=== PATIENT | female | born 1990 | race Caucasian/White ===

== ENCOUNTER 2016-11-23 22:04 | Emergency (ER) | payer MEDICAID ==
[2016-11-23 22:23] VITALS: BP 106/75
--- NOTE | 2016-11-23 22:35 | EDM.PDOC ---
ED HPI GENERAL MEDICAL PROBLEM - General Chief Complaint: Bite:Animal, Insect Stated Complaint: DOG BITE ON RIGHT THUMB Time Seen by Provider: 11/23/16 22:35 - History of Present Illness INITIAL COMMENTS - FREE TEXT/NARRATIVE: 26-year-old female presents to emergency room with an injury to her right thumb. Last evening patient was hit by one of her own dogs that was in an altercation with one of her other dogs. She was bit across the into the right thumb. She has significant discomfort thumb. Pain is progressively gotten worse over time she's had increased swelling no significant redness. Patient denies any fevers or chills Right Hand Pain Score (Numeric/FACES): 8 - Related Data Allergies Allergy/AdvReac Type Severity Reaction Status Date / Time cefixime Allergy Hives Verified 11/23/16 22:18 guaifenesin [From Supress-PE] Allergy Airway Verified 06/17/15 17:04 Tightness ketorolac tromethamine Allergy Itching Verified 11/23/16 22:18 [From Toradol] metoclopramide HCl AdvReac Anxiety Verified 11/23/16 22:18 [From Reglan] prochlorperazine edisylate AdvReac Agitation Verified 11/23/16 22:18 [From Compazine] prochlorperazine maleate AdvReac Agitation Verified 11/23/16 22:18 [From Compazine] NUTS Allergy Airway Uncoded 11/23/16 22:18 Tightness Home Meds: Home Meds Albuterol Sulfate [Albuterol Sulfate HFA] 2 puff IH ASDIRECTED PRN 10/06/13 [ History] Albuterol Sulfate [Ventolin Hfa] 18 gm IH Q4H PRN #1 hfa.aer.ad 04/04/15 [Rx] Fluticasone/Salmeterol [Advair 250-50 Diskus] 1 puff INH BID 05/13/15 [History] Topiramate [Topamax] 50 mg PO BID 06/17/15 [History] Ondansetron [Zofran ODT] 4 mg PO Q6H PRN #15 tab.dis 06/28/15 [Rx] ClonazePAM [KlonoPIN] 1 mg PO BID 11/23/16 [History] Imipramine HCl 50 mg PO BEDTIME 11/23/16 [History] Montelukast [Singulair] 10 mg PO DAILY 11/23/16 [History] Omeprazole 40 mg PO DAILY 11/23/16 [History] PARoxetine HCl [Paxil] 30 mg PO DAILY 11/23/16 [History] Prazosin HCl [Prazosin] 4 mg PO BEDTIME 11/23/16 [History] traZODone 75 mg PO BEDTIME 11/23/16 [History] Amoxicillin/Clavulanate K [Augmentin 875 MG/125 MG] 1 tab PO Q12HR #14 tablet [Rx] Past Medical History - Past Health History Medical/Surgical History: Denies Medical/Surgical History Neurological History: Reports: Migraines Psychiatric History: Reports: Depression Other Endocrine/Metabolic History: Hypothyroidism-hasn't taken medication for a couple years - Past Surgical History Other HEENT Surgeries/Procedures: Sinus surgery GI Surgical History: Reports: Colonoscopy, EGD Female Surgical History: Reports: D&C, Other (See Below) Social & Family History - Tobacco Use Smoking Status *Q: Current Every Day Smoker Years of Tobacco use: 4 Packs/Tins Daily: 1 Used Tobacco, but Quit: No Second Hand Smoke Exposure: No - Alcohol Use Days Per Week of Alcohol Use: 0 - Recreational Drug Use Recreational Drug Use: No Recreational Drug Type: Reports: Other (see below) ED ROS GENERAL - Review of Systems Review Of Systems: See Below Constitutional: Reports: No Symptoms Respiratory: Reports: No Symptoms Cardiovascular: Reports: No Symptoms GI/Abdominal: Reports: No Symptoms ED EXAM, ANIMAL BITE - Physical Exam Exam: See Below Exam Limited By: No Limitations General Appearance: Alert, No Apparent Distress Respiratory/Chest: No Respiratory Distress, Lungs Clear, Normal Breath Sounds Cardiovascular: Regular Rate, Rhythm, No Edema, No Murmur Extremities: Other (Definition of her right thumb reveals no deep puncture wound she's got some abrasions over the dorsum of the interphalangeal joint she was bit across the nail plate and the nail plate feels loose. She has limited range of motion because of the pain. She has some numbness in the finger.) Course - Vital Signs Last Recorded V/S: Last Vital Signs Temp 36.6 C 11/23/16 22:18 Pulse 124 H 11/23/16 22:18 Resp 15 11/23/16 22:18 BP 106/75 11/23/16 22:18 Pulse Ox 100 11/23/16 22:18 - Orders/Labs/Meds Orders: Active Orders 24 hr Category Date Time Status Fingers Thumb Rt F5 [CR] Stat Exams 11/23/16 22:55 Taken Meds: Medications Discontinued Medications Generic Name Dose Route Start Last Admin Trade Name Suyapa PRN Reason Stop Dose Admin Amoxicillin/Clavulanate Potassium 1 tab 11/24/16 00:45 11/24/16 00:50 Augmentin 875 Mg/125 Mg PO 11/24/16 00:46 1 tab ONETIME ONE Administration - Re-Assessments/Exams Free Text/Narrative Re-Assessment/Exam: 11/23/16 23:00 With her limited range of motion we will check an x-ray 11/24/16 01:08 X-ray showed distal phalanx fracture proximal radial margin it looks a lot little peculiar on the palmar aspect so I had V rad look at this. 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 Patient will be placed in a thumb spica splint and will do Don soap and warm water soaks 4 times a day. Departure - Departure Time of Disposition: 01:10 Disposition: Home, Self-Care 01 Clinical Impression: Dog bite of right thumb, Fracture of distal phalanx of right thumb - Discharge Information Referrals: Michi Alcazar MD [Primary Care Provider] - Jh Colin MD [Physician] - Forms: ED Department Discharge Additional Instructions: Return to the emergency room with any questions or problems. Follow-up with Dr. Colin on . You've been started on Augmentin this is an antibiotic take 1 twice daily until all gone your prescription should be waiting for you at [facility]. Keep your hand elevated as much as you can. Do warm water soaks with Radha liquid 4 times daily. Wear the splint all the time unless you're doing soaks. Ibuprofen as needed for discomfort. - My Orders Last 24 Hours: My Active Orders 11/23/16 22:55 Fingers Thumb Rt F5 [CR] Stat - Assessment/Plan Last 24 Hours: My Active Orders 11/23/16 22:55 Fingers Thumb Rt F5 [CR] Stat
[2016-11-24] MEDS ORDERED: Amoxicillin/Clavulanate K 875-125 MG Tab PO ONE (00:45)
--- NOTE | 2016-11-24 09:36 | CR ---
Right thumb: Three views of the right thumb were obtained. Small corner fracture identified within the base of the distal phalanx. Minimal articular extension is seen. No additional fracture or other bony abnormality is seen. Soft tissue swelling is identified. Impression: 1. Nondisplaced corner fracture within the base of the distal phalanx of the right thumb. 2. Soft tissue swelling. Diagnostic code #3 Agree with preliminary report issued by [facility] ([facility] preliminary report dictated on 11/24/16, 1:29 AM Central Time)
== END 2016-11-24 01:18 | disposition home or self-care (01) ==
LOC: JD.ED 22:04
DX: S62.521A Displaced fracture of distal phalanx of right thumb, initial encounter for closed fracture (principal); S61.051A Open bite of right thumb without damage to nail, initial encounter; G43.909 Migraine, unspecified, not intractable, without status migrainosus; F32.9 Major depressive disorder, single episode, unspecified; E03.9 Hypothyroidism, unspecified; F17.210 Nicotine dependence, cigarettes, uncomplicated; Z79.899 Other long term (current) drug therapy; Z88.1 Allergy status to other antibiotic agents; Z88.6 Allergy status to analgesic agent; Z88.8 Allergy status to other drugs, medicaments and biological substances; W54.1XXA Struck by dog, initial encounter; W54.0XXA Bitten by dog, initial encounter
CPT/HCPCS: 29125; 73140; 99283; A9270

== ENCOUNTER 2017-01-28 21:55 | Emergency (ER) | payer MEDICAID ==
[2017-01-28 22:06] VITALS: BP 134/98
--- NOTE | 2017-01-28 22:59 | EDM.PDOC ---
ED HPI GENERAL MEDICAL PROBLEM - General Chief Complaint: Abdominal Pain Stated Complaint: RIGHT SIDE PAIN Time Seen by Provider: 01/28/17 23:11 Source of Information: Reports: Patient History Limitations: Reports: No Limitations - History of Present Illness INITIAL COMMENTS - FREE TEXT/NARRATIVE: 27-year-old female presents to the ED with epigastric right upper quadrant abdominal pain radiating along the right costal margin into the subscapular area on the right side. Associated nausea and vomiting all day today. She been having intermittent similar type pains for the last couple of weeks but much worse the last 48 hours. She's had ultrasound of her gallbladder done 2-3 years ago and no stones were identified. HIDA scan apparently revealed a low value but she never pursued cholecystectomy. And vomiting most of the day and unable to keep down anything for pain relief. Emesis is bilious without bile. States her bowel function is otherwise been normal. She has a history of constipation. Previous surgery includes laparoscopic appendectomy. She also feels she may have a urinary tract infection as she has dysuria and the urine is quite cloudy but not foul smelling. Denies fever but has had some chills. She rarely drinks alcohol. Perhaps once or twice a year. Onset: Today Onset Date: 01/28/17 Onset Time: 07:00 Duration: Hour(s):, Getting Worse Location: Reports: Abdomen (Epigastrium right upper quadrant and then rating around to the right subscapular area.) Quality: Reports: Ache, Pressure, Stabbing Severity: Moderate (To severe at times.) Improves with: Reports: None Worsens with: Reports: Other (Trying to eat she vomits usually within 10 minutes ) Context: Denies: Activity, Exercise, Lifting, Sick Contact, Trauma, Other Associated Symptoms: Reports: Fever/Chills, Loss of Appetite, Malaise, Nausea/ Vomiting. 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) Right Abdominal Pain Score (Numeric/FACES): 8 - Related Data Allergies Allergy/AdvReac Type Severity Reaction Status Date / Time cefixime Allergy Hives Verified 01/28/17 22:03 guaifenesin [From Supress-PE] Allergy Airway Verified 01/28/17 22:03 Tightness ketorolac tromethamine Allergy Itching Verified 01/28/17 22:03 [From Toradol] metoclopramide HCl AdvReac Anxiety Verified 01/28/17 22:03 [From Reglan] prochlorperazine edisylate AdvReac Agitation Verified 01/28/17 22:03 [From Compazine] prochlorperazine maleate AdvReac Agitation Verified 01/28/17 22:03 [From Compazine] NUTS Allergy Airway Uncoded 01/28/17 22:03 Tightness Home Meds: Home Meds Albuterol Sulfate [Albuterol Sulfate HFA] 2 puff IH ASDIRECTED PRN 10/06/13 [ History] Albuterol Sulfate [Ventolin Hfa] 18 gm IH Q4H PRN #1 hfa.aer.ad 04/04/15 [Rx] Fluticasone/Salmeterol [Advair 250-50 Diskus] 1 puff INH BID 05/13/15 [History] Topiramate [Topamax] 50 mg PO BID 06/17/15 [History] Ondansetron [Zofran ODT] 4 mg PO Q6H PRN #15 tab.dis 06/28/15 [Rx] ClonazePAM [KlonoPIN] 0.5 mg PO BID 11/23/16 [History] Imipramine HCl 50 mg PO BEDTIME 11/23/16 [History] Montelukast [Singulair] 10 mg PO DAILY 11/23/16 [History] Omeprazole 40 mg PO DAILY 11/23/16 [History] PARoxetine HCl [Paxil] 20 mg PO DAILY 11/23/16 [History] Prazosin HCl [Prazosin] 4 mg PO BEDTIME 11/23/16 [History] Past Medical History - Past Health History Medical/Surgical History: Denies Medical/Surgical History Neurological History: Reports: Migraines Psychiatric History: Reports: Depression, PTSD Other Endocrine/Metabolic History: Hypothyroidism-hasn't taken medication for a couple years - Past Surgical History Other HEENT Surgeries/Procedures: Sinus surgery GI Surgical History: Reports: Colonoscopy, EGD Female Surgical History: Reports: D&C, Other (See Below) Social & Family History - Tobacco Use Smoking Status *Q: Former Smoker Years of Tobacco use: 8 Packs/Tins Daily: 0.5 Used Tobacco, but Quit: No Month Tobacco Last Used: december Second Hand Smoke Exposure: No - Alcohol Use Days Per Week of Alcohol Use: 0 - Recreational Drug Use Recreational Drug Use: No Recreational Drug Type: Reports: Other (see below) - Living Situation & Occupation Living situation: Reports: Single Occupation: Employed ED ROS GENERAL - Review of Systems Review Of Systems: See Below Constitutional: Reports: Chills, Malaise, Fatigue, Decreased Appetite. Denies: Fever, Diaphoresis, Weight Loss HEENT: Reports: No Symptoms Respiratory: Reports: No Symptoms, Other Cardiovascular: Reports: No Symptoms (Deep breathing hurts her right upper quadrant of the abdomen.) Endocrine: Reports: No Symptoms GI/Abdominal: Reports: Abdominal Pain, Decreased Appetite, Nausea, Vomiting ( Intractable nausea and vomiting 16 hours). Denies: Constipation (See history of present illness), Diarrhea, Difficulty Swallowing, Distension, Flatus, Hematemesis, Hematochezia, Melena, Mucous in Stool : Reports: Other (Urine is noted to be dark and cloudy but not foul-smelling.) Musculoskeletal: Reports: Back Pain (Under her right scapula.) Skin: Reports: No Symptoms Neurological: Reports: No Symptoms Psychiatric: Reports: No Symptoms, Depression (Chronic.) Hematologic/Lymphatic: Reports: No Symptoms Immunologic: Reports: No Symptoms ED EXAM, GI/ABD - Physical Exam Exam: See Below Exam Limited By: No Limitations General Appearance: Alert, WD/WN, No Apparent Distress, Other Eyes: Right: Normal Appearance (Afebrile on exam) Throat/Mouth: Normal Inspection, Normal Lips, Normal Oropharynx, Other Head: Atraumatic, Normocephalic (Tongue is still moist) Neck: Normal Inspection, Supple, Non-Tender, Full Range of Motion. No: Lymphadenopathy (L), Lymphadenopathy (R) Respiratory/Chest: No Respiratory Distress, Lungs Clear, Normal Breath Sounds, No Accessory Muscle Use, Chest Non-Tender Cardiovascular: Normal Peripheral Pulses, Regular Rate, Rhythm, No Edema, No Gallop, No Murmur, No Rub, Tachycardia (Resting tachycardia at 10 4/m.) GI/Abdominal Exam: Tender, Abnormal Bowel Sounds (Mildly decreased from the norm.). No: Guarding, Rigid (Epigastrium a quadrant with a positive Rosado sign. No guarding or rebound.), Rebound Back Exam: CVA Tenderness (R). No: CVA Tenderness (L) (Mild.), Decreased Range of Motion, Muscle Spasm Extremities: Normal Inspection, Normal Range of Motion, Non-Tender, No Pedal Edema Neurological: Alert, Oriented, CN II-XII Intact, Normal Cognition, Normal Gait Psychiatric: Normal Affect, Normal Mood Skin Exam: Warm, Dry, Intact, Normal Color, No Rash Course - Vital Signs Last Recorded V/S: Last Vital Signs Temp 36.4 C 01/28/17 22:03 Pulse 105 H 01/29/17 00:53 Resp 16 01/29/17 00:53 BP 134/98 H 01/28/17 22:03 Pulse Ox 100 01/29/17 00:53 - Orders/Labs/Meds Orders: Active Orders 24 hr Category Date Time Status Abdomen 1V Flat [CR] Stat Exams 01/28/17 23:24 Taken Abdomen Ltd [US] Stat Exams 01/28/17 23:14 Taken Blood Culture x2 Reflex Set [OM.PC] Stat Oth 01/28/17 23:13 Ordered Labs: Laboratory Tests 01/28/17 01/28/17 01/28/17 Range/Units 23:18 23:18 23:32 WBC 9.61 (3.98-10.04) K/mm3 RBC 4.38 (3.98-5.22) M/mm3 Hgb 13.0 (11.2-15.7) gm/L Hct 36.7 (34.1-44.9) % MCV 83.8 (79.4-94.8) fl MCH 29.7 (25.6-32.2) pg MCHC 35.4 (32.2-35.5) g/dl RDW Std Deviation 41.3 (36.4-46.3) fL Plt Count 280 (182-369) K/mm3 MPV 8.9 L (9.4-12.3) fl Neutrophils % (Manual) 60 (40-60) % Band Neutrophils % 0 (0-10) % Lymphocytes % (Manual) 29 (20-40) % Atypical Lymphs % 3 % Monocytes % (Manual) 5 (2-10) % Eosinophils % (Manual) 3 (0.7-5.8) % Basophils % (Manual) 0 L (0.1-1.2) Platelet Estimate Adequate Plt Morphology Comment Normal RBC Morph Comment Normal Sodium (136-145) mEq/L Potassium (3.5-5.1) mEq/L Chloride (98-107) mEq/L Carbon Dioxide (21-32) mEq/L Anion Gap (5-15) BUN (7-18) mg/dL Creatinine (0.55-1.02) mg/dL Est Cr Clr Drug Dosing mL/min Estimated GFR (MDRD) (>60) mL/min BUN/Creatinine Ratio (14-18) Glucose (74-106) mg/dL Calcium (8.5-10.1) mg/dL Total Bilirubin (0.2-1.0) mg/dL AST (15-37) U/L ALT (14-59) U/L Alkaline Phosphatase (46-116) U/L C-Reactive Protein (<1.0) mg/dL Total Protein (6.4-8.2) g/dl Albumin (3.4-5.0) g/dl Globulin gm/dL Albumin/Globulin Ratio (1-2) Lipase (73-393) U/L Urine Color Yellow (Yellow) Urine Appearance Clear (Clear) Urine pH 8.5 H (5.0-8.0) Ur Specific Fithian 1.020 (1.005-1.030) Urine Protein Trace H (Negative) Urine Glucose (UA) Negative (Negative) Urine Ketones Negative (Negative) Urine Occult Blood Negative (Negative) Urine Nitrite Negative (Negative) Urine Bilirubin Negative (Negative) Urine Urobilinogen 0.2 (0.2-1.0) Ur Leukocyte Esterase Negative (Negative) Urine RBC 0-5 (0-5) /hpf Urine WBC 0-5 (0-5) /hpf Ur Epithelial Cells 0-5 (0-5) /hpf Urine Bacteria Rare (FEW) /hpf Urine Mucus Few (FEW) /hpf Urine HCG, Qual Negative (NEGATIVE) 01/28/17 Range/Units 23:32 WBC (3.98-10.04) K/mm3 RBC (3.98-5.22) M/mm3 Hgb (11.2-15.7) gm/L Hct (34.1-44.9) % MCV (79.4-94.8) fl MCH (25.6-32.2) pg MCHC (32.2-35.5) g/dl RDW Std Deviation (36.4-46.3) fL Plt Count (182-369) K/mm3 MPV (9.4-12.3) fl Neutrophils % (Manual) (40-60) % Band Neutrophils % (0-10) % Lymphocytes % (Manual) (20-40) % Atypical Lymphs % % Monocytes % (Manual) (2-10) % Eosinophils % (Manual) (0.7-5.8) % Basophils % (Manual) (0.1-1.2) Platelet Estimate Plt Morphology Comment RBC Morph Comment Sodium 140 (136-145) mEq/L Potassium 3.7 (3.5-5.1) mEq/L Chloride 106 (98-107) mEq/L Carbon Dioxide 23 (21-32) mEq/L Anion Gap 14.7 (5-15) BUN 13 (7-18) mg/dL Creatinine 1.0 (0.55-1.02) mg/dL Est Cr Clr Drug Dosing 64.33 mL/min Estimated GFR (MDRD) > 60 (>60) mL/min BUN/Creatinine Ratio 13.0 L (14-18) Glucose 101 (74-106) mg/dL Calcium 9.2 (8.5-10.1) mg/dL Total Bilirubin 0.7 (0.2-1.0) mg/dL AST 21 (15-37) U/L ALT 30 (14-59) U/L Alkaline Phosphatase 50 (46-116) U/L C-Reactive Protein < 0.2 (<1.0) mg/dL Total Protein 7.4 (6.4-8.2) g/dl Albumin 4.1 (3.4-5.0) g/dl Globulin 3.3 gm/dL Albumin/Globulin Ratio 1.2 (1-2) Lipase 97 (73-393) U/L Urine Color (Yellow) Urine Appearance (Clear) Urine pH (5.0-8.0) Ur Specific Fithian (1.005-1.030) Urine Protein (Negative) Urine Glucose (UA) (Negative) Urine Ketones (Negative) Urine Occult Blood (Negative) Urine Nitrite (Negative) Urine Bilirubin (Negative) Urine Urobilinogen (0.2-1.0) Ur Leukocyte Esterase (Negative) Urine RBC (0-5) /hpf Urine WBC (0-5) /hpf Ur Epithelial Cells (0-5) /hpf Urine Bacteria (FEW) /hpf Urine Mucus (FEW) /hpf Urine HCG, Qual (NEGATIVE) Meds: Medications Discontinued Medications Generic Name Dose Route Start Last Admin Trade Name Suyapa PRN Reason Stop Dose Admin Hydromorphone HCl 0.5 mg 01/28/17 23:12 01/28/17 23:26 Dilaudid IVPUSH 01/28/17 23:13 0.5 mg ONETIME ONE Administration Hydromorphone HCl 0.5 mg 01/29/17 00:26 01/29/17 00:38 Dilaudid IVPUSH 01/29/17 00:27 0.5 mg ONETIME ONE Administration Dextrose/Sodium Chloride 1,000 mls @ 999 mls/hr 01/28/17 23:15 01/28/17 23:27 Dextrose 5%-Normal Saline IV 999 mls/hr ASDIRECTED BRYAN Administration Magnesium Citrate 300 ml 01/29/17 00:44 01/29/17 00:50 Citrate Of Magnesia PO 01/29/17 00:45 300 ml ONETIME ONE Administration Ondansetron HCl 4 mg 01/28/17 23:12 01/28/17 23:25 Zofran IVPUSH 01/28/17 23:13 4 mg ONETIME ONE Administration - Radiology Interpretation Free Text/Narrative:: 27-year-old female presents to the ED with diffuse epigastric right upper quadrant abdominal pain that's been present all day today. She awoke with this this morning. She's been having intermittent similar type pain for the last couple of weeks suggestive of biliary colic. Unable to keep anything down to day. Emesis is been bilious. She's had previous ultrasounds but 2-3 years ago that never did diagnose a cholelithiasis. Biliary HIDA scan did suggest a low rate of flow but she opted not to have cholecystectomy. Exam reveals tenderness epigastric right upper quadrant with a positive Rosado's sign which is mild. I' ll sounds are few and far between. No guarding or evidence of peritonitis. Plan IV D5 normal saline at open. Given Dilaudid 0.5 mg IV with Zofran 4 mg IV for nausea and pain relief. One view of the abdomen will be obtained as well as an ultrasound of her gallbladder. T labs including a serum lipase and CRP. - Re-Assessments/Exams Free Text/Narrative Re-Assessment/Exam: 01/29/17 00:29 labs are back. Total white count of 9.61 hemoglobin of 13.0 hematocrit of 36.7 platelets 280,000. Urinalysis normal or negative. Sodium 140 potassium 3.7 portable 6 bicarbonate 23 and a gap is 14.7 glucose 101 CRP was less than 0.2 lipase 97. She has completed her abdominal gallbladder ultrasound. Radiology report is pending. She is having more pain at this time and was given repeat Dilaudid 0.5 mg IV. 01/29/17 00:32 gallbladder ultrasound has been completed in my assessment there are no stones within the gallbladder and no extra hepatic hepatic ductal dilatation. KUB reveals extensive stool throughout the left hemicolon and rectum. There is also large amount of air or gas and stool in the right upper quadrant of the abdomen where her pain is present. She will be treated with Citroma 10 ounces by mouth mixed with 5 ounces of juice of choice provide bowel cleanse. Departure - Departure Time of Disposition: 00:45 Disposition: Home, Self-Care 01 Condition: Fair Clinical Impression: Constipation by delayed colonic transit Abdominal pain Qualifiers: Abdominal location: right upper quadrant Qualified Code(s): R10.11 - Right upper quadrant pain - Discharge Information Instructions: Constipation, Adult, [id number] Referrals: Michi Alcazar MD [Primary Care Provider] - Forms: ED Department Discharge Additional Instructions: Evaluation in the emergency room tonight carried out due to persistent right upper quadrant abdominal pain radiating through to her back under her shoulder blade suggestive of allergic colic or gallbladder related illness. Lab work turned out to be completely normal with a normal white count at 9.61 normal hemoglobin and normal chemistry with no evidence of liver or pancreas inflammation. Markers for infection were also normal. Urinalysis also proved to be negative for any signs of infection. An x-ray of your abdomen revealed a large bowel gas and stool in the right upper quadrant pushing the right diaphragm upwards which I believe is the cause of your pain. It did reveal a large amount of stool throughout the left hemicolon all the way down into the rectal vault. Therefore the major problem is constipation with strong colicky pain with the gas trying to get from the right upper quadrant through to the rectum. An ultrasound of your gallbladder and liver and kidney were carried out and are completely normal. Treatment is therefore Citroma 10 ounces by mouth when you get home tonight with 5-6 ounces of juice of choice by mouth. This will usually take 3-4 hours to work because of the medication he received in the emergency room for pain relief. Bowels will usually move 3 or 4 times over the next 8 hours. This should provide relief of your abdominal pain. Several of your medications are prone to causing your bowel to work slowly. I would suggest staying on MiraLAX powder 17 g or 1 scoop daily to try and prevent constipation which is been a chronic problem for you. - My Orders Last 24 Hours: My Active Orders 01/28/17 23:13 Blood Culture x2 Reflex Set [OM.PC] Stat 01/28/17 23:14 Abdomen Ltd [US] Stat 01/28/17 23:24 Abdomen 1V Flat [CR] Stat - Assessment/Plan Last 24 Hours: My Active Orders 01/28/17 23:13 Blood Culture x2 Reflex Set [OM.PC] Stat 01/28/17 23:14 Abdomen Ltd [US] Stat 01/28/17 23:24 Abdomen 1V Flat [CR] Stat
[2017-01-28] MEDS ORDERED: HYDROmorphone 0.5 MG/0.5 ML Syringe IVPUSH ONE (23:12)
[2017-01-28] MEDS ORDERED: Ondansetron 4 MG/2 ML SDV IVPUSH ONE (23:12)
[2017-01-28] MEDS ORDERED: Dextrose 5%-0.9% NaCl 1,000 ML IV SCH (23:15)
[2017-01-29] MEDS ORDERED: HYDROmorphone 0.5 MG/0.5 ML Syringe IVPUSH ONE (00:26)
[2017-01-29] MEDS ORDERED: Magnesium Citrate Solution 296 ML Bottle PO ONE (00:44)
--- NOTE | 2017-01-29 07:25 | CR ---
Abdomen: Supine view of the abdomen was obtained. Comparison: Previous abdominal x-ray of 05/21/13. Mild increased stool is noted within the colon. Bowel gas pattern is otherwise unremarkable. Bony structures are within normal limits for the patient's age. No abnormal calcifications or soft tissue abnormality is seen. Impression: 1. Mild increased stool within the colon. Supine abdominal x-ray is otherwise unremarkable. Diagnostic code #2
--- NOTE | 2017-01-29 07:25 | US ---
Limited abdominal ultrasound: Multiple real-time images were obtained transabdominally. Comparison: Previous right upper quadrant abdominal ultrasound of 02/25/12 is available. Findings: Pancreas appears within normal limits. Liver shows no focal parenchymal abnormality. Gallbladder shows no gallstones. No gallbladder wall thickening or biliary duct dilatation is seen. Right kidney shows no hydronephrosis or mass and has a length of 9.4 cm. Impression: 1. No abnormality identified on right upper quadrant abdominal ultrasound. No change identified from prior exam. Diagnostic code #1 Agree with preliminary report issued by [facility] ([facility] preliminary report dictated on 01/29/17, 1:34 AM Central Time)
== END 2017-01-29 00:55 | disposition home or self-care (01) ==
LOC: JD.ED 21:55
DX: K59.01 Slow transit constipation (principal); G43.909 Migraine, unspecified, not intractable, without status migrainosus; F43.10 Post-traumatic stress disorder, unspecified; E03.9 Hypothyroidism, unspecified; Z98.890 Other specified postprocedural states; Z87.890 Personal history of sex reassignment; Z88.1 Allergy status to other antibiotic agents; Z88.6 Allergy status to analgesic agent; Z88.8 Allergy status to other drugs, medicaments and biological substances; Z91.018 Allergy to other foods; Z79.899 Other long term (current) drug therapy
CPT/HCPCS: 36415; 74000; 76705; 80053; 81001; 81025; 83690; 85025; 86140; 96361; 96374; 96375; 96376; 99285; A9270; J1170; J2405; J7042; 99284

== ENCOUNTER 2017-04-19 22:53 | Emergency (ER) | payer MEDICAID ==
[2017-04-19 23:08] VITALS: BP 121/86
--- NOTE | 2017-04-19 23:20 | EDM.PDOC ---
ED HPI GENERAL MEDICAL PROBLEM - General Chief Complaint: RIB SAWYER Problem Stated Complaint: OVARY PAIN Time Seen by Provider: 04/20/17 00:00 Source of Information: Reports: Patient, Family (mother) History Limitations: Reports: No Limitations - History of Present Illness INITIAL COMMENTS - FREE TEXT/NARRATIVE: 27-year-old female presents to the ED with right lower quadrant abdominal pain for the last 5 days that has been identified to be suspect cause for a ruptured right ovarian cyst she has a history of polycystic ovarian disease. Problem is been pain management. For tramadol was tried initially did not help. Observe for her dysmenorrhea. She was seen by provider yesterday morning and given hydrocodone tablets which she is followed ineffectual in controlling her pain. She states she's walking hunched over like an old lady. Bowel function she reports has been normal. She's had previous appendectomy. I did a urinalysis while in the department and it was negative for any signs of infection or blood to suggest renal stone. 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) (Hydrocodone and tramadol the last few days without much relief.) Right Lower Abdominal Pain Score (Numeric/FACES): 10 - Related Data Allergies Allergy/AdvReac Type Severity Reaction Status Date / Time cefixime Allergy Hives Verified 04/19/17 23:08 guaifenesin [From Supress-PE] Allergy Airway Verified 04/19/17 23:08 Tightness ketorolac tromethamine Allergy Itching Verified 04/19/17 23:08 [From Toradol] metoclopramide HCl AdvReac Anxiety Verified 04/19/17 23:08 [From Reglan] prochlorperazine edisylate AdvReac Agitation Verified 04/19/17 23:08 [From Compazine] prochlorperazine maleate AdvReac Agitation Verified 04/19/17 23:08 [From Compazine] NUTS Allergy Airway Uncoded 04/19/17 23:08 Tightness Home Meds: Home Meds Albuterol Sulfate [Ventolin Hfa] 18 gm IH Q4H PRN #1 hfa.aer.ad 04/04/15 [Rx] Fluticasone/Salmeterol [Advair 250-50 Diskus] 1 puff INH BID 05/13/15 [History] Ondansetron [Zofran ODT] 4 mg PO Q6H PRN #15 tab.dis 06/28/15 [Rx] Imipramine HCl 50 mg PO BEDTIME 11/23/16 [History] Montelukast [Singulair] 10 mg PO DAILY 11/23/16 [History] Omeprazole 40 mg PO DAILY 11/23/16 [History] Prazosin HCl [Prazosin] 5 mg PO BEDTIME 11/23/16 [History] oxyCODONE HCl/Acetaminophen [Percocet 5-325 mg Tablet] 1 - 2 each PO Q4H PRN # 16 tablet 04/20/17 [Rx] Past Medical History - Past Health History Medical/Surgical History: Denies Medical/Surgical History Respiratory History: Reports: Asthma Gastrointestinal History: Reports: GERD Neurological History: Reports: Migraines Psychiatric History: Reports: Anxiety, Depression, PTSD Other Endocrine/Metabolic History: Hypothyroidism-hasn't taken medication for a couple years - Past Surgical History HEENT Surgical History: Reports: Adenoidectomy, Tonsillectomy Other HEENT Surgeries/Procedures: Sinus surgery GI Surgical History: Reports: Colonoscopy, EGD Female Surgical History: Reports: D&C, Other (See Below) Social & Family History - Family History Family Medical History: Noncontributory - Tobacco Use Smoking Status *Q: Never Smoker Years of Tobacco use: 8 Packs/Tins Daily: 0.5 Used Tobacco, but Quit: No Month Tobacco Last Used: december Second Hand Smoke Exposure: No - Alcohol Use Days Per Week of Alcohol Use: 0 - Recreational Drug Use Recreational Drug Use: No Recreational Drug Type: Reports: Other (see below) - Living Situation & Occupation Living situation: Reports: Single Occupation: Employed ED ROS GENERAL - Review of Systems Review Of Systems: See Below Constitutional: Denies: Fever, Chills, Malaise, Weakness, Fatigue, Decreased Appetite, Weight Loss HEENT: Reports: No Symptoms Respiratory: Reports: No Symptoms Cardiovascular: Reports: No Symptoms Endocrine: Reports: No Symptoms GI/Abdominal: Reports: Abdominal Pain (Right lower quadrant of the abdomen. See history of present illness). Denies: Constipation, Distension, Flatus, Hematemesis, Hematochezia, Melena, Nausea, Stool Incontinence, Vomiting : Reports: Frequency Musculoskeletal: Reports: No Symptoms Skin: Reports: No Symptoms Neurological: Reports: No Symptoms ED EXAM, GI/ABD - Physical Exam Exam: See Below Exam Limited By: No Limitations General Appearance: Alert, WD/WN, Mild Distress Eyes: Bilateral: Normal Appearance (No jaundice.) Respiratory/Chest: No Respiratory Distress, Lungs Clear, Normal Breath Sounds, No Accessory Muscle Use Cardiovascular: Normal Peripheral Pulses, Regular Rate, Rhythm, No Edema, No Gallop, No Murmur, No Rub GI/Abdominal Exam: Normal Bowel Sounds, Soft, Tender (Tenderness in the right lower quadrant with guarding.). No: Guarding, Rigid, Rebound, Hernia Back Exam: CVA Tenderness (R), Decreased Range of Motion. No: CVA Tenderness (L ) (Mild right costovertebral angle tenderness) Extremities: Normal Inspection, Normal Range of Motion, Non-Tender, No Pedal Edema Neurological: Alert, Oriented, CN II-XII Intact, Normal Cognition, Normal Gait Psychiatric: Normal Affect, Normal Mood Skin Exam: Warm, Dry, Intact, Normal Color, No Rash Course - Vital Signs Last Recorded V/S: Last Vital Signs Temp 36.3 C 04/19/17 23:04 Pulse 128 H 04/19/17 23:04 Resp 16 04/19/17 23:04 BP 121/86 04/19/17 23:04 Pulse Ox 100 04/19/17 23:04 - Orders/Labs/Meds Labs: Laboratory Tests 04/19/17 Range/Units 23:31 Urine Color Yellow (Yellow) Urine Appearance Clear (Clear) Urine pH 6.0 (5.0-8.0) Ur Specific [place] 1.015 (1.005-1.030) Urine Protein Negative (Negative) Urine Glucose (UA) Negative (Negative) Urine Ketones Negative (Negative) Urine Occult Blood Negative (Negative) Urine Nitrite Negative (Negative) Urine Bilirubin Negative (Negative) Urine Urobilinogen 0.2 (0.2-1.0) Ur Leukocyte Esterase Negative (Negative) Urine RBC Not seen (0-5) /hpf Urine WBC Not seen (0-5) /hpf Ur Epithelial Cells 0-5 (0-5) /hpf Urine Bacteria Not seen (FEW) /hpf Urine Mucus Not seen (FEW) /hpf Meds: Medications Discontinued Medications Generic Name Dose Route Start Last Admin Trade Name Suyapa PRN Reason Stop Dose Admin Hydromorphone HCl 1.5 mg 04/20/17 00:00 04/20/17 00:19 Dilaudid IM 04/20/17 00:01 1.5 mg ONETIME ONE Administration Hydromorphone HCl Confirm 04/20/17 00:16 04/20/17 00:17 Dilaudid Administered 04/20/17 00:17 Not Given Dose 1 mg .ROUTE .STK-MED ONE Promethazine HCl 25 mg 04/20/17 00:00 04/20/17 00:18 Phenergan IM 04/20/17 00:01 25 mg ONETIME ONE Administration - Radiology Interpretation Free Text/Narrative:: 27-year-old female presents to the ED with persistent right lower quadrant abdominal pain which is presumed to be due to right ovarian cyst secondary to polycystic ovarian disease. Recent ultrasound confirmed 2 cysts one had thought to be have ruptured causing her current pain syndrome. The started April 15 last and is been rather persistent. But all and hydrocodone without much relief. Examination reveals tenderness at McBurney's point and right lower quadrant of the abdomen. She reports she has had a previous appendectomy. Otherwise the abdomen is benign. I do not sense that she hadn't of pain toward further ultrasound to suggest torsion problem etc. Treated with intramuscular injection of Dilaudid 1.5 mg with Phenergan 25 mg for acute pain and nausea relief. Switched her pain pills to Percocet 5/3/25 milligram tablets one or 2 every 4-6 hours for pain management type XVI tablets. She should be better for the neyda be ruptured ovarian cyst within the next 48 hours if not she needs to be seen again with a plan to reimage the abdomen/ rt.adnexa. Departure - Departure Time of Disposition: 00:35 Disposition: Home, Self-Care 01 Condition: Fair Clinical Impression: Abdominal pain Qualifiers: Abdominal location: right upper quadrant Qualified Code(s): R10.11 - Right upper quadrant pain - Discharge Information Prescriptions: oxyCODONE HCl/Acetaminophen [Percocet 5-325 mg Tablet] 1 - 2 each PO Q4H PRN # 16 tablet PRN Reason: pain relief. Instructions: Abdominal Pain, Adult, [id number] Referrals: Michi Alcazar MD [Primary Care Provider] - Forms: ED Department Discharge Additional Instructions: Evaluation the emergency room tonight in regards to persistent right lower quadrant abdominal pain that started last . Ultrasound documents to cysts and some free fluid suggesting a cyst has ruptured. By history of a history of polycystic ovarian disease. Not improved with tramadol or hydrocodone tablets orally. Urinalysis tonight is negative. Abdominal examination reveals tenderness in the right lower quadrant and history suggests previous appendectomy has occurred. Therefore your [place] treated with an IM injection of Dilaudid and Phenergan for pain relief. I changed her prescription to Percocet 5/3/25 milligram tablets that she could utilize tomorrow or the next day for pain relief. Pain from an ovarian cyst usually settles over a period of 4-5 days. You're not markedly improved in the next 48 hours you should be seen by provider again.
[2017-04-20] MEDS ORDERED: Promethazine 25 MG/ML SDV IM ONE
[2017-04-20] MEDS ORDERED: HYDROmorphone 1 MG/ML Syringe IM ONE
[2017-04-20] MEDS ORDERED: HYDROmorphone 1 MG/ML Syringe ONE (00:16)
== END 2017-04-20 00:45 | disposition home or self-care (01) ==
LOC: JD.ED 22:53
DX: R10.11 Right upper quadrant pain (principal); R10.31 Right lower quadrant pain; J45.909 Unspecified asthma, uncomplicated; K21.9 Gastro-esophageal reflux disease without esophagitis; F32.9 Major depressive disorder, single episode, unspecified; E03.9 Hypothyroidism, unspecified; Z79.899 Other long term (current) drug therapy; Z88.1 Allergy status to other antibiotic agents; Z88.6 Allergy status to analgesic agent; Z88.8 Allergy status to other drugs, medicaments and biological substances; Z91.018 Allergy to other foods; Z90.49 Acquired absence of other specified parts of digestive tract
CPT/HCPCS: 81001; 96372; 99284; J1170; J2550; 99283

== ENCOUNTER 2017-05-11 16:14 | Emergency (ER) | payer MEDICAID ==
[2017-05-11 16:29] VITALS: BP 124/99
--- NOTE | 2017-05-11 17:42 | EDM.PDOC ---
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 Patient reports that she first developed pain beginning of April. She was seen at the [facility] and had an ultrasound done. Diagnosed with 2 right sided ovarian cysts. Since then she has followed up with her primary care provider, Dr. Zafar, she was also seen in the ER on 04-20-17. Patient reports she was initially prescribed Ultram which did not help with the pain. She was then given [place] which also did not help with the pain. She is now been prescribed Percocet twice this month which has helped with the pain somewhat. She is now out of Percocet. She reports that she has been having nausea and dry heaves for the last few days. She states that she has now been developing temperatures of 101.5 at night. No diarrhea, constipation, melena or hematochezia. No dysuria or hematuria. initally only had pain on the right side, now reports pain on both right and left sides. Reports her last answer period was 2 weeks ago. She denies any chance of and states she has not been sexually active in the last year. Patient reports that she is been diagnosed with PCOS. She states for the last 9 years she has been having ovarian pain. Patient reports that she is scheduled to see Dr. Pitts on June 01. Past surgical history includes an appendectomy. 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 Pelvic Pain Score (Numeric/FACES): 9 - Related Data Allergies Allergy/AdvReac Type Severity Reaction Status Date / Time cefixime Allergy Hives Verified 05/11/17 16:22 ketorolac tromethamine Allergy Itching Verified 05/11/17 16:22 [From Toradol] metoclopramide HCl AdvReac Anxiety Verified 05/11/17 16:22 [From Reglan] prochlorperazine edisylate AdvReac Agitation Verified 05/11/17 16:22 [From Compazine] prochlorperazine maleate AdvReac Agitation Verified 05/11/17 16:22 [From Compazine] NUTS Allergy Airway Uncoded 05/11/17 16:22 Tightness Home Meds: Home Meds Albuterol Sulfate [Ventolin Hfa] 18 gm IH Q4H PRN #1 hfa.aer.ad 04/04/15 [Rx] Fluticasone/Salmeterol [Advair 250-50 Diskus] 1 puff INH BID 05/13/15 [History] Ondansetron [Zofran ODT] 4 mg PO Q6H PRN #15 tab.dis 06/28/15 [Rx] Imipramine HCl 50 mg PO BEDTIME 11/23/16 [History] Montelukast [Singulair] 10 mg PO DAILY 11/23/16 [History] Omeprazole 40 mg PO DAILY 11/23/16 [History] Prazosin HCl [Prazosin] 5 mg PO BEDTIME 11/23/16 [History] Past Medical History - Past Health History Medical/Surgical History: Denies Medical/Surgical History Respiratory History: Reports: Asthma Gastrointestinal History: Reports: GERD 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 (See Below) Other OB/BYN History: ovarian cysts on right ovary Neurological History: Reports: Migraines Psychiatric History: Reports: Anxiety, Depression, PTSD Other Endocrine/Metabolic History: Hypothyroidism-hasn't taken medication for a couple years - Past Surgical History HEENT Surgical History: Reports: Adenoidectomy, Tonsillectomy Other HEENT Surgeries/Procedures: Sinus surgery GI Surgical History: Reports: Colonoscopy, EGD Female Surgical History: Reports: D&C, Other (See Below) Social & Family History - Family History Family Medical History: Noncontributory - Tobacco Use Smoking Status *Q: Former Smoker Years of Tobacco use: 8 Packs/Tins Daily: 0.5 Used Tobacco, but Quit: Yes Month Tobacco Last Used: December 2016 Second Hand Smoke Exposure: No - Caffeine Use Caffeine Use: Reports: Coffee - Alcohol Use Days Per Week of Alcohol Use: 0 - Recreational Drug Use Recreational Drug Use: No Recreational Drug Type: Reports: Other (see below) - Living Situation & Occupation Living situation: Reports: Single Occupation: Employed ED ROS GENERAL - Review of Systems Review Of Systems: See Below Constitutional: Reports: Fever (reports temperatures of 101.5 at night) GI/Abdominal: Reports: Abdominal Pain (RLQ and LLQ/pelvic pain), Nausea, Vomiting (reports dry heaves). Denies: Constipation, Diarrhea, Hematochezia, Melena : Denies: Discharge, Dysuria ED EXAM, GI/ABD - Physical Exam Exam: See Below Exam Limited By: No Limitations General Appearance: Alert, WD/WN, No Apparent Distress Eyes: Bilateral: Normal Appearance Ears: Normal External Exam Nose: Normal Inspection Throat/Mouth: Normal Inspection, Normal Voice, No Airway Compromise Respiratory/Chest: No Respiratory Distress, Lungs Clear, Normal Breath Sounds Cardiovascular: Normal Peripheral Pulses, Regular Rate, Rhythm, No Murmur GI/Abdominal Exam: Normal Bowel Sounds, Soft, Tender (identifies pain in the RLQ ). No: Guarding, Rigid, Rebound (Female) Exam: Normal External Exam, Normal Speculum Exam, Normal Bimanual Exam Neurological: Alert, Oriented, Normal Cognition Psychiatric: Flat Affect Skin Exam: Warm, Dry, Normal Color Course - Vital Signs Last Recorded V/S: Last Vital Signs Temp 36.7 C 05/11/17 16:25 Pulse 115 H 05/11/17 16:25 Resp 18 05/11/17 16:25 BP 124/99 H 05/11/17 16:25 Pulse Ox 99 05/11/17 16:25 - Orders/Labs/Meds Orders: Active Orders 24 hr Category Date Time Status Transvaginal Non OB [US] Stat Exams 05/11/17 16:52 Ordered WET PREP [MYC] Stat Lab 05/11/17 18:53 Uncollected Labs: Laboratory Tests 05/11/17 05/11/17 05/11/17 Range/Units 17:09 17:50 17:50 WBC 7.13 (3.98-10.04) K/mm3 RBC 4.08 (3.98-5.22) M/mm3 Hgb 11.9 (11.2-15.7) gm/L Hct 34.4 (34.1-44.9) % MCV 84.3 (79.4-94.8) fl MCH 29.2 (25.6-32.2) pg MCHC 34.6 (32.2-35.5) g/dl RDW Std Deviation 37.7 (36.4-46.3) fL Plt Count 302 (182-369) K/mm3 MPV 8.7 L (9.4-12.3) fl Neutrophils % (Manual) 61 H (40-60) % Band Neutrophils % 0 (0-10) % Lymphocytes % (Manual) 23 (20-40) % Atypical Lymphs % 2 % Monocytes % (Manual) 6 (2-10) % Eosinophils % (Manual) 5 (0.7-5.8) % Basophils % (Manual) 3 H (0.1-1.2) Platelet Estimate Adequate Plt Morphology Comment Normal RBC Morph Comment Normal Sodium 141 (136-145) mEq/L Potassium 3.7 (3.5-5.1) mEq/L Chloride 106 (98-107) mEq/L Carbon Dioxide 21 (21-32) mEq/L Anion Gap 17.7 H (5-15) BUN 11 (7-18) mg/dL Creatinine 0.8 (0.55-1.02) mg/dL Est Cr Clr Drug Dosing 80.41 mL/min Estimated GFR (MDRD) > 60 (>60) mL/min BUN/Creatinine Ratio 13.8 L (14-18) Glucose 91 (74-106) mg/dL Calcium 8.8 (8.5-10.1) mg/dL Total Bilirubin 0.4 (0.2-1.0) mg/dL AST 18 (15-37) U/L ALT 25 (14-59) U/L Alkaline Phosphatase 56 (46-116) U/L C-Reactive Protein < 0.2 (<1.0) mg/dL Total Protein 7.6 (6.4-8.2) g/dl Albumin 4.0 (3.4-5.0) g/dl Globulin 3.6 gm/dL Albumin/Globulin Ratio 1.1 (1-2) HCG, Qual (NEGATIVE) Urine Color Yellow (Yellow) Urine Appearance Clear (Clear) Urine pH 6.5 (5.0-8.0) Ur Specific [place] 1.025 (1.005-1.030) Urine Protein Negative (Negative) Urine Glucose (UA) Negative (Negative) Urine Ketones Negative (Negative) Urine Occult Blood Negative (Negative) Urine Nitrite Negative (Negative) Urine Bilirubin Negative (Negative) Urine Urobilinogen 0.2 (0.2-1.0) Ur Leukocyte Esterase Negative (Negative) Urine RBC 0-5 (0-5) /hpf Urine WBC 0-5 (0-5) /hpf Ur Epithelial Cells 0-5 (0-5) /hpf Urine Bacteria Few (FEW) /hpf Urine Mucus Moderate H (FEW) /hpf 05/11/ Range/Units 17:50 WBC (3.98-10.04) K/mm3 RBC (3.98-5.22) M/mm3 Hgb (11.2-15.7) gm/L Hct (34.1-44.9) % MCV (79.4-94.8) fl MCH (25.6-32.2) pg MCHC (32.2-35.5) g/dl RDW Std Deviation (36.4-46.3) fL Plt Count (182-369) K/mm3 MPV (9.4-12.3) fl Neutrophils % (Manual) (40-60) % Band Neutrophils % (0-10) % Lymphocytes % (Manual) (20-40) % Atypical Lymphs % % Monocytes % (Manual) (2-10) % Eosinophils % (Manual) (0.7-5.8) % Basophils % (Manual) (0.1-1.2) Platelet Estimate Plt Morphology Comment RBC Morph Comment Sodium (136-145) mEq/L Potassium (3.5-5.1) mEq/L Chloride (98-107) mEq/L Carbon Dioxide (21-32) mEq/L Anion Gap (5-15) BUN (7-18) mg/dL Creatinine (0.55-1.02) mg/dL Est Cr Clr Drug Dosing mL/min Estimated GFR (MDRD) (>60) mL/min BUN/Creatinine Ratio (14-18) Glucose (74-106) mg/dL Calcium (8.5-10.1) mg/dL Total Bilirubin (0.2-1.0) mg/dL AST (15-37) U/L ALT (14-59) U/L Alkaline Phosphatase (46-116) U/L C-Reactive Protein (<1.0) mg/dL Total Protein (6.4-8.2) g/dl Albumin (3.4-5.0) g/dl Globulin gm/dL Albumin/Globulin Ratio (1-2) HCG, Qual Negative (NEGATIVE) Urine Color (Yellow) Urine Appearance (Clear) Urine pH (5.0-8.0) Ur Specific [place] (1.005-1.030) Urine Protein (Negative) Urine Glucose (UA) (Negative) Urine Ketones (Negative) Urine Occult Blood (Negative) Urine Nitrite (Negative) Urine Bilirubin (Negative) Urine Urobilinogen (0.2-1.0) Ur Leukocyte Esterase (Negative) Urine RBC (0-5) /hpf Urine WBC (0-5) /hpf Ur Epithelial Cells (0-5) /hpf Urine Bacteria (FEW) /hpf Urine Mucus (FEW) /hpf - Radiology Interpretation Free Text/Narrative:: transvaginal ultrasound impression per [facility]: small amount of free fluid in the pelvis. simple cyst in the right ovary meausing 1.8 x 1.8 x 1.4 cm. incidental nonacute findings. CT Results Date: 05/11/17 - Re-Assessments/Exams Free Text/Narrative Re-Assessment/Exam: 05/11/17 19:23 Patient was searched on the [place] prescription drug registry. She has received 14 prescriptions from 4 different prescribers within the last year for controlled substances. Most recently she received 20 Percocet 5-325 on 04-30-17. I spoke with the patient's primary care provider, Dr. Zafar, regarding this patient. He states that he did see her earlier this month and referred her to Dr. Reynolds. He is seen in the past mostly for psychiatric problems. She has never been one to frequently asked for pain medication. We were able to obtain the transvaginal ultrasound impression from [place]. 2 dominant cysts involving the right ovary, measuring approximately 2.4 and 1.4 cm in the largest dimensions. Patient's labs have returned. Her ultrasound has returned. I spoke with Dr. Reynolds regarding this patient. She recommended doing a pelvic exam to further evaluate her pain. She did not feel that a cyst of the size would cause her abdominal pain. Patient agrees to the pelvic exam. Declines GC/ chlamydia testing. Will preform a wet prep, reports she has had BV in the past. I Was able to perform a pelvic exam. She reported tenderness the right lower quadrant with external palpation of the right pelvis. Intravaginal manipulation did not cause pain. I discussed with this patient her disposition. I feel She is possibly drug- seeking. I informed her that given the chronic nature of her pain I am unable to provide her medication through the ER. She feels that it is her ovary causing the discomfort. I informed her that Dr. Reynolds was more than willing to see her earlier. We will discharge her home at this time. Discharge instructions documented. Departure - Departure Time of Disposition: 19:19 Disposition: Home, Self-Care 01 Condition: Good Clinical Impression: Abdominal pain Qualifiers: Abdominal location: right upper quadrant Qualified Code(s): R10.11 - Right upper quadrant pain - Discharge Information Instructions: Abdominal Pain, Adult, [id number] Referrals: Michi Alcazar MD [Primary Care Provider] - Hannah Reynolds MD [Physician] - Forms: ED Department Discharge Additional Instructions: Call [facility] tomorrow to see due to see Dr. Reynolds earlier. Call to schedule Dr. Reynolds next week. [id number] ibuprofen or Tylenol as needed for pain. Take you nausea medication you have at home for nausea. Unfortunately, we are unable to refill narcotic medications for chronic pain in the ER. 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 Please return to ER if your symptoms change or worsen. - My Orders Last 24 Hours: My Active Orders 05/11/17 16:52 Transvaginal Non OB [US] Stat 05/11/17 18:53 WET PREP [MYC] Stat - Assessment/Plan Last 24 Hours: My Active Orders 05/11/17 16:52 Transvaginal Non OB [US] Stat 05/11/17 18:53 WET PREP [MYC] Stat
--- NOTE | 2017-05-12 09:50 | US ---
Pelvic ultrasound: Multiple real-time images were obtained transvaginally. Uterus is anteverted. No myometrial abnormality is identified. Incidental nabothian cysts are present. Endometrial thickness measures 6.1 mm. Right and left ovaries appear within normal limits. Small amount of free fluid seen within the cul-de-sac which is likely physiologic. Measurements: Uterus: Length 8.6 cm, AP height 4.4 cm, transverse width 4.9 cm Right ovary: 3.8 x 1.6 x 2.7 cm Left ovary: 3.2 x 1.7 x 2.6 cm Impression: 1. Incidental findings. Diagnostic code #2 I agree with preliminary report issued by [facility] ([facility] report finalized on 05/11/17, 7:07 PM Central Time)
== END 2017-05-11 19:30 | disposition home or self-care (01) ==
LOC: JD.ED 16:14
DX: R10.11 Right upper quadrant pain (principal); Z88.6 Allergy status to analgesic agent; Z88.8 Allergy status to other drugs, medicaments and biological substances; Z79.899 Other long term (current) drug therapy; Z87.891 Personal history of nicotine dependence; Z88.1 Allergy status to other antibiotic agents; Z91.018 Allergy to other foods
CPT/HCPCS: 36415; 76830; 76830-26; 80053; 81001; 84703; 85025; 86140; 87210; 87808; 99283; 99285-25

== ENCOUNTER 2017-05-12 19:16 | Emergency (ER) | payer MEDICAID ==
[2017-05-12 19:30] VITALS: BP 142/94
--- NOTE | 2017-05-12 19:46 | EDM.PDOC ---
ED HPI GENERAL MEDICAL PROBLEM - General Chief Complaint: Genitourinary Problem Stated Complaint: PAIN IN OVARIES Time Seen by Provider: 05/12/17 19:38 - History of Present Illness INITIAL COMMENTS - FREE TEXT/NARRATIVE: 27-year-old female presents emergency room with continued ovarian pain. Today she has developed some nausea and vomiting and has had some fevers as well. Patient seated emergency room yesterday with similar type complaints however now she has fevers and worsening nausea and vomiting. She states she understands that she is not here for pain medication. We did go over the importance of getting all her pain medication from the same provider over time and from the same pharmacy where they have a running record of what's going on and since we do not have that information in the emergency room this is not an appropriate place to be managing chronic pain. Patient is developed fevers and chills she states to 102. She has not been able to keep much of anything down. She is trying to eat small meals but she cannot keep anything down. She has right-sided abdominal pain. The patient has a history of gallbladder sludge in the past recently she had a gallbladder ultrasound of the patient reports is normal. Right Lower Abdominal Pain Score (Numeric/FACES): 10 - Related Data Allergies Allergy/AdvReac Type Severity Reaction Status Date / Time cefixime Allergy Hives Verified 05/12/17 19:27 ketorolac tromethamine Allergy Itching Verified 05/12/17 19:27 [From Toradol] metoclopramide HCl AdvReac Anxiety Verified 05/12/17 19:27 [From Reglan] prochlorperazine edisylate AdvReac Agitation Verified 05/12/17 19:27 [From Compazine] prochlorperazine maleate AdvReac Agitation Verified 05/12/17 19:27 [From Compazine] NUTS Allergy Airway Uncoded 05/11/17 16:22 Tightness Home Meds: Home Meds Albuterol Sulfate [Ventolin Hfa] 18 gm IH Q4H PRN #1 hfa.aer.ad 04/04/15 [Rx] Fluticasone/Salmeterol [Advair 250-50 Diskus] 1 puff INH BID 05/13/15 [History] Ondansetron [Zofran ODT] 4 mg PO Q6H PRN #15 tab.dis 06/28/15 [Rx] Imipramine HCl 50 mg PO BEDTIME 11/23/16 [History] Montelukast [Singulair] 10 mg PO DAILY 11/23/16 [History] Omeprazole 40 mg PO DAILY 11/23/16 [History] Prazosin HCl [Prazosin] 5 mg PO BEDTIME 11/23/16 [History] Past Medical History - Past Health History Medical/Surgical History: Denies Medical/Surgical History Respiratory History: Reports: Asthma Gastrointestinal History: Reports: GERD 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 (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 Below) Other OB/BYN History: ovarian cysts on right ovary Neurological History: Reports: Migraines Psychiatric History: Reports: Anxiety, Depression, PTSD Other Endocrine/Metabolic History: Hypothyroidism-hasn't taken medication for a couple years - Past Surgical History HEENT Surgical History: Reports: Adenoidectomy, Tonsillectomy Other HEENT Surgeries/Procedures: Sinus surgery GI Surgical History: Reports: Colonoscopy, EGD Female Surgical History: Reports: D&C, Other (See Below) Social & Family History - Family History Family Medical History: Noncontributory - Tobacco Use Smoking Status *Q: Never Smoker Years of Tobacco use: 8 Packs/Tins Daily: 0.5 Used Tobacco, but Quit: Yes Month Tobacco Last Used: December 2016 Second Hand Smoke Exposure: No - Caffeine Use Caffeine Use: Reports: Coffee - Alcohol Use Days Per Week of Alcohol Use: 0 - Recreational Drug Use Recreational Drug Use: No Recreational Drug Type: Reports: Other (see below) - Living Situation & Occupation Living situation: Reports: Single Occupation: Employed [employer] GENERAL - Review of Systems Review Of Systems: See Below Constitutional: Reports: Fever, Other (She is unsure how high this is been as she does not have a thermometer). Denies: Chills HEENT: Reports: No Symptoms Respiratory: Reports: No Symptoms Cardiovascular: Reports: No Symptoms Endocrine: Reports: No Symptoms GI/Abdominal: Reports: Abdominal Pain, Nausea, Vomiting. Denies: Constipation, Diarrhea : Reports: No Symptoms. Denies: Dysuria, Frequency, Hematuria Neurological: Reports: No Symptoms, Headache Psychiatric: Reports: No Symptoms ED EXAM, GI/ABD - Physical Exam Exam: See Below Exam Limited By: No Limitations General Appearance: Alert, No Apparent Distress Head: Atraumatic, Normocephalic Neck: Normal Inspection, Supple, Non-Tender, Full Range of Motion Respiratory/Chest: No Respiratory Distress, Lungs Clear, Normal Breath Sounds Cardiovascular: Regular Rate, Rhythm, No Edema, No Murmur GI/Abdominal Exam: Normal Bowel Sounds, No Organomegaly, No Mass, Other (She has right-sided lower quadrant discomfort no rebound or guarding she has some right upper quadrant discomfort this is mild as well) Course - Vital Signs Last Recorded V/S: Last Vital Signs Temp 36.0 C 05/12/17 19:27 Pulse 107 H 05/12/17 19:27 Resp 16 05/12/17 19:27 BP 142/94 H 05/12/17 19:27 Pulse Ox 98 05/12/17 19:27 - Orders/Labs/Meds Labs: Laboratory Tests 05/12/17 05/12/17 Range/Units 20:20 20:20 WBC 9.47 (3.98-10.04) K/mm3 RBC 4.36 (3.98-5.22) M/mm3 Hgb 12.9 (11.2-15.7) gm/L Hct 36.3 (34.1-44.9) % MCV 83.3 (79.4-94.8) fl MCH 29.6 (25.6-32.2) pg MCHC 35.5 (32.2-35.5) g/dl RDW Std Deviation 36.9 (36.4-46.3) fL Plt Count 366 (182-369) K/mm3 MPV 8.6 L (9.4-12.3) fl Neutrophils % (Manual) 60 (40-60) % Band Neutrophils % 0 (0-10) % Lymphocytes % (Manual) 27 (20-40) % Atypical Lymphs % 0 % Monocytes % (Manual) 6 (2-10) % Eosinophils % (Manual) 7 H (0.7-5.8) % Basophils % (Manual) 0 L (0.1-1.2) Platelet Estimate Adequate Plt Morphology Comment Normal RBC Morph Comment Normal Sodium 141 (136-145) mEq/L Potassium 3.4 L (3.5-5.1) mEq/L Chloride 105 (98-107) mEq/L Carbon Dioxide 24 (21-32) mEq/L Anion Gap 15.4 H (5-15) BUN 9 (7-18) mg/dL Creatinine 0.8 (0.55-1.02) mg/dL Est Cr Clr Drug Dosing 80.41 mL/min Estimated GFR (MDRD) > 60 (>60) mL/min BUN/Creatinine Ratio 11.3 L (14-18) Glucose 79 (74-106) mg/dL Calcium 9.6 (8.5-10.1) mg/dL Total Bilirubin 0.6 (0.2-1.0) mg/dL Direct Bilirubin 0.20 (0.0-0.2) mg/dl Indirect Bilirubin 0.40 AST 22 (15-37) U/L ALT 29 (14-59) U/L Alkaline Phosphatase 64 (46-116) U/L Total Protein 8.2 (6.4-8.2) g/dl Albumin 4.4 (3.4-5.0) g/dl Globulin 3.8 gm/dL Albumin/Globulin Ratio 1.2 (1-2) Lipase 83 (73-393) U/L Meds: Medications Discontinued Medications Generic Name Dose Route Start Last Admin Trade Name Suyapa PRN Reason Stop Dose Admin Lactated Ringer's 1,000 mls @ 999 mls/hr 05/12/17 20:12 05/12/17 20:30 Ringers, Lactated IV 05/12/17 21:12 999 mls/hr .BOLUS ONE Administration Ondansetron HCl 4 mg 05/12/17 20:12 05/12/17 20:31 Zofran IVPUSH 05/12/17 20:13 4 mg ONETIME ONE Administration Potassium Chloride 40 meq 05/12/17 21:04 05/12/17 21:25 Klor-Con M20 PO 05/12/17 21:05 40 meq ONETIME ONE Administration - Re-Assessments/Exams Free Text/Narrative Re-Assessment/Exam: 05/12/17 22:37 Patient is doing better at this point she still has some discomfort she has Zofran at home 8 mg and thinks she will do fine taking a half tablet every 4-6 hours she has a point with Dr. Reynolds this coming Wednesday. She's had a recent gallbladder study according to the patient. This can be followed up on with her regular provider. Consider further diagnostic workup if indicated at that point. With the nausea and vomiting we are seeing a lot of gastroenteritis in the community and wondering if this is possibly what's going on with this. Departure - Departure Time of Disposition: 22:42 Disposition: Home, Self-Care 01 Clinical Impression: Nausea & vomiting, Abdominal discomfort in right lower quadrant, RUQ discomfort - Discharge Information Referrals: Michi Alcazar MD [Primary Care Provider] - Forms: ED Department Discharge Additional Instructions: Return to the emergency room with any questions problems worsening symptoms. Return in 12-24 hours if not better sooner if getting worse. Follow-up with your regular provider tomorrow or Wednesday. Clear liquid diet for the next 12 hours and slowly advance as tolerated. You have Zofran at home 8 mg take one half every 4-6 hours as needed.
[2017-05-12] MEDS ORDERED: Lactated Ringers 1,000 ML IV ONE (20:12)
[2017-05-12] MEDS ORDERED: Ondansetron 4 MG/2 ML SDV IVPUSH ONE (20:12)
[2017-05-12] MEDS ORDERED: Potassium Chloride 20 MEQ Tab.ER PO ONE (21:04)
== END 2017-05-12 22:51 | disposition home or self-care (01) ==
LOC: JD.ED 19:16
DX: R10.31 Right lower quadrant pain (principal); R10.11 Right upper quadrant pain; R11.2 Nausea with vomiting, unspecified; J45.909 Unspecified asthma, uncomplicated; Z88.8 Allergy status to other drugs, medicaments and biological substances; Z79.899 Other long term (current) drug therapy; Z88.6 Allergy status to analgesic agent
CPT/HCPCS: 36415; 80048; 80076; 83690; 85025; 96361; 96374; 99284; A9270; J2405; J7120; 99283

== ENCOUNTER 2017-07-25 16:11 | Emergency (ER) | payer MEDICAID ==
[2017-07-25 16:21] VITALS: BP 124/83
[2017-07-25] MEDS ORDERED: Albuterol/Ipratropium 3.0-0.5 MG/3 ML Neb Soln NEB ONE (16:38)
--- NOTE | 2017-07-25 16:41 | EDM.PDOC ---
ED HPI GENERAL MEDICAL PROBLEM - General Chief Complaint: Respiratory Problem Stated Complaint: CHEST PAIN Time Seen by Provider: 07/25/17 16:25 Source of Information: Reports: Patient History Limitations: Reports: No Limitations - History of Present Illness INITIAL COMMENTS - FREE TEXT/NARRATIVE: Nelly is a 27yo female presents today with cough, chest pain/tightness, myalgias and subjective fever x 3-4 days. She has noted wheezing the past 2 days , mild SOB and has felt palpitations. No sick contacts that she is aware of. She did not get flu shot this year. She has hx of asthma, uses albuterol neb or inhaler. Her rescue inhalers have not helped her symptoms at all. Never had to be intubated or hospitalized for her asthma. Onset: Gradual Duration: Day(s): (3) Location: Reports: Chest Quality: Reports: Pressure Severity: Moderate Improves with: Reports: None, Other (albuterol does not help) Worsens with: Reports: Movement Associated Symptoms: Reports: Chest Pain, Cough, cough w sputum, Diaphoresis, Fever/Chills, Headaches, Malaise, Shortness of Breath, Weakness. 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 (see below) (albuterol inhaler) Middle Chest Pain Score (Numeric/FACES): 8 - Related Data Allergies Allergy/AdvReac Type Severity Reaction Status Date / Time cefixime Allergy Hives Verified 05/12/17 19:27 ketorolac tromethamine Allergy Itching Verified 05/12/17 19:27 [From Toradol] metoclopramide HCl AdvReac Anxiety Verified 05/12/17 19:27 [From Reglan] prochlorperazine edisylate AdvReac Agitation Verified 05/12/17 19:27 [From Compazine] prochlorperazine maleate AdvReac Agitation Verified 05/12/17 19:27 [From Compazine] NUTS Allergy Airway Uncoded 05/11/17 16:22 Tightness Home Meds: Home Meds Albuterol Sulfate [Ventolin Hfa] 18 gm IH Q4H PRN #1 hfa.aer.ad 04/04/15 [Rx] Fluticasone/Salmeterol [Advair 250-50 Diskus] 1 puff INH BID 11/30/15 [History] Ondansetron [Zofran ODT] 4 mg PO Q6H PRN #15 tab.dis 06/28/15 [Rx] Imipramine HCl 100 mg PO BEDTIME 11/23/16 [History] Montelukast [Singulair] 10 mg PO DAILY 11/23/16 [History] Omeprazole 40 mg PO DAILY 11/23/16 [History] Prazosin HCl [Prazosin] 5 mg PO BEDTIME 11/23/16 [History] Propranolol [Inderal] 80 mg PO DAILY 07/25/17 [History] Past Medical History - Past Health History Medical/Surgical History: Denies Medical/Surgical History Cardiovascular History: Reports: Arrhythmia Respiratory History: Reports: Asthma Gastrointestinal History: Reports: GERD 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 (See Below) Other OB/BYN History: ovarian cysts on right ovary Neurological History: Reports: Migraines Psychiatric History: Reports: Anxiety, Depression, PTSD Other Endocrine/Metabolic History: Hypothyroidism-hasn't taken medication for a couple years - Past Surgical History HEENT Surgical History: Reports: Adenoidectomy, Tonsillectomy Other HEENT Surgeries/Procedures: Sinus surgery GI Surgical History: Reports: Colonoscopy, EGD Female Surgical History: Reports: D&C, Other (See Below) Social & Family History - Family History Family Medical History: Noncontributory - Tobacco Use Smoking Status *Q: Never Smoker Years of Tobacco use: 8 Packs/Tins Daily: 0.5 Used Tobacco, but Quit: Yes Month Tobacco Last Used: December 2016 Second Hand Smoke Exposure: No - Caffeine Use Caffeine Use: Reports: Coffee - Alcohol Use Days Per Week of Alcohol Use: 0 - Recreational Drug Use Recreational Drug Use: No Recreational Drug Type: Reports: Other (see below) - Living Situation & Occupation Living situation: Reports: Single Occupation: Employed [employer] [facility] GENER[facility] - Review of Systems Review Of Systems: See Below Constitutional: Reports: Fever (subjective), Chills, Weakness, Fatigue, Decreased Appetite HEENT: Reports: Rhinitis, Sinus Problem. Denies: Ear Pain, Throat Pain, Throat Swelling Respiratory: Reports: Wheezing, Pleuritic Chest Pain, Cough Cardiovascular: Reports: Chest Pain. Denies: Edema GI/Abdominal: Reports: No Symptoms. Denies: Abdominal Pain, Constipation, Diarrhea, Nausea, Vomiting : Reports: No Symptoms Musculoskeletal: Reports: No Symptoms, Other (no myalgias) Neurological: Reports: No Symptoms. Denies: Dizziness, Headache ED EXAM, GENERAL - Physical Exam Exam: See Below Exam Limited By: No Limitations General Appearance: Alert, WD/WN, No Apparent Distress Eye Exam: Bilateral Eye: EOMI, PERRL Ear Exam: Bilateral Ear: TM normal Nose: Normal Inspection, Normal Mucosa Throat/Mouth: Normal Inspection, Normal Lips, Normal Gums, Normal Voice, No Airway Compromise Head: Atraumatic, Normocephalic Neck: Normal Inspection, Supple Respiratory/Chest: Lungs Clear, Normal Breath Sounds, No Accessory Muscle Use, Decreased Breath Sounds, Wheezing (faint) Cardiovascular: Regular Rate, Rhythm, No Edema, No Murmur Peripheral Pulses: 2+: Dorsalis Pedis (L), Dorsalis Pedis (R) GI/Abdominal: Normal Bowel Sounds, Soft, Non-Tender (Female) Exam: Deferred Rectal (Female) Exam: Deferred Extremities: Normal Inspection, Normal Capillary Refill Neurological: Alert, Oriented, Normal Cognition Psychiatric: Normal Affect, Normal Mood Skin Exam: Warm, Dry, Intact Course - Vital Signs Last Recorded V/S: Last Vital Signs Temp 96.7 F 07/25/17 16:17 Pulse 115 H 07/25/17 16:17 Resp 16 07/25/17 16:17 BP 124/83 07/25/17 16:17 Pulse Ox 96 07/25/17 16:38 - Orders/Labs/Meds Orders: Active Orders 24 hr Category Date Time Status EKG Documentation Completion [RC] STAT Care 07/25/17 16:37 Active RT Aerosol Therapy [RC] ASDIRECTED Care 07/25/17 16:38 Active Chest 2V [CR] Stat Exams 07/25/17 16:37 Taken Labs: Laboratory Tests 07/25/17 07/25/17 Range/Units 16:50 16:50 WBC 8.14 (3.98-10.04) K/mm3 RBC 4.22 (3.98-5.22) M/mm3 Hgb 11.9 (11.2-15.7) gm/L Hct 35.2 (34.1-44.9) % MCV 83.4 (79.4-94.8) fl MCH 28.2 (25.6-32.2) pg MCHC 33.8 (32.2-35.5) g/dl RDW Std Deviation 39.9 (36.4-46.3) fL Plt Count 335 (182-369) K/mm3 MPV 8.4 L (9.4-12.3) fl Neut % (Auto) 52.9 (34.0-71.1) % Lymph % (Auto) 28.0 (19.3-51.7) % Mclennan % (Auto) 7.7 (4.7-12.5) % Eos % (Auto) 10.1 H (0.7-5.8) Baso % (Auto) 1.1 (0.1-1.2) % Neut # (Auto) 4.30 (1.56-6.13) K/mm3 Lymph # (Auto) 2.28 (1.18-3.74) K/mm3 Mclennan # (Auto) 0.63 H (0.24-0.36) K/mm3 Eos # (Auto) 0.82 H (0.04-0.36) K/mm3 Baso # (Auto) 0.09 H (0.01-0.08) K/mm3 Sodium 139 (136-145) mEq/L Potassium 4.2 (3.5-5.1) mEq/L Chloride 104 (98-107) mEq/L Carbon Dioxide 23 (21-32) mEq/L Anion Gap 16.2 H (5-15) BUN 15 (7-18) mg/dL Creatinine 1.2 H (0.55-1.02) mg/dL Est Cr Clr Drug Dosing 53.61 mL/min Estimated GFR (MDRD) 54 (>60) mL/min BUN/Creatinine Ratio 12.5 L (14-18) Glucose 117 H (74-106) mg/dL Calcium 8.7 (8.5-10.1) mg/dL Total Bilirubin 0.2 (0.2-1.0) mg/dL AST 33 (15-37) U/L ALT 56 (14-59) U/L Alkaline Phosphatase 52 (46-116) U/L Troponin I < 0.017 (0.00-0.056) ng/mL Total Protein 7.1 (6.4-8.2) g/dl Albumin 3.6 (3.4-5.0) g/dl Globulin 3.5 gm/dL Albumin/Globulin Ratio 1.0 (1-2) Meds: Medications Discontinued Medications Generic Name Dose Route Start Last Admin Trade Name Suyapa PRN Reason Stop Dose Admin Albuterol/Ipratropium 3 ml 07/25/17 16:38 07/25/17 16:55 Duoneb 3.0-0.5 Mg/3 Ml NEB 07/25/17 16:39 3 ml ONETIME ONE Administration Azithromycin 500 mg 07/25/17 17:43 07/25/17 17:58 Zithromax PO 07/25/17 17:44 500 mg NOW STA Administration Prednisone 20 mg 07/25/17 17:43 07/25/17 17:58 Prednisone PO 07/25/17 17:44 20 mg ONETIME ONE Administration Promethazine HCl/Codeine 5 ml 07/25/17 17:47 07/25/17 17:58 Phenergan With Codeine PO 07/25/17 17:48 5 ml NOW STA Administration - Radiology Interpretation Free Text/Narrative:: CXR- 2 view, review by this provider is unremarkable for any acute findings, PNA or infiltrates. - Re-Assessments/Exams Free Text/Narrative Re-Assessment/Exam: 07/25/17 17:38 Labs reviewed Influenza negative EKG with Sinus tachycardia rate of 100bpm, q waves present in leads 2, 3 and avf. Departure - Departure Time of Disposition: 18:00 Disposition: Home, Self-Care 01 Condition: Good Clinical Impression: Exacerbation of asthma Qualifiers: Asthma severity: mild Asthma persistence: intermittent Qualified Code(s): J45.21 - Mild intermittent asthma with (acute) exacerbation - Discharge Information Instructions: Asthma, Adult, Upper Respiratory Infection, Adult, [id number] Referrals: Michi Alcazar MD [Primary Care Provider] - Forms: ED Department Discharge Additional Instructions: Medrol dose pack and zithromax/zpak prescriptions given; please fill tomorrow at your pharmacy. One dose of each given tonight. Xray was negative for pneumonia or other acute findings. Labs were with normal white blood cell count for infection. One kidney test was minimally elevated- recommend push fluids and follow up with your primary care provider for recheck of kidney function studies within a few weeks. Follow up with your primary care provider for recheck of your asthma within one week. Return to ER if needed for concerns or worsening of symptoms. - My Orders Last 24 Hours: My Active Orders 07/25/17 16:37 EKG Documentation Completion [RC] STAT Chest 2V [CR] Stat 07/25/17 16:38 RT Aerosol Therapy [RC] ASDIRECTED - Assessment/Plan Last 24 Hours: My Active Orders 07/25/17 16:37 EKG Documentation Completion [RC] STAT Chest 2V [CR] Stat 07/25/17 16:38 RT Aerosol Therapy [RC] ASDIRECTED
[2017-07-25] MEDS ORDERED: predniSONE 20 MG Tab PO ONE (17:43)
[2017-07-25] MEDS ORDERED: Azithromycin 250 MG Tab PO STA (17:43)
[2017-07-25] MEDS ORDERED: Codeine/Promethazine 10-6.25 MG/5 ML Syrup 5 ML UD Cup PO STA (17:47)
--- NOTE | 2017-07-26 10:06 | CR ---
Chest: Two views of the chest were obtained. Comparison: Previous chest x-ray of 03/19/14. Heart size and mediastinum are within normal limits. Lungs are clear. Bony structures are unremarkable. Impression: 1. Nothing acute is identified on two-view chest x-ray Diagnostic code #1
== END 2017-07-25 18:00 | disposition home or self-care (01) ==
LOC: JD.ED 16:11
DX: J45.21 Mild intermittent asthma with (acute) exacerbation (principal); Z88.6 Allergy status to analgesic agent; Z88.8 Allergy status to other drugs, medicaments and biological substances; Z79.899 Other long term (current) drug therapy; Z87.891 Personal history of nicotine dependence
CPT/HCPCS: 36415; 71046; 80053; 84484; 85025; 87804; 93005; 94640; 99284; A9270; 99283

== ENCOUNTER 2017-09-15 20:33 | Emergency (ER) | payer MEDICAID ==
[2017-09-15 20:48] VITALS: BP 129/96
[2017-09-15] MEDS ORDERED: Famotidine 20 MG/2 ML SDV IVPUSH ONE (21:08)
[2017-09-15] MEDS ORDERED: Sodium Chloride 0.9% 10 ML Syringe FLUSH PRN (21:08)
[2017-09-15] MEDS ORDERED: Alum Hydrox/Mag Hydrox/Simeth 30 ML, Lidocaine 2% 15 ML PO ONE ×2 (21:08)
[2017-09-15] MEDS ORDERED: Sodium Chloride 0.9% 1,000 ML IV ONE (22:12)
[2017-09-15] MEDS ORDERED: Fluticasone Propionate 110 MCG/Puff 12 GM Inhaler STA (22:43)
[2017-09-15] MEDS ORDERED: Ketorolac 30 MG/ML SDV IVPUSH ONE (22:50)
[2017-09-15] MEDS ORDERED: diphenhydrAMINE 50 MG/ML SDV IVPUSH ONE (22:50)
--- NOTE | 2017-09-15 23:02 | EDM.PDOC ---
ED HPI GENERAL MEDICAL PROBLEM - General Chief Complaint: Abdominal Pain Stated Complaint: ABDOMINAL PAIN Time Seen by Provider: 09/15/17 20:50 Source of Information: Reports: Patient, Old Records (previous ER visits) History Limitations: Reports: No Limitations - History of Present Illness INITIAL COMMENTS - FREE TEXT/NARRATIVE: 27-year-old female presents for evaluation and treatment of epigastric pain. Patient reports that the pain started at 140o this afternoon. This occurred about 45 minutes after eating some chips and dip. She states that she has an allergy to whole milk and feels that the dip likely had some dairy product in it. She reports that she feels short of breath is due to the severe pain. No chest pain. She states that she is nauseated and vomited. She also had an episode of diarrhea. Patient reports in 2011 she was diagnosed with eosinophilic esophagitis or EOE. She is currently on omeprazole for this. She states that she did have allergy testing and has allergies to corn, please and milk. Patient denies any chance of . Previous abdominal surgeries include an appendectomy. Patient still has her gallbladder. Upper Epigastric Pain Score (Numeric/FACES): 8 - Related Data Allergies Allergy/AdvReac Type Severity Reaction Status Date / Time cefixime Allergy Hives Verified 09/15/17 20:49 ketorolac tromethamine Allergy Itching Verified 09/15/17 20:49 [From Toradol] metoclopramide HCl AdvReac Anxiety Verified 09/15/17 20:49 [From Reglan] prochlorperazine edisylate AdvReac Agitation Verified 09/15/17 20:49 [From Compazine] prochlorperazine maleate AdvReac Agitation Verified 09/15/17 20:49 [From Compazine] NUTS Allergy Airway Uncoded 09/15/17 20:49 Tightness Home Meds: Home Meds Albuterol Sulfate [Ventolin Hfa] 18 gm IH Q4H PRN #1 hfa.aer.ad 04/04/15 [Rx] Fluticasone/Salmeterol [Advair 250-50 Diskus] 1 puff INH BID 05/13/15 [History] Imipramine HCl 100 mg PO BEDTIME 11/23/16 [History] Montelukast [Singulair] 10 mg PO DAILY 11/23/16 [History] Omeprazole 40 mg PO DAILY 11/23/16 [History] Prazosin HCl [Prazosin] 5 mg PO BEDTIME 11/23/16 [History] Past Medical History - Past Health History Medical/Surgical History: Denies Medical/Surgical History Cardiovascular History: Reports: Arrhythmia Respiratory History: Reports: Asthma Gastrointestinal History: Reports: GERD Genitourinary History: Reports: Pyelonephritis 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: Other (See Below) Other OB/BYN History: ovarian cysts on right ovary Musculoskeletal History: Reports: Fracture, Other (See Below) Other Musculoskeletal History: ankle, wrist, finger, elbow Neurological History: Reports: Migraines Psychiatric History: Reports: Anxiety, Depression, PTSD Other Endocrine/Metabolic History: Hypothyroidism-hasn't taken medication for a couple years - Past Surgical History HEENT Surgical History: Reports: Adenoidectomy, Tonsillectomy Other HEENT Surgeries/Procedures: Sinus surgery GI Surgical History: Reports: Colonoscopy, EGD Female Surgical History: Reports: D&C, Other (See Below) Social & Family History - Family History Family Medical History: Noncontributory - Tobacco Use Smoking Status *Q: Former Smoker Years of Tobacco use: 5 Packs/Tins Daily: 0.5 Used Tobacco, but Quit: Yes Month/Year Tobacco Last Used: december 2017 Second Hand Smoke Exposure: No - Caffeine Use Caffeine Use: Reports: None - Alcohol Use Days Per Week of Alcohol Use: 0 - Recreational Drug Use Recreational Drug Use: No Recreational Drug Type: Reports: Other (see below) - Living Situation & Occupation Living situation: Reports: Single Occupation: Employed ED ROS GENERAL - Review of Systems Review Of Systems: See Below Respiratory: Reports: Shortness of Breath (due to pain) Cardiovascular: Denies: Chest Pain GI/Abdominal: Reports: Abdominal Pain (epigastric), Diarrhea, Nausea, Vomiting : Reports: No Symptoms ED EXAM, GI/ABD - Physical Exam Exam: See Below Exam Limited By: No Limitations General Appearance: Alert, WD/WN, Moderate Distress, Obese Ears: Normal External Exam Nose: Normal Inspection Throat/Mouth: Normal Inspection, Normal Lips, Normal Oropharynx, Normal Voice, No Airway Compromise Respiratory/Chest: No Respiratory Distress, Lungs Clear, Normal Breath Sounds Cardiovascular: No Murmur, Tachycardia GI/Abdominal Exam: Normal Bowel Sounds, Soft, Tender (epigastric). No: Distended, Rebound Neurological: Alert, Oriented, Normal Cognition Psychiatric: Normal Affect, Normal Mood Skin Exam: Warm, Dry, Normal Color Course - Vital Signs Last Recorded V/S: Last Vital Signs Temp 36.6 C 09/15/17 20:44 Pulse 125 H 09/15/17 20:44 Resp 18 09/15/17 20:44 BP 129/96 H 09/15/17 20:44 Pulse Ox 98 09/15/17 20:44 - Orders/Labs/Meds Orders: Active Orders 24 hr Category Date Time Status Peripheral IV Care [RC] . DIRECTED Care 09/15/17 21:08 Active RT Post Treatment Assessment [RC] Click to Edit Care 09/15/17 22:45 Active RT Pre-Treatment Assessment [RC] Click to Edit Care 09/15/17 22:45 Active HCG QUALITATIVE,URINE [URCHEM] Stat Lab 09/15/17 21:32 Ordered UA W/MICROSCOPIC [URIN] Stat Lab 09/15/17 21:32 Ordered Peripheral IV Insertion Adult [OM.PC] Routine Oth 09/15/17 21:07 Ordered Labs: Laboratory Tests 09/15/17 09/15/17 09/15/17 Range/Units 21:32 21:32 21:53 WBC (3.98-10.04) K/mm3 RBC (3.98-5.22) M/mm3 Hgb (11.2-15.7) gm/L Hct (34.1-44.9) % MCV (79.4-94.8) fl MCH (25.6-32.2) pg MCHC (32.2-35.5) g/dl RDW Std Deviation (36.4-46.3) fL Plt Count (182-369) K/mm3 MPV (9.4-12.3) fl Neutrophils % (Manual) (40-60) % Band Neutrophils % (0-10) % Lymphocytes % (Manual) (20-40) % Atypical Lymphs % % Monocytes % (Manual) (2-10) % Eosinophils % (Manual) (0.7-5.8) % Basophils % (Manual) (0.1-1.2) Platelet Estimate Plt Morphology Comment RBC Morph Comment Sodium 145 (136-145) mEq/L Potassium 3.7 (3.5-5.1) mEq/L Chloride 106 (98-107) mEq/L Carbon Dioxide 24 (21-32) mEq/L Anion Gap 18.7 H (5-15) BUN 13 (7-18) mg/dL Creatinine 0.9 (0.55-1.02) mg/dL Est Cr Clr Drug Dosing 71.48 mL/min Estimated GFR (MDRD) > 60 (>60) mL/min BUN/Creatinine Ratio 14.4 (14-18) Glucose 88 (74-106) mg/dL Calcium 9.4 (8.5-10.1) mg/dL Total Bilirubin 0.3 (0.2-1.0) mg/dL AST 20 (15-37) U/L ALT 17 (14-59) U/L Alkaline Phosphatase 50 (46-116) U/L C-Reactive Protein 0.7 (<1.0) mg/dL Total Protein 7.3 (6.4-8.2) g/dl Albumin 4.1 (3.4-5.0) g/dl Globulin 3.2 gm/dL Albumin/Globulin Ratio 1.3 (1-2) Lipase 73 (73-393) U/L Urine Color Light yellow (Yellow) Urine Appearance Clear (Clear) Urine pH 6.5 (5.0-8.0) Ur Specific Avant 1.015 (1.005-1.030) Urine Protein Negative (Negative) Urine Glucose (UA) Negative (Negative) Urine Ketones Negative (Negative) Urine Occult Blood Negative (Negative) Urine Nitrite Negative (Negative) Urine Bilirubin Negative (Negative) Urine Urobilinogen 0.2 (0.2-1.0) Ur Leukocyte Esterase Negative (Negative) Urine RBC 0-5 (0-5) /hpf Urine WBC 0-5 (0-5) /hpf Ur Epithelial Cells 0-5 (0-5) /hpf Urine Bacteria Occasional (FEW) /hpf Urine Mucus Not seen (FEW) /hpf Urine HCG, Qual Negative (NEGATIVE) 09/15/17 Range/Units 21:53 WBC 6.81 (3.98-10.04) K/mm3 RBC 4.17 (3.98-5.22) M/mm3 Hgb 11.5 (11.2-15.7) gm/L Hct 34.1 (34.1-44.9) % MCV 81.8 (79.4-94.8) fl MCH 27.6 (25.6-32.2) pg MCHC 33.7 (32.2-35.5) g/dl RDW Std Deviation 40.4 (36.4-46.3) fL Plt Count 279 (182-369) K/mm3 MPV 8.4 L (9.4-12.3) fl Neutrophils % (Manual) 54 (40-60) % Band Neutrophils % 0 (0-10) % Lymphocytes % (Manual) 32 (20-40) % Atypical Lymphs % 2 % Monocytes % (Manual) 4 (2-10) % Eosinophils % (Manual) 8 H (0.7-5.8) % Basophils % (Manual) 0 L (0.1-1.2) Platelet Estimate Adequate Plt Morphology Comment Normal RBC Morph Comment Normal Sodium (136-145) mEq/L Potassium (3.5-5.1) mEq/L Chloride (98-107) mEq/L Carbon Dioxide (21-32) mEq/L Anion Gap (5-15) BUN (7-18) mg/dL Creatinine (0.55-1.02) mg/dL Est Cr Clr Drug Dosing mL/min Estimated GFR (MDRD) (>60) mL/min BUN/Creatinine Ratio (14-18) Glucose (74-106) mg/dL Calcium (8.5-10.1) mg/dL Total Bilirubin (0.2-1.0) mg/dL AST (15-37) U/L ALT (14-59) U/L Alkaline Phosphatase (46-116) U/L C-Reactive Protein (<1.0) mg/dL Total Protein (6.4-8.2) g/dl Albumin (3.4-5.0) g/dl Globulin gm/dL Albumin/Globulin Ratio (1-2) Lipase (73-393) U/L Urine Color (Yellow) Urine Appearance (Clear) Urine pH (5.0-8.0) Ur Specific Avant (1.005-1.030) Urine Protein (Negative) Urine Glucose (UA) (Negative) Urine Ketones (Negative) Urine Occult Blood (Negative) Urine Nitrite (Negative) Urine Bilirubin (Negative) Urine Urobilinogen (0.2-1.0) Ur Leukocyte Esterase (Negative) Urine RBC (0-5) /hpf Urine WBC (0-5) /hpf Ur Epithelial Cells (0-5) /hpf Urine Bacteria (FEW) /hpf Urine Mucus (FEW) /hpf Urine HCG, Qual (NEGATIVE) Meds: Medications Discontinued Medications Generic Name Dose Route Start Last Admin Trade Name Freq PRN Reason Stop Dose Admin Al Hydroxide/Mg Hydroxide 30 0 ml 09/15/17 21:08 09/15/17 21:13 ml/ Lidocaine HCl 15 ml PO 09/15/17 21:09 45 ml ONETIME ONE Administration Diphenhydramine HCl 50 mg 09/15/17 22:50 09/15/17 23:10 Benadryl IVPUSH 09/15/17 22:51 50 mg ONETIME ONE Administration Famotidine 20 mg 09/15/17 21:08 09/15/17 21:43 Pepcid IVPUSH 09/15/17 21:09 20 mg ONETIME ONE Administration Fluticasone Propionate 2 gm 09/15/17 22:43 Flovent Hfa 110 Mcg .XX 09/15/17 22:44 NOW STA Sodium Chloride 1,000 mls @ 999 mls/hr 09/15/17 22:12 09/15/17 22:23 Normal Saline IV 09/15/17 23:12 999 mls/hr ONETIME ONE Administration Ketorolac Tromethamine 30 mg 09/15/17 22:50 09/15/17 23:02 Toradol IVPUSH 09/15/17 22:51 30 mg ONETIME ONE Administration Sodium Chloride 10 ml 09/15/17 21:08 09/15/17 21:45 Saline Flush FLUSH 10 ml ASDIRECTED PRN Administration Keep Vein Open - Re-Assessments/Exams Free Text/Narrative Re-Assessment/Exam: 09/15/17 22:50 I reviewed the labs with the patient. I also reviewed previous ER visits. She is always tachycardic when she seen here in the ER in the 100s to 120s. I asked her about this and she states she's never been worked up for her tachycardia before. I did give her some fluids here in the ER and this improved her tachycardia into the upper 90s, low 100s. I did order swallowed Flovent for her as this is the recommend a treatment for EOE but we did not have any Flovent here in the hospital that RT could find. She states that she's had Toradol in the past . As long she gets with Benadryl she is not develop any itching. I will order this for her. 09/15/17 23:53 patient feels better after the Toradol and Benadryl. She is instructed to use her Flovent at home, she should take this swallowed and this will directly help with the EOE. Discharge instructions as documented. Departure - Departure Time of Disposition: 23:56 Disposition: Home, Self-Care 01 Condition: Fair Clinical Impression: Epigastric pain - Discharge Information Instructions: Heartburn, [id number] Referrals: Michi Alcazar MD [Primary Care Provider] - Forms: ED Department Discharge Additional Instructions: Continue with your current plan of care. You may take your Flovent, swallowed, for additional pain relief rather than an inhaler as this will directly target sure your EOE. Follow-up with your primary care provider as needed. Recommend clear liquids and bland diet as tolerated. may advance to more normal diet as tolerated. avoid your triggers of milk and beef. Please return to the ER if your symptoms change or worsen. - My Orders Last 24 Hours: My Active Orders 09/15/17 21:07 Peripheral IV Insertion Adult [OM.PC] Routine 09/15/17 21:08 Peripheral IV Care [RC] . DIRECTED 09/15/17 21:32 HCG QUALITATIVE,URINE [URCHEM] Stat UA W/MICROSCOPIC [URIN] Stat 09/15/17 22:45 RT Post Treatment Assessment [RC] Click to Edit RT Pre-Treatment Assessment [RC] Click to Edit - Assessment/Plan Last 24 Hours: My Active Orders 09/15/17 21:07 Peripheral IV Insertion Adult [OM.PC] Routine 09/15/17 21:08 Peripheral IV Care [RC] . DIRECTED 09/15/17 21:32 HCG QUALITATIVE,URINE [URCHEM] Stat UA W/MICROSCOPIC [URIN] Stat 09/15/17 22:45 RT Post Treatment Assessment [RC] Click to Edit RT Pre-Treatment Assessment [RC] Click to Edit
== END 2017-09-16 00:18 | disposition home or self-care (01) ==
LOC: JD.ED 20:33
DX: R10.13 Epigastric pain (principal); J45.909 Unspecified asthma, uncomplicated; E03.9 Hypothyroidism, unspecified; Z88.1 Allergy status to other antibiotic agents; Z88.6 Allergy status to analgesic agent; Z88.8 Allergy status to other drugs, medicaments and biological substances; Z91.018 Allergy to other foods; Z79.899 Other long term (current) drug therapy; Z87.891 Personal history of nicotine dependence
CPT/HCPCS: 36415; 80053; 81001; 81025; 83690; 85025; 86140; 96361; 96374; 96375; 99284; A9270; J1200; J1885; J7040; J7050

== ENCOUNTER 2018-01-29 12:04 | Emergency (ER) | payer MEDICAID ==
[2018-01-29 12:23] VITALS: BP 125/85
--- NOTE | 2018-01-29 12:32 | EDM.PDOC ---
ED HPI GENERAL MEDICAL PROBLEM - General Chief Complaint: Lower Extremity Injury/Pain Stated Complaint: RIGHT FOOT INJURY Time Seen by Provider: 01/29/18 12:19 Source of Information: Reports: Patient History Limitations: Reports: No Limitations - History of Present Illness INITIAL COMMENTS - FREE TEXT/NARRATIVE: 28-year-old female presents for evaluation and treatment of injury to the right foot. Patient reports injury occurred on . She states that she got her foot caught in a door. Reports that the door went over the top of her foot. She has a minor bruise to her dorsal foot. She is reporting pain from the dorsal food shooting up into her ankle. No numbness or tingling. She has full range of motion but cannot walk due to the pain. She describes a sharp shooting pain. No open wounds. Treatments SIZE MARKER: Reports: Acetaminophen, NSAIDS Right Ankle Pain Score (Numeric/FACES): 8 - Related Data Allergies Allergy/AdvReac Type Severity Reaction Status Date / Time cefixime Allergy Hives Verified 01/29/18 12:23 ketorolac tromethamine Allergy Itching Verified 01/29/18 12:23 [From Toradol] metoclopramide HCl AdvReac Anxiety Verified 01/29/18 12:23 [From Reglan] prochlorperazine edisylate AdvReac Agitation Verified 01/29/18 12:23 [From Compazine] prochlorperazine maleate AdvReac Agitation Verified 01/29/18 12:23 [From Compazine] NUTS Allergy Airway Uncoded 01/29/18 12:23 Tightness Home Meds: Home Meds Albuterol Sulfate [Ventolin Hfa] 18 gm IH Q4H PRN #1 hfa.aer.ad 04/04/15 [Rx] Fluticasone/Salmeterol [Advair 250-50 Diskus] 1 puff INH BID 05/13/15 [History] Montelukast [Singulair] 10 mg PO DAILY 11/23/16 [History] Omeprazole 40 mg PO DAILY 11/23/16 [History] clonazePAM [Clonazepam] 0.5 mg PO TID 01/05/18 [History] Escitalopram [Lexapro] 20 mg PO BEDTIME 01/29/18 [History] Past Medical History - Past Health History Medical/Surgical History: Denies Medical/Surgical History Cardiovascular History: Reports: Arrhythmia Respiratory History: Reports: Asthma Gastrointestinal History: Reports: GERD Genitourinary History: Reports: Pyelonephritis 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: , Other (See Below) Other MUCK MINER History: ovarian cysts on right ovary Musculoskeletal History: Reports: Fracture, Other (See Below) Other Musculoskeletal History: ankle, wrist, finger, elbow Neurological History: Reports: Migraines Psychiatric History: Reports: Anxiety, Depression, PTSD Other Endocrine/Metabolic History: Hypothyroidism-hasn't taken medication for a couple years - Past Surgical History HEENT Surgical History: Reports: Adenoidectomy, Tonsillectomy Other HEENT Surgeries/Procedures: Sinus surgery GI Surgical History: Reports: Colonoscopy, EGD Female Surgical History: Reports: D&C, Other (See Below) Social & Family History - Family History Family Medical History: Noncontributory - Caffeine Use Caffeine Use: Reports: Coffee - Living Situation & Occupation Living situation: Reports: Single Occupation: Employed Review of Systems - Review of Systems Review Of Systems: See Below Musculoskeletal: Reports: Foot Pain (right foot), Joint Pain (right ankle) Skin: Reports: Bruising (right dorsal foot) Neurological: Reports: Difficulty Walking. Denies: Numbness, Tingling ED EXAM, GENERAL - Physical Exam Exam: See Below Exam Limited By: No Limitations General Appearance: Alert, WD/WN, No Apparent Distress Respiratory/Chest: No Respiratory Distress, Lungs Clear, Normal Breath Sounds Cardiovascular: Normal Peripheral Pulses, Regular Rate, Rhythm, No Murmur Peripheral Pulses: 2+: Posterior Tibial (L), Posterior Tibial (R), Dorsalis Pedis (L), Dorsalis Pedis (R) Back Exam: Normal Inspection, Full Range of Motion, Other (reports tenderness to the right dorsal foot over the metacarpals 2-4) Extremities: Normal Inspection (no swelling appreciated) Neurological: Alert, Oriented, Normal Cognition Psychiatric: Normal Affect, Normal Mood Skin Exam: Warm, Normal Color, Ecchymosis (approximately 2cm in diameter ecchmosis to the right dorsal foot) Course - Vital Signs Last Recorded V/S: Last Vital Signs Temp 97.6 F 01/29/18 12:19 Pulse 110 H 01/29/18 12:19 Resp 16 01/29/18 12:19 BP 125/85 01/29/18 12:19 Pulse Ox 99 01/29/18 12:19 - Orders/Labs/Meds Orders: Active Orders 24 hr Category Date Time Status Foot Comp Min 3V Rt [CR] Stat Exams 01/29/18 12:28 Taken - Radiology Interpretation Free Text/Narrative:: xray reviewed by myself and Dr. Baez shows no acute fractures or dislocations - Re-Assessments/Exams Free Text/Narrative Re-Assessment/Exam: 01/29/18 13:13 Reviewed the x-ray results with the patient. She states it is too painful for walk on. I will get her some crutches and Natanael bandage. Recommend ice and elevation. [id number] Tylenol and Motrin as needed for pain. Follow-up with family medicine if not better in 7-10 days. Discharge instructions as documented. Departure - Departure Time of Disposition: 13:13 Disposition: Home, Self-Care 01 Condition: Good Clinical Impression: Ecchymosis, Injury of foot - Discharge Information *PRESCRIPTION DRUG MONITORING PROGRAM REVIEWED*: Yes *COPY OF PRESCRIPTION DRUG MONITORING REPORT IN PATIENT RICKEY: No Instructions: Hematoma, [id number] Referrals: Michi Alcazar MD [Primary Care Provider] - Forms: ED Department Discharge Additional Instructions: [id number] Tylenol or Motrin seen for pain. Ice and elevate the foot as much as you are able to. Crutches as needed. You may use an Natanael bandage as needed. Follow-up with your primary care provider if not better in 10 days. Please return to ER if your symptoms change or worsen. - My Orders Last 24 Hours: My Active Orders 01/29/18 12:28 Foot Comp Min 3V Rt [CR] Stat - Assessment/Plan Last 24 Hours: My Active Orders 01/29/18 12:28 Foot Comp Min 3V Rt [CR] Stat
== END 2018-01-29 13:25 | disposition home or self-care (01) ==
LOC: JD.ED 12:04
DX: S90.31XA Contusion of right foot, initial encounter (principal); Z79.899 Other long term (current) drug therapy; Z88.5 Allergy status to narcotic agent; Z91.018 Allergy to other foods; W23.1XXA Caught, crushed, jammed, or pinched between stationary objects, initial encounter
CPT/HCPCS: 73630-RT; 99283

== ENCOUNTER 2018-07-20 20:09 | Emergency (ER) | payer MEDICAID ==
[2018-07-20 20:40] VITALS: BP 129/85
--- NOTE | 2018-07-20 20:46 | EDM.PDOC ---
ED HPI GENERAL MEDICAL PROBLEM - General Chief Complaint: Allergic Reaction Stated Complaint: ALLERGIC REACTION Time Seen by Provider: 07/20/18 20:40 - History of Present Illness INITIAL COMMENTS - FREE TEXT/NARRATIVE: 28-year-old female presents emergency room with a rash. This started actually couple weeks ago she was seen here in the emergency room on the started on prednisone for 5 days and did much better. However she's not the steroids for a day or 2 now the rash is coming back the rash seems to involve her forearms and lower legs were then anywhere else patient denies any new exposures. Patient is taking Zantac and using moisturizing creams. She had some initial breathing difficulties with the first go around to a lesser degree with this go around. She uses a albuterol inhaler at home and this seems to help. He denies fevers or chills recent illnesses - Related Data Allergies Allergy/AdvReac Type Severity Reaction Status Date / Time cefixime Allergy Hives Verified 07/20/18 20:40 haloperidol [From Haldol] Allergy Agitation Verified 07/20/18 20:40 hydromorphone [From Dilaudid] Allergy Itching Verified 07/20/18 20:40 ketorolac tromethamine Allergy Itching Verified 07/20/18 20:40 [From Toradol] topiramate [From Topamax] Allergy Rash Verified 07/20/18 20:40 metoclopramide HCl AdvReac Anxiety Verified 07/20/18 20:40 [From Reglan] prochlorperazine edisylate AdvReac Agitation Verified 07/20/18 20:40 [From Compazine] prochlorperazine maleate AdvReac Agitation Verified 07/20/18 20:40 [From Compazine] NUTS Allergy Airway Uncoded 07/20/18 20:40 Tightness Home Meds: Home Meds Albuterol Sulfate [Ventolin Hfa] 18 gm IH Q4H PRN #1 hfa.aer.ad 04/04/15 [Rx] Fluticasone/Salmeterol [Advair 250-50 Diskus] 1 puff INH BID 05/13/15 [History] Orphenadrine [Norflex] 100 mg PO Q6H PRN 07/14/18 [History] Ranitidine HCl [Zantac 75] 150 mg PO TID PRN 07/14/18 [History] predniSONE [Prednisone] 40 mg PO DAILY #10 tablet 07/14/18 [Rx] predniSONE 10 mg PO QAM #40 tablet 07/20/18 [Rx] Past Medical History - Past Health History Medical/Surgical History: Denies Medical/Surgical History Cardiovascular History: Reports: Arrhythmia Respiratory History: Reports: Asthma Gastrointestinal History: Reports: GERD Genitourinary History: Reports: Pyelonephritis 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: , Other (See Below) Other TEST CONSULTANT History: ovarian cysts on right ovary Musculoskeletal History: Reports: Fracture, Other (See Below) Other Musculoskeletal History: ankle, wrist, finger, elbow Neurological History: Reports: Migraines Psychiatric History: Reports: Anxiety, Depression, PTSD Endocrine/Metabolic History: Reports: Other (See Below) Other Endocrine/Metabolic History: Hypothyroidism-hasn't taken medication for a couple years - Past Surgical History HEENT Surgical History: Reports: Adenoidectomy, Tonsillectomy Other HEENT Surgeries/Procedures: Sinus surgery GI Surgical History: Reports: Colonoscopy, EGD Female Surgical History: Reports: D&C, Other (See Below) Social & Family History - Family History Family Medical History: Noncontributory - Caffeine Use Caffeine Use: Reports: Coffee, Tea - Living Situation & Occupation Living situation: Reports: Single Occupation: Employed ED ROS ALLERGIC REACTION - Review of Systems Review Of Systems: See Below Constitutional: Reports: No Symptoms, Fever, Chills HEENT: Reports: No Symptoms. Denies: Vision Change Respiratory: Denies: No Symptoms Cardiovascular: Denies: No Symptoms Endocrine: Denies: No Symptoms GI/Abdominal: Denies: No Symptoms : Denies: No Symptoms Musculoskeletal: Reports: No Symptoms, Muscle Pain Neurological: Reports: No Symptoms Psychiatric: Reports: No Symptoms Hematologic/Lymphatic: Reports: No Symptoms Immunologic: Reports: No Symptoms ED EXAM GENERAL NO PERIP PULSE - Physical Exam Exam: See Below Exam Limited By: No Limitations General Appearance: Alert, No Apparent Distress Eye Exam: Bilateral Eye: Normal Inspection Head: Atraumatic, Normocephalic Neck: Normal Inspection, Supple, Non-Tender, Full Range of Motion Respiratory/Chest: No Respiratory Distress, Lungs Clear, Normal Breath Sounds, No Accessory Muscle Use, Chest Non-Tender Cardiovascular: Regular Rate, Rhythm, No Edema, No Murmur Extremities: Normal Inspection, No Pedal Edema Skin Exam: Other (She has a rash almost looks like early eczema on the forearms in the lower legs she cannot recall any new exposures to this. She just completed a burst steroid treatment there was started on the and is been off steroids for couple days now she is using Zantac) Course - Vital Signs Last Recorded V/S: Last Vital Signs Temp 36.9 C 07/20/18 20:39 Pulse 128 H 07/20/18 20:39 Resp 20 07/20/18 20:39 BP 129/85 07/20/18 20:39 Pulse Ox 97 07/20/18 20:39 - Orders/Labs/Meds Meds: Medications Discontinued Medications Generic Name Dose Route Start Last Admin Trade Name Suyapa PRN Reason Stop Dose Admin Diphenhydramine HCl 50 mg 07/20/18 20:48 07/20/18 20:53 Benadryl PO 07/20/18 20:49 50 mg ONETIME ONE Administration Prednisone 60 mg 07/20/18 20:48 07/20/18 20:53 Prednisone PO 07/20/18 20:49 60 mg ONETIME ONE Administration - Re-Assessments/Exams Free Text/Narrative Re-Assessment/Exam: 07/20/18 21:48 She is improving with prednisone and Benadryl she would like to go home at this time she just got off a burst steroid treatment we will put her on a taper. Departure - Departure Time of Disposition: 21:49 Disposition: Home, Self-Care 01 Clinical Impression: Allergic reaction Qualifiers: Encounter type: initial encounter Qualified Code(s): T78.40XA - Allergy, unspecified, initial encounter - Discharge Information Prescriptions: predniSONE 10 mg PO QAM #40 tablet Referrals: Magy Jensen NP [Primary Care Provider] - Forms: ED Department Discharge Additional Instructions: Return to the emergency room with any questions problems worsening symptoms. Follow-up he regular provider at the end of this week. Try 1% hydrocortisone cream twice daily to the affected areas. Try loratadine 10 mg 1 daily this is [id number].
[2018-07-20] MEDS ORDERED: predniSONE 20 MG Tab PO ONE (20:48)
[2018-07-20] MEDS ORDERED: diphenhydrAMINE 50 MG Cap PO ONE (20:48)
== END 2018-07-20 22:06 | disposition home or self-care (01) ==
LOC: JD.ED 20:09
DX: R21 Rash and other nonspecific skin eruption (principal); T78.40XA Allergy, unspecified, initial encounter; K21.9 Gastro-esophageal reflux disease without esophagitis; J45.909 Unspecified asthma, uncomplicated; E03.9 Hypothyroidism, unspecified; Z88.1 Allergy status to other antibiotic agents; Z88.8 Allergy status to other drugs, medicaments and biological substances; Z79.899 Other long term (current) drug therapy
CPT/HCPCS: 99283; A9270

== ENCOUNTER 2018-09-10 14:22 | Emergency (ER) | payer MEDICAID ==
[2018-09-10 14:32] VITALS: BP 114/87
[2018-09-10] MEDS ORDERED: Naproxen 500 MG Tab PO ONE (14:42)
--- NOTE | 2018-09-10 14:57 | EDM.PDOC ---
ED HPI GENERAL MEDICAL PROBLEM - General Chief Complaint: RISK COMPLIANCE MANAGER Problem Stated Complaint: MENSTRUAL PAIN Time Seen by Provider: 09/10/18 14:31 Source of Information: Reports: Patient History Limitations: Reports: No Limitations - History of Present Illness Onset: Today Onset Date: 09/10/18 Onset Time: 12:00 Duration: Intermittent Location: Reports: Abdomen (pelvic pain) Quality: Reports: Ache Severity: Mild Improves with: Reports: None Worsens with: Reports: None Associated Symptoms: Reports: Other (menstrual cramping. ) Treatments PHYTOPATHOLOGIST: Reports: NSAIDS Lower Abdomen Pain Score (Numeric/FACES): 8 - Related Data Allergies Allergy/AdvReac Type Severity Reaction Status Date / Time cefixime Allergy Hives Verified 09/10/18 14:30 haloperidol [From Haldol] Allergy Agitation Verified 09/10/18 14:30 hydromorphone [From Dilaudid] Allergy Itching Verified 09/10/18 14:30 ketorolac tromethamine Allergy Itching Verified 09/10/18 14:30 [From Toradol] topiramate [From Topamax] Allergy Rash Verified 09/10/18 14:30 metoclopramide HCl AdvReac Anxiety Verified 09/10/18 14:30 [From Reglan] prochlorperazine edisylate AdvReac Agitation Verified 09/10/18 14:30 [From Compazine] prochlorperazine maleate AdvReac Agitation Verified 09/10/18 14:30 [From Compazine] NUTS Allergy Airway Uncoded 09/10/18 14:30 Tightness Home Meds: Home Meds Albuterol Sulfate [Ventolin Hfa] 18 gm IH Q4H PRN #1 hfa.aer.ad 04/04/15 [Rx] Fluticasone/Salmeterol [Advair 250-50 Diskus] 1 puff INH BID 05/13/15 [History] Ranitidine HCl [Zantac 75] 150 mg PO TID PRN 07/14/18 [History] Past Medical History - Past Health History Medical/Surgical History: Denies Medical/Surgical History Cardiovascular History: Reports: Arrhythmia Respiratory History: Reports: Asthma Gastrointestinal History: Reports: GERD Genitourinary History: Reports: Pyelonephritis RISK COMPLIANCE MANAGER History: Reports: , Other (See Below) Other RISK COMPLIANCE MANAGER History: ovarian cysts on right ovary Musculoskeletal History: Reports: Fracture, Other (See Below) Other Musculoskeletal History: ankle, wrist, finger, elbow Neurological History: Reports: Migraines Psychiatric History: Reports: Anxiety, Depression, PTSD Endocrine/Metabolic History: Reports: Other (See Below) Other Endocrine/Metabolic History: Hypothyroidism-hasn't taken medication for a couple years - Past Surgical History HEENT Surgical History: Reports: Adenoidectomy, Tonsillectomy Other HEENT Surgeries/Procedures: Sinus surgery GI Surgical History: Reports: Colonoscopy, EGD Female Surgical History: Reports: D&C, Other (See Below) Social & Family History - Family History Family Medical History: Noncontributory - Tobacco Use Smoking Status *Q: Never Smoker - Caffeine Use Caffeine Use: Reports: Coffee, Soda - Recreational Drug Use Recreational Drug Use: No - Living Situation & Occupation Living situation: Reports: Single Occupation: Employed ED ROS GENERAL - Review of Systems Review Of Systems: See Below Constitutional: Reports: No Symptoms. Denies: Fever, Chills HEENT: Reports: No Symptoms Respiratory: Reports: No Symptoms Cardiovascular: Reports: No Symptoms Endocrine: Reports: No Symptoms GI/Abdominal: Reports: Other : Reports: Other (Menstrual cramping) Musculoskeletal: Reports: No Symptoms Skin: Reports: No Symptoms Neurological: Reports: No Symptoms Psychiatric: Reports: No Symptoms Hematologic/Lymphatic: Reports: No Symptoms Immunologic: Reports: No Symptoms ED EXAM, GI/ABD - Physical Exam Exam: See Below Exam Limited By: No Limitations General Appearance: Alert, WD/WN, No Apparent Distress Respiratory/Chest: No Respiratory Distress, Lungs Clear, Normal Breath Sounds, No Accessory Muscle Use, Chest Non-Tender Cardiovascular: Normal Peripheral Pulses, Regular Rate, Rhythm, No Edema, No Gallop, No JVD, No Murmur, No Rub GI/Abdominal Exam: Normal Bowel Sounds, Soft, Non-Tender, No Organomegaly, No Distention, No Abnormal Bruit, No Mass, Pelvis Stable (Female) Exam: Other (Menstrual cramps) Back Exam: Normal Inspection, Full Range of Motion Neurological: Alert, Oriented, Normal Cognition, Normal Gait, Normal Reflexes, No Motor/Sensory Deficits Psychiatric: Normal Affect, Normal Mood Skin Exam: Warm, Dry, Intact, Normal Color Lymphatic: No Adenopathy Course - Vital Signs Last Recorded V/S: Last Vital Signs Temp 97.9 F 03/30/19 14:27 Pulse 100 09/10/18 14:27 Resp 16 09/10/18 14:27 BP 114/87 09/10/18 14:27 Pulse Ox 100 09/10/18 14:27 - Orders/Labs/Meds Meds: Medications Discontinued Medications Generic Name Dose Route Start Last Admin Trade Name Suyapa PRN Reason Stop Dose Admin Naproxen 500 mg 09/10/18 14:42 Naprosyn PO 09/10/18 14:43 ONETIME ONE - Re-Assessments/Exams Free Text/Narrative Re-Assessment/Exam: 09/10/18 14:54 28 y/o female presents to ER with cc menstrual cramping. She is requesting Percocet for her pain. I informed her we do not prescribe narcotics for menstrual cramps. She is upset she is not getting narcotics. I will discharge home with Anaprox for pain. I instructed her to follow up with a Clinical Nurse Educator. I did refer her to Dr. Duarte. Encourage patient to return to the emergency room for any new or acutely worsening symptoms. Patient verbalized understanding and is comfortable plan for discharge. Patient is stable at time of discharge. Departure - Departure Time of Disposition: 14:57 Disposition: Home, Self-Care 01 Clinical Impression: Dysmenorrhea - Discharge Information Instructions: Dysmenorrhea, [id number] Referrals: Magy Jensen NP [Primary Care Provider] - Hannah Reynolds MD [Physician] - Additional Instructions: You have been diagnosed with dysmenorrhea. If given a prescription for Anaprox for ear pain. I recommend she follow up with operations recruiter for evaluation and treatment of her symptoms. Return to the emergency room for new or acutely worsening symptoms. Patient verbalized understanding and will plan for discharge. Patient is stable at time of discharge.
== END 2018-09-10 15:00 | disposition home or self-care (01) ==
LOC: JD.ED 14:22
DX: N94.6 Dysmenorrhea, unspecified (principal); J45.909 Unspecified asthma, uncomplicated; Z91.018 Allergy to other foods; Z88.1 Allergy status to other antibiotic agents; Z88.6 Allergy status to analgesic agent; Z88.5 Allergy status to narcotic agent; Z88.8 Allergy status to other drugs, medicaments and biological substances
CPT/HCPCS: 99283; A9270

== ENCOUNTER 2018-10-19 08:16 | Emergency (ER) | payer MEDICAID ==
[2018-10-19 08:27] VITALS: BP 138/88
[2018-10-19] MEDS ORDERED: Ondansetron 4 MG/2 ML SDV IVPUSH ONE ×2 (08:37→10:29)
[2018-10-19] MEDS ORDERED: Sodium Chloride 0.9% 1,000 ML IV ONE (08:38)
[2018-10-19] MEDS ORDERED: Alum Hydrox/Mag Hydrox/Simeth 30 ML, Lidocaine 2% 15 ML PO ONE ×2 (09:09)
[2018-10-19] MEDS ORDERED: Famotidine 20 MG/2 ML SDV IVPUSH ONE (09:09)
[2018-10-19] MEDS ORDERED: Acetaminophen 325 MG Tab PO ONE (09:14)
[2018-10-19] MEDS ORDERED: Sodium Chloride 0.9% 10 ML Syringe FLUSH PRN (09:14)
--- NOTE | 2018-10-19 09:14 | EDM.PDOC ---
ED HPI GENERAL MEDICAL PROBLEM - General Chief Complaint: Gastrointestinal Problem Stated Complaint: VOMITING AND BODY ACHES Time Seen by Provider: 10/19/18 09:00 Source of Information: Reports: Patient History Limitations: Reports: No Limitations - History of Present Illness INITIAL COMMENTS - FREE TEXT/NARRATIVE: 28-year-old female presents for evaluation & treatment of nausea, vomiting and diarrhea. Reports that symptoms started suddenly last night around 2300. She reports associated abdominal pain, headaches and bodyaches. She describes abdominal pain as a sharp burning sensation located in the epigastric and upper quadrant of her abdomen. She reports some hematemesis which she describes as coffee grounds and states there is a minimal amount. Estimate she's vomited about 10 times since this started. She has had about 4-5 episodes of diarrhea. She denies any blood in her stool. She also reports that she is coughing. Denies questionable foods. She denies any recent travel. Her last menstrual is unclear but states that she just finished it. She did not receive an influenza vaccine this season. Previous abdominal surgeries include an appendectomy. Onset: Today, Sudden Headache Pain Score (Numeric/FACES): 6 - Related Data Allergies Allergy/AdvReac Type Severity Reaction Status Date / Time cefixime Allergy Hives Verified 10/19/18 08:27 haloperidol [From Haldol] Allergy Agitation Verified 10/19/18 08:27 hydromorphone [From Dilaudid] Allergy Itching Verified 10/19/18 08:27 ketorolac tromethamine Allergy Itching Verified 10/19/18 08:27 [From Toradol] topiramate [From Topamax] Allergy Rash Verified 10/19/18 08:27 metoclopramide HCl AdvReac Anxiety Verified 10/19/18 08:27 [From Reglan] prochlorperazine edisylate AdvReac Agitation Verified 10/19/18 08:27 [From Compazine] prochlorperazine maleate AdvReac Agitation Verified 10/19/18 08:27 [From Compazine] NUTS Allergy Airway Uncoded 09/10/18 14:30 Tightness Home Meds: Home Meds Albuterol Sulfate [Ventolin Hfa] 18 gm IH Q4H PRN #1 hfa.aer.ad 04/04/15 [Rx] Fluticasone/Salmeterol [Advair 250-50 Diskus] 1 puff INH BID 05/13/15 [History] Ranitidine HCl [Zantac 75] 150 mg PO TID PRN 07/14/18 [History] Acetaminophen/Butalbital/Caff [Fioricet 325-50-40 MG] 1 tab PO Q4HR PRN #12 tablet 10/19/18 [Rx] Ondansetron [Zofran ODT] 4 mg PO Q6H PRN #20 tab.dis 10/19/18 [Rx] Past Medical History - Past Health History Medical/Surgical History: Denies Medical/Surgical History Cardiovascular History: Reports: Arrhythmia Respiratory History: Reports: Asthma Gastrointestinal History: Reports: GERD Genitourinary History: Reports: Pyelonephritis 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 History: Reports: , Other (See Below) Other ASSISTANT BOILER OPERATOR History: ovarian cysts on right ovary Musculoskeletal History: Reports: Fracture, Other (See Below) Other Musculoskeletal History: ankle, wrist, finger, elbow Neurological History: Reports: Migraines Psychiatric History: Reports: Anxiety, Depression, PTSD Endocrine/Metabolic History: Reports: Other (See Below) Other Endocrine/Metabolic History: Hypothyroidism-hasn't taken medication for a couple years - Past Surgical History HEENT Surgical History: Reports: Adenoidectomy, Tonsillectomy Other HEENT Surgeries/Procedures: Sinus surgery GI Surgical History: Reports: Colonoscopy, EGD Female Surgical History: Reports: D&C, Other (See Below) Social & Family History - Family History Family Medical History: Noncontributory - Tobacco Use Smoking Status *Q: Never Smoker - Caffeine Use Caffeine Use: Reports: None - Recreational Drug Use Recreational Drug Use: No - Living Situation & Occupation Living situation: Reports: Single Occupation: Employed ED ROS GENERAL - Review of Systems Review Of Systems: See Below Constitutional: Reports: Other (Reports body aches). Denies: Fever, Chills GI/Abdominal: Reports: Abdominal Pain, Diarrhea, Hematemesis, Nausea, Vomiting. Denies: Bloody Stool, Hematochezia, Melena : Denies: Dysuria Neurological: Reports: Headache ED EXAM, GI/ABD - Physical Exam Exam: See Below Exam Limited By: No Limitations General Appearance: Alert, WD/WN, No Apparent Distress, Obese Ears: Normal External Exam Nose: Normal Inspection Throat/Mouth: Normal Inspection, Normal Voice, No Airway Compromise Respiratory/Chest: No Respiratory Distress, Lungs Clear, Normal Breath Sounds Cardiovascular: Normal Peripheral Pulses, Regular Rate, Rhythm, No Murmur GI/Abdominal Exam: Normal Bowel Sounds, Soft, Tender (minor to the upper abdomen and epigastric area) Neurological: Alert, Oriented, Normal Cognition Psychiatric: Normal Affect, Normal Mood Skin Exam: Warm, Dry, Normal Color Course - Vital Signs Last Recorded V/S: Last Vital Signs Temp 97.7 F 10/19/18 08:25 Pulse 124 H 10/19/18 08:25 Resp 16 10/19/18 08:25 BP 138/88 10/19/18 08:25 Pulse Ox 100 10/19/18 08:25 Orthostatic Blood Pressure [ 130/96 Standing] Orthostatic Blood Pressure [ 132/101 Sitting] Orthostatic Blood Pressure [ 126/89 Supine] - Orders/Labs/Meds Orders: Active Orders 24 hr Category Date Time Status Peripheral IV Care [RC] . DIRECTED Care 10/19/18 09:14 Active Peripheral IV Insertion Adult [OM.PC] Routine Oth 10/19/18 09:14 Ordered Labs: Laboratory Tests 10/19/18 10/19/18 10/19/18 Range/Units 08:33 08:33 09:26 WBC 10.33 H (3.98-10.04) K/mm3 RBC 5.02 (3.98-5.22) M/mm3 Hgb 13.4 D (11.2-15.7) gm/L Hct 40.1 (34.1-44.9) % MCV 79.9 (79.4-94.8) fl MCH 26.7 (25.6-32.2) pg MCHC 33.4 (32.2-35.5) g/dl RDW Std Deviation 41.2 (36.4-46.3) fL Plt Count 418 H (182-369) K/mm3 MPV 8.5 L (9.4-12.3) fl Neut % (Auto) 70.4 (34.0-71.1) % Lymph % (Auto) 20.9 (19.3-51.7) % [place] % (Auto) 5.4 (4.7-12.5) % Eos % (Auto) 2.3 (0.7-5.8) Baso % (Auto) 0.8 (0.1-1.2) % Neut # (Auto) 7.27 H (1.56-6.13) K/mm3 Lymph # (Auto) 2.16 (1.18-3.74) K/mm3 [place] # (Auto) 0.56 H (0.24-0.36) K/mm3 Eos # (Auto) 0.24 (0.04-0.36) K/mm3 Baso # (Auto) 0.08 (0.01-0.08) K/mm3 Sodium 141 (136-145) mEq/L Potassium 4.3 (3.5-5.1) mEq/L Chloride 103 (98-107) mEq/L Carbon Dioxide 24 (21-32) mEq/L Anion Gap 18.3 H (5-15) BUN 9 (7-18) mg/dL Creatinine 0.9 (0.55-1.02) mg/dL Est Cr Clr Drug Dosing 70.85 mL/min Estimated GFR (MDRD) > 60 (>60) mL/min BUN/Creatinine Ratio 10.0 L (14-18) Glucose 97 (74-106) mg/dL Calcium 9.5 (8.5-10.1) mg/dL Total Bilirubin 0.4 (0.2-1.0) mg/dL AST 17 (15-37) U/L ALT 28 (14-59) U/L Alkaline Phosphatase 60 (46-116) U/L Total Protein 8.6 H (6.4-8.2) g/dl Albumin 4.3 (3.4-5.0) g/dl Globulin 4.3 gm/dL Albumin/Globulin Ratio 1.0 (1-2) Urine Color (Yellow) Urine Appearance (Clear) Urine pH (5.0-8.0) Ur Specific [place] (1.005-1.030) Urine Protein (Negative) Urine Glucose (UA) (Negative) Urine Ketones (Negative) Urine Occult Blood (Negative) Urine Nitrite (Negative) Urine Bilirubin (Negative) Urine Urobilinogen (0.2-1.0) Ur Leukocyte Esterase (Negative) Urine RBC (0-5) /hpf Urine WBC (0-5) /hpf Ur Epithelial Cells (0-5) /hpf Urine Bacteria (FEW) /hpf Urine Mucus (FEW) /hpf Urine HCG, Qual Negative (NEGATIVE) 10/19/18 Range/Units 09:28 WBC (3.98-10.04) K/mm3 RBC (3.98-5.22) M/mm3 Hgb (11.2-15.7) gm/L Hct (34.1-44.9) % MCV (79.4-94.8) fl MCH (25.6-32.2) pg MCHC (32.2-35.5) g/dl RDW Std Deviation (36.4-46.3) fL Plt Count (182-369) K/mm3 MPV (9.4-12.3) fl Neut % (Auto) (34.0-71.1) % Lymph % (Auto) (19.3-51.7) % [place] % (Auto) (4.7-12.5) % Eos % (Auto) (0.7-5.8) Baso % (Auto) (0.1-1.2) % Neut # (Auto) (1.56-6.13) K/mm3 Lymph # (Auto) (1.18-3.74) K/mm3 [place] # (Auto) (0.24-0.36) K/mm3 Eos # (Auto) (0.04-0.36) K/mm3 Baso # (Auto) (0.01-0.08) K/mm3 Sodium (136-145) mEq/L Potassium (3.5-5.1) mEq/L Chloride (98-107) mEq/L Carbon Dioxide (21-32) mEq/L Anion Gap (5-15) BUN (7-18) mg/dL Creatinine (0.55-1.02) mg/dL Est Cr Clr Drug Dosing mL/min Estimated GFR (MDRD) (>60) mL/min BUN/Creatinine Ratio (14-18) Glucose (74-106) mg/dL Calcium (8.5-10.1) mg/dL Total Bilirubin (0.2-1.0) mg/dL AST (15-37) U/L ALT (14-59) U/L Alkaline Phosphatase (46-116) U/L Total Protein (6.4-8.2) g/dl Albumin (3.4-5.0) g/dl Globulin gm/dL Albumin/Globulin Ratio (1-2) Urine Color Yellow (Yellow) Urine Appearance Clear (Clear) Urine pH 7.5 (5.0-8.0) Ur Specific [place] 1.020 (1.005-1.030) Urine Protein 1+ H (Negative) Urine Glucose (UA) Negative (Negative) Urine Ketones Negative (Negative) Urine Occult Blood Negative (Negative) Urine Nitrite Negative (Negative) Urine Bilirubin Negative (Negative) Urine Urobilinogen 0.2 (0.2-1.0) Ur Leukocyte Esterase Negative (Negative) Urine RBC 0-5 (0-5) /hpf Urine WBC 0-5 (0-5) /hpf Ur Epithelial Cells 0-5 (0-5) /hpf Urine Bacteria Few (FEW) /hpf Urine Mucus Few (FEW) /hpf Urine HCG, Qual (NEGATIVE) Meds: Medications Discontinued Medications Generic Name Dose Route Start Last Admin Trade Name Freq PRN Reason Stop Dose Admin Acetaminophen 650 mg 10/19/18 09:14 10/19/18 09:23 Tylenol PO 10/19/18 09:15 650 mg NOW ONE Administration Acetaminophen/Butalbital/Caffeine 1 tab 10/19/18 11:50 10/19/18 12:09 Fioricet 325-50-40 Mg PO 10/19/18 11:51 1 tab ONETIME ONE Administration Al Hydroxide/Mg Hydroxide 30 0 ml 10/19/18 09:09 10/19/18 09:23 ml/ Lidocaine HCl 15 ml PO 10/19/18 09:10 45 ml ONETIME ONE Administration Diphenhydramine HCl 50 mg 10/19/18 10:29 10/19/18 10:39 Benadryl IVPUSH 10/19/18 10:30 50 mg ONETIME ONE Administration Famotidine 20 mg 10/19/18 09:09 10/19/18 09:22 Pepcid IVPUSH 10/19/18 09:10 20 mg ONETIME ONE Administration Sodium Chloride 1,000 mls @ 999 mls/hr 10/19/18 08:38 10/19/18 08:45 Normal Saline IV 10/19/18 09:38 999 mls/hr ONETIME ONE Administration Ketorolac Tromethamine 30 mg 10/19/18 10:29 10/19/18 10:37 Toradol IVPUSH 10/19/18 10:30 30 mg ONETIME ONE Administration Ondansetron HCl 4 mg 10/19/18 08:37 10/19/18 08:45 Zofran IVPUSH 10/19/18 08:38 4 mg ONETIME ONE Administration Ondansetron HCl 4 mg 10/19/18 10:29 10/19/18 10:36 Zofran IVPUSH 10/19/18 10:30 4 mg ONETIME ONE Administration Sodium Chloride 10 ml 10/19/18 09:14 10/19/18 09:23 Saline Flush FLUSH 10 ml ASDIRECTED PRN Administration Keep Vein Open - Re-Assessments/Exams Free Text/Narrative Re-Assessment/Exam: 10/19/18 10:30 Checked on the patient. She reports that her abdominal pain and burning is much better following the IV Pepcid and GI cocktail. She reports that she still feels nauseous and vomited. An additional 4 mg IV Zofran ordered. She states that the headache is now much better. She is requesting something stronger than Tylenol for headache. She states that she has taken Toradol with Benadryl in the past and this has prevented her from having allergy of itching to the Toradol. She is requesting 30 IV Toradol and 50 IV Benadryl in addition to additional 4 mg of IV Zofran. I feel this is a viral gastritis causing her nausea, vomiting and diarrhea. Her abdominal discomfort is more likely related to her GERD. Will continue to work on symptom improvement and plan for discharge. 10/19/18 11:59 checked on the patient, symptoms have improved but continues to have an headache. Requests Fioricet. Will plan to discharge. Likely GERD and a viral gastroenteritis causing symptoms today. Will discharge home at this time. Discharge instructions as documented. Departure - Departure Time of Disposition: 12:00 Disposition: Home, Self-Care 01 Condition: Good Clinical Impression: GERD (gastroesophageal reflux disease), Gastroenteritis, Migraine - Discharge Information *PRESCRIPTION DRUG MONITORING PROGRAM REVIEWED*: No *COPY OF PRESCRIPTION DRUG MONITORING REPORT IN PATIENT RICKEY: No Prescriptions: Acetaminophen/Butalbital/Caff [Fioricet 325-50-40 MG] 1 tab PO Q4HR PRN #12 tablet PRN Reason: Headache Ondansetron [Zofran ODT] 4 mg PO Q6H PRN #20 tab.dis PRN Reason: Nausea Instructions: Migraine Headache, [id number], Viral Gastroenteritis, Adult, [id number], Gastroesophageal Reflux Disease, Adult, [id number] Referrals: Magy Jensen NP [Primary Care Provider] - Forms: ED Department Discharge Additional Instructions: Take the Fioricet 1 tab every 4 hours as needed for headaches. Max of 6 caps per day. Zofran 1 tab sublingual every 6 hours as needed for nausea. make sure you are drinking plenty of fluids. Small frequent sips of Gatorade, Powerade or water. Expect your symptoms to last 1-3 days. If your symptoms last beyond 5 days follow-up with your primary care provider. Please return to the ER if your symptoms change or worsen. - My Orders Last 24 Hours: My Active Orders 10/19/18 09:14 Peripheral IV Care [RC] . DIRECTED Peripheral IV Insertion Adult [OM.PC] Routine - Assessment/Plan Last 24 Hours: My Active Orders 10/19/18 09:14 Peripheral IV Care [RC] . DIRECTED Peripheral IV Insertion Adult [OM.PC] Routine
[2018-10-19] MEDS ORDERED: Ketorolac 30 MG/ML SDV IVPUSH ONE (10:29)
[2018-10-19] MEDS ORDERED: diphenhydrAMINE 50 MG/ML SDV IVPUSH ONE (10:29)
[2018-10-19] MEDS ORDERED: Acetaminophen/Butalbital/Caffeine 325-50-40 MG Tab PO ONE (11:50)
== END 2018-10-19 12:16 | disposition home or self-care (01) ==
LOC: JD.ED 08:16
DX: K52.9 Noninfective gastroenteritis and colitis, unspecified (principal); K21.9 Gastro-esophageal reflux disease without esophagitis; G43.909 Migraine, unspecified, not intractable, without status migrainosus; F41.9 Anxiety disorder, unspecified; F32.9 Major depressive disorder, single episode, unspecified; E03.9 Hypothyroidism, unspecified; Z79.899 Other long term (current) drug therapy; Z88.8 Allergy status to other drugs, medicaments and biological substances; Z91.018 Allergy to other foods; Z88.1 Allergy status to other antibiotic agents
CPT/HCPCS: 36415; 80053; 81001; 81025; 85025; 87804; 96361; 96374; 96375; 96376; 99283; A9270; J1200; J1885; J2405; J3490; J7040; 99284

== ENCOUNTER 2019-02-17 17:09 | Emergency (ER) | payer MEDICAID ==
[2019-02-17 18:10] VITALS: BP 113/81
[2019-02-17] MEDS ORDERED: Sodium Chloride 0.9% 10 ML Syringe FLUSH PRN (19:06)
[2019-02-17] MEDS ORDERED: Sodium Chloride 0.9% 1,000 ML IV ONE (19:06)
[2019-02-17] MEDS ORDERED: Ketorolac 30 MG/ML SDV IVPUSH ONE (19:06)
[2019-02-17] MEDS ORDERED: diphenhydrAMINE 50 MG/ML SDV IVPUSH ONE (19:06)
--- NOTE | 2019-02-17 19:28 | EDM.PDOC ---
ED HPI GENERAL MEDICAL PROBLEM - General Chief Complaint: Headache Stated Complaint: HEADACHE Time Seen by Provider: 02/17/19 18:45 Source of Information: Reports: Patient History Limitations: Reports: No Limitations - History of Present Illness INITIAL COMMENTS - FREE TEXT/NARRATIVE: 29-year-old female presents for evaluation and treatment of a headache. Patient reports that it started yesterday. She has been taking firocet, Zofran and Imitrex. Reports it resolved and around 1700 today came back suddenly. Reports a pain across her forehead. Reports as a dull pain , 8/10. Reports associated symptoms of nausea, confusion and blurry vision. No vomiting. She denies any recent trauma such as falls or motor vehicle accident. She reports she has had several sinus surgeries in the past. History of migraines. Normally gets 2-3 migraines a week. Requires intervention every few months do severity. She has seen neurology previously but has not been seeing a neurologist recently. Previously on Topamax. At this time she is just on Fioricet, Zofran and Imitrex. No recent travel. Frontal Headache Pain Score (Numeric/FACES): 8 - Related Data Allergies Allergy/AdvReac Type Severity Reaction Status Date / Time cefixime Allergy Hives Verified 10/19/18 08:27 haloperidol [From Haldol] Allergy Agitation Verified 10/19/18 08:27 hydromorphone [From Dilaudid] Allergy Itching Verified 10/19/18 08:27 topiramate [From Topamax] Allergy Rash Verified 10/19/18 08:27 ketorolac tromethamine AdvReac Mild Itching Verified 02/17/19 19:28 [From Toradol] metoclopramide HCl AdvReac Anxiety Verified 10/19/18 08:27 [From Reglan] prochlorperazine edisylate AdvReac Agitation Verified 10/19/18 08:27 [From Compazine] prochlorperazine maleate AdvReac Agitation Verified 10/19/18 08:27 [From Compazine] NUTS Allergy Airway Uncoded 09/10/18 14:30 Tightness Home Meds: Home Meds Albuterol Sulfate [Ventolin Hfa] 18 gm IH Q4H PRN #1 hfa.aer.ad 04/04/15 [Rx] Fluticasone/Salmeterol [Advair 250-50 Diskus] 1 puff INH BID 05/13/15 [History] Ranitidine HCl [Zantac 75] 150 mg PO TID PRN 07/14/18 [History] Acetaminophen/Butalbital/Caff [Fioricet 325-50-40 MG] 1 tab PO Q4HR PRN #12 tablet 10/19/18 [Rx] Ondansetron [Zofran ODT] 4 mg PO Q6H PRN #20 tab.dis 10/19/18 [Rx] Past Medical History - Past Health History Medical/Surgical History: Denies Medical/Surgical History Cardiovascular History: Reports: Arrhythmia Respiratory History: Reports: Asthma Gastrointestinal History: Reports: GERD Genitourinary History: Reports: Pyelonephritis 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 HARDWARE History: Reports: , Other (See Below) Other MANAGER HARDWARE History: ovarian cysts on right ovary Musculoskeletal History: Reports: Fracture, Other (See Below) Other Musculoskeletal History: ankle, wrist, finger, elbow Neurological History: Reports: Migraines Psychiatric History: Reports: Anxiety, Depression, PTSD Endocrine/Metabolic History: Reports: Other (See Below) Other Endocrine/Metabolic History: Hypothyroidism-hasn't taken medication for a couple years - Past Surgical History HEENT Surgical History: Reports: Adenoidectomy, Tonsillectomy Other HEENT Surgeries/Procedures: Sinus surgery GI Surgical History: Reports: Colonoscopy, EGD Female Surgical History: Reports: D&C, Other (See Below) Social & Family History - Family History Family Medical History: Noncontributory - Tobacco Use Smoking Status *Q: Never Smoker - Caffeine Use Caffeine Use: Reports: Coffee, Soda, Tea - Recreational Drug Use Recreational Drug Use: No - Living Situation & Occupation Living situation: Reports: Single Occupation: Employed ED ROS GENERAL - Review of Systems Review Of Systems: See Below HEENT: Reports: Other (blurry vision) GI/Abdominal: Reports: Nausea. Denies: Vomiting Neurological: Reports: Confusion, Headache. Denies: Syncope - Physical Exam Exam: See Below Exam Limited By: No Limitations General Appearance: Alert, WD/WN, No Apparent Distress, Obese Eye Exam: Bilateral Eye: Normal Inspection, PERRL Ears: Normal External Exam Nose: Normal Inspection Throat/Mouth: Normal Inspection, Normal Voice, No Airway Compromise Head Exam: Atraumatic, Normocephalic Neck: Normal Inspection, Full Range of Motion Respiratory/Chest: No Respiratory Distress, Lungs Clear, Normal Breath Sounds Cardiovascular: Normal Peripheral Pulses, Regular Rate, Rhythm, No Murmur Neuro Exam (Abbreviated): Alert, Oriented, Normal Cognition, Other (clinical allergist strength, dorsiflexion and plartarflexion 5/5 bilaterally) Extremities: Normal Inspection Psychiatric: Normal Affect, Normal Mood Skin Exam: Warm, Dry, Normal Color Course - Vital Signs Last Recorded V/S: Last Vital Signs Temp 97.3 F 02/17/19 18:09 Pulse 92 02/17/19 18:09 Resp 20 02/17/19 18:09 BP 113/81 02/17/19 18:09 Pulse Ox 100 02/17/19 18:09 - Orders/Labs/Meds Orders: Active Orders 24 hr Category Date Time Status Peripheral IV Care [RC] . DIRECTED Care 02/17/19 19:06 Active Peripheral IV Insertion Adult [OM.PC] Routine Oth 02/17/19 19:06 Ordered Meds: Medications Discontinued Medications Generic Name Dose Route Start Last Admin Trade Name Freq PRN Reason Stop Dose Admin Dexamethasone 4 mg 02/17/19 20:01 02/17/19 20:09 Dexamethasone IVPUSH 02/17/19 20:02 4 mg ONETIME ONE Administration Diphenhydramine HCl 50 mg 02/17/19 19:06 02/17/19 19:28 Benadryl IVPUSH 02/17/19 19:07 50 mg ONETIME ONE Administration Sodium Chloride 1,000 mls @ 999 mls/hr 02/17/19 19:06 02/17/19 19:27 Normal Saline IV 02/17/19 20:06 999 mls/hr ONETIME ONE Administration Ketorolac Tromethamine 30 mg 02/17/19 19:06 02/17/19 19:27 Toradol IVPUSH 02/17/19 19:07 30 mg ONETIME ONE Administration Sodium Chloride 10 ml 02/17/19 19:06 02/17/19 19:28 Saline Flush FLUSH 10 ml ASDIRECTED PRN Administration Keep Vein Open - Re-Assessments/Exams Free Text/Narrative Re-Assessment/Exam: 02/17/19 20:48 Checked on the patient. She feels that her headache is at a point she is able to manage it at home. She feels comfortable going home at this time. Discharge instructions as documented. Departure - Departure Time of Disposition: 20:49 Disposition: Home, Self-Care 01 Condition: Good Clinical Impression: Migraine - Discharge Information *PRESCRIPTION DRUG MONITORING PROGRAM REVIEWED*: No *COPY OF PRESCRIPTION DRUG MONITORING REPORT IN PATIENT RICKEY: No Instructions: Migraine Headache, [id number] Referrals: Magy Jensen NP [Primary Care Provider] - Forms: ED Department Discharge Additional Instructions: Continue with your current medications and plan of care for migraines. Follow-up with your primary care prov for further migraine management. Consider a referral to neurology. go home and rest in a dark quiet room. Make sure you are drinking plenty of fluids. Please return to ER if your symptoms change or worsen. - My Orders Last 24 Hours: My Active Orders 02/17/19 19:06 Peripheral IV Care [RC] . DIRECTED Peripheral IV Insertion Adult [OM.PC] Routine - Assessment/Plan Last 24 Hours: My Active Orders 02/17/19 19:06 Peripheral IV Care [RC] . DIRECTED Peripheral IV Insertion Adult [OM.PC] Routine
[2019-02-17] MEDS ORDERED: Dexamethasone 4 MG/ML SDV IVPUSH ONE (20:01)
== END 2019-02-17 20:59 | disposition home or self-care (01) ==
LOC: JD.ED 17:09
DX: G43.909 Migraine, unspecified, not intractable, without status migrainosus (principal); J45.909 Unspecified asthma, uncomplicated; K21.9 Gastro-esophageal reflux disease without esophagitis; Z88.5 Allergy status to narcotic agent; Z88.8 Allergy status to other drugs, medicaments and biological substances; Z91.018 Allergy to other foods; Z79.899 Other long term (current) drug therapy
CPT/HCPCS: 96361; 96374; 96375; 99283; J1100; J1200; J1885; J7040; 99284

== ENCOUNTER 2019-05-31 10:42 | Emergency (ER) | payer SELFPAY ==
[2019-05-31 10:56] VITALS: BP 144/95; PULSE 105
--- NOTE | 2019-05-31 11:28 | EDM.PDOC ---
ED HPI GENERAL MEDICAL PROBLEM - General Chief Complaint: Respiratory Problem Stated Complaint: DIFFICULTY BREATHING Time Seen by Provider: 05/31/19 10:53 Source of Information: Reports: Patient, Old Records, RN Notes Reviewed History Limitations: Reports: No Limitations - History of Present Illness INITIAL COMMENTS - FREE TEXT/NARRATIVE: Patient is a 29-year-old female who presents to the ED for evaluation of increased respiratory difficulty and a cough. Patient notes a prior history of asthma, she is not on any regular inhalers, or steroid inhalers. She takes albuterol when needed. She notes that she has had to use her albuterol MDI and nebulizer more frequently over the last few days. She notes that the cough is been present for around 3 days. She states that the increased difficulty breathing started yesterday however. The cough was so bad today that she had to excuse herself from work. She states that she felt as if she had a fever at home, but does not have a thermometer to check and also has some chills. She does note some mild chest discomfort with this due to the coughing. Patient's primary care provider is Magy Jensen. She has also been using NyQuil and Mucinex, however this does not seem to be helping much. Patient did not get a flu shot this year. Chest Pain Score (Numeric/FACES): 7 - Related Data Allergies Allergy/AdvReac Type Severity Reaction Status Date / Time Beef Containing Products Allergy Stomach Verified 05/31/19 10:55 Upset cefixime Allergy Hives Verified 05/31/19 10:55 corn Allergy Stomach Verified 05/31/19 10:55 Upset haloperidol [From Haldol] Allergy Agitation Verified 05/31/19 10:55 hydromorphone [From Dilaudid] Allergy Itching Verified 05/31/19 10:55 topiramate [From Topamax] Allergy Rash Verified 05/31/19 10:55 ketorolac tromethamine AdvReac Mild Itching Verified 05/31/19 10:55 [From Toradol] metoclopramide HCl AdvReac Anxiety Verified 05/31/19 10:55 [From Reglan] prochlorperazine edisylate AdvReac Agitation Verified 05/31/19 10:55 [From Compazine] prochlorperazine maleate AdvReac Agitation Verified 05/31/19 10:55 [From Compazine] NUTS Allergy Airway Uncoded 05/31/19 10:55 Tightness Home Meds: Home Meds Albuterol Sulfate [Ventolin Hfa] 18 gm IH Q4H PRN #1 hfa.aer.ad 04/04/15 [Rx] Fluticasone/Salmeterol [Advair 250-50 Diskus] 1 puff INH BID 05/13/15 [History] Famotidine 0 mg PO BID 04/27/19 [History] Sucralfate [Carafate] 1 gm PO ASDIRECTED #20 tablet 04/27/19 [Rx] Codeine/Promethazine [Phenergan with Codeine] 5 ml PO Q4HR PRN #60 cup 05/31/19 [Rx] predniSONE 20 mg PO ASDIRECTED #15 tab 05/31/19 [Rx] Past Medical History - Past Health History Medical/Surgical History: Denies Medical/Surgical History Cardiovascular History: Reports: Arrhythmia Respiratory History: Reports: Asthma Gastrointestinal History: Reports: GERD Genitourinary History: Reports: Pyelonephritis, UTI, Recurrent 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 GENERATION MANAGER 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: Reports: , Other (See Below) Other DEMAND GENERATION MANAGER History: ovarian cysts on right ovary Musculoskeletal History: Reports: Fracture, Other (See Below) Other Musculoskeletal History: ankle, wrist, finger, elbow Neurological History: Reports: Migraines Psychiatric History: Reports: Anxiety, Depression, PTSD Endocrine/Metabolic History: Reports: Hypothyroidism, Obesity/BMI 30+, Other ( See Below) Other Endocrine/Metabolic History: Hypothyroidism-hasn't taken medication for a couple years Hematologic History: Reports: None Immunologic History: Reports: None Oncologic (Cancer) History: Reports: None Dermatologic History: Reports: Eczema - Infectious Disease History Infectious Disease History: Reports: None - Past Surgical History HEENT Surgical History: Reports: Adenoidectomy, Myringotomy w Tube(s), Tonsillectomy Other HEENT Surgeries/Procedures: Sinus surgery GI Surgical History: Reports: Appendectomy, Colonoscopy, EGD Female Surgical History: Reports: D&C Other Musculoskeletal Surgeries/Procedures:: Right hand surgeries Social & Family History - Family History Family Medical History: Noncontributory - Tobacco Use Smoking Status *Q: Never Smoker - Caffeine Use Caffeine Use: Reports: Coffee - Recreational Drug Use Recreational Drug Use: No - Living Situation & Occupation Living situation: Reports: Single Occupation: Employed ED ROS GENERAL - Review of Systems Review Of Systems: See Below Constitutional: Reports: Fever (not documented, but felt warm), Chills HEENT: Denies: Throat Pain Respiratory: Reports: Shortness of Breath (increased SOB in last day), Cough Cardiovascular: Reports: Chest Pain (mild chest discomfort/burning sensation) GI/Abdominal: Denies: Abdominal Pain, Nausea, Vomiting ED EXAM, GENERAL - Physical Exam Exam: See Below Exam Limited By: No Limitations General Appearance: Alert, WD/WN, No Apparent Distress Respiratory/Chest: No Respiratory Distress, Lungs Clear, No Accessory Muscle Use , Chest Non-Tender, Decreased Breath Sounds (diminished bilaterally), Other ( intermittent dry cough noted during exam) Cardiovascular: Normal Peripheral Pulses, Regular Rate, Rhythm, No Murmur Peripheral Pulses: 3+: Radial (L), Radial (R) GI/Abdominal: Normal Bowel Sounds, Soft, Non-Tender, No Distention, No Mass Extremities: Normal Inspection, Normal Capillary Refill Neurological: Alert, Oriented, Normal Cognition, No Motor/Sensory Deficits Psychiatric: Normal Affect, Normal Mood Skin Exam: Warm, Dry, Intact, Normal Color, No Rash Course - Vital Signs Last Recorded V/S: Last Vital Signs Temp 97.6 F 05/31/19 10:53 Pulse 105 H 05/31/19 10:53 Resp 18 05/31/19 10:53 BP 144/95 H 05/31/19 10:53 Pulse Ox 100 05/31/19 10:53 - Orders/Labs/Meds Orders: Active Orders 24 hr Category Date Time Status Influenza Vaccine Charge [RC] .DISCHARGE Care 05/31/19 11:18 Active Meds: Medications Discontinued Medications Generic Name Dose Route Start Last Admin Trade Name Freq PRN Reason Stop Dose Admin Influenza Virus Vaccine 60 mcg 05/31/19 11:45 05/31/19 11:43 Fluzone Quad [id number] Syringe IM 05/31/19 11:46 Not Given .ONCE ONE - Re-Assessments/Exams Free Text/Narrative Re-Assessment/Exam: 05/31/19 11:38 Patient presents to the ED for the evaluation of a cough and increasing shortness of breath. Will check influenza swab at this time, and due to the patient's history of asthma, will likely send her home with a prednisone burst and some cough medicine for symptomatic treatment. Departure - Departure Time of Disposition: 11:39 Disposition: Home, Self-Care 01 Clinical Impression: Bronchitis - Discharge Information *PRESCRIPTION DRUG MONITORING PROGRAM REVIEWED*: No *COPY OF PRESCRIPTION DRUG MONITORING REPORT IN PATIENT RICKEY: No Prescriptions: Codeine/Promethazine [Phenergan with Codeine] 5 ml PO Q4HR PRN #60 cup PRN Reason: Cough predniSONE 20 mg PO ASDIRECTED #15 tab Instructions: Acute Bronchitis, Adult, [id number] Referrals: Magy Jensen WAREHOUSE RECEIVING SUPERVISOR [Primary Care Provider] - Forms: ED Department Discharge, ED Return to Work/School Form Additional Instructions: You have been evaluated in the ED today for your cold like symptoms, cough, sore throat. This is likely a viral illness in etiology. Your influenza screen is negative. Please increase your fluid intake. Get plenty of rest as well. You should feel better in a few days. Recommend that you take some [id number] nasal decongestants, cough/cold remedies to combat this. Medicines like NyQuil, DayQuil, phenylephrine and other sinus decongestants are adequate. You were given a script for a strong cough medicine that contains codeine. Please take 5mL every 4 hours as needed for coughing. Do not drive if taking this medication during the day. Due to your history of Asthma, you have also been started on a course of prednisone, please take as directed. If your symptoms are not better in one week's time recommend that you follow up in a clinic or your primary care provider. Please return to the ED if your symptoms change or worsen. Sepsis Event Note - Evaluation Sepsis Screening Result: No Definite Risk - Focused Exam Vital Signs: Vital Signs Temp Pulse Resp BP Pulse Ox 05/31/19 10:53 97.6 F 105 H 18 144/95 H 100 Date Exam was Performed: 05/31/19 Time Exam was Performed: 18:39 - My Orders Last 24 Hours: My Active Orders 05/31/19 11:18 Influenza Vaccine Charge [RC] .DISCHARGE - Assessment/Plan Last 24 Hours: My Active Orders 05/31/19 11:18 Influenza Vaccine Charge [RC] .DISCHARGE
[2019-05-31] MEDS ORDERED: FLU Vacc QS2019-20(6MOS+)/PF 60 MCG/0.5 ML SYRINGE IM ONE (11:45)
== END 2019-05-31 12:10 | disposition home or self-care (01) ==
LOC: JD.ED 10:42
DX: J40 Bronchitis, not specified as acute or chronic (principal); K21.9 Gastro-esophageal reflux disease without esophagitis; E66.9 Obesity, unspecified; Z68.42 Body mass index [BMI] 45.0-49.9, adult; Z91.018 Allergy to other foods; Z88.8 Allergy status to other drugs, medicaments and biological substances; Z88.5 Allergy status to narcotic agent; Z79.899 Other long term (current) drug therapy
CPT/HCPCS: 87804; 99283; 99284

== ENCOUNTER 2019-06-16 06:28 | Emergency (ER) | payer BC, OTHER ==
--- NOTE | 2019-06-16 07:06 | EDM.PDOC ---
ED HPI GENERAL MEDICAL PROBLEM - General Chief Complaint: Headache Stated Complaint: HEADACHE Time Seen by Provider: 06/16/19 07:05 Source of Information: Reports: Patient History Limitations: Reports: No Limitations - History of Present Illness INITIAL COMMENTS - FREE TEXT/NARRATIVE: 29-year-old female presents to the ED complaining of a headache for about 6 days duration. Initially headache seemed to respond to Tylenol and caffeine and Fioricet. This morning the headache is worse than it has been associated with nausea and vomiting. Visit primarily through the mid vertex both sides of her head. No increased cervical neck pain. She is mildly photophobic. Emesis is been bilious with dry heaves this morning. Is constant and throbbing and pounding and was present most of the night. Patient has a history of chronic sinusitis having had recurrent sinus and nasal surgery in December of this last year. Denies any fever or chills. She does state that her appetite is been poor the last several days. Sounds like her daughter did have confirmed influenza A infection Onset: Gradual Onset Date: 06/11/19 Duration: Day(s):, Getting Worse, Waxing/Waning Location: Reports: Head (Diffuse headache.) Quality: Reports: Ache, Throbbing, Other Severity: Moderate (Pounding) Improves with: Reports: None (Occasions taken at home have not helped.) Worsens with: Reports: Movement (X-ray standing) Context: Denies: Activity, Exercise, Lifting, Sick Contact, Trauma, Other Associated Symptoms: Reports: Headaches, Loss of Appetite (Gets 2 or 3 migraine headaches a week.), Malaise, Nausea/Vomiting, Weakness. Denies: No Other Symptoms, Confusion, Chest Pain, Cough, cough w sputum, Diaphoresis, Fever/ Chills, Rash, Seizure, Shortness of Breath, Syncope Treatments THREAD GRINDER TOOL: Reports: Acetaminophen, NSAIDS (Motrin), Other (see below) ( Caffeine) Headache Pain Score (Numeric/FACES): 8 - Related Data Allergies Allergy/AdvReac Type Severity Reaction Status Date / Time Beef Containing Products Allergy Stomach Verified 06/16/19 06:42 Upset cefixime Allergy Hives Verified 06/16/19 06:42 corn Allergy Stomach Verified 06/16/19 06:42 Upset haloperidol [From Haldol] Allergy Agitation Verified 06/16/19 06:42 hydromorphone [From Dilaudid] Allergy Itching Verified 06/16/19 06:42 topiramate [From Topamax] Allergy Rash Verified 06/16/19 06:42 ketorolac tromethamine AdvReac Mild Itching Verified 06/16/19 06:42 [From Toradol] metoclopramide HCl AdvReac Anxiety Verified 06/16/19 06:42 [From Reglan] prochlorperazine edisylate AdvReac Agitation Verified 06/16/19 06:42 [From Compazine] prochlorperazine maleate AdvReac Agitation Verified 06/16/19 06:42 [From Compazine] NUTS Allergy Airway Uncoded 05/31/19 10:55 Tightness Home Meds: Home Meds Albuterol Sulfate [Ventolin Hfa] 18 gm IH Q4H PRN #1 hfa.aer.ad 04/04/15 [Rx] Fluticasone/Salmeterol [Advair 250-50 Diskus] 1 puff INH BID 05/13/15 [History] Past Medical History - Past Health History Medical/Surgical History: Denies Medical/Surgical History Cardiovascular History: Reports: Arrhythmia Respiratory History: Reports: Asthma Gastrointestinal History: Reports: GERD Genitourinary History: Reports: Pyelonephritis, UTI, Recurrent 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: , Other (See Below) 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 AND BAKING OPERATOR History: ovarian cysts on right ovary Musculoskeletal History: Reports: Fracture, Other (See Below) Other Musculoskeletal History: ankle, wrist, finger, elbow Neurological History: Reports: Migraines Psychiatric History: Reports: Anxiety, Depression, PTSD Endocrine/Metabolic History: Reports: Hypothyroidism, Obesity/BMI 30+, Other ( See Below) Other Endocrine/Metabolic History: Hypothyroidism-hasn't taken medication for a couple years Hematologic History: Reports: None Immunologic History: Reports: None Oncologic (Cancer) History: Reports: None Dermatologic History: Reports: Eczema - Infectious Disease History Infectious Disease History: Reports: None - Past Surgical History HEENT Surgical History: Reports: Adenoidectomy, Myringotomy w Tube(s), Tonsillectomy Other HEENT Surgeries/Procedures: Sinus surgery GI Surgical History: Reports: Appendectomy, Colonoscopy, EGD Female Surgical History: Reports: D&C Other Musculoskeletal Surgeries/Procedures:: Right hand surgeries Social & Family History - Family History Family Medical History: Noncontributory - Tobacco Use Smoking Status *Q: Never Smoker - Caffeine Use Caffeine Use: Reports: Coffee - Living Situation & Occupation Living situation: Reports: Single Occupation: Employed ED ROS GENERAL - Review of Systems Review Of Systems: See Below Constitutional: Reports: Malaise, Weakness, Fatigue, Decreased Appetite. Denies : Fever, Chills HEENT: Reports: Other (Photophobic) Respiratory: Reports: No Symptoms Cardiovascular: Reports: No Symptoms Endocrine: Reports: Fatigue GI/Abdominal: Reports: Nausea, Vomiting : Reports: No Symptoms Musculoskeletal: Reports: Neck Pain, Back Pain Skin: Reports: No Symptoms Neurological: Reports: Dizziness, Headache. Denies: Pre-Existing Deficit, Trouble Speaking, Difficulty Walking, Weakness Psychiatric: Reports: No Symptoms Hematologic/Lymphatic: Reports: No Symptoms Immunologic: Reports: No Symptoms - Physical Exam Exam: See Below Exam Limited By: No Limitations General Appearance: Alert, WD/WN, No Apparent Distress, Other (Vital signs temperature 36.6. Heart rate is 106 in sinus the bedside. Respiratory is 16 with O2 sats of 90% on room air. BP 130/90.) Eye Exam: Bilateral Eye: Normal Inspection, PERRL Throat/Mouth: Normal Inspection, Normal Lips, Normal Teeth, Normal Oropharynx Head Exam: Atraumatic, Normocephalic Neck: Normal Inspection, Supple, Limited Range of Motion, Tender Lateral ( Tender little bit more on the left side than on the right.). No: Lymphadenopathy (L), Lymphadenopathy (R) (Increased headache pain and pain in the neck with flexion of the chin on chest.) Respiratory/Chest: No Respiratory Distress, Lungs Clear, Normal Breath Sounds, No Accessory Muscle Use Cardiovascular: Normal Peripheral Pulses, Regular Rate, Rhythm, No Edema, No Gallop, No Murmur, No Rub Neuro Exam (Abbreviated): Alert, Oriented, CN II-XII Intact, Normal Cognition, No Motor/Sensory Deficits, Other (No focal neurological deficit.) Back Exam: Normal Inspection, Full Range of Motion. No: CVA Tenderness (L), CVA Tenderness (R) Extremities: Normal Inspection, Normal Range of Motion, Non-Tender Psychiatric: Normal Affect, Normal Mood Skin Exam: Warm, Dry, Intact, Normal Color, No Rash Course - Vital Signs Last Recorded V/S: Last Vital Signs Temp 36.6 C 06/16/19 06:40 Pulse 107 H 06/16/19 09:15 Resp 18 06/16/19 09:15 BP 130/80 06/16/19 09:15 Pulse Ox 100 06/16/19 09:15 - Orders/Labs/Meds Meds: Medications Discontinued Medications Generic Name Dose Route Start Last Admin Trade Name Suyapa PRN Reason Stop Dose Admin Dexamethasone 10 mg 06/16/19 07:08 06/16/19 07:43 Dexamethasone IV 06/16/19 07:09 10 mg ONETIME ONE Administration Diphenhydramine HCl 50 mg 06/16/19 07:08 06/16/19 07:40 Benadryl IVPUSH 06/16/19 07:09 50 mg ONETIME ONE Administration Fentanyl 50 mcg 06/16/19 08:11 06/16/19 08:17 Sublimaze IVPUSH 06/16/19 08:12 50 mcg ONETIME ONE Administration Dextrose/Sodium Chloride 1,000 mls @ 999 mls/hr 06/16/19 07:15 06/16/19 07:37 Dextrose 5%-Normal Saline IV 999 mls/hr ASDIRECTED BRYAN Administration Ketorolac Tromethamine 30 mg 06/16/19 07:15 06/16/19 07:48 Toradol IVPUSH 30 mg ONETIME BRYAN Administration Ondansetron HCl 4 mg 06/16/19 07:09 06/16/19 07:39 Zofran IVPUSH 06/16/19 07:10 4 mg ONETIME ONE Administration - Radiology Interpretation Free Text/Narrative:: 21-year-old female presents the ED with a headache that has been coming and going for the last 6 days but more constant and severe overnight. Associate with nausea and vomiting. She is photosensitive. On average she gets 2-3 bad headaches per week. This considering neurological consultation and perhaps Botox injections. Everything she has taken at home i.e. acetaminophen Motrin and caffeine products have not helped relieve the headache today. Neurological exam is completely normal. Plan IV D5 normal saline at open. Given Toradol 30 mg IV with Benadryl 50 mg IV and Zofran 4 mg IV. She is allergic to narcotics. Will therefore give her dexamethasone 10 mg IV as well to help with headache relief. - Re-Assessments/Exams Free Text/Narrative Re-Assessment/Exam: 06/16/19 08:12 still having significant headache. Perhaps slightly improved. He is running very slowly as she only has a 22-gauge IV in place. Will try fentanyl 50 g IV for headache relief. 06/16/19 09:01 patient reports headache is much improved. He'll be discharged to home. She will have to call for a ride. Departure - Departure Time of Disposition: 09:02 Disposition: Home, Self-Care 01 Condition: Fair Clinical Impression: Migraine Qualifiers: Migraine type: chronic without aura Status migrainosus presence: without status migrainosus Intractability: not intractable Qualified Code(s): G43.709 - Chronic migraine without aura, not intractable, without status migrainosus - Discharge Information *PRESCRIPTION DRUG MONITORING PROGRAM REVIEWED*: Not Applicable *COPY OF PRESCRIPTION DRUG MONITORING REPORT IN PATIENT RICKEY: Not Applicable Instructions: Recurrent Migraine Headache Referrals: Magy Jensen NP [Primary Care Provider] - Forms: ED Department Discharge Additional Instructions: Evaluation the emergency room this morning in regards to persistent and recurrent headache over the last 6 days. As you indicated today's headache was much more intense than last 6 days with bilateral pressure central skull. Should it photophobia and nausea and vomiting. You're treated with a liter of intravenous fluids while in the ED to rehydrate you. You were given Zofran 4 mg IV for nausea relief and dexamethasone 10 mg IV for headache which takes a couple of hours to work. It is hoped that this will bring the headaches under control for several days. He also received Toradol 30 mg IV and Benadryl 50 mg IV for headache relief. Second medication received post fentanyl 50 g IV for headache pain relief. Home to bed to sleep for a couple of hours to see if you can break the headache cycle. Sepsis Event Note - Evaluation Sepsis Screening Result: No Definite Risk - Focused Exam Vital Signs: Vital Signs Temp Pulse Resp BP Pulse Ox 06/16/19 09:15 107 H 18 130/80 100 06/16/19 06:40 36.6 C 106 H 16 138/90 98 Date Exam was Performed: 06/16/19 Time Exam was Performed: 11:22
[2019-06-16] MEDS ORDERED: diphenhydrAMINE 50 MG/ML SDV IVPUSH ONE (07:08)
[2019-06-16] MEDS ORDERED: Dexamethasone 4 MG/ML 5 ML MDV IV ONE (07:08)
[2019-06-16] MEDS ORDERED: Ondansetron 4 MG/2 ML SDV IVPUSH ONE (07:09)
[2019-06-16] MEDS ORDERED: Dextrose 5%-0.9% NaCl 1,000 ML IV SCH (07:15)
[2019-06-16] MEDS ORDERED: Ketorolac 30 MG/ML SDV IVPUSH SCH (07:15)
[2019-06-16] MEDS ORDERED: fentaNYL 100 MCG/2 ML SDV IVPUSH ONE (08:11)
[2019-06-16 09:25] VITALS: BP 130/80; PULSE 107
== END 2019-06-16 09:18 | disposition home or self-care (01) ==
LOC: JD.ED 06:28
DX: G43.709 Chronic migraine without aura, not intractable, without status migrainosus (principal); Z91.030 Bee allergy status; Z91.018 Allergy to other foods; Z88.6 Allergy status to analgesic agent; Z88.8 Allergy status to other drugs, medicaments and biological substances
CPT/HCPCS: 96361; 96374; 96375; 99284; J1100; J1200; J1885; J2405; J3010; J7042; 99283

== ENCOUNTER 2019-06-20 08:29 | Emergency (ER) | payer BC, OTHER ==
[2019-06-20 08:54] VITALS: BP 133/82; PULSE 103
[2019-06-20] MEDS ORDERED: Sodium Chloride 0.9% 10 ML Syringe FLUSH PRN (09:08)
[2019-06-20] MEDS ORDERED: Ketorolac 30 MG/ML SDV IVPUSH ONE (09:10)
[2019-06-20] MEDS ORDERED: Ondansetron 4 MG/2 ML SDV IVPUSH ONE (09:10)
[2019-06-20] MEDS ORDERED: diphenhydrAMINE 50 MG/ML SDV IVPUSH ONE (09:10)
--- NOTE | 2019-06-20 10:10 | EDM.PDOC ---
ED HPI GENERAL MEDICAL PROBLEM - General Chief Complaint: Headache Stated Complaint: HEADACHE Time Seen by Provider: 06/20/19 08:56 Source of Information: Reports: Patient History Limitations: Reports: No Limitations - History of Present Illness INITIAL COMMENTS - FREE TEXT/NARRATIVE: The patient presents with a headache. This has been going on for about 8 days. She was seen here a few days ago for the same. She has nausea, photophobia and blurry vision. She gets migraines but this one is worse. She has no numbness or weakness. She has no fever, chills or cough. She has no abdominal pain. She does have some neck pain with it. Onset: Gradual Duration: Day(s): (8) Location: Reports: Head Quality: Reports: Sharp Severity: Severe Improves with: Reports: None Worsens with: Reports: None Associated Symptoms: Reports: Headaches, Nausea/Vomiting. Denies: Chest Pain, Cough, Fever/Chills, Shortness of Breath Treatments LARD BLEACHER: Reports: NSAIDS Frontal Headache Pain Score (Numeric/FACES): 10 - Related Data Allergies Allergy/AdvReac Type Severity Reaction Status Date / Time Beef Containing Products Allergy Stomach Verified 06/20/19 08:54 Upset cefixime Allergy Hives Verified 06/20/19 08:54 corn Allergy Stomach Verified 06/20/19 08:54 Upset haloperidol [From Haldol] Allergy Agitation Verified 06/20/19 08:54 hydromorphone [From Dilaudid] Allergy Itching Verified 06/20/19 08:54 topiramate [From Topamax] Allergy Rash Verified 06/20/19 08:54 ketorolac tromethamine AdvReac Mild Itching Verified 06/20/19 08:54 [From Toradol] metoclopramide HCl AdvReac Anxiety Verified 06/20/19 08:54 [From Reglan] prochlorperazine edisylate AdvReac Agitation Verified 06/20/19 08:54 [From Compazine] prochlorperazine maleate AdvReac Agitation Verified 06/20/19 08:54 [From Compazine] NUTS Allergy Airway Uncoded 06/20/19 08:54 Tightness Home Meds: Home Meds Albuterol Sulfate [Ventolin Hfa] 18 gm IH Q4H PRN #1 hfa.aer.ad 04/04/15 [Rx] Fluticasone/Salmeterol [Advair 250-50 Diskus] 1 puff INH BID 05/13/15 [History] Hydrocodone/Acetaminophen [Hydrocodon-Acetaminophen 5-325] 1 - 2 each PO Q6HR PRN #20 tablet 06/20/19 [Rx] Montelukast [Singulair] 10 mg PO BEDTIME 06/20/19 [History] Ondansetron [Zofran ODT] 4 mg PO Q6H PRN #20 tab.dis 06/20/19 [Rx] Past Medical History - Past Health History Medical/Surgical History: Denies Medical/Surgical History Cardiovascular History: Reports: Arrhythmia Respiratory History: Reports: Asthma Gastrointestinal History: Reports: GERD Genitourinary History: Reports: Pyelonephritis, UTI, Recurrent 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: , Other (See Below) Other 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 ASSISTANT History: ovarian cysts on right ovary Musculoskeletal History: Reports: Fracture, Other (See Below) Other Musculoskeletal History: ankle, wrist, finger, elbow Neurological History: Reports: Migraines Psychiatric History: Reports: Anxiety, Depression, PTSD Endocrine/Metabolic History: Reports: Hypothyroidism, Obesity/BMI 30+, Other ( See Below) Other Endocrine/Metabolic History: Hypothyroidism-hasn't taken medication for a couple years Hematologic History: Reports: None Immunologic History: Reports: None Oncologic (Cancer) History: Reports: None Dermatologic History: Reports: Eczema - Infectious Disease History Infectious Disease History: Reports: None - Past Surgical History HEENT Surgical History: Reports: Adenoidectomy, Myringotomy w Tube(s), Tonsillectomy Other HEENT Surgeries/Procedures: Sinus surgery GI Surgical History: Reports: Appendectomy, Colonoscopy, EGD Female Surgical History: Reports: D&C Other Musculoskeletal Surgeries/Procedures:: Right hand surgeries Social & Family History - Family History Family Medical History: Noncontributory - Tobacco Use Smoking Status *Q: Never Smoker - Caffeine Use Caffeine Use: Reports: Coffee - Recreational Drug Use Recreational Drug Use: No - Living Situation & Occupation Living situation: Reports: Single Occupation: Employed ED ROS GENERAL - Review of Systems Review Of Systems: See Below Constitutional: Reports: No Symptoms HEENT: Reports: No Symptoms Respiratory: Reports: No Symptoms Cardiovascular: Reports: No Symptoms Endocrine: Reports: No Symptoms GI/Abdominal: Reports: Nausea. Denies: Abdominal Pain, Vomiting : Reports: No Symptoms Musculoskeletal: Reports: Neck Pain - Physical Exam Exam: See Below Exam Limited By: No Limitations General Appearance: Alert, No Apparent Distress Ears: Normal External Exam Nose: Normal Inspection Head Exam: Atraumatic, Normocephalic Neck: Normal Inspection, Supple, Non-Tender Respiratory/Chest: No Respiratory Distress, Lungs Clear, Normal Breath Sounds Cardiovascular: Regular Rate, Rhythm, No Edema, No Murmur GI/Abdominal: Soft, Non-Tender, No Organomegaly, No Mass Neuro Exam (Abbreviated): Alert, Oriented, No Motor/Sensory Deficits Course - Vital Signs Last Recorded V/S: Last Vital Signs Temp 98.7 F 06/20/19 08:51 Pulse 103 H 06/20/19 08:51 Resp 18 06/20/19 08:51 BP 133/82 06/20/19 08:51 Pulse Ox 98 06/20/19 08:51 - Orders/Labs/Meds Orders: Active Orders 24 hr Category Date Time Status Peripheral IV Care [RC] . DIRECTED Care 06/20/19 09:08 Active Sodium Chloride 0.9% [Saline Flush] Med 06/20/19 09:08 Active 10 ml FLUSH ASDIRECTED PRN Peripheral IV Insertion Adult [OM.PC] Routine Oth 06/20/19 09:08 Ordered Medication Orders Sodium Chloride (Saline Flush) 10 ml FLUSH ASDIRECTED PRN PRN Reason: Keep Vein Open Last Admin: 06/20/19 09:25 Dose: 10 ml Meds: Medications Generic Name Dose Route Start Last Admin Trade Name Freq PRN Reason Stop Dose Admin Sodium Chloride 10 ml 06/20/19 09:08 06/20/19 09:25 Saline Flush FLUSH 10 ml ASDIRECTED PRN Administration Keep Vein Open Discontinued Medications Generic Name Dose Route Start Last Admin Trade Name Freq PRN Reason Stop Dose Admin Diphenhydramine HCl 50 mg 06/20/19 09:10 06/20/19 09:25 Benadryl IVPUSH 06/20/19 09:11 50 mg ONETIME ONE Administration Fentanyl 100 mcg 06/20/19 10:17 06/20/19 10:26 Sublimaze IVPUSH 06/20/19 10:18 100 mcg ONETIME ONE Administration Ketorolac Tromethamine 30 mg 06/20/19 09:10 06/20/19 09:26 Toradol IVPUSH 06/20/19 09:11 30 mg ONETIME ONE Administration Ondansetron HCl 4 mg 06/20/19 09:10 06/20/19 09:27 Zofran IVPUSH 06/20/19 09:11 4 mg ONETIME ONE Administration - Re-Assessments/Exams Free Text/Narrative Re-Assessment/Exam: 06/20/19 10:10 I ordered an IV saline lock, zofran 4mg IV, benadryl and toradol 30mg IV. 06/20/19 10:54 Her headache is a little better. I ordered some fentanyl and that helped. I will discharge her home. Departure - Departure Time of Disposition: 10:55 Disposition: Home, Self-Care 01 Condition: Good Clinical Impression: Migraine Qualifiers: Migraine type: chronic without aura Status migrainosus presence: without status migrainosus Intractability: not intractable Qualified Code(s): G43.709 - Chronic migraine without aura, not intractable, without status migrainosus - Discharge Information *PRESCRIPTION DRUG MONITORING PROGRAM REVIEWED*: Not Applicable *COPY OF PRESCRIPTION DRUG MONITORING REPORT IN PATIENT RICKEY: Not Applicable Prescriptions: Hydrocodone/Acetaminophen [Hydrocodon-Acetaminophen 5-325] 1 - 2 each PO Q6HR PRN #20 tablet PRN Reason: Pain Ondansetron [Zofran ODT] 4 mg PO Q6H PRN #20 tab.dis PRN Reason: Nausea\vomiting Referrals: Magy Jensen IMPORT AND EXPORT CLERK [Primary Care Provider] - 1 Week Forms: ED Department Discharge Additional Instructions: Go home and rest in a quiet dark room. Take tylenol or motrin for any pain. If that does not work, try the hydrocodone. Take the zofran every 6 hours as needed for nausea or vomiting. Please return if you are worse. Sepsis Event Note - Evaluation Sepsis Screening Result: No Definite Risk - Focused Exam Vital Signs: Vital Signs Temp Pulse Resp BP Pulse Ox 06/20/19 08:51 98.7 F 103 H 18 133/82 98 Date Exam was Performed: 06/20/19 Time Exam was Performed: 10:54 - My Orders Last 24 Hours: My Active Orders 06/20/19 09:08 Peripheral IV Care [RC] . DIRECTED Sodium Chloride 0.9% [Saline Flush] 10 ml FLUSH ASDIRECTED PRN Peripheral IV Insertion Adult [OM.PC] Routine - Assessment/Plan Last 24 Hours: My Active Orders 06/20/19 09:08 Peripheral IV Care [RC] . DIRECTED Sodium Chloride 0.9% [Saline Flush] 10 ml FLUSH ASDIRECTED PRN Peripheral IV Insertion Adult [OM.PC] Routine
[2019-06-20] MEDS ORDERED: fentaNYL 100 MCG/2 ML SDV IVPUSH ONE (10:17)
== END 2019-06-20 11:15 | disposition home or self-care (01) ==
LOC: JD.ED 08:29
DX: G43.709 Chronic migraine without aura, not intractable, without status migrainosus (principal); Z91.018 Allergy to other foods; Z88.8 Allergy status to other drugs, medicaments and biological substances
CPT/HCPCS: 96374; 96375; 99284; J1200; J1885; J2405; J3010; 99283

== ENCOUNTER 2019-08-07 08:12 | Emergency (ER) | payer BC ==
[2019-08-07] MEDS ORDERED: diphenhydrAMINE 50 MG/ML SDV IVPUSH ONE (08:39)
[2019-08-07] MEDS ORDERED: Ketorolac 30 MG/ML SDV IVPUSH ONE (08:39)
[2019-08-07] MEDS ORDERED: Lactated Ringers 1,000 ML IV ONE (08:39)
[2019-08-07] MEDS ORDERED: Ondansetron 4 MG/2 ML SDV IVPUSH ONE (08:39)
--- NOTE | 2019-08-07 08:39 | EDM.PDOC ---
ED HPI GENERAL MEDICAL PROBLEM - General Chief Complaint: Headache Stated Complaint: HEAD PAIN Time Seen by Provider: 08/07/19 08:30 - History of Present Illness INITIAL COMMENTS - FREE TEXT/NARRATIVE: 29-year-old female presents the emergency room with a migraine headache. This headache started several days ago the patient was seen in the walk-in clinic on Wednesday started on Fioricet and Zofran and this has not helped. She was seen again over the weekend and given Maxalt this did not help. Patient has a history of migraine headaches. This is a typical headache for her however it seems to be much worse and she is having more this than normal especially as this then progresses. Took a Maxalt at 5 AM and Zofran at that time 4 mg. Those were most recent medications. They did not seem to help. Bilateral Frontal Headache Pain Score (Numeric/FACES): 10 - Related Data Allergies Allergy/AdvReac Type Severity Reaction Status Date / Time Beef Containing Products Allergy Stomach Verified 08/07/19 08:29 Upset cefixime Allergy Hives Verified 08/07/19 08:29 corn Allergy Stomach Verified 08/07/19 08:29 Upset haloperidol [From Haldol] Allergy Agitation Verified 08/07/19 08:29 hydromorphone [From Dilaudid] Allergy Itching Verified 08/07/19 08:29 topiramate [From Topamax] Allergy Rash Verified 08/07/19 08:29 ketorolac tromethamine AdvReac Mild Itching Verified 08/07/19 08:29 [From Toradol] metoclopramide HCl AdvReac Anxiety Verified 08/07/19 08:29 [From Reglan] prochlorperazine edisylate AdvReac Agitation Verified 08/07/19 08:29 [From Compazine] prochlorperazine maleate AdvReac Agitation Verified 08/07/19 08:29 [From Compazine] NUTS Allergy Airway Uncoded 08/07/19 08:29 Tightness Home Meds: Home Meds Albuterol Sulfate [Ventolin Hfa] 18 gm IH Q4H PRN #1 hfa.aer.ad 04/04/15 [Rx] Fluticasone/Salmeterol [Advair 250-50 Diskus] 1 puff INH BID 05/13/15 [History] Hydrocodone/Acetaminophen [Hydrocodon-Acetaminophen 5-325] 1 - 2 each PO Q6HR PRN #20 tablet 06/20/19 [Rx] Montelukast [Singulair] 10 mg PO BEDTIME 06/20/19 [History] Ondansetron [Zofran ODT] 4 mg PO Q6H PRN #20 tab.dis 06/20/19 [Rx] Past Medical History - Past Health History Medical/Surgical History: Denies Medical/Surgical History Cardiovascular History: Reports: Arrhythmia Respiratory History: Reports: Asthma Gastrointestinal History: Reports: GERD Genitourinary History: Reports: Pyelonephritis, UTI, Recurrent PLATE MAKER History: Reports: , Other (See Below) Other PLATE MAKER History: ovarian cysts on right ovary Musculoskeletal History: Reports: Fracture, Other (See Below) Other Musculoskeletal History: ankle, wrist, finger, elbow Neurological History: Reports: Migraines Psychiatric History: Reports: Anxiety, Depression, PTSD Endocrine/Metabolic History: Reports: Hypothyroidism, Obesity/BMI 30+, Other ( See Below) Other Endocrine/Metabolic History: Hypothyroidism-hasn't taken medication for a couple years Hematologic History: Reports: None Immunologic History: Reports: None Oncologic (Cancer) History: Reports: None Dermatologic History: Reports: Eczema - Infectious Disease History Infectious Disease History: Reports: None - Past Surgical History HEENT Surgical History: Reports: Adenoidectomy, Myringotomy w Tube(s), Tonsillectomy Other HEENT Surgeries/Procedures: Sinus surgery GI Surgical History: Reports: Appendectomy, Colonoscopy, EGD Female Surgical History: Reports: D&C Other Musculoskeletal Surgeries/Procedures:: Right hand surgeries Social & Family History - Family History Family Medical History: Noncontributory - Caffeine Use Caffeine Use: Reports: Coffee - Living Situation & Occupation Living situation: Reports: Single Occupation: Employed ED ROS GENERAL - Review of Systems Review Of Systems: See Below Constitutional: Denies: Fever, Chills HEENT: Reports: Other (Photophobia) Respiratory: Reports: No Symptoms Cardiovascular: Reports: No Symptoms Endocrine: Reports: No Symptoms GI/Abdominal: Reports: Nausea : Reports: No Symptoms Musculoskeletal: Reports: No Symptoms Neurological: Reports: Dizziness, Headache - Physical Exam Exam: See Below Exam Limited By: No Limitations General Appearance: Alert, Other (She has photophobic and in a little bit of distress from her headache) Eye Exam: Bilateral Eye: Normal Inspection, PERRL Ears: Normal External Exam, Normal Canal, Hearing Grossly Normal, Normal TMs Nose: Normal Inspection, Normal Mucosa, No Blood Throat/Mouth: Normal Inspection, Normal Lips, Normal Teeth, Normal Gums, Normal Oropharynx, Normal Voice, No Airway Compromise Head Exam: Atraumatic, Normocephalic Neck: Normal Inspection, Supple, Non-Tender, Full Range of Motion. No: Lymphadenopathy (L), Lymphadenopathy (R) Respiratory/Chest: No Respiratory Distress, Lungs Clear, Normal Breath Sounds Cardiovascular: Regular Rate, Rhythm, No Edema, No Murmur Neuro Exam (Abbreviated): Other (Cranial nerves II through XII grossly intact all muscle groups the upper extremities are equal and appropriate bilaterally deep tendon reflexes at the brachioradialis and patella tendons are equal and appropriate bilaterally cerebellar testing is entirely within normal limits.) Course - Vital Signs Last Recorded V/S: Last Vital Signs Temp 37.2 C 08/07/19 08:24 Pulse 99 08/07/19 08:24 Resp 16 08/07/19 08:24 BP 130/104 H 08/07/19 08:24 Pulse Ox 96 08/07/19 08:24 - Orders/Labs/Meds Meds: Medications Discontinued Medications Generic Name Dose Route Start Last Admin Trade Name Suyapa PRN Reason Stop Dose Admin Diphenhydramine HCl 50 mg 08/07/19 08:39 08/07/19 09:00 Benadryl IVPUSH 08/07/19 08:40 50 mg ONETIME ONE Administration Fentanyl 100 mcg 08/07/19 10:02 08/07/19 10:09 Sublimaze IVPUSH 08/07/19 10:03 100 mcg ONETIME ONE Administration Lactated Ringer's 1,000 mls @ 999 mls/hr 08/07/19 08:39 08/07/19 09:00 Ringers, Lactated IV 08/07/19 09:39 999 mls/hr .BOLUS ONE Administration Ketorolac Tromethamine 30 mg 08/07/19 08:39 08/07/19 09:00 Toradol IVPUSH 08/07/19 08:40 30 mg ONETIME ONE Administration Ondansetron HCl 4 mg 08/07/19 08:39 08/07/19 09:00 Zofran IVPUSH 08/07/19 08:40 4 mg ONETIME ONE Administration - Re-Assessments/Exams Free Text/Narrative Re-Assessment/Exam: 08/07/19 10:53 Received a liter of LR 50 mg of Benadryl 4 mg of Zofran 30 mg of Toradol all IV this was followed up with 100 mcg of fentanyl she is now to the point where she thinks she can go home and get some rest Departure - Departure Time of Disposition: 10:54 Disposition: Home, Self-Care 01 Clinical Impression: Migraine without aura - Discharge Information Instructions: Migraine Headache, [id number] Referrals: Magy Jensen NP [Primary Care Provider] - Forms: ED Department Discharge, ED Return to Work/School Form Additional Instructions: Go home and get some rest. Return to the emergency room with any questions problems worsening symptoms. Follow-up with your regular provider as needed. Sepsis Event Note - Evaluation Sepsis Screening Result: No Definite Risk - Focused Exam Vital Signs: Vital Signs Temp Pulse Resp BP Pulse Ox 08/07/19 08:24 37.2 C 99 16 130/104 H 96 Date Exam was Performed: 08/07/19 Time Exam was Performed: 11:06
[2019-08-07] MEDS ORDERED: fentaNYL 100 MCG/2 ML SDV IVPUSH ONE (10:02)
[2019-08-07 11:11] VITALS: BP 104/68; PULSE 95
== END 2019-08-07 11:11 | disposition home or self-care (01) ==
LOC: JD.ED 08:12
DX: G43.009 Migraine without aura, not intractable, without status migrainosus (principal); Z88.8 Allergy status to other drugs, medicaments and biological substances; Z91.018 Allergy to other foods
CPT/HCPCS: 96361; 96374; 96375; 99283; J1200; J1885; J2405; J3010; J7120

== ENCOUNTER 2019-08-20 19:46 | Emergency (ER) | payer BC ==
[2019-08-20 19:53] VITALS: BP 152/98; PULSE 102
[2019-08-20] MEDS ORDERED: Codeine/Promethazine 10-6.25 MG/5 ML Syrup 5 ML UD Cup PO ONE (20:36)
--- NOTE | 2019-08-20 20:39 | EDM.PDOC ---
ED HPI GENERAL MEDICAL PROBLEM - General Chief Complaint: Respiratory Problem Stated Complaint: SORE THROAT COUGH PROGRESSING FAST Time Seen by Provider: 08/20/19 20:06 Source of Information: Reports: Patient, RN Notes Reviewed History Limitations: Reports: No Limitations - History of Present Illness INITIAL COMMENTS - FREE TEXT/NARRATIVE: Patient is a 29-year-old female who presents to the ED for ongoing cold-like symptoms. She notes that she developed a sore throat Wednesday, and developed a cough the next day, she subsequently lost her voice and has had a hoarse voice since. She notes that she is having some pain underneath her jaw, she feels hot and cold but has not taken her temperature at home. She states that there is some mild difficulty breathing, and she is having a very intermittent dry harsh cough with this. She has been trying NyQuil, and Mucinex at home but nothing is really been providing her much relief. She does have a history of asthma and has been using her albuterol nebulizer, last night and this morning with little relief. Throat Pain Score (Numeric/FACES): 8 - Related Data Allergies Allergy/AdvReac Type Severity Reaction Status Date / Time Beef Containing Products Allergy Stomach Verified 08/20/19 19:53 Upset cefixime Allergy Hives Verified 08/20/19 19:53 corn Allergy Stomach Verified 08/20/19 19:53 Upset haloperidol [From Haldol] Allergy Agitation Verified 08/20/19 19:53 hydromorphone [From Dilaudid] Allergy Itching Verified 08/20/19 19:53 topiramate [From Topamax] Allergy Rash Verified 08/20/19 19:53 ketorolac tromethamine AdvReac Mild Itching Verified 08/20/19 19:53 [From Toradol] metoclopramide HCl AdvReac Anxiety Verified 08/20/19 19:53 [From Reglan] prochlorperazine edisylate AdvReac Agitation Verified 08/20/19 19:53 [From Compazine] prochlorperazine maleate AdvReac Agitation Verified 08/20/19 19:53 [From Compazine] NUTS Allergy Airway Uncoded 08/20/19 19:53 Tightness Home Meds: Home Meds Albuterol Sulfate [Ventolin Hfa] 18 gm IH Q4H PRN #1 hfa.aer.ad 04/04/15 [Rx] Fluticasone/Salmeterol [Advair 250-50 Diskus] 1 puff INH BID 05/13/15 [History] Montelukast [Singulair] 10 mg PO BEDTIME 06/20/19 [History] Hydrocodone/Chlorphen P-Stirex [Hydrocodone-Chlorphen ER Susp] 5 ml PO BID #60 albertina.er.12h 08/20/19 [Rx] predniSONE 20 mg PO ASDIRECTED #15 tab 08/20/19 [Rx] Past Medical History Cardiovascular History: Reports: Arrhythmia Respiratory History: Reports: Asthma Gastrointestinal History: Reports: GERD Genitourinary History: Reports: Pyelonephritis, UTI, Recurrent HEAD OF QUALITY History: Reports: , Other (See Below) Other HEAD OF QUALITY History: ovarian cysts on right ovary Musculoskeletal History: Reports: Fracture, Other (See Below) Other Musculoskeletal History: ankle, wrist, finger, elbow Neurological History: Reports: Migraines Psychiatric History: Reports: Anxiety, Depression, PTSD Endocrine/Metabolic History: Reports: Hypothyroidism, Obesity/BMI 30+, Other ( See Below) Other Endocrine/Metabolic History: Hypothyroidism-hasn't taken medication for a couple years Dermatologic History: Reports: Eczema - Past Surgical History HEENT Surgical History: Reports: Adenoidectomy, Myringotomy w Tube(s), Tonsillectomy Other HEENT Surgeries/Procedures: Sinus surgery GI Surgical History: Reports: Appendectomy, Colonoscopy, EGD Female Surgical History: Reports: D&C Other Musculoskeletal Surgeries/Procedures:: Right hand surgeries Social & Family History - Family History Family Medical History: Noncontributory - Tobacco Use Smoking Status *Q: Never Smoker Second Hand Smoke Exposure: No - Caffeine Use Caffeine Use: Reports: None - Recreational Drug Use Recreational Drug Use: No - Living Situation & Occupation Living situation: Reports: Single Occupation: Employed ED ROS GENERAL - Review of Systems Review Of Systems: See Below Constitutional: Reports: Malaise HEENT: Reports: Throat Pain, Throat Swelling (feels like her throat is swollen) Respiratory: Reports: Cough. Denies: Shortness of Breath, Sputum Cardiovascular: Denies: Chest Pain GI/Abdominal: Denies: Abdominal Pain, Constipation, Diarrhea, Nausea, Vomiting Neurological: Denies: Headache ED EXAM, GENERAL - Physical Exam Exam: See Below Exam Limited By: No Limitations General Appearance: Alert, WD/WN, No Apparent Distress Eye Exam: Bilateral Eye: EOMI, Normal Inspection, PERRL Ears: Normal External Exam, Normal Canal, Hearing Grossly Normal, Normal TMs Nose: Normal Inspection Throat/Mouth: Normal Inspection, Normal Lips, Normal Teeth, Normal Gums, Normal Oropharynx, Normal Voice, No Airway Compromise Head: Atraumatic, Normocephalic Neck: Normal Inspection, Supple, Tender Lateral (under bilateral mandibles). No : Lymphadenopathy (L), Lymphadenopathy (R) Respiratory/Chest: No Respiratory Distress, Lungs Clear, Normal Breath Sounds, No Accessory Muscle Use, Chest Non-Tender Cardiovascular: Normal Peripheral Pulses, Regular Rate, Rhythm, No Murmur GI/Abdominal: Normal Bowel Sounds, Soft, Non-Tender, No Distention, No Mass Extremities: Normal Inspection, Normal Capillary Refill Neurological: Alert, Oriented, Normal Cognition, No Motor/Sensory Deficits Psychiatric: Normal Affect, Normal Mood Skin Exam: Warm, Dry, Intact, Normal Color, No Rash Course - Vital Signs Last Recorded V/S: Last Vital Signs Temp 97.3 F 08/20/19 19:50 Pulse 102 H 08/20/19 19:50 Resp 18 08/20/19 19:50 BP 152/98 H 08/20/19 19:50 Pulse Ox 99 08/20/19 19:50 - Orders/Labs/Meds Orders: Active Orders 24 hr Category Date Time Status CULTURE STREP A CONFIRMATION [RM] Stat Lab 08/20/19 20:16 Results STREP SCRN A RAPID W CULT CONF [RM] Stat Lab 08/20/19 20:06 Ordered Meds: Medications Discontinued Medications Generic Name Dose Route Start Last Admin Trade Name Suyapa PRN Reason Stop Dose Admin Promethazine HCl/Codeine 5 ml 08/20/19 20:36 08/20/19 20:45 Phenergan With Codeine PO 08/20/19 20:37 5 ml ONETIME ONE Administration - Re-Assessments/Exams Free Text/Narrative Re-Assessment/Exam: 08/20/19 20:39 Patient presents to the ED for evaluation of her ongoing cough and cold-like symptoms. Due to her history of asthma I will likely send her home with prednisone, and have her take her albuterol nebulizer more frequently throughout the day, and have her follow-up with primary care provider sometime by this mid week for re-evaluation. Have ordered influenza swab and strep screen for initial evaluation in the ER. 08/20/19 21:05 Influenza screen is negative, initial strep screen is also negative. Will be sent for culture for confirmation. Patient be discharged home with plan as noted above. Departure - Departure Time of Disposition: 21:05 Disposition: Home, Self-Care 01 Condition: Fair Clinical Impression: Viral URI with cough - Discharge Information *PRESCRIPTION DRUG MONITORING PROGRAM REVIEWED*: No *COPY OF PRESCRIPTION DRUG MONITORING REPORT IN PATIENT RICKEY: No Prescriptions: Hydrocodone/Chlorphen P-Stirex [Hydrocodone-Chlorphen ER Susp] 5 ml PO BID #60 albertina.er.12h predniSONE 20 mg PO ASDIRECTED #15 tab Instructions: Viral Respiratory Infection, [id number] Referrals: Magy Jensen NP [Primary Care Provider] - Forms: ED Department Discharge Additional Instructions: You were evaluated in the ER today regarding your ongoing cough, sore throat. Your influenza screen was negative, your strep screen was negative, however this will be sent for culture for confirmation you will be made notified in 24 to 48 hours if you should need antibiotics, someone from our facility will call you for this. This will come from a private number so please answer the phone if you should receive one. This is still likely due to viral illness in nature, try to increase your oral fluid intake and stick to bland diet and advance to regular as tolerated. You have been given a prescription for prednisone, as you have a history of asthma to help relieve your cough, you also have been given a cough medication for further symptom relief. You will need to fill this at the [place] [facility] located in the [facility] [employer] [facility] tomorrow and start taking as prescribed. Recommend you follow-up with your primary care physician sometime this mid week or by the end of the week, for evaluation of your symptoms to make sure everything is getting better as expected. Please return to the ER at any time if your symptoms change or worsen. Sepsis Event Note - Evaluation Sepsis Screening Result: No Definite Risk - Focused Exam Vital Signs: Vital Signs Temp Pulse Resp BP Pulse Ox 08/20/19 19:50 97.3 F 102 H 18 152/98 H 99 Date Exam was Performed: 08/20/19 Time Exam was Performed: 21:05 - My Orders Last 24 Hours: My Active Orders 08/20/19 20:06 STREP SCRN A RAPID W CULT CONF [RM] Stat 08/20/19 20:16 CULTURE STREP A CONFIRMATION [RM] Stat - Assessment/Plan Last 24 Hours: My Active Orders 08/20/19 20:06 STREP SCRN A RAPID W CULT CONF [RM] Stat 08/20/19 20:16 CULTURE STREP A CONFIRMATION [RM] Stat
== END 2019-08-20 21:15 | disposition home or self-care (01) ==
LOC: JD.ED 19:46
DX: J06.9 Acute upper respiratory infection, unspecified (principal); J45.909 Unspecified asthma, uncomplicated; Z91.018 Allergy to other foods; Z88.8 Allergy status to other drugs, medicaments and biological substances
CPT/HCPCS: 87081; 87430; 87804; 99283; A9270

== ENCOUNTER 2019-09-04 04:59 | Emergency (ER) | payer BC ==
--- NOTE | 2019-09-04 05:46 | EDM.PDOC ---
ED HPI GENERAL MEDICAL PROBLEM - General Chief Complaint: Respiratory Problem Stated Complaint: vomiting chest pressure fever cough Time Seen by Provider: 09/04/19 05:46 Source of Information: Reports: Patient History Limitations: Reports: No Limitations - History of Present Illness INITIAL COMMENTS - FREE TEXT/NARRATIVE: 29-year-old female presents to the ED for evaluation of paroxysmal productive cough for the last 5 days. Initially with a lot of myalgia and still has headache and body aches. Loss of appetite. She was exposed to influenza with her daughter being influenza A positive back in June but she did not contract infection then. Full exposure within the last 10 days to any other person however. Thing up brownish sputum at times. Ear pain minimal throat pain. Cough still she vomits at times. Patient has a history of asthma but does not feel that her wheezing is any worse than normal. She continues to use her normal asthma inhalers and is on Singulair. Onset: Sudden Onset Date: 08/31/19 Duration: Day(s):, Constant, Getting Worse, Other Location: Reports: Head (Neurolyse myalgia headache), Chest (Here paroxysmal cough. Very paroxysmal minimally productive cough), Generalized, Other (Loss of appetite) Quality: Reports: Ache Severity: Moderate Improves with: Reports: Medication Worsens with: Reports: Other (Thing.) Context: Reports: Other. Denies: Activity, Exercise, Lifting, Sick Contact, Trauma Associated Symptoms: Reports: Chest Pain, Cough, cough w sputum (Spontaneous occurrence), Fever/Chills, Headaches, Loss of Appetite, Malaise, Weakness. 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: Reports: Acetaminophen, NSAIDS, Other (see below) Generalized Pain Score (Numeric/FACES): 9 - Related Data Allergies Allergy/AdvReac Type Severity Reaction Status Date / Time Beef Containing Products Allergy Stomach Verified 09/04/19 05:17 Upset cefixime Allergy Hives Verified 09/04/19 05:17 corn Allergy Stomach Verified 09/04/19 05:17 Upset haloperidol [From Haldol] Allergy Agitation Verified 09/04/19 05:17 hydromorphone [From Dilaudid] Allergy Itching Verified 09/04/19 05:17 topiramate [From Topamax] Allergy Rash Verified 09/04/19 05:17 ketorolac tromethamine AdvReac Mild Itching Verified 09/04/19 05:17 [From Toradol] metoclopramide HCl AdvReac Anxiety Verified 09/04/19 05:17 [From Reglan] prochlorperazine edisylate AdvReac Agitation Verified 09/04/19 05:17 [From Compazine] prochlorperazine maleate AdvReac Agitation Verified 09/04/19 05:17 [From Compazine] NUTS Allergy Airway Uncoded 08/20/19 19:53 Tightness Home Meds: Home Meds Albuterol Sulfate [Ventolin Hfa] 18 gm IH Q4H PRN #1 hfa.aer.ad 04/04/15 [Rx] Fluticasone/Salmeterol [Advair 250-50 Diskus] 1 puff INH BID 05/13/15 [History] Montelukast [Singulair] 10 mg PO BEDTIME 06/20/19 [History] Doxycycline [Vibramycin] 100 mg PO BID #20 cap 09/04/19 [Rx] Esomeprazole Magnesium [Nexium] 20 mg PO BID 09/04/19 [History] Hydrocodone/Chlorphen P-Stirex [Hydrocodone-Chlorphen ER Susp] 5 ml PO Q12H PRN #60 ml 09/04/19 [Rx] Past Medical History - Past Health History Medical/Surgical History: Denies Medical/Surgical History Cardiovascular History: Reports: Arrhythmia Respiratory History: Reports: Asthma Gastrointestinal History: Reports: GERD Genitourinary History: Reports: Pyelonephritis, UTI, Recurrent 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: , Other (See Below) Other TRAFFIC AND TRANSPORT PLANNER History: ovarian cysts on right ovary Musculoskeletal History: Reports: Fracture, Other (See Below) Other Musculoskeletal History: ankle, wrist, finger, elbow Neurological History: Reports: Migraines Psychiatric History: Reports: Anxiety, Depression, PTSD Endocrine/Metabolic History: Reports: Hypothyroidism, Obesity/BMI 30+, Other ( See Below) Other Endocrine/Metabolic History: Hypothyroidism-hasn't taken medication for a couple years Hematologic History: Reports: None Immunologic History: Reports: None Oncologic (Cancer) History: Reports: None Dermatologic History: Reports: Eczema - Infectious Disease History Infectious Disease History: Reports: None - Past Surgical History HEENT Surgical History: Reports: Adenoidectomy, Myringotomy w Tube(s), Tonsillectomy Other HEENT Surgeries/Procedures: Sinus surgery GI Surgical History: Reports: Appendectomy, Colonoscopy, EGD Female Surgical History: Reports: D&C Other Musculoskeletal Surgeries/Procedures:: Right hand surgeries Social & Family History - Family History Family Medical History: Noncontributory - Tobacco Use Smoking Status *Q: Former Smoker Used Tobacco, but Quit: Yes Month/Year Tobacco Last Used: 3 - Caffeine Use Caffeine Use: Reports: Coffee, Soda - Recreational Drug Use Recreational Drug Use: No - Living Situation & Occupation Living situation: Reports: Single Occupation: Employed ED ROS GENERAL - Review of Systems Review Of Systems: See Below Constitutional: Reports: Fever, Chills, Malaise, Weakness, Fatigue, Decreased Appetite HEENT: Reports: Sinus Problem, Throat Pain (Niccoli) Respiratory: Reports: Cough, Sputum. Denies: Wheezing, Pleuritic Chest Pain ( Brownish sputum) Cardiovascular: Reports: No Symptoms Endocrine: Reports: Fatigue GI/Abdominal: Reports: Vomiting (3 posttussive.) : Reports: No Symptoms Musculoskeletal: Reports: Muscle Pain Skin: Reports: No Symptoms (Generalized myalgia) Neurological: Reports: Headache Psychiatric: Reports: No Symptoms Hematologic/Lymphatic: Reports: No Symptoms Immunologic: Reports: No Symptoms ED EXAM, GENERAL - Physical Exam Exam: See Below Exam Limited By: No Limitations General Appearance: Alert, WD/WN, Mild Distress, Other (Temperature is 36.1 at present. Pulse is 99 sinus respiratory is 18 with O2 sats of 99% on room air BP is 133/87.) Eye Exam: Bilateral Eye: Normal Inspection, PERRL Ears: Other (Right tympanic membrane is retracted severely and appears to have middle ear effusion. It is scarred from previous myringotomy tubes. Left is retracted but no fluid is evident.) Nose: Other (Tensive previous nasal surgery with polypectomy. There is still significant swelling of the mucosa bilaterally with marked narrowing on the right side.) Throat/Mouth: Normal Inspection, Normal Lips, Normal Teeth, Normal Oropharynx Head: Atraumatic, Normocephalic Neck: Normal Inspection, Supple, Non-Tender, Full Range of Motion. No: Carotid Bruit, Lymphadenopathy (L), Lymphadenopathy (R) Respiratory/Chest: No Respiratory Distress, Lungs Clear, Normal Breath Sounds, No Accessory Muscle Use. No: Rhonchi, Wheezing Cardiovascular: Normal Peripheral Pulses, Regular Rate, Rhythm, No Edema, No Murmur, No Rub Peripheral Pulses: 3+: Posterior Tibial (L), Posterior Tibial (R), Dorsalis Pedis (L), Dorsalis Pedis (R) GI/Abdominal: Normal Bowel Sounds, Soft, Non-Tender, No Organomegaly, No Mass, Pelvis Stable Back Exam: Normal Inspection, Full Range of Motion. No: CVA Tenderness (L), CVA Tenderness (R) Extremities: Normal Inspection, Normal Range of Motion, Non-Tender Neurological: Alert, Oriented, CN II-XII Intact, Normal Cognition Psychiatric: Normal Affect, Normal Mood Skin Exam: Warm, Dry, Intact, Normal Color, No Rash Course - Vital Signs Last Recorded V/S: Last Vital Signs Temp 36.1 C 09/04/19 05:10 Pulse 83 09/04/19 06:35 Resp 18 09/04/19 05:54 BP 136/87 09/04/19 06:35 Pulse Ox 98 09/04/19 06:35 - Orders/Labs/Meds Orders: Active Orders 24 hr Category Date Time Status Chest 1V Frontal [CR] Stat Exams 09/04/19 05:53 Taken Isolation [COMM] Routine Oth 09/04/19 05:54 Ordered - Radiology Interpretation Free Text/Narrative:: 29-year-old female presents to the ED for evaluation of severe paroxysmal cough to the point of vomiting. Diffuse myalgia associate with headache and loss of appetite for the last 5 days. Clinically she sounds like influenza a. Plan influenza screen. 1 view chest x-ray to be obtained. - Re-Assessments/Exams Free Text/Narrative Re-Assessment/Exam: 09/04/19 06:11 chest x-ray is normal. There is no signs of pneumonia. Cardiac silhouette is normal as well. 09/04/19 06:51 influenza screen also came back negative. Diagnosis is sinusitis with postnasal drip and bronchitis. Going to treated with doxycycline 100 mg twice daily for the next 10 days. The next cough syrup 5 mils every 12 hours. For cough relief. Departure - Departure Time of Disposition: 07:01 Disposition: Home, Self-Care 01 Condition: Fair Clinical Impression: Sinusitis, Bronchitis - Discharge Information *PRESCRIPTION DRUG MONITORING PROGRAM REVIEWED*: Not Applicable *COPY OF PRESCRIPTION DRUG MONITORING REPORT IN PATIENT RICKEY: Not Applicable Prescriptions: Doxycycline [Vibramycin] 100 mg PO BID #20 cap Hydrocodone/Chlorphen P-Stirex [Hydrocodone-Chlorphen ER Susp] 5 ml PO Q12H PRN #60 ml PRN Reason: Cough relief Instructions: Sinusitis, Adult, Acute Bronchitis, Adult, [id number] Referrals: Magy Jensen ORDERING BOX OPERATOR [Primary Care Provider] - Forms: ED Department Discharge, ED Return to Work/School Form Additional Instructions: Evaluation in the emergency room this morning in regards to persistent upper respiratory tract infection with harsh paroxysmal productive cough and generalized myalgia and intermittent nausea and vomiting. X-ray proved to be negative. Influenza screen was also negative. Diagnosis is suspect sinusitis with postnasal drip creating some degree of nausea due to accumulation of mucus in the stomach overnight. Bronchitis with productive cough. Suggest treatment with antibiotic doxycycline 100 mg twice daily for the next 10 days. Cough syrup is to be Tussionex 5 mils every 12 hours as necessary for cough relief. Plan on taking about an hour before going to bed as it takes about an hour to kick in. Plenty of fluids. Continue Motrin as needed for body aches and/or fever. Just off work for the next 3 days and note was given in this regard. Follow up with personal physician if any other problems occur. Sepsis Event Note - Evaluation Sepsis Screening Result: No Definite Risk - Focused Exam Vital Signs: Vital Signs Temp Pulse Resp BP Pulse Ox 09/04/19 06:35 83 136/87 98 09/04/19 05:54 86 18 122/78 100 09/04/19 05:10 36.1 C 99 18 133/87 99 Date Exam was Performed: 09/04/19 Time Exam was Performed: 07:05 - My Orders Last 24 Hours: My Active Orders 09/04/19 05:53 Chest 1V Frontal [CR] Stat 09/04/19 05:54 Isolation [COMM] Routine - Assessment/Plan Last 24 Hours: My Active Orders 09/04/19 05:53 Chest 1V Frontal [CR] Stat 09/04/19 05:54 Isolation [COMM] Routine
[2019-09-04 07:23] VITALS: BP 129/74; PULSE 84
--- NOTE | 2019-09-04 07:35 | CR ---
Chest: Portable view of the chest was obtained. Comparison: Prior chest x-ray of 05/17/18. Heart size and mediastinum are normal. Lungs are clear with no acute parenchymal change. Bony structures are unremarkable. Impression: 1. Nothing acute is appreciated on portable chest x-ray. Diagnostic code #1 This report was dictated in MDT
== END 2019-09-04 07:21 | disposition home or self-care (01) ==
LOC: JD.ED 04:59
DX: J40 Bronchitis, not specified as acute or chronic (principal); J32.9 Chronic sinusitis, unspecified; K21.9 Gastro-esophageal reflux disease without esophagitis; Z79.899 Other long term (current) drug therapy; Z87.891 Personal history of nicotine dependence; Z91.030 Bee allergy status; Z91.018 Allergy to other foods; Z88.8 Allergy status to other drugs, medicaments and biological substances; Z88.5 Allergy status to narcotic agent; Z88.1 Allergy status to other antibiotic agents
CPT/HCPCS: 71045; 71045-26; 87804; 99283; 99283-25

== ENCOUNTER 2019-11-24 21:05 | Emergency (ER) | payer BC, MEDICAID ==
--- NOTE | 2019-11-24 22:03 | EDM.PDOC ---
ED HPI GENERAL MEDICAL PROBLEM - General Chief Complaint: Skin Complaint Stated Complaint: SUNBURN/BLISTERING Time Seen by Provider: 11/24/19 21:21 Source of Information: Reports: Patient History Limitations: Reports: No Limitations - History of Present Illness INITIAL COMMENTS - FREE TEXT/NARRATIVE: Ms. Vásquez is a pleasant 29-year-old woman who presents the ED with a sunburn to her back, bilateral upper arms, and chest. She states that she was sunbathing at the pool yesterday, , 11/23/2019, for about 4 hours, and was not wearing sunscreen. Other than the sunburn, she is otherwise uninjured. She states that she has not applied any topical treatment, such as aloe vera, to the poole. Here in the ED, the patient is found to be slightly tachycardic at 103 bpm, otherwise, she is hemodynamically stable, afebrile, saturating 97% on room air. Other than the sunburn, the patient denies recent fever, chills, sore throat, ear pain, nasal or sinus congestion, cough, dyspnea, chest pain, palpitations, nausea, vomiting, constipation, diarrhea, abdominal pain, urinary symptoms, recent weight gain or weight loss, recent bloody bowel movements or black bowel movements, recent joint aches, headaches, or rashes. The patient's PCP is Magy Jensen NP. Her Oil And Gas Well Treatment Operator is Dr. Isabel Cook. Her ENT is Dr. Milton Ybarra. 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, NSAIDS Upper Back Pain Score (Numeric/FACES): 8 - Related Data Allergies Allergy/AdvReac Type Severity Reaction Status Date / Time Beef Containing Products Allergy Stomach Verified 09/04/19 05:17 Upset cefixime Allergy Hives Verified 09/04/19 05:17 corn Allergy Stomach Verified 09/04/19 05:17 Upset haloperidol [From Haldol] Allergy Agitation Verified 09/04/19 05:17 hydromorphone [From Dilaudid] Allergy Itching Verified 09/04/19 05:17 topiramate [From Topamax] Allergy Rash Verified 09/04/19 05:17 ketorolac tromethamine AdvReac Mild Itching Verified 09/04/19 05:17 [From Toradol] metoclopramide HCl AdvReac Anxiety Verified 09/04/19 05:17 [From Reglan] prochlorperazine edisylate AdvReac Agitation Verified 09/04/19 05:17 [From Compazine] prochlorperazine maleate AdvReac Agitation Verified 09/04/19 05:17 [From Compazine] NUTS Allergy Airway Uncoded 08/20/19 19:53 Tightness Home Meds: Home Meds Albuterol Sulfate [Ventolin Hfa] 18 gm IH Q4H PRN #1 hfa.aer.ad 04/04/15 [Rx] Fluticasone/Salmeterol [Advair 250-50 Diskus] 1 puff INH BID 05/13/15 [History] Montelukast [Singulair] 10 mg PO BEDTIME 06/20/19 [History] Famotidine [Pepcid] 20 mg PO DAILY 11/24/19 [History] Pantoprazole Sodium [Protonix] 40 mg PO DAILY 11/24/19 [History] Past Medical History Respiratory History: Reports: Asthma (suspected, not tested) Gastrointestinal History: Reports: GERD 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: Reports: Polycystic Ovaries Psychiatric History: Reports: Depression (untreated), PTSD (untreated) Endocrine/Metabolic History: Reports: Hypothyroidism (untreated), Obesity/BMI 30 + Dermatologic History: Reports: Eczema - Past Surgical History HEENT Surgical History: Reports: Adenoidectomy, Myringotomy w Tube(s) (bilateral ), Naso-Sinus Surgery (x 7), Oral Surgery (wisdom teeth extraction), Tonsillectomy GI Surgical History: Reports: Appendectomy, Colonoscopy (x 1), EGD (x 4) Female Surgical History: Reports: D&C Musculoskeletal Surgical History: Reports: Other (See Below) (Right wrist arthroscopy x 2, open x 1) Other Musculoskeletal Surgeries/Procedures:: Right hand surgeries Social & Family History - Family History Family Medical History: Noncontributory - Tobacco Use Smoking Status *Q: Former Smoker Years of Tobacco use: 7 Packs/Tins Daily: 2 Month/Year Tobacco Last Used: Quit 2017 - Caffeine Use Caffeine Use: Reports: Energy Drinks - Alcohol Use Alcohol Use History: Yes Alcohol Use Frequency: Socially - Recreational Drug Use Recreational Drug Use: No - Living Situation & Occupation Living situation: Reports: Single, Alone Occupation: Unemployed ED ROS GENERAL - Review of Systems Review Of Systems: Comprehensive ROS is negative, except as noted in HPI. ED EXAM, SKIN/RASH Exam: See Below Exam Limited By: No Limitations General Appearance: Alert, WD/WN, No Apparent Distress Skin: Warm, Dry, Intact, No Rash, Other (Relatively minor first-degree poole to the patient's shoulders, upper arms, and anterior chest. Additional first- degree burn to the patient's upper back, however, there is a large blister, measuring approximately 3 cm in diameter, located on the patient's central back , surrounded by numerous extremely small blisters, all located within the first- degree sunburn on the patient's upper back. TBSA < 1%.) Course - Vital Signs Last Recorded V/S: Last Vital Signs Temp 36.4 C 11/24/19 21:17 Pulse 103 H 11/24/19 21:17 Resp 18 11/24/19 21:17 BP 124/91 H 11/24/19 21:17 Pulse Ox 97 11/24/19 21:17 - Re-Assessments/Exams Free Text/Narrative Re-Assessment/Exam: 11/24/19 21:57 I unroofed and removed the skin from the large blister on the patient's central back, then Liss GALE applied a thin smear of antibiotic ointment, followed by a nonstick dressing. Going forward, I recommended that the patient take [id number] ibuprofen for discomfort, and apply some aloe vera lotion to the first-degree poole, with repeat bacitracin ointment and nonstick dressings to the area of second-degree poole on her back. In the long-term, I recommended that she follow-up with a Water Treatment Operator for annual skin checks. Departure - Departure Time of Disposition: 21:58 Disposition: Home, Self-Care 01 Condition: Good Clinical Impression: Sunburn of second degree, Sunburn of first degree - Discharge Information *PRESCRIPTION DRUG MONITORING PROGRAM REVIEWED*: Not Applicable *COPY OF PRESCRIPTION DRUG MONITORING REPORT IN PATIENT RICKEY: Not Applicable Instructions: Sunburn, Adult, [id number] Referrals: Magy Jensen NP [Primary Care Provider] - Isabel Cook MD [Ordering Only Provider] - Milton Ybarra MD [Ordering Only Provider] - Forms: ED Department Discharge Additional Instructions: You were seen in the emergency room after getting a sunburn to your back, arms, and chest. A large blister that was on your central back was unroofed, followed by the application of an antibiotic ointment and a nonstick dressing. Keep your back clean with ordinary soap and water when you bathe, daily. Initially, cooler water is going to feel better than hot water. Once cleaned, pat dry, then have someone apply a thin smear of bacitracin ointment, followed by a nonstick dressing, daily. For the non-blistered areas on your arms and chest, we recommend a lotion or ointment containing aloe vera, however, do not apply aloe vera to the blistered area on your back. You will probably find that ibuprofen works better than Tylenol to treat your discomfort. Ice packs or cool compresses will also significantly help with your discomfort. As discussed, in the long-term, you will need to have an annual evaluation by a Water Treatment Operator, to look for skin cancer. If any other problems, please do not hesitate to return to the ER. Sepsis Event Note (ED) - Evaluation Sepsis Screening Result: No Definite Risk - Focused Exam Vital Signs: Vital Signs Temp Pulse Resp BP Pulse Ox 11/24/19 21:17 36.4 C 103 H 18 124/91 H 97
[2019-11-24 22:46] VITALS: BP 121/71; PULSE 100
== END 2019-11-24 22:13 | disposition home or self-care (01) ==
LOC: JD.ED 21:05
DX: L55.1 Sunburn of second degree (principal); K21.9 Gastro-esophageal reflux disease without esophagitis; E66.9 Obesity, unspecified; Z68.42 Body mass index [BMI] 45.0-49.9, adult; Z87.891 Personal history of nicotine dependence; Z88.8 Allergy status to other drugs, medicaments and biological substances; Z91.018 Allergy to other foods; Z79.899 Other long term (current) drug therapy
CPT/HCPCS: 16020; 99282

== ENCOUNTER 2019-12-08 10:42 | Emergency (ER) | payer MEDICAID, SELFPAY ==
[2019-12-08 11:10] VITALS: BP 140/88; PULSE 111
[2019-12-08] MEDS ORDERED: Ketorolac 30 MG/ML SDV IVPUSH ONE (11:28)
[2019-12-08] MEDS ORDERED: Sodium Chloride 0.9% 10 ML Syringe FLUSH PRN (11:28)
[2019-12-08] MEDS ORDERED: Ondansetron 4 MG/2 ML SDV IVPUSH ONE (11:28)
[2019-12-08] MEDS ORDERED: Sodium Chloride 0.9% 1,000 ML IV SCH (11:30)
[2019-12-08] MEDS ORDERED: diphenhydrAMINE 50 MG/ML SDV IVPUSH ONE (11:41)
--- NOTE | 2019-12-08 11:46 | EDM.PDOC ---
ED HPI GENERAL MEDICAL PROBLEM - General Chief Complaint: Gastrointestinal Problem Stated Complaint: VOMITING Time Seen by Provider: 12/08/19 11:12 Source of Information: Reports: Patient History Limitations: Reports: No Limitations - History of Present Illness INITIAL COMMENTS - FREE TEXT/NARRATIVE: Patient is a 29-year-old female who presents with complaints of nausea, vomiti ng, diarrhea, and abdominal pain. She states that approximately 2 days ago she fell and hit her hip. Since that time she said she has not felt too well. She did not hit her head. She does have a history of migraines and has had a dull headache with some mild nausea, but no vomiting. Last night she ate pizza for dinner and consumed an alcoholic beverage later in the evening. Around 11:00 last evening she developed intractable vomiting with abdominal cramping. States pain is worse in the right upper quadrant. She did have one episode of loose stool this morning. She denies any fever, chills, or sick contacts. - Related Data Allergies Allergy/AdvReac Type Severity Reaction Status Date / Time Beef Containing Products Allergy Stomach Verified 09/04/19 05:17 Upset cefixime Allergy Hives Verified 09/04/19 05:17 corn Allergy Stomach Verified 09/04/19 05:17 Upset haloperidol [From Haldol] Allergy Agitation Verified 09/04/19 05:17 hydromorphone [From Dilaudid] Allergy Itching Verified 09/04/19 05:17 topiramate [From Topamax] Allergy Rash Verified 09/04/19 05:17 ketorolac tromethamine AdvReac Mild Itching Verified 09/04/19 05:17 [From Toradol] metoclopramide HCl AdvReac Anxiety Verified 09/04/19 05:17 [From Reglan] prochlorperazine edisylate AdvReac Agitation Verified 09/04/19 05:17 [From Compazine] prochlorperazine maleate AdvReac Agitation Verified 09/04/19 05:17 [From Compazine] NUTS Allergy Airway Uncoded 08/20/19 19:53 Tightness Home Meds: Home Meds Albuterol Sulfate [Ventolin Hfa] 18 gm IH Q4H PRN #1 hfa.aer.ad 04/04/15 [Rx] Fluticasone/Salmeterol [Advair 250-50 Diskus] 1 puff INH BID 05/13/15 [History] Montelukast [Singulair] 10 mg PO BEDTIME 06/20/19 [History] Famotidine [Pepcid] 20 mg PO DAILY 11/24/19 [History] Pantoprazole Sodium [Protonix] 40 mg PO DAILY 11/24/19 [History] Ondansetron [Zofran ODT] 4 mg PO Q6H PRN #10 tab.dis 12/08/19 [Rx] Past Medical History - Past Health History Medical/Surgical History: Denies Medical/Surgical History Cardiovascular History: Reports: Arrhythmia Respiratory History: Reports: Asthma Gastrointestinal History: Reports: GERD Genitourinary History: Reports: Pyelonephritis, UTI, Recurrent [employer] History: Reports: Polycystic Ovaries Other [employer] History: ovarian cysts on right ovary Musculoskeletal History: Reports: Fracture, Other (See Below) Other Musculoskeletal History: ankle, wrist, finger, elbow Neurological History: Reports: Migraines Psychiatric History: Reports: Depression, PTSD Endocrine/Metabolic History: Reports: Hypothyroidism, Obesity/BMI 30+ Other Endocrine/Metabolic History: Hypothyroidism-hasn't taken medication for a couple years Hematologic History: Reports: None Immunologic History: Reports: None Oncologic (Cancer) History: Reports: None Dermatologic History: Reports: Eczema - Infectious Disease History Infectious Disease History: Reports: None - Past Surgical History HEENT Surgical History: Reports: Adenoidectomy, Myringotomy w Tube(s), Naso- Sinus Surgery, Oral Surgery, Tonsillectomy GI Surgical History: Reports: Appendectomy, Colonoscopy, EGD Female Surgical History: Reports: D&C Musculoskeletal Surgical History: Reports: Other (See Below) Other Musculoskeletal Surgeries/Procedures:: Right hand surgeries Social & Family History - Family History Family Medical History: Noncontributory - Tobacco Use Smoking Status *Q: Never Smoker - Caffeine Use Caffeine Use: Reports: Energy Drinks - Living Situation & Occupation Living situation: Reports: Single, Alone Occupation: Unemployed ED ROS GENERAL - Review of Systems Review Of Systems: See Below Constitutional: Reports: Decreased Appetite. Denies: Fever, Chills HEENT: Reports: No Symptoms Respiratory: Reports: No Symptoms Cardiovascular: Reports: No Symptoms Endocrine: Reports: No Symptoms GI/Abdominal: Reports: Abdominal Pain, Diarrhea, Nausea, Vomiting : Reports: No Symptoms Musculoskeletal: Reports: No Symptoms Skin: Reports: No Symptoms Neurological: Reports: No Symptoms Psychiatric: Reports: No Symptoms Hematologic/Lymphatic: Reports: No Symptoms Immunologic: Reports: No Symptoms ED EXAM, GI/ABD - Physical Exam Exam: See Below Exam Limited By: No Limitations General Appearance: Alert, WD/WN, No Apparent Distress Respiratory/Chest: No Respiratory Distress, Lungs Clear, Normal Breath Sounds, No Accessory Muscle Use, Chest Non-Tender Cardiovascular: Normal Peripheral Pulses, Regular Rate, Rhythm, No Edema, No Gallop, No JVD, No Murmur, No Rub GI/Abdominal Exam: Normal Bowel Sounds, Soft, No Organomegaly, No Distention, No Abnormal Bruit, No Mass, Pelvis Stable, Tender (Mild generalized tenderness throughout. Slightly worse in the right upper quadrant.) Neurological: Alert, Oriented, CN II-XII Intact, Normal Cognition, Normal Gait, Normal Reflexes, No Motor/Sensory Deficits Psychiatric: Normal Affect, Normal Mood Skin Exam: Warm, Dry, Intact, Normal Color, No Rash Course - Vital Signs Last Recorded V/S: Last Vital Signs Temp 98.0 F 12/08/19 11:07 Pulse 111 H 12/08/19 11:07 Resp 16 12/08/19 11:07 BP 140/88 12/08/19 11:07 Pulse Ox 98 12/08/19 11:07 - Orders/Labs/Meds Orders: Active Orders 24 hr Category Date Time Status Peripheral IV Care [RC] . DIRECTED Care 12/08/19 11:28 Active Peripheral IV Insertion Adult [OM.PC] Stat Oth 12/08/19 11:28 Ordered Labs: Laboratory Tests 12/08/19 12/08/19 12/08/19 Range/Units 12:00 12:00 13:47 WBC 14.51 H (3.98-10.04) K/mm3 RBC 4.92 (3.98-5.22) M/mm3 Hgb 14.1 (11.2-15.7) gm/dl Hct 40.9 (34.1-44.9) % MCV 83.1 D (79.4-94.8) fl MCH 28.7 (25.6-32.2) pg MCHC 34.5 (32.2-35.5) g/dl RDW Std Deviation 40.3 (36.4-46.3) fL Plt Count 398 H (182-369) K/mm3 MPV 8.8 L (9.4-12.3) fl Neut % (Auto) 81.4 H (34.0-71.1) % Lymph % (Auto) 12.4 L (19.3-51.7) % [place] % (Auto) 4.8 (4.7-12.5) % Eos % (Auto) 0.6 L (0.7-5.8) Baso % (Auto) 0.6 (0.1-1.2) % Neut # (Auto) 11.81 H (1.56-6.13) K/mm3 Lymph # (Auto) 1.80 (1.18-3.74) K/mm3 [place] # (Auto) 0.69 H (0.24-0.36) K/mm3 Eos # (Auto) 0.09 (0.04-0.36) K/mm3 Baso # (Auto) 0.09 H (0.01-0.08) K/mm3 Manual Slide Review Abnormal smear Sodium 140 (136-145) mEq/L Potassium 3.7 (3.5-5.1) mEq/L Chloride 103 (98-107) mEq/L Carbon Dioxide 24 (21-32) mEq/L Anion Gap 16.7 H (5-15) BUN 13 (7-18) mg/dL Creatinine 0.9 (0.55-1.02) mg/dL Est Cr Clr Drug Dosing 70.22 mL/min Estimated GFR (MDRD) > 60 (>60) mL/min BUN/Creatinine Ratio 14.4 (14-18) Glucose 88 (74-106) mg/dL Calcium 9.4 (8.5-10.1) mg/dL Total Bilirubin 0.7 (0.2-1.0) mg/dL AST 14 L (15-37) U/L ALT 30 (14-59) U/L Alkaline Phosphatase 57 (46-116) U/L C-Reactive Protein 0.5 (<1.0) mg/dL Total Protein 8.4 H (6.4-8.2) g/dl Albumin 4.4 (3.4-5.0) g/dl Globulin 4.0 gm/dL Albumin/Globulin Ratio 1.1 (1-2) Lipase 69 L (73-393) U/L Urine Color Yellow (Yellow) Urine Appearance Clear (Clear) Urine pH 6.0 (5.0-8.0) Ur Specific [place] > or = 1.030 (1.005-1.030) Urine Protein Trace H (Negative) Urine Glucose (UA) Negative (Negative) Urine Ketones Trace H (Negative) Urine Occult Blood Trace-intact H (Negative) Urine Nitrite Negative (Negative) Urine Bilirubin Negative (Negative) Urine Urobilinogen 0.2 (0.2-1.0) Ur Leukocyte Esterase Negative (Negative) Urine RBC Not seen (0-5) /hpf Urine WBC 0-5 (0-5) /hpf Ur Squamous Epith Cells 5-10 H (0-5) /hpf Urine Bacteria Few (FEW) /hpf Urine Mucus Moderate H (FEW) /hpf Meds: Medications Discontinued Medications Generic Name Dose Route Start Last Admin Trade Name Freq PRN Reason Stop Dose Admin Diphenhydramine HCl 50 mg 12/08/19 11:41 12/08/19 11:49 Benadryl IVPUSH 12/08/19 11:42 50 mg ONETIME ONE Administration Hydromorphone HCl 0.5 mg 12/08/19 13:31 12/08/19 13:45 Dilaudid IVPUSH 12/08/19 13:32 0.5 mg ONETIME ONE Administration Sodium Chloride 1,000 mls @ 999 mls/hr 12/08/19 11:30 12/08/19 11:49 Normal Saline IV 999 mls/hr ASDIRECTED BRYAN Administration Ketorolac Tromethamine 30 mg 12/08/19 11:28 12/08/19 11:49 Toradol IVPUSH 12/08/19 11:29 30 mg ONETIME ONE Administration Ondansetron HCl 4 mg 12/08/19 11:28 12/08/19 11:49 Zofran IVPUSH 12/08/19 11:29 4 mg ONETIME ONE Administration Sodium Chloride 10 ml 12/08/19 11:28 12/08/19 11:54 Saline Flush FLUSH 10 ml ASDIRECTED PRN Administration Keep Vein Open - Re-Assessments/Exams Free Text/Narrative Re-Assessment/Exam: On exam, patient has generalized tenderness throughout her abdomen which seems to be worse in the right upper quadrant. States that she has been told in the past that she has sludge in her gallbladder. Differential includes viral gastroenteritis versus cholecystitis. We will do CBC, CMP, CRP, lipase, urinalysis, and ultrasound of the right upper quadrant. I have ordered a 1 L usman tolu of normal saline, Zofran for nausea, and Toradol for pain. 12/08/19 11:42 I was updated by nursing staff that patient states that she gets itchy from Toradol and Dilaudid, however if she gets Benadryl, she does well. I have ordered Benadryl 50 mg IV. 12/08/19 14:21 Hematology was grossly unremarkable. WBCs were slightly elevated at 14.51, however this is likely due to a stress response. She was slightly dehydrated with anion gap of 16.7, however the IV fluids should correct this. Urinalysis was negative for any infection. Ultrasound of the right upper quadrant was found to be normal. Patient is feeling better after the medications received. We will discharge her home with a prescription for Zofran and recommendations of a clear liquid diet for the next 24 to 48 hours. If she continues to have problems with right upper quadrant discomfort, recommend that she follow-up with her primary care provider to discuss the possibility of a HIDA scan. Return to the ER for worsening symptoms. Discharge instructions as documented. Departure - Departure Time of Disposition: 14:21 Disposition: Home, Self-Care 01 Condition: Good Clinical Impression: Gastroenteritis - Discharge Information *PRESCRIPTION DRUG MONITORING PROGRAM REVIEWED*: No *COPY OF PRESCRIPTION DRUG MONITORING REPORT IN PATIENT RICKEY: No Prescriptions: Ondansetron [Zofran ODT] 4 mg PO Q6H PRN #10 tab.dis PRN Reason: Nausea/Vomiting Instructions: Viral Gastroenteritis, Adult, [id number] Referrals: Magy Jensen NP [Primary Care Provider] - Forms: ED Department Discharge Additional Instructions: You were seen in the emergency department for nausea, vomiting, diarrhea, and abdominal pain that started last night. Your work-up included blood work, urinalysis, and an ultrasound of your gallbladder. Your work-up was found to be overall normal. While in the ER you received a liter of IV fluids, Zofran for nausea, and Toradol and Dilaudid for pain. This did improve your symptoms. Recommend that you go home and rest. Keep a clear liquid diet for the next 24 to 48 hours and then advance as tolerated. Prescription for Zofran has been sent to her [facility] pharmacy. Use this as prescribed. If your right upper quadrant tenderness does not resolve over the next few days, I would recommend that you follow-up with your primary care provider to discuss the possibility of HIDA scan on an outpatient basis. If you should experience any worsening symptoms, please do not hesitate to return to the emergency department. Sepsis Event Note (ED) - Evaluation Sepsis Screening Result: No Definite Risk - Focused Exam Vital Signs: Vital Signs Temp Pulse Resp BP Pulse Ox 12/08/19 11:07 98.0 F 111 H 16 140/88 98 - My Orders Last 24 Hours: My Active Orders 12/08/19 11:28 Peripheral IV Care [RC] . DIRECTED Peripheral IV Insertion Adult [OM.PC] Stat - Assessment/Plan Last 24 Hours: My Active Orders 12/08/19 11:28 Peripheral IV Care [RC] . DIRECTED Peripheral IV Insertion Adult [OM.PC] Stat
[2019-12-08] MEDS ORDERED: HYDROmorphone 0.5 MG/0.5 ML Syringe IVPUSH ONE (13:31)
--- NOTE | 2019-12-08 14:09 | US ---
Limited abdominal ultrasound: Multiple real-time images were obtained transabdominally. Comparison: Prior right upper quadrant abdominal ultrasound of 01/28/17. Liver shows no focal abnormality. Gallbladder contains no shadowing gallstones. No gallbladder wall thickening or biliary duct dilatation is seen. Right kidney shows no hydronephrosis or mass and has a length of 9.8 cm. Inferior vena cava is patent. Pancreas is felt to be within normal limits. Main portal vein shows normal hepatopedal flow. Impression: 1. No abnormality is identified on right upper quadrant abdominal ultrasound. 2. No change from previous study is seen. Diagnostic code #1 This report was dictated in MDT
== END 2019-12-08 14:38 | disposition home or self-care (01) ==
LOC: JD.ED 10:42
DX: K52.9 Noninfective gastroenteritis and colitis, unspecified (principal); J45.909 Unspecified asthma, uncomplicated; K21.9 Gastro-esophageal reflux disease without esophagitis; E66.9 Obesity, unspecified; Z68.42 Body mass index [BMI] 45.0-49.9, adult; Z91.018 Allergy to other foods; Z88.1 Allergy status to other antibiotic agents; Z88.6 Allergy status to analgesic agent; Z88.8 Allergy status to other drugs, medicaments and biological substances; Z88.5 Allergy status to narcotic agent; Z79.899 Other long term (current) drug therapy
CPT/HCPCS: 36415; 76705; 80053; 81001; 83690; 85025; 86140; 96361; 96374; 96375; 99284; J1170; J1200; J1885; J2405; J7030; 99283

== ENCOUNTER 2019-12-14 08:27 | Emergency (ER) | payer MEDICAID ==
[2019-12-14 09:13] VITALS: BP 122/92; PULSE 98
--- NOTE | 2019-12-14 09:21 | EDM.PDOC ---
ED HPI GENERAL MEDICAL PROBLEM - General Chief Complaint: Abdominal Pain Stated Complaint: VOMITING Time Seen by Provider: 12/14/19 09:11 - History of Present Illness INITIAL COMMENTS - FREE TEXT/NARRATIVE: 29-year-old female presents the emergency room with return of her nausea and vomiting. This started last night. Patient cannot identify what brought this on. She has been seen for it last week. Work-up was negative including gallbladder ultrasound. Patient has some left upper quadrant discomfort. No diarrhea or constipation. The patient is somewhat concerned as in June she had an EGD done that showed ulcers and gastritis and she had a follow-up EGD done in the end of September early October that was normal however she has been on PPI therapy. It sounds like the patient has had a long history of upper GI problems. Bilateral Upper Abdomen Pain Score (Numeric/FACES): 8 - Related Data Allergies Allergy/AdvReac Type Severity Reaction Status Date / Time Beef Containing Products Allergy Severe Stomach Verified 12/14/19 09:15 Upset cefixime Allergy Severe Hives Verified 12/14/19 09:15 corn Allergy Severe Stomach Verified 12/14/19 09:15 Upset haloperidol [From Haldol] Allergy Severe Agitation Verified 12/14/19 09:15 hydromorphone [From Dilaudid] Allergy Severe Itching Verified 12/14/19 09:15 topiramate [From Topamax] Allergy Severe Rash Verified 12/14/19 09:15 ketorolac tromethamine AdvReac Severe Itching Verified 12/14/19 09:15 [From Toradol] metoclopramide HCl AdvReac Severe Anxiety Verified 12/14/19 09:15 [From Reglan] prochlorperazine edisylate AdvReac Severe Agitation Verified 12/14/19 09:15 [From Compazine] prochlorperazine maleate AdvReac Severe Agitation Verified 12/14/19 09:15 [From Compazine] NUTS Allergy Severe Airway Uncoded 12/14/19 09:15 Tightness Home Meds: Home Meds Albuterol Sulfate [Ventolin Hfa] 18 gm IH Q4H PRN #1 hfa.aer.ad 04/04/15 [Rx] Fluticasone/Salmeterol [Advair 250-50 Diskus] 1 puff INH BID 05/13/15 [History] Montelukast [Singulair] 10 mg PO BEDTIME 06/20/19 [History] Famotidine [Pepcid] 20 mg PO DAILY 11/24/19 [History] Pantoprazole Sodium [Protonix] 40 mg PO DAILY 11/24/19 [History] Ondansetron [Zofran ODT] 4 mg PO Q6H PRN #20 tab.dis #2 Samples 12/14/19 [Rx] Sucralfate [Carafate] 1 gm PO QIDACANDBED #60 tablet 12/14/19 [Rx] Past Medical History - Past Health History Medical/Surgical History: Denies Medical/Surgical History Cardiovascular History: Reports: Arrhythmia Respiratory History: Reports: Asthma Gastrointestinal History: Reports: GERD Genitourinary History: Reports: Pyelonephritis, UTI, Recurrent URGENT CARE History: Reports: Polycystic Ovaries Other URGENT CARE History: ovarian cysts on right ovary Musculoskeletal History: Reports: Fracture, Other (See Below) Other Musculoskeletal History: ankle, wrist, finger, elbow Neurological History: Reports: Migraines Psychiatric History: Reports: Depression, PTSD Endocrine/Metabolic History: Reports: Hypothyroidism, Obesity/BMI 30+ Other Endocrine/Metabolic History: Hypothyroidism-hasn't taken medication for a couple years Hematologic History: Reports: None Immunologic History: Reports: None Oncologic (Cancer) History: Reports: None Dermatologic History: Reports: Eczema - Infectious Disease History Infectious Disease History: Reports: None - Past Surgical History HEENT Surgical History: Reports: Adenoidectomy, Myringotomy w Tube(s), Naso- Sinus Surgery, Oral Surgery, Tonsillectomy GI Surgical History: Reports: Appendectomy, Colonoscopy, EGD Female Surgical History: Reports: D&C Musculoskeletal Surgical History: Reports: Other (See Below) Other Musculoskeletal Surgeries/Procedures:: Right hand surgeries Social & Family History - Family History Family Medical History: Noncontributory - Caffeine Use Caffeine Use: Reports: Energy Drinks - Living Situation & Occupation Living situation: Reports: Single, Alone Occupation: Unemployed ED ROS GENERAL - Review of Systems Review Of Systems: See Below Constitutional: Reports: No Symptoms HEENT: Reports: No Symptoms Respiratory: Reports: No Symptoms Cardiovascular: Reports: No Symptoms GI/Abdominal: Reports: Abdominal Pain, Nausea, Vomiting. Denies: Black Stool, Bloody Stool : Reports: No Symptoms Musculoskeletal: Reports: No Symptoms Skin: Reports: No Symptoms Neurological: Reports: No Symptoms ED EXAM, GI/ABD - Physical Exam Exam: See Below Exam Limited By: No Limitations General Appearance: Alert, No Apparent Distress, Obese, Other (Is mildly tach ycardic but during my exam 100-110) Head: Atraumatic, Normocephalic Neck: Normal Inspection, Supple, Non-Tender, Full Range of Motion Respiratory/Chest: No Respiratory Distress, Lungs Clear, Normal Breath Sounds Cardiovascular: Regular Rate, Rhythm, No Edema, No Murmur GI/Abdominal Exam: Normal Bowel Sounds, Soft, Tender (She has some left upper quadrant discomfort with palpation no rigidity rebound or guarding noted), Other Back Exam: Normal Inspection, Other (She has some discomfort between her shoulders and the muscles). No: CVA Tenderness (L), CVA Tenderness (R) Neurological: Alert, Oriented, Normal Cognition Course - Vital Signs Last Recorded V/S: Last Vital Signs Temp 36.7 C 12/14/19 09:06 Pulse 98 12/14/19 09:06 Resp 18 12/14/19 09:06 BP 122/92 H 12/14/19 09:06 Pulse Ox 98 12/14/19 09:06 - Orders/Labs/Meds Labs: Laboratory Tests 12/14/19 12/14/19 12/14/19 Range/Units 09:45 10:00 10:00 WBC 9.42 (3.98-10.04) K/mm3 RBC 4.59 (3.98-5.22) M/mm3 Hgb 13.1 (11.2-15.7) gm/dl Hct 38.8 (34.1-44.9) % MCV 84.5 (79.4-94.8) fl MCH 28.5 (25.6-32.2) pg MCHC 33.8 (32.2-35.5) g/dl RDW Std Deviation 41.8 (36.4-46.3) fL Plt Count 300 D (182-369) K/mm3 MPV 8.8 L (9.4-12.3) fl Neut % (Auto) 79.8 H (34.0-71.1) % Lymph % (Auto) 10.7 L (19.3-51.7) % [place] % (Auto) 5.7 (4.7-12.5) % Eos % (Auto) 3.0 (0.7-5.8) Baso % (Auto) 0.6 (0.1-1.2) % Neut # (Auto) 7.51 H (1.56-6.13) K/mm3 Lymph # (Auto) 1.01 L (1.18-3.74) K/mm3 [place] # (Auto) 0.54 H (0.24-0.36) K/mm3 Eos # (Auto) 0.28 (0.04-0.36) K/mm3 Baso # (Auto) 0.06 (0.01-0.08) K/mm3 Sodium 139 (136-145) mEq/L Potassium 4.3 (3.5-5.1) mEq/L Chloride 105 (98-107) mEq/L Carbon Dioxide 23 (21-32) mEq/L Anion Gap 15.3 H (5-15) BUN 17 (7-18) mg/dL Creatinine 0.9 (0.55-1.02) mg/dL Est Cr Clr Drug Dosing 70.22 mL/min Estimated GFR (MDRD) > 60 (>60) mL/min BUN/Creatinine Ratio 18.9 H (14-18) Glucose 100 (74-106) mg/dL Calcium 9.3 (8.5-10.1) mg/dL Total Bilirubin 0.6 (0.2-1.0) mg/dL AST 13 L (15-37) U/L ALT 28 (14-59) U/L Alkaline Phosphatase 52 (46-116) U/L Total Protein 8.0 (6.4-8.2) g/dl Albumin 4.1 (3.4-5.0) g/dl Globulin 3.9 gm/dL Albumin/Globulin Ratio 1.1 (1-2) HCG, Qual (NEGATIVE) Urine Color Yellow (Yellow) Urine Appearance Clear (Clear) Urine pH 6.0 (5.0-8.0) Ur Specific [place] 1.025 (1.005-1.030) Urine Protein Negative (Negative) Urine Glucose (UA) Negative (Negative) Urine Ketones Negative (Negative) Urine Occult Blood Trace-intact H (Negative) Urine Nitrite Negative (Negative) Urine Bilirubin Negative (Negative) Urine Urobilinogen 0.2 (0.2-1.0) Ur Leukocyte Esterase Negative (Negative) Urine RBC 0-5 (0-5) /hpf Urine WBC Not seen (0-5) /hpf Ur Squamous Epith Cells 0-5 (0-5) /hpf Urine Bacteria Rare (FEW) /hpf Urine Mucus Rare (FEW) /hpf 12/14/19 Range/Units 10:00 WBC (3.98-10.04) K/mm3 RBC (3.98-5.22) M/mm3 Hgb (11.2-15.7) gm/dl Hct (34.1-44.9) % MCV (79.4-94.8) fl MCH (25.6-32.2) pg MCHC (32.2-35.5) g/dl RDW Std Deviation (36.4-46.3) fL Plt Count (182-369) K/mm3 MPV (9.4-12.3) fl Neut % (Auto) (34.0-71.1) % Lymph % (Auto) (19.3-51.7) % [place] % (Auto) (4.7-12.5) % Eos % (Auto) (0.7-5.8) Baso % (Auto) (0.1-1.2) % Neut # (Auto) (1.56-6.13) K/mm3 Lymph # (Auto) (1.18-3.74) K/mm3 [place] # (Auto) (0.24-0.36) K/mm3 Eos # (Auto) (0.04-0.36) K/mm3 Baso # (Auto) (0.01-0.08) K/mm3 Sodium (136-145) mEq/L Potassium (3.5-5.1) mEq/L Chloride (98-107) mEq/L Carbon Dioxide (21-32) mEq/L Anion Gap (5-15) BUN (7-18) mg/dL Creatinine (0.55-1.02) mg/dL Est Cr Clr Drug Dosing mL/min Estimated GFR (MDRD) (>60) mL/min BUN/Creatinine Ratio (14-18) Glucose (74-106) mg/dL Calcium (8.5-10.1) mg/dL Total Bilirubin (0.2-1.0) mg/dL AST (15-37) U/L ALT (14-59) U/L Alkaline Phosphatase (46-116) U/L Total Protein (6.4-8.2) g/dl Albumin (3.4-5.0) g/dl Globulin gm/dL Albumin/Globulin Ratio (1-2) HCG, Qual Negative (NEGATIVE) Urine Color (Yellow) Urine Appearance (Clear) Urine pH (5.0-8.0) Ur Specific [place] (1.005-1.030) Urine Protein (Negative) Urine Glucose (UA) (Negative) Urine Ketones (Negative) Urine Occult Blood (Negative) Urine Nitrite (Negative) Urine Bilirubin (Negative) Urine Urobilinogen (0.2-1.0) Ur Leukocyte Esterase (Negative) Urine RBC (0-5) /hpf Urine WBC (0-5) /hpf Ur Squamous Epith Cells (0-5) /hpf Urine Bacteria (FEW) /hpf Urine Mucus (FEW) /hpf Meds: Medications Discontinued Medications Generic Name Dose Route Start Last Admin Trade Name Freq PRN Reason Stop Dose Admin Al Hydroxide/Mg Hydroxide 30 0 ml 12/14/19 09:29 12/14/19 10:15 ml/ Lidocaine HCl 15 ml PO 12/14/19 09:30 45 ml ONETIME ONE Administration Lactated Ringer's 1,000 mls @ 999 mls/hr 12/14/19 09:29 12/14/19 09:58 Ringers, Lactated IV 12/14/19 10:29 999 mls/hr .BOLUS ONE Administration Lactated Ringer's 1,000 mls @ 999 mls/hr 12/14/19 11:03 12/14/19 11:28 Ringers, Lactated IV 12/14/19 12:03 999 mls/hr .BOLUS ONE Administration Ondansetron HCl 4 mg 12/14/19 09:32 12/14/19 09:58 Zofran IVPUSH 12/14/19 09:33 4 mg ONETIME ONE Administration - Re-Assessments/Exams Free Text/Narrative Re-Assessment/Exam: 12/14/19 12:30 Some improvement after the Zofran she received 2 L of fluid and feels better patient was given a GI cocktail and also noted some improvement with this will restart her Carafate have her continue the Protonix and give her prescription for Zofran 1 or 2 every 6 hours as needed. Departure - Departure Time of Disposition: 12:31 Disposition: Home, Self-Care 01 Clinical Impression: Dyspepsia and disorder of function of stomach - Discharge Information Referrals: Magy Jensen NP [Primary Care Provider] - Forms: ED Department Discharge Additional Instructions: Return to the emergency room with any questions problems or worsening symptoms. Follow-up with your regular healthcare provider next week. We will continue the Zofran as needed 1 or 2 every 6 hours for nausea and vomiting I have restarted your Carafate take this with breakfast lunch and supper and again at bedtime. Take all your other medications at least 1 hour before the Carafate and 2 hours after. Continue your Protonix be sure and take it 1 hour before your morning meal. Sepsis Event Note (ED) - Evaluation Sepsis Screening Result: No Definite Risk - Focused Exam Vital Signs: Vital Signs Temp Pulse Resp BP Pulse Ox 12/14/19 09:06 36.7 C 98 18 122/92 H 98
[2019-12-14] MEDS ORDERED: Alum Hydrox/Mag Hydrox/Simeth 30 ML, Lidocaine 2% 15 ML PO ONE ×2 (09:29)
[2019-12-14] MEDS ORDERED: Lactated Ringers 1,000 ML IV ONE ×2 (09:29→11:03)
[2019-12-14] MEDS ORDERED: Ondansetron 4 MG/2 ML SDV IVPUSH ONE (09:32)
== END 2019-12-14 12:52 | disposition home or self-care (01) ==
LOC: JD.ED 08:27
DX: R10.13 Epigastric pain (principal); K31.9 Disease of stomach and duodenum, unspecified; J45.909 Unspecified asthma, uncomplicated; K21.9 Gastro-esophageal reflux disease without esophagitis; E66.9 Obesity, unspecified; Z68.42 Body mass index [BMI] 45.0-49.9, adult; Z88.8 Allergy status to other drugs, medicaments and biological substances; Z91.018 Allergy to other foods; Z79.899 Other long term (current) drug therapy; Z88.5 Allergy status to narcotic agent
CPT/HCPCS: 36415; 80053; 81001; 84703; 85025; 96361; 96374; 99284; A9270; J2405; J7120; 99283

== ENCOUNTER 2020-01-10 18:32 | Emergency (ER) | payer MEDICAID, OTHER ==
[2020-01-10 19:03] VITALS: BP 134/80; PULSE 68
[2020-01-10] MEDS ORDERED: Morphine 4 MG/ML Syringe IVPUSH ONE (19:42)
[2020-01-10] MEDS ORDERED: Ondansetron 4 MG/2 ML SDV IVPUSH ONE (19:43)
[2020-01-10] MEDS ORDERED: Sodium Chloride 0.9% 1,000 ML IV SCH (19:45)
--- NOTE | 2020-01-10 19:46 | EDM.PDOC ---
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 Time Seen by Provider: 01/10/20 19:40 Source of Information: Reports: Patient History Limitations: Reports: No Limitations - History of Present Illness INITIAL COMMENTS - FREE TEXT/NARRATIVE: 29-year-old female presents to the ED with right lower quadrant abdominal pain that started yesterday but became more intense with more sharp stabbing pain this morning. Over the days she is developed increased lower abdominal pain in the right lower quadrant which is constant. It is worse with movement and it hardly tolerate placing her seatbelt on during travel to the hospital. Patient has a history of polycystic ovarian disease. She reports less numbness her period was essentially on time perhaps 2 days later than anticipated. She denies denies any possibility of . He is nauseated. She has taken Tylenol and Motrin all day with very little relief. States her bowel function has been fairly normal although she states it tends to be on the looser side but still formed up. No blood noted. She has a history of constipation issues. Has had previous appendectomy . Was admitted to the hospital once at age 18 with a ruptured ovarian cyst but he was treated conservatively. Denies any dysuria urgency or frequency. Appreciates pain suprapubically as well. More of a cramping-like pain. Not aware of any pain in the perineum morbid angina. Onset: Sudden Onset Date: 01/09/20 Onset Time: 18:00 (Started fairly suddenly last evening and then seemed to ease up a bit at bedtime worse this morning when she got up more sharp and stabbing pain. Pain is now become more constant as the day has gone on) Duration: Constant, Other (There is a colicky component to the pain.) Location: Reports: Abdomen (Lower quadrant the abdomen without referral to the right flank. Pain is referred more towards the suprapubic area of her lower abdomen.) Quality: Reports: Ache, Sharp, Stabbing Severity: Moderate (Her mid knee pain is sharp and stabbing.) Improves with: Reports: Rest Worsens with: Reports: Other Context: Reports: Other (Continuous occurrence). Denies: Activity (Is with movement and applying her lap belt when she got in the vehicle. Worse with walking and coughing.), Exercise, Lifting, Sick Contact, Trauma Associated Symptoms: Reports: Loss of Appetite, Nausea/Vomiting. Denies: Confusion, Chest Pain, Cough, cough w sputum, Diaphoresis, Fever/Chills, Headaches, Malaise, Rash, Seizure (Mild nausea without vomiting), Shortness of Breath, Syncope, Weakness Treatments FINANCIAL OFFICER: Reports: Acetaminophen, NSAIDS (Motrin off and on today for pain relief.) Pelvic Pain Score (Numeric/FACES): 10 - Related Data Allergies Allergy/AdvReac Type Severity Reaction Status Date / Time Beef Containing Products Allergy Severe Stomach Verified 01/10/20 19:03 Upset cefixime Allergy Severe Hives Verified 01/10/20 19:03 corn Allergy Severe Stomach Verified 01/10/20 19:03 Upset haloperidol [From Haldol] Allergy Severe Agitation Verified 01/10/20 19:03 hydromorphone [From Dilaudid] Allergy Severe Itching Verified 01/10/20 19:03 topiramate [From Topamax] Allergy Severe Rash Verified 01/10/20 19:03 ketorolac tromethamine AdvReac Severe Itching Verified 01/10/20 19:03 [From Toradol] metoclopramide HCl AdvReac Severe Anxiety Verified 01/10/20 19:03 [From Reglan] prochlorperazine edisylate AdvReac Severe Agitation Verified 01/10/20 19:03 [From Compazine] prochlorperazine maleate AdvReac Severe Agitation Verified 01/10/20 19:03 [From Compazine] NUTS Allergy Severe Airway Uncoded 01/10/20 19:03 Tightness Home Meds: Home Meds Albuterol Sulfate [Ventolin Hfa] 18 gm IH Q4H PRN #1 hfa.aer.ad 04/04/15 [Rx] Fluticasone/Salmeterol [Advair 250-50 Diskus] 1 puff INH BID 05/13/15 [History] Montelukast [Singulair] 10 mg PO BEDTIME 06/20/19 [History] Famotidine [Pepcid] 20 mg PO DAILY 11/24/19 [History] Pantoprazole Sodium [Protonix] 40 mg PO DAILY 11/24/19 [History] Ondansetron [Zofran ODT] 4 mg PO Q6H PRN #20 tab.dis #2 Samples 12/14/19 [Rx] Sucralfate [Carafate] 1 gm PO QIDACANDBED #60 tablet 12/14/19 [Rx] Ondansetron [Zofran] 4 mg BUCCAL Q6H PRN #10 tab 01/10/20 [Rx] oxyCODONE HCl/Acetaminophen [Percocet 5-325 mg Tablet] 1 - 2 each PO Q4H PRN #12 tablet 01/10/20 [Rx] Past Medical History - Past Health History Medical/Surgical History: Denies Medical/Surgical History Cardiovascular History: Reports: Arrhythmia Respiratory History: Reports: Asthma Gastrointestinal History: Reports: GERD Genitourinary History: Reports: Pyelonephritis, UTI, Recurrent HONEY LIQUEFIER History: Reports: Polycystic Ovaries Other HONEY LIQUEFIER History: ovarian cysts on right ovary Musculoskeletal History: Reports: Fracture, Other (See Below) Other Musculoskeletal History: ankle, wrist, finger, elbow Neurological History: Reports: Migraines Psychiatric History: Reports: Depression, PTSD Endocrine/Metabolic History: Reports: Hypothyroidism, Obesity/BMI 30+ Other Endocrine/Metabolic History: Hypothyroidism-hasn't taken medication for a couple years Hematologic History: Reports: None Immunologic History: Reports: None Oncologic (Cancer) History: Reports: None Dermatologic History: Reports: Eczema - Infectious Disease History Infectious Disease History: Reports: None - Past Surgical History HEENT Surgical History: Reports: Adenoidectomy, Myringotomy w Tube(s), Naso- Sinus Surgery, Oral Surgery, Tonsillectomy GI Surgical History: Reports: Appendectomy, Colonoscopy, EGD Female Surgical History: Reports: D&C, Other (See Below) (Mated to the hospital once in the past about 818 with a ruptured ovarian cyst treated conservatively.) Musculoskeletal Surgical History: Reports: Other (See Below) Other Musculoskeletal Surgeries/Procedures:: Right hand surgeries Social & Family History - Family History Family Medical History: Noncontributory - Tobacco Use Smoking Status *Q: Never Smoker Second Hand Smoke Exposure: No - Caffeine Use Caffeine Use: Reports: None Caffeine Use Comment: 3 times weekly - Recreational Drug Use Recreational Drug Use: No - Living Situation & Occupation Living situation: Reports: Single, Alone Occupation: Unemployed ED ROS GENERAL - Review of Systems Review Of Systems: See Below Constitutional: Reports: Decreased Appetite. Denies: Fever, Chills, Malaise, Weakness, Fatigue, Weight Loss HEENT: Reports: No Symptoms Respiratory: Reports: No Symptoms Cardiovascular: Reports: No Symptoms Endocrine: Reports: Fatigue GI/Abdominal: Reports: Abdominal Pain (Right lower quadrant abdominal pain starting last night and worsening as the day has gone on today.), Constipation, Decreased Appetite (A.), Nausea. Denies: Diarrhea, Distension, Flatus, Hematemesis, Hematochezia (Strip constipation), Melena, Stool Incontinence, Vomiting, Other : Reports: Other (Last known menstrual period was approximately 6 days ago perhaps 2 days later than anticipated.). Denies: Dysuria, Frequency, Irregular Menses, Urgency Musculoskeletal: Reports: Back Pain Skin: Reports: No Symptoms Neurological: Reports: No Symptoms Psychiatric: Reports: No Symptoms Hematologic/Lymphatic: Reports: No Symptoms Immunologic: Reports: No Symptoms ED EXAM, GI/ABD - Physical Exam Exam: See Below Exam Limited By: No Limitations General Appearance: Alert, WD/WN, Mild Distress, Other (Temperature is 36.3 pulse is 60 and sinus respiratory is 18 BP 134/80 pulse ox 95 to 96% room air.) Eyes: Bilateral: Normal Appearance (No scleral icterus no blepharal pallor.) Throat/Mouth: Normal Inspection, Normal Lips, Normal Oropharynx Head: Atraumatic, Normocephalic Neck: Normal Inspection, Supple, Non-Tender, Full Range of Motion. No: Lymphadenopathy (L), Lymphadenopathy (R), Thyromegaly Respiratory/Chest: No Respiratory Distress, Lungs Clear, Normal Breath Sounds, No Accessory Muscle Use Cardiovascular: Normal Peripheral Pulses, Regular Rate, Rhythm, No Edema, No Gallop, No Murmur, No Rub GI/Abdominal Exam: Soft, Guarding, Rebound (Right lower quadrant of the abdomen), Tender (And is in the right lower quadrant with guarding and some mild rebound tenderness to suggest mild peritoneal irritation.), Abnormal Bowel Sounds (Sounds are slightly more active than normal.). No: No Abnormal Bruit, No Mass, Pelvis Stable, Distended ( mild right lower quadrant the abdomen.) Extremities: Normal Inspection, Normal Range of Motion, Non-Tender, No Pedal Edema Neurological: Alert, Oriented, CN II-XII Intact, Normal Cognition Psychiatric: Normal Affect, Normal Mood Skin Exam: Warm, Dry, Intact, Normal Color, No Rash Course - Vital Signs Last Recorded V/S: Last Vital Signs Temp 36.3 C 01/10/20 19:00 Pulse 68 01/10/20 19:00 Resp 18 01/10/20 19:00 BP 134/80 01/10/20 19:00 Pulse Ox 95 01/10/20 19:00 - Orders/Labs/Meds Orders: Active Orders 24 hr Category Date Time Status Abdomen 1V Flat [CR] Stat Exams 01/10/20 19:46 Taken Labs: Laboratory Tests 01/10/20 Range/Units 19:45 Urine Color Yellow (Yellow) Urine Appearance Clear (Clear) Urine pH 5.5 (5.0-8.0) Ur Specific [place] > or = 1.030 (1.005-1.030) Urine Protein Negative (Negative) Urine Glucose (UA) Negative (Negative) Urine Ketones Negative (Negative) Urine Occult Blood Negative (Negative) Urine Nitrite Negative (Negative) Urine Bilirubin Negative (Negative) Urine Urobilinogen 0.2 (0.2-1.0) Ur Leukocyte Esterase Negative (Negative) Urine RBC 0-5 (0-5) /hpf Urine WBC 0-5 (0-5) /hpf Ur Squamous Epith Cells 5-10 H (0-5) /hpf Urine Bacteria Few (FEW) /hpf Urine Mucus Moderate H (FEW) /hpf Meds: Medications Discontinued Medications Generic Name Dose Route Start Last Admin Trade Name Hunterq PRN Reason Stop Dose Admin Sodium Chloride 1,000 mls @ 125 mls/hr 01/10/20 19:45 Normal Saline IV ASDIRECTED [facility] Morphine Sulfate 6 mg 01/10/20 19:42 Morphine IVPUSH 01/10/20 19:43 ONETIME ONE Morphine Sulfate 6 mg 01/10/20 20:22 01/10/20 20:24 Morphine IM 01/10/20 20:23 6 mg ONETIME ONE Administration Ondansetron HCl 4 mg 01/10/20 19:43 Zofran IVPUSH 01/10/20 19:44 ONETIME ONE Ondansetron HCl Confirm 01/10/20 20:17 01/10/20 20:24 Zofran Odt Administered 01/10/20 20:18 Not Given Dose 4 mg .ROUTE .STK-MED ONE Ondansetron HCl 4 mg 01/10/20 20:22 01/10/20 20:24 Zofran Odt PO 01/10/20 20:23 4 mg ONETIME ONE Administration - Radiology Interpretation Free Text/Narrative:: 29-year-old female presents to the ED for evaluation of right lower quadrant abdominal pain pelvic pain that started last evening. She is suspect that she has ruptured a right ovarian cyst as she has had these several times in the past due to diagnosis of polycystic ovarian disease. She reports the pain came on rather suddenly last evening about 1800 hrs. and then seemed to ease up a bit before bedtime pain was worse this morning with more sharp stabbing pain and then became more constant visiting gone on. Pain is now irritating with movement such as walking coughing or even placing a lap belt told come to the hospital in her car. She is not bad at rest. Denies pain in the vagina or perineum. No bleeding per vagina. Last menstrual period essentially on time about a week ago and lasted appropriate length of time. She does not believe she has any chance of being . Lamination does reveal active bowel sounds in all 4 quadrants. She is significantly tender to palpation in the right lower quadrant with guarding and mild rebound tenderness suggesting peritoneal irritation. She has had a previous appendectomy. Plan she will have a transvaginal ultrasound. Routine labs to be collected as well as serum beta- hCG qualitative. Give her morphine 6 mg IV with Zofran 4 mg IV for nausea relief. IV will be normal saline at 125 mils per hour. - Re-Assessments/Exams Free Text/Narrative Re-Assessment/Exam: 01/10/20 21:21 KUB reveals some mild increased stool in the cecum and left transverse colon. Sparsity of gas within the rectum. No significant constipation. Small bowel is normal. Transvaginal ultrasound has been completed and reveals normal ovaries at 3.7 x 2.3 x 2.1 on the right and 3.7 x 2.0 x 3.0 on the left. Numerous follicular cysts are appreciated but no significant cyst to warrant a diagnosis of polycystic ovarian disease at this time. Endometrial thickness is 9.9. Small nabothian cyst is appreciated on the cervix. No myometrial abnormality otherwise noted. Patient received IM morphine 6 mg and Zofran 4 mg IM for pain relief. 01/10/2020: 21:30: Discussed the findings with the patient. She is developed a significant headache after the ultrasound. Morphine is not helping much with a headache but has helped with the right lower quadrant abdominal pain. She wishes to be discharged to home. Prescription written for Percocet 5/325 mg 1 or 2 every 4-6 hours necessary for pain relief x12 tablets and Zofran 4 mg sublingual every 4-6 hours as necessary for nausea relief x10 tablets. She gets migraine headaches intermittently and uses medication for this. She is for follow-up in 48 hours of right lower quadrant abdominal pain is not better. Departure - Departure Time of Disposition: 21:22 Disposition: Home, Self-Care 01 Condition: Fair Clinical Impression: Right lower quadrant abdominal pain - Discharge Information *PRESCRIPTION DRUG MONITORING PROGRAM REVIEWED*: Not Applicable *COPY OF PRESCRIPTION DRUG MONITORING REPORT IN PATIENT RICKEY: Not Applicable Prescriptions: oxyCODONE HCl/Acetaminophen [Percocet 5-325 mg Tablet] 1 - 2 each PO Q4H PRN #12 tablet PRN Reason: pain relief. Ondansetron [Zofran] 4 mg BUCCAL Q6H PRN #10 tab PRN Reason: nausea or vomiting Instructions: Abdominal Pain, Adult Referrals: Magy Jensen PREMISES TECHNICIAN [Primary Care Provider] - Forms: ED Department Discharge Additional Instructions: Evaluation in the emergency room tonight in regards to persistent right lower quadrant abdominal pain which is fairly sharp and stabbing and seemed to progressively get worse as the day went on today. He is with concerns for a right ovarian cyst rupture. Examination does reveal tenderness in the right lower quadrant of the abdomen. Previous appendectomy appreciated. Transvaginal ultrasound was performed and does not reveal any cyst on the ovaries. Normal follicular cysts which are the aches getting ready for the next ovulation cycle and noted in both ovaries. Both ovaries were within normal size. No abnormalities of the uterus were identified. An x-ray of then does reveal mild increased stool in the cecum or the right lower quadrant of the colon near the beginning of the colon and a little bit in the left transverse colon. Therefore no definitive abnormalities appreciated on examination by ultrasound and x-ray. You did receive morphine 6 mg intramuscularly and Zofran 4 mg sublingual in the ED. May repeat Zofran 4 mg under the tongue every 4-6 hours necessary for nausea relief and use Percocet tabs 5/325 1 or 2 every 4-6 hours necessary for pain relief over the next day or so. If pain ain persists after 48 hours you should be reviewed. Sepsis Event Note (ED) - Evaluation Sepsis Screening Result: No Definite Risk - Focused Exam Vital Signs: Vital Signs Temp Pulse Resp BP Pulse Ox 01/10/20 19:00 36.3 C 68 18 134/80 95 - My Orders Last 24 Hours: My Active Orders 01/10/20 19:46 Abdomen 1V Flat [CR] Stat - Assessment/Plan Last 24 Hours: My Active Orders 01/10/20 19:46 Abdomen 1V Flat [CR] Stat
[2020-01-10] MEDS ORDERED: Ondansetron 4 MG Tab.DIS ONE (20:17)
[2020-01-10] MEDS ORDERED: Morphine 4 MG/ML Syringe IM ONE (20:22)
[2020-01-10] MEDS ORDERED: Ondansetron 4 MG Tab.DIS PO ONE (20:22)
--- NOTE | 2020-01-10 20:41 | US ---
Pelvic ultrasound: Multiple real-time images of the pelvis were obtained transvaginally. Uterus is anteverted. Small nabothian cyst is noted. No myometrial abnormality is noted. Endometrial thickness is 9.9 mm. Follicles are seen within the ovaries. No free fluid is seen. Measurements: Uterus: Length 8.6 cm, AP height 4.6 cm, transverse width 5.6 cm Right ovary: 3.7 x 2.3 x 2.1 cm Left ovary: 3.7 x 2.0 x 3.0 cm Impression: 1. Nabothian cyst. 2. No additional abnormality is identified on pelvic ultrasound exam. Diagnostic code #2 This report was dictated in MDT
--- NOTE | 2020-01-11 11:29 | CR ---
Abdomen: Supine view of the abdomen was obtained. Comparison: Previous abdominal x-ray of 05/21/13. Bowel gas pattern appears normal. No abnormal calcifications are seen. No soft tissue abnormality is appreciated. Bony structures appear within normal limits for the patient's age. Impression: 1. Nothing acute is appreciated on supine abdominal x-ray. Diagnostic code #1 This report was dictated in MDT
== END 2020-01-10 21:44 | disposition home or self-care (01) ==
LOC: JD.ED 18:32
DX: R10.31 Right lower quadrant pain (principal); R11.2 Nausea with vomiting, unspecified; R63.0 Anorexia; M25.569 Pain in unspecified knee; J45.909 Unspecified asthma, uncomplicated; K21.9 Gastro-esophageal reflux disease without esophagitis; G43.909 Migraine, unspecified, not intractable, without status migrainosus; E66.9 Obesity, unspecified; Z90.49 Acquired absence of other specified parts of digestive tract; Z98.890 Other specified postprocedural states; Z91.018 Allergy to other foods; Z88.1 Allergy status to other antibiotic agents; Z88.5 Allergy status to narcotic agent; Z88.6 Allergy status to analgesic agent; Z88.8 Allergy status to other drugs, medicaments and biological substances; Z79.899 Other long term (current) drug therapy; Z68.42 Body mass index [BMI] 45.0-49.9, adult
CPT/HCPCS: 74018; 76830; 81001; 96372; 99284; A9270; J2270

== ENCOUNTER 2020-01-12 17:12 | Emergency (ER) | payer MEDICAID ==
[2020-01-12 17:25] VITALS: BP 133/85; PULSE 93
[2020-01-12] MEDS ORDERED: Ketorolac 30 MG/ML SDV IVPUSH ONE (17:41)
[2020-01-12] MEDS ORDERED: Sodium Chloride 0.9% 10 ML Syringe FLUSH PRN (17:42)
[2020-01-12] MEDS ORDERED: Morphine 2 MG/ML SYRINGE IVPUSH ONE ×2 (17:42→19:07)
[2020-01-12] MEDS ORDERED: diphenhydrAMINE 50 MG/ML SDV IVPUSH ONE (17:43)
--- NOTE | 2020-01-12 18:04 | EDM.PDOC ---
ED HPI GENERAL MEDICAL PROBLEM - General Chief Complaint: Abdominal Pain Stated Complaint: VOMITING/PAIN IN OVARIES Time Seen by Provider: 01/12/20 17:26 Source of Information: Reports: Patient History Limitations: Reports: No Limitations - History of Present Illness INITIAL COMMENTS - FREE TEXT/NARRATIVE: Patient is a 29-year-old female who presents to the emergency department with complaints of heavy vaginal bleeding, pelvic cramping, and right lower quadrant pain. The right lower quadrant pain and cramping began 2 days ago. Her menstrual period began 3 days ago, however was quite light. Bleeding increased significantly today. States she has saturated 8 tampons so far today. She does not use pads. Patient states she has a history of PCOS and dysmenorrhea. Denie s any chance she could be as she has not been sexually active in the last few months. She is not on any form of control. She does not have a director of retention that she sees. Her primary care provider is Magy Jensen. She denies any dizziness, however has had some nausea with a couple episodes of vomiting today. Patient was seen in the emergency department 2 days ago for similar complaints. At that time a pelvic ultrasound was completed and found to be normal. Urinalysis was also completed and was negative for infection. She was discharged with Percocet for pain, however states that this is not helping the pain. Her last Percocet was about 2 hours ago. She took ibuprofen around 11:00 this morning. Bilateral Middle Abdomen Pain Score (Numeric/FACES): 9 - Related Data Allergies Allergy/AdvReac Type Severity Reaction Status Date / Time Beef Containing Products Allergy Severe Stomach Verified 01/12/20 17:24 Upset cefixime Allergy Severe Hives Verified 01/12/20 17:24 corn Allergy Severe Stomach Verified 01/12/20 17:24 Upset haloperidol [From Haldol] Allergy Severe Agitation Verified 01/12/20 17:24 hydromorphone [From Dilaudid] Allergy Severe Itching Verified 01/12/20 17:24 topiramate [From Topamax] Allergy Severe Rash Verified 01/12/20 17:24 ketorolac tromethamine AdvReac Severe Itching Verified 01/12/20 17:24 [From Toradol] metoclopramide HCl AdvReac Severe Anxiety Verified 01/12/20 17:24 [From Reglan] prochlorperazine edisylate AdvReac Severe Agitation Verified 01/12/20 17:24 [From Compazine] prochlorperazine maleate AdvReac Severe Agitation Verified 01/12/20 17:24 [From Compazine] NUTS Allergy Severe Airway Uncoded 01/12/20 17:24 Tightness Home Meds: Home Meds Albuterol Sulfate [Ventolin Hfa] 18 gm IH Q4H PRN #1 hfa.aer.ad 04/04/15 [Rx] Fluticasone/Salmeterol [Advair 250-50 Diskus] 1 puff INH BID 05/13/15 [History] Montelukast [Singulair] 10 mg PO BEDTIME 06/20/19 [History] Famotidine [Pepcid] 20 mg PO DAILY 11/24/19 [History] Pantoprazole Sodium [Protonix] 40 mg PO DAILY 11/24/19 [History] Ondansetron [Zofran ODT] 4 mg PO Q6H PRN #20 tab.dis #2 Samples 12/14/19 [Rx] oxyCODONE HCl/Acetaminophen [Percocet 5-325 mg Tablet] 1 - 2 each PO Q4H PRN #12 tablet 01/10/20 [Rx] Naproxen [Naprosyn] 500 mg PO Q12HR PRN #10 tab 01/12/20 [Rx] Past Medical History - Past Health History Medical/Surgical History: Denies Medical/Surgical History Cardiovascular History: Reports: Arrhythmia Respiratory History: Reports: Asthma Gastrointestinal History: Reports: GERD Genitourinary History: Reports: Pyelonephritis, UTI, Recurrent WAXED BAG MACHINE OPERATOR History: Reports: Polycystic Ovaries Other WAXED BAG MACHINE OPERATOR History: ovarian cysts on right ovary Musculoskeletal History: Reports: Fracture, Other (See Below) Other Musculoskeletal History: ankle, wrist, finger, elbow Neurological History: Reports: Migraines Psychiatric History: Reports: Depression, PTSD Endocrine/Metabolic History: Reports: Hypothyroidism, Obesity/BMI 30+ Other Endocrine/Metabolic History: Hypothyroidism-hasn't taken medication for a couple years Hematologic History: Reports: None Immunologic History: Reports: None Oncologic (Cancer) History: Reports: None Dermatologic History: Reports: Eczema - Infectious Disease History Infectious Disease History: Reports: None - Past Surgical History HEENT Surgical History: Reports: Adenoidectomy, Myringotomy w Tube(s), Naso- Sinus Surgery, Oral Surgery, Tonsillectomy GI Surgical History: Reports: Appendectomy, Colonoscopy, EGD Female Surgical History: Reports: D&C Musculoskeletal Surgical History: Reports: Other (See Below) Other Musculoskeletal Surgeries/Procedures:: Right hand surgeries Social & Family History - Family History Family Medical History: Noncontributory - Tobacco Use Smoking Status *Q: Never Smoker - Caffeine Use Caffeine Use: Reports: Energy Drinks Caffeine Use Comment: 3 times weekly - Recreational Drug Use Recreational Drug Use: No - Living Situation & Occupation Living situation: Reports: Single, Alone Occupation: Unemployed ED ROS GENERAL - Review of Systems Review Of Systems: See Below Constitutional: Reports: No Symptoms. Denies: Fever, Chills HEENT: Reports: No Symptoms Respiratory: Reports: No Symptoms Cardiovascular: Reports: No Symptoms Endocrine: Reports: No Symptoms GI/Abdominal: Reports: Abdominal Pain, Nausea, Vomiting. Denies: Diarrhea : Reports: Irregular Menses, Pain (pelvic cramping) Musculoskeletal: Reports: No Symptoms Skin: Reports: No Symptoms Neurological: Reports: No Symptoms Psychiatric: Reports: No Symptoms Hematologic/Lymphatic: Reports: No Symptoms Immunologic: Reports: No Symptoms ED EXAM, RENAL/ - Physical Exam Exam: See Below Exam Limited By: No Limitations General Appearance: Alert, WD/WN, No Apparent Distress Respiratory/Chest: No Respiratory Distress, Lungs Clear, Normal Breath Sounds, No Accessory Muscle Use, Chest Non-Tender Cardiovascular: Normal Peripheral Pulses, Regular Rate, Rhythm, No Edema, No Gallop, No JVD, No Murmur, No Rub GI/Abdominal: Normal Bowel Sounds, Soft, No Organomegaly, No Distention, No Abnormal Bruit, No Mass, Tender (suprapubic) Neurological: Alert, Oriented, CN II-XII Intact, Normal Cognition, Normal Gait, Normal Reflexes, No Motor/Sensory Deficits Psychiatric: Normal Affect, Normal Mood Skin Exam: Warm, Dry, Intact, Normal Color, No Rash Course - Vital Signs Last Recorded V/S: Last Vital Signs Temp 97.4 F 01/12/20 17:22 Pulse 93 01/12/20 17:22 Resp 16 01/12/20 17:22 BP 133/85 01/12/20 17:22 Pulse Ox 96 01/12/20 17:22 - Orders/Labs/Meds Orders: Active Orders 24 hr Category Date Time Status Peripheral IV Care [RC] . DIRECTED Care 01/12/20 17:42 Active Peripheral IV Insertion Adult [OM.PC] Stat Oth 01/12/20 17:41 Ordered Labs: Laboratory Tests 01/12/20 01/12/20 01/12/20 Range/Units 18:25 18:25 18:25 WBC 9.17 (3.98-10.04) K/mm3 RBC 4.78 (3.98-5.22) M/mm3 Hgb 13.4 (11.2-15.7) gm/dl Hct 39.8 (34.1-44.9) % MCV 83.3 (79.4-94.8) fl MCH 28.0 (25.6-32.2) pg MCHC 33.7 (32.2-35.5) g/dl RDW Std Deviation 40.4 (36.4-46.3) fL Plt Count 322 (182-369) K/mm3 MPV 9.1 L (9.4-12.3) fl Neut % (Auto) 69.3 (34.0-71.1) % Lymph % (Auto) 17.3 L (19.3-51.7) % Perkins % (Auto) 6.0 (4.7-12.5) % Eos % (Auto) 7.0 H (0.7-5.8) Baso % (Auto) 0.2 (0.1-1.2) % Neut # (Auto) 6.35 H (1.56-6.13) K/mm3 Lymph # (Auto) 1.59 (1.18-3.74) K/mm3 Perkins # (Auto) 0.55 H (0.24-0.36) K/mm3 Eos # (Auto) 0.64 H (0.04-0.36) K/mm3 Baso # (Auto) 0.02 (0.01-0.08) K/mm3 Sodium 139 (136-145) mEq/L Potassium 3.8 (3.5-5.1) mEq/L Chloride 103 (98-107) mEq/L Carbon Dioxide 24 (21-32) mEq/L Anion Gap 15.8 H (5-15) BUN 13 (7-18) mg/dL Creatinine 1.0 (0.55-1.02) mg/dL Est Cr Clr Drug Dosing 63.20 mL/min Estimated GFR (MDRD) > 60 (>60) mL/min BUN/Creatinine Ratio 13.0 L (14-18) Glucose 88 (74-106) mg/dL Calcium 8.6 (8.5-10.1) mg/dL Total Bilirubin 0.4 (0.2-1.0) mg/dL AST 19 (15-37) U/L ALT 33 (14-59) U/L Alkaline Phosphatase 59 (46-116) U/L Total Protein 8.0 (6.4-8.2) g/dl Albumin 4.2 (3.4-5.0) g/dl Globulin 3.8 gm/dL Albumin/Globulin Ratio 1.1 (1-2) HCG, Qual Negative (NEGATIVE) Meds: Medications Discontinued Medications Generic Name Dose Route Start Last Admin Trade Name Freq PRN Reason Stop Dose Admin Diphenhydramine HCl 50 mg 01/12/20 17:43 01/12/20 18:03 Benadryl IVPUSH 01/12/20 17:44 50 mg ONETIME ONE Administration Ketorolac Tromethamine 30 mg 01/12/20 17:41 01/12/20 18:05 Toradol IVPUSH 01/12/20 17:42 30 mg ONETIME ONE Administration Morphine Sulfate 2 mg 01/12/20 17:42 01/12/20 18:07 Morphine IVPUSH 01/12/20 17:43 2 mg ONETIME ONE Administration Morphine Sulfate 2 mg 01/12/20 19:07 01/12/20 19:14 Morphine IVPUSH 01/12/20 19:08 2 mg ONETIME ONE Administration Sodium Chloride 10 ml 01/12/20 17:42 01/12/20 18:05 Saline Flush FLUSH 10 ml ASDIRECTED PRN Administration Keep Vein Open - Re-Assessments/Exams Free Text/Narrative Re-Assessment/Exam: 01/12/20 19:16 Patient's work-up was found to be grossly unremarkable. hCG was negative. Urinalysis was completed 2 days ago and found to be normal. Ultrasound completed 2 days ago was also unremarkable. Case discussed with WAXED BAG MACHINE OPERATOR, Dr. Reynolds. She recommended symptomatic treatment and to encourage the patient to get on a hormonal control option monthly to help better regulate her periods and dysmenorrhea. Discussed this with the patient. Recommend she follow-up with her primary care provider to discuss ongoing management of dysmenorrhea. She does still have some Percocets left at home. I will also s end a prescription for Naprosyn. Discharge instructions as documented. Departure - Departure Time of Disposition: 19:17 Disposition: Home, Self-Care 01 Condition: Good Clinical Impression: Dysmenorrhea - Discharge Information *PRESCRIPTION DRUG MONITORING PROGRAM REVIEWED*: No *COPY OF PRESCRIPTION DRUG MONITORING REPORT IN PATIENT RICKEY: No Prescriptions: Naproxen [Naprosyn] 500 mg PO Q12HR PRN #10 tab PRN Reason: Pain Instructions: Dysmenorrhea, [id number] Referrals: Magy Jensen NP [Primary Care Provider] - Forms: ED Department Discharge Additional Instructions: You were seen in the emergency department today for heavy vaginal bleeding and pelvic pain. Blood work was completed today. When you in the ER 2 days ago, urinalysis and ultrasound was completed. This was all found to be normal. Your test was negative. Your case was discussed with Dr. Reynolds, WAXED BAG MACHINE OPERATOR. She recommended symptomatic treatment. It may be beneficial for you to get on a hormonal control to better regulate your periods and dysmenorrhea. A prescription for Naprosyn has been sent to [facility]. Take this medication as needed for pain. You may also continue to use Tylenol and your Percocet that you previously prescribed. Recommend that you follow-up with your primary care provider early next week to discuss ongoing management of your dysmenorrhea. Return to the ER as needed. Sepsis Event Note (ED) - Evaluation Sepsis Screening Result: No Definite Risk - Focused Exam Vital Signs: Vital Signs Temp Pulse Resp BP Pulse Ox 01/12/20 17:22 97.4 F 93 16 133/85 96 - My Orders Last 24 Hours: My Active Orders 01/12/20 17:41 Peripheral IV Insertion Adult [OM.PC] Stat 01/12/20 17:42 Peripheral IV Care [RC] . DIRECTED - Assessment/Plan Last 24 Hours: My Active Orders 01/12/20 17:41 Peripheral IV Insertion Adult [OM.PC] Stat 01/12/20 17:42 Peripheral IV Care [RC] . DIRECTED
== END 2020-01-12 19:25 | disposition home or self-care (01) ==
LOC: JD.ED 17:12
DX: N94.6 Dysmenorrhea, unspecified (principal); J45.909 Unspecified asthma, uncomplicated; K21.9 Gastro-esophageal reflux disease without esophagitis; F32.9 Major depressive disorder, single episode, unspecified; Z79.899 Other long term (current) drug therapy; Z88.1 Allergy status to other antibiotic agents; Z91.018 Allergy to other foods; Z88.5 Allergy status to narcotic agent; Z88.6 Allergy status to analgesic agent; Z88.8 Allergy status to other drugs, medicaments and biological substances
CPT/HCPCS: 36415; 80053; 84703; 85025; 96374; 96375; 96376; 99284; J1200; J1885; J2270; 99283

== ENCOUNTER 2020-04-07 18:16 | Emergency (ER) | payer BC, MEDICAID, OTHER, SELFPAY ==
[2020-04-07 18:30] VITALS: BP 140/99; PULSE 91
[2020-04-07] MEDS ORDERED: diphenhydrAMINE 50 MG Cap PO ONE (18:44)
[2020-04-07] MEDS ORDERED: Famotidine 20 MG Tab PO ONE (18:44)
[2020-04-07] MEDS ORDERED: predniSONE 10 MG Tab PO ONE (18:45)
--- NOTE | 2020-04-07 19:12 | EDM.PDOC ---
ED HPI GENERAL MEDICAL PROBLEM - General Chief Complaint: Allergic Reaction Stated Complaint: ALLERGIC REACTION Time Seen by Provider: 04/07/20 18:37 Source of Information: Reports: Patient, RN Notes Reviewed History Limitations: Reports: No Limitations - History of Present Illness INITIAL COMMENTS - FREE TEXT/NARRATIVE: Patient is a 30-year-old female presenting to the emergency department with complaints of a mildly scratchy throat and some nausea. She states that she ate some pretzels which listed that it may contain cashew oil. Patient states she has an allergy to tree nuts. When asked what type of reaction she has, she states that she does not think she is ever actually had a reaction, she just tested positive on an allergy scratch test. She has an EpiPen at home, however she did not use it. She denies any shortness of breath. She has no rash or pruritus. Patient states it was only a few pretzels she ate and it was about an hour prior to her ER visit. Abdomen Pain Score (Numeric/FACES): 4 - Related Data Allergies Allergy/AdvReac Type Severity Reaction Status Date / Time Beef Containing Products Allergy Severe Stomach Verified 04/07/20 18:30 Upset cefixime Allergy Severe Hives Verified 04/07/20 18:30 corn Allergy Severe Stomach Verified 04/07/20 18:30 Upset haloperidol [From Haldol] Allergy Severe Agitation Verified 04/07/20 18:30 hydromorphone [From Dilaudid] Allergy Severe Itching Verified 04/07/20 18:30 topiramate [From Topamax] Allergy Severe Rash Verified 04/07/20 18:30 ketorolac tromethamine AdvReac Severe Itching Verified 04/07/20 18:30 [From Toradol] metoclopramide HCl AdvReac Severe Anxiety Verified 04/07/20 18:30 [From Reglan] prochlorperazine edisylate AdvReac Severe Agitation Verified 04/07/20 18:30 [From Compazine] prochlorperazine maleate AdvReac Severe Agitation Verified 04/07/20 18:30 [From Compazine] NUTS Allergy Severe Airway Uncoded 04/07/20 18:30 Tightness Home Meds: Home Meds Albuterol Sulfate [Ventolin Hfa] 18 gm IH Q4H PRN #1 hfa.aer.ad 04/04/15 [Rx] Fluticasone/Salmeterol [Advair 250-50 Diskus] 1 puff INH BID 05/13/15 [History] Montelukast [Singulair] 10 mg PO BEDTIME 06/20/19 [History] Famotidine [Pepcid] 20 mg PO DAILY 11/24/19 [History] Pantoprazole Sodium [Protonix] 40 mg PO DAILY 11/24/19 [History] Ondansetron [Zofran ODT] 4 mg PO Q6H PRN #20 tab.dis #2 Samples 12/14/19 [Rx] oxyCODONE HCl/Acetaminophen [Percocet 5-325 mg Tablet] 1 - 2 each PO Q4H PRN #12 tablet 01/10/20 [Rx] Naproxen [Naprosyn] 500 mg PO Q12HR PRN #10 tab 01/12/20 [Rx] predniSONE 40 mg PO DAILY 4 Days #8 tab 04/07/20 [Rx] Past Medical History - Past Health History Medical/Surgical History: Denies Medical/Surgical History Cardiovascular History: Reports: Arrhythmia Respiratory History: Reports: Asthma Gastrointestinal History: Reports: GERD Genitourinary History: Reports: Pyelonephritis, UTI, Recurrent SIZE MARKER History: Reports: Polycystic Ovaries Other SIZE MARKER History: ovarian cysts on right ovary Musculoskeletal History: Reports: Fracture, Other (See Below) Other Musculoskeletal History: ankle, wrist, finger, elbow Neurological History: Reports: Migraines Psychiatric History: Reports: Depression, PTSD Endocrine/Metabolic History: Reports: Hypothyroidism, Obesity/BMI 30+ Other Endocrine/Metabolic History: Hypothyroidism-hasn't taken medication for a couple years Hematologic History: Reports: None Immunologic History: Reports: None Oncologic (Cancer) History: Reports: None Dermatologic History: Reports: Eczema - Infectious Disease History Infectious Disease History: Reports: None - Past Surgical History HEENT Surgical History: Reports: Adenoidectomy, Myringotomy w Tube(s), Naso- Sinus Surgery, Oral Surgery, Tonsillectomy GI Surgical History: Reports: Appendectomy, Colonoscopy, EGD Female Surgical History: Reports: D&C Musculoskeletal Surgical History: Reports: Other (See Below) Other Musculoskeletal Surgeries/Procedures:: Right hand surgeries Social & Family History - Family History Family Medical History: Noncontributory - Tobacco Use Tobacco Use Status *Q: Never Tobacco User - Caffeine Use Caffeine Use: Reports: None Caffeine Use Comment: 3 times weekly - Recreational Drug Use Recreational Drug Use: No - Living Situation & Occupation Living situation: Reports: Single, Alone Occupation: Unemployed ED ROS ALLERGIC REACTION - Review of Systems Review Of Systems: See Below Constitutional: Reports: No Symptoms. Denies: Fever, Chills, Weakness HEENT: Reports: Other ("Scratchy throat ") Respiratory: Reports: No Symptoms. Denies: Shortness of Breath, Wheezing, Cough Cardiovascular: Reports: No Symptoms Endocrine: Reports: No Symptoms GI/Abdominal: Reports: No Symptoms : Reports: No Symptoms Musculoskeletal: Reports: No Symptoms Skin: Reports: No Symptoms. Denies: Pruritis, Rash Neurological: Reports: No Symptoms Psychiatric: Reports: No Symptoms Hematologic/Lymphatic: Reports: No Symptoms Immunologic: Reports: No Symptoms ED EXAM GENERAL NO PERIP PULSE - Physical Exam Exam: See Below Exam Limited By: No Limitations General Appearance: Alert, WD/WN, No Apparent Distress Throat/Mouth: Normal Inspection, Normal Lips, Normal Teeth, Normal Gums, Normal Oropharynx, Normal Voice, No Airway Compromise Respiratory/Chest: No Respiratory Distress, Lungs Clear, Normal Breath Sounds, No Accessory Muscle Use, Chest Non-Tender Cardiovascular: Normal Peripheral Pulses, Regular Rate, Rhythm, No Edema, No Gallop, No JVD, No Murmur, No Rub GI/Abdominal: Normal Bowel Sounds, Soft, Non-Tender, No Organomegaly, No Distention, No Abnormal Bruit, No Mass Neurological: Alert, Oriented, CN II-XII Intact, Normal Cognition, Normal Gait, Normal Reflexes, No Motor/Sensory Deficits Psychiatric: Normal Affect, Normal Mood Skin Exam: Warm, Dry, Intact, Normal Color, No Rash Course - Vital Signs Last Recorded V/S: Last Vital Signs Temp 97 F 04/07/20 18:26 Pulse 91 04/07/20 18:26 Resp 16 04/07/20 18:26 BP 140/99 H 04/07/20 18:26 Pulse Ox 97 04/07/20 18:26 - Orders/Labs/Meds Meds: Medications Discontinued Medications Generic Name Dose Route Start Last Admin Trade Name Freq PRN Reason Stop Dose Admin Diphenhydramine HCl 50 mg 04/07/20 18:44 04/07/20 18:53 Benadryl PO 04/07/20 18:45 50 mg ONETIME ONE Administration Famotidine 20 mg 04/07/20 18:44 04/07/20 18:53 Pepcid PO 04/07/20 18:45 20 mg ONETIME ONE Administration Prednisone 40 mg 04/07/20 18:45 04/07/20 18:54 Prednisone PO 04/07/20 18:46 40 mg ONETIME ONE Administration - Re-Assessments/Exams Free Text/Narrative Re-Assessment/Exam: 04/07/20 19:57 Patient is feeling better after the medications given. She no longer has a scratchy throught. No rash or pruritis. I will send a prescription for prednisone and recommend she continue pepcid and benadryl. Discharge instructions as documented. Departure - Departure Time of Disposition: 19:58 Disposition: Home, Self-Care 01 Condition: Good Clinical Impression: Allergic reaction Qualifiers: Encounter type: initial encounter Qualified Code(s): T78.40XA - Allergy, unspecified, initial encounter - Discharge Information *PRESCRIPTION DRUG MONITORING PROGRAM REVIEWED*: No *COPY OF PRESCRIPTION DRUG MONITORING REPORT IN PATIENT RICKEY: No Prescriptions: predniSONE 40 mg PO DAILY 4 Days #8 tab Instructions: Allergies, Adult Referrals: Magy Jensen NP [Primary Care Provider] - Forms: ED Department Discharge Additional Instructions: You were seen in the ER this evening for a scratchy throat after consuming pretzels that may have contained a tree nut oil. While in the ER, you received prednisone, Pepcid, and Benadryl and you were monitored for period time after this. Your symptoms did improve. A prescription for prednisone has been sent to [facility]. Take this medication as prescribed. Recommend that you increase your Pepcid to 40 mg daily for the next 4 days. You may use Benadryl 50 mg every 4-6 hours as needed for itching. If you should experience any worsening symptoms, please return to the emergency department. Sepsis Event Note (ED) - Evaluation Sepsis Screening Result: No Definite Risk - Focused Exam Vital Signs: Vital Signs Temp Pulse Resp BP Pulse Ox 04/07/20 18:26 97 F 91 16 140/99 H 97
== END 2020-04-07 20:08 | disposition home or self-care (01) ==
LOC: JD.ED 18:16
DX: T78.40XA Allergy, unspecified, initial encounter (principal); J45.909 Unspecified asthma, uncomplicated; K21.9 Gastro-esophageal reflux disease without esophagitis; E03.9 Hypothyroidism, unspecified; E66.9 Obesity, unspecified; Z88.1 Allergy status to other antibiotic agents; Z91.018 Allergy to other foods; Z88.8 Allergy status to other drugs, medicaments and biological substances; Z88.5 Allergy status to narcotic agent; Z88.6 Allergy status to analgesic agent
CPT/HCPCS: 99283; A9270; J7512; 99284

== ENCOUNTER 2020-08-21 08:22 | Emergency (ER) | payer MEDICAID ==
--- NOTE | 2020-08-21 08:33 | EDM.PDOC ---
ED HPI GENERAL MEDICAL PROBLEM - General Chief Complaint: Respiratory Problem Stated Complaint: COUGH Time Seen by Provider: 08/21/20 08:32 Source of Information: Reports: Patient History Limitations: Reports: No Limitations - History of Present Illness INITIAL COMMENTS - FREE TEXT/NARRATIVE: 30-year-old female presents to the ED with acute upper respiratory tract infection mostly affecting her chest. She has a history of asthma. She she reports increased shortness of breath with wheezing and productive cough for the last day and a half. No noted fever or chills at this time. Cough most of last night. She is currently using Singulair and albuterol metered-dose inhaler. She does have a nebulizer at home but does not have any albuterol for this. Onset: Gradual Onset Date: 08/19/20 Duration: Day(s):, Getting Worse Location: Reports: Chest (Shortness of breath) Quality: Reports: Other ( with wheezing.) Severity: Moderate (Wheezing and dyspnea.) Improves with: Reports: Rest Worsens with: Reports: Movement Context: Denies: Activity, Exercise, Lifting, Sick Contact, Trauma, Other Associated Symptoms: Reports: Chest Pain, Cough, cough w sputum (Only mainly white so far prep slightly yellow-tinged), Loss of Appetite, Malaise, Shortness of Breath. Denies: No Other Symptoms, Confusion, Diaphoresis (Coughing.), Fe fariba/Chills, Headaches, Nausea/Vomiting, Rash, Seizure, Syncope, Weakness Treatments BRICK HANDLER: Reports: Acetaminophen - Related Data Allergies Allergy/AdvReac Type Severity Reaction Status Date / Time Beef Containing Products Allergy Severe Stomach Verified 08/21/20 08:36 Upset cefixime Allergy Severe Hives Verified 08/21/20 08:36 corn Allergy Severe Stomach Verified 08/21/20 08:36 Upset haloperidol [From Haldol] Allergy Severe Agitation Verified 08/21/20 08:36 hydromorphone [From Dilaudid] Allergy Severe Itching Verified 08/21/20 08:36 topiramate [From Topamax] Allergy Severe Rash Verified 08/21/20 08:36 ketorolac tromethamine AdvReac Severe Itching Verified 08/21/20 08:36 [From Toradol] metoclopramide HCl AdvReac Severe Anxiety Verified 08/21/20 08:36 [From Reglan] prochlorperazine edisylate AdvReac Severe Agitation Verified 08/21/20 08:36 [From Compazine] prochlorperazine maleate AdvReac Severe Agitation Verified 08/21/20 08:36 [From Compazine] NUTS Allergy Severe Airway Uncoded 04/07/20 18:30 Tightness Home Meds: Home Meds Albuterol Sulfate [Ventolin Hfa] 18 gm IH Q4H PRN #1 hfa.aer.ad 04/04/15 [Rx] Fluticasone/Salmeterol [Advair 250-50 Diskus] 1 puff INH BID 05/13/15 [History] Montelukast [Singulair] 10 mg PO BEDTIME 06/20/19 [History] Famotidine [Pepcid] 20 mg PO DAILY 11/24/19 [History] Pantoprazole Sodium [Protonix] 40 mg PO DAILY 11/24/19 [History] Ondansetron [Zofran ODT] 4 mg PO Q6H PRN #20 tab.dis #2 Samples 12/14/19 [Rx] oxyCODONE HCl/Acetaminophen [Percocet 5-325 mg Tablet] 1 - 2 each PO Q4H PRN #12 tablet 01/10/20 [Rx] Naproxen [Naprosyn] 500 mg PO Q12HR PRN #10 tab 01/12/20 [Rx] predniSONE 40 mg PO DAILY 4 Days #8 tab 04/07/20 [Rx] Albuterol [Proventil Neb Soln] 2.5 mg .XX Q4H PRN #60 neb 08/21/20 [Rx] Azithromycin [Zithromax] 250 mg PO DAILY #6 tablet 08/21/20 [Rx] Hydrocodone/Chlorphen P-Stirex [Hydrocodone-Chlorphen ER Susp] 5 ml PO Q12H PRN #60 ml 08/21/20 [Rx] Past Medical History - Past Health History Medical/Surgical History: Denies Medical/Surgical History Cardiovascular History: Reports: Arrhythmia Respiratory History: Reports: Asthma Gastrointestinal History: Reports: GERD Genitourinary History: Reports: Pyelonephritis, UTI, Recurrent REHAB ASSISTANT History: Reports: Polycystic Ovaries Other REHAB ASSISTANT History: ovarian cysts on right ovary Musculoskeletal History: Reports: Fracture, Other (See Below) Other Musculoskeletal History: ankle, wrist, finger, elbow Neurological History: Reports: Migraines Psychiatric History: Reports: Depression, PTSD Endocrine/Metabolic History: Reports: Hypothyroidism, Obesity/BMI 30+ Other Endocrine/Metabolic History: Hypothyroidism-hasn't taken medication for a couple years Hematologic History: Reports: None Immunologic History: Reports: None Oncologic (Cancer) History: Reports: None Dermatologic History: Reports: Eczema - Infectious Disease History Infectious Disease History: Reports: None - Past Surgical History HEENT Surgical History: Reports: Adenoidectomy, Myringotomy w Tube(s), Naso- Sinus Surgery, Oral Surgery, Tonsillectomy GI Surgical History: Reports: Appendectomy, Colonoscopy, EGD Female Surgical History: Reports: D&C Musculoskeletal Surgical History: Reports: Other (See Below) Other Musculoskeletal Surgeries/Procedures:: Right hand surgeries Social & Family History - Family History Family Medical History: No Pertinent Family History - Caffeine Use Caffeine Use: Reports: None Caffeine Use Comment: 3 times weekly - Living Situation & Occupation Living situation: Reports: Single, Alone Occupation: Unemployed ED ROS GENERAL - Review of Systems Review Of Systems: See Below Constitutional: Reports: Fever, Malaise (Grade fever last evening.), Fatigue, Decreased Appetite (Not sleeping much last night.). Denies: Chills HEENT: Reports: No Symptoms Respiratory: Reports: Shortness of Breath, Wheezing, Cough, Sputum (Slight). Denies: Pleuritic Chest Pain Cardiovascular: Reports: No Symptoms ( yellow-tinged sputum.) Endocrine: Reports: No Symptoms GI/Abdominal: Reports: Decreased Appetite : Reports: No Symptoms Musculoskeletal: Reports: Back Pain Skin: Reports: No Symptoms Neurological: Reports: No Symptoms Psychiatric: Reports: No Symptoms Hematologic/Lymphatic: Reports: No Symptoms Immunologic: Reports: No Symptoms ED EXAM, GENERAL - Physical Exam Exam: See Below Exam Limited By: No Limitations General Appearance: Alert, WD/WN, No Apparent Distress, Other (Temperature is 36.6 degrees. Heart rate ninety-two and sinus respiratory sixteen BP 137/89 with O2 sats of 97%.) Eye Exam: Bilateral Eye: Normal Inspection (No scleral icterus or blepharal pallor) Ears: Normal TMs Throat/Mouth: Normal Inspection, Normal Lips, Normal Teeth, Normal Oropharynx Head: Atraumatic, Normocephalic Neck: Normal Inspection, Supple, Non-Tender, Full Range of Motion. No: Lymphadenopathy (L), Lymphadenopathy (R) Respiratory/Chest: No Respiratory Distress, No Accessory Muscle Use, Chest Non- Tender, Wheezing (Uttered wheezing throughout all lung winkler particularly the lung bases.). No: Respiratory Distress, Rhonchi Cardiovascular: Normal Peripheral Pulses, Regular Rate, Rhythm, No Edema, No Gallop, No Murmur, No Rub Peripheral Pulses: 2+: Posterior Tibial (L), Posterior Tibial (R), Dorsalis Pedis (L), Dorsalis Pedis (R), 3+: Carotid (L), Carotid (R) GI/Abdominal: Normal Bowel Sounds, Soft, Non-Tender, No Organomegaly, No Mass, Pelvis Stable Extremities: Normal Inspection, Normal Range of Motion, Non-Tender, No Pedal Edema Neurological: Oriented, CN II-XII Intact, Normal Cognition Psychiatric: Normal Affect, Normal Mood Skin Exam: Warm, Dry, Intact, Normal Color, No Rash Course - Vital Signs Last Recorded V/S: Last Vital Signs Temp 36.6 C 08/21/20 08:33 Pulse 92 08/21/20 08:33 Resp 16 08/21/20 08:33 BP 137/89 08/21/20 08:33 Pulse Ox 97 08/21/20 08:33 - Radiology Interpretation Free Text/Narrative:: 30-year-old female presents to the ED with a day and a half history of paroxysmal productive cough aggravating her wheezing. Feels dyspneic or short of breath on minimal exertion with paroxysmal cough of slightly yellowish sputum. Examination reveals ears nose and throat to be normal. Chest shows diffuse scattered expiratory wheezes posterior lungs. Refilled her albuterol Nebules to be used with nebulizer machine at home 1 mL every 3 to 4 hours as needed as needed for relief of shortness of breath and dyspnea. Cough syrup is to be Tussionex cough syrup five mils every 12 hours as needed for cough relief sixty mils provided. Placed on a Z-Marcelo. Note given to excuse her from the workplace today. Patient reassured no signs of Covid at this time Departure - Departure Time of Disposition: 08:41 Disposition: Home, Self-Care 01 Condition: Fair Clinical Impression: Bronchitis - Discharge Information *PRESCRIPTION DRUG MONITORING PROGRAM REVIEWED*: No *COPY OF PRESCRIPTION DRUG MONITORING REPORT IN PATIENT RICKEY: No Prescriptions: Hydrocodone/Chlorphen P-Stirex [Hydrocodone-Chlorphen ER Susp] 5 ml PO Q12H PRN #60 ml PRN Reason: Cough relief Albuterol [Proventil Neb Soln] 2.5 mg .XX Q4H PRN #60 neb PRN Reason: wheezing/dyspnea Azithromycin [Zithromax] 250 mg PO DAILY #6 tablet Instructions: Acute Bronchitis, Adult, [id number] Referrals: Magy Jensen NEGATIVE RESTORER [Primary Care Provider] - Forms: ED Department Discharge, ED Return to Work/School Form Additional Instructions: Evaluation in the emergency room today in regards to upper respiratory tract infection primarily affecting the chest with bronchitis. Suggest treatment with Z-Marcelo. Take 2 tablets today then 1 tablet once daily for the next 4 days. Tussionex cough syrup five mils every 12 hours necessary for cough relief. Take at least 1 hour before going to bed as it takes about an hour to work. May be taken with food or an empty stomach. I did refill albuterol nebs as well. May use one Nebules every 3-4 hours necessary for cough relief and/or wheezing relief. Sepsis Event Note (ED) - Focused Exam Vital Signs: Vital Signs Temp Pulse Resp BP Pulse Ox 08/21/20 08:33 36.6 C 92 16 137/89 97
[2020-08-21 08:36] VITALS: BP 137/89; PULSE 92
== END 2020-08-21 09:09 | disposition home or self-care (01) ==
LOC: JD.ED 08:22
DX: J40 Bronchitis, not specified as acute or chronic (principal); K21.9 Gastro-esophageal reflux disease without esophagitis; E66.9 Obesity, unspecified; E03.9 Hypothyroidism, unspecified; Z91.018 Allergy to other foods; Z88.1 Allergy status to other antibiotic agents; Z88.8 Allergy status to other drugs, medicaments and biological substances; Z88.5 Allergy status to narcotic agent; Z88.6 Allergy status to analgesic agent; Z79.899 Other long term (current) drug therapy
CPT/HCPCS: 99283

== ENCOUNTER 2020-09-28 11:01 | Emergency (ER) | payer MEDICAID ==
[2020-09-28] MEDS ORDERED: Sodium Chloride 0.9% 1,000 ML IV STA (11:16)
[2020-09-28] MEDS ORDERED: Ketorolac 30 MG/ML SDV IVPUSH ONE (11:17)
[2020-09-28] MEDS ORDERED: diphenhydrAMINE 50 MG/ML SDV IVPUSH ONE (11:18)
[2020-09-28] MEDS ORDERED: Promethazine 25 MG in Sodium Chloride 0.9% 50 ML IV ONE (11:20)
--- NOTE | 2020-09-28 11:33 | EDM.PDOC ---
ED HPI GENERAL MEDICAL PROBLEM - General Chief Complaint: Headache Stated Complaint: HEAD HURTS Time Seen by Provider: 09/28/20 11:05 Source of Information: Reports: Patient, RN Notes Reviewed History Limitations: Reports: No Limitations - History of Present Illness INITIAL COMMENTS - FREE TEXT/NARRATIVE: Patient is a 30 year old female presenting to the ER with c/o migraine headache for the last few days with onset of vomiting this morning. She has a hx of migraine headaches and has tried a number of different medications for treatment. She is currently on Emgality monthly injections. He last injection was on September 18. She also uses Maxalt and Fiorcet; however, she is out of these medications. She describes this as a typical migraine for her. She reports photosensativity and vision changes with her headache. Her medications are prescribed by her neurologist in [place] which she isn't scheduled to see until the end of next month. She states that she will try to get a televisit scheduled with her neurologist for next week to get her meds refilled. She has not taken any medications for her nausea at home. Denies any recent head injury. She reports that after treatment in the ER for headaches, she often gets a rebound headache the next day. head Pain Score (Numeric/FACES): 8 - Related Data Allergies Allergy/AdvReac Type Severity Reaction Status Date / Time nut - unspecified Allergy Severe Airway Verified 09/28/20 11:12 Tightness cefixime Allergy Intermediate Hives Verified 09/28/20 11:12 topiramate [From Topamax] Allergy Intermediate Rash Verified 09/28/20 11:12 hydromorphone [From Dilaudid] Allergy Mild Itching Verified 09/28/20 11:12 ketorolac tromethamine Allergy Mild Itching Verified 09/28/20 11:12 [From Toradol] haloperidol [From Haldol] AdvReac Intermediate Agitation Verified 09/28/20 11:12 metoclopramide HCl AdvReac Intermediate Anxiety Verified 09/28/20 11:12 [From Reglan] prochlorperazine edisylate AdvReac Intermediate Agitation Verified 09/28/20 11:12 [From Compazine] prochlorperazine maleate AdvReac Intermediate Agitation Verified 09/28/20 11:12 [From Compazine] Beef Containing Products AdvReac Mild Stomach Verified 09/28/20 11:12 Upset corn AdvReac Mild Stomach Verified 09/28/20 11:12 Upset Home Meds: Home Meds Albuterol Sulfate [Ventolin Hfa] 18 gm IH Q4H PRN #1 hfa.aer.ad 04/04/15 [Rx] Fluticasone/Salmeterol [Advair 250-50 Diskus] 1 puff INH BID 05/13/15 [History] Montelukast [Singulair] 10 mg PO BEDTIME 06/20/19 [History] Famotidine [Pepcid] 20 mg PO DAILY 11/24/19 [History] Pantoprazole Sodium [Protonix] 40 mg PO DAILY 11/24/19 [History] Ondansetron [Zofran ODT] 4 mg PO Q6H PRN #20 tab.dis #2 Samples 12/14/19 [Rx] oxyCODONE HCl/Acetaminophen [Percocet 5-325 mg Tablet] 1 - 2 each PO Q4H PRN #12 tablet 01/10/20 [Rx] Naproxen [Naprosyn] 500 mg PO Q12HR PRN #10 tab 01/12/20 [Rx] predniSONE 40 mg PO DAILY 4 Days #8 tab 04/07/20 [Rx] Albuterol [Proventil Neb Soln] 2.5 mg .XX Q4H PRN #60 neb 08/21/20 [Rx] Azithromycin [Zithromax] 250 mg PO DAILY #6 tablet 08/21/20 [Rx] Hydrocodone/Chlorphen P-Stirex [Hydrocodone-Chlorphen ER Susp] 5 ml PO Q12H PRN #60 ml 08/21/20 [Rx] Acetaminophen/Butalbital/Caff [Fioricet 325-50-40 MG] 1 - 2 each PO Q4H PRN #20 tab 09/28/20 [Rx] Ondansetron [Zofran ODT] 4 mg PO Q6H PRN #10 tab.dis 09/28/20 [Rx] Past Medical History - Past Health History Medical/Surgical History: Denies Medical/Surgical History Cardiovascular History: Reports: Arrhythmia Respiratory History: Reports: Asthma Gastrointestinal History: Reports: GERD Genitourinary History: Reports: Pyelonephritis, UTI, Recurrent 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 History: Reports: Polycystic Ovaries Other LENS POLISHER History: ovarian cysts on right ovary Musculoskeletal History: Reports: Fracture, Other (See Below) Other Musculoskeletal History: ankle, wrist, finger, elbow Neurological History: Reports: Migraines Psychiatric History: Reports: Depression, PTSD Endocrine/Metabolic History: Reports: Hypothyroidism, Obesity/BMI 30+ Other Endocrine/Metabolic History: Hypothyroidism-hasn't taken medication for a couple years Hematologic History: Reports: None Immunologic History: Reports: None Oncologic (Cancer) History: Reports: None Dermatologic History: Reports: Eczema - Infectious Disease History Infectious Disease History: Reports: None - Past Surgical History HEENT Surgical History: Reports: Adenoidectomy, Myringotomy w Tube(s), Naso- Sinus Surgery, Oral Surgery, Tonsillectomy Other HEENT Surgeries/Procedures: Sinus surgery GI Surgical History: Reports: Appendectomy, Colonoscopy, EGD Female Surgical History: Reports: D&C Other Female Surgeries/Procedures: ovarian cysts; misscarriage Musculoskeletal Surgical History: Reports: Other (See Below) Other Musculoskeletal Surgeries/Procedures:: Right hand surgeries Social & Family History - Family History Family Medical History: No Pertinent Family History - Tobacco Use Tobacco Use Status *Q: Former Tobacco User Used Tobacco, but Quit: Yes Month/Year Tobacco Last Used: 2017 - Caffeine Use Caffeine Use: Reports: None Caffeine Use Comment: 3 times weekly - Recreational Drug Use Recreational Drug Use: No - Living Situation & Occupation Living situation: Reports: Single, Alone Occupation: Unemployed ED ROS GENERAL - Review of Systems Review Of Systems: See Below Constitutional: Reports: No Symptoms. Denies: Fever, Chills HEENT: Reports: Vision Change. Denies: Vertigo Respiratory: Reports: No Symptoms. Denies: Shortness of Breath, Wheezing Cardiovascular: Reports: No Symptoms Endocrine: Reports: No Symptoms GI/Abdominal: Reports: Nausea, Vomiting. Denies: Abdominal Pain, Diarrhea : Reports: No Symptoms Musculoskeletal: Reports: No Symptoms Skin: Reports: No Symptoms Neurological: Reports: Headache. Denies: Confusion, Dizziness, Trouble Speaking Psychiatric: Reports: No Symptoms Hematologic/Lymphatic: Reports: No Symptoms Immunologic: Reports: No Symptoms - Physical Exam Exam: See Below Exam Limited By: No Limitations General Appearance: Alert, Mild Distress, Other (lying in dark room, covering eyes with arm) Eye Exam: Bilateral Eye: PERRL Head Exam: Atraumatic, Normocephalic Respiratory/Chest: No Respiratory Distress, Lungs Clear, Normal Breath Sounds, No Accessory Muscle Use, Chest Non-Tender Cardiovascular: Normal Peripheral Pulses, Regular Rate, Rhythm, No Edema, No Gallop, No JVD, No Murmur, No Rub Neuro Exam (Abbreviated): Alert, Oriented, CN II-XII Intact, Normal Cognition, Normal Gait, Normal Reflexes, No Motor/Sensory Deficits Psychiatric: Normal Affect, Normal Mood Skin Exam: Warm, Dry, Intact, Normal Color, No Rash Course - Vital Signs Last Recorded V/S: Last Vital Signs Temp 97.3 F 09/28/20 11:09 Pulse 98 09/28/20 11:09 Resp 18 09/28/20 11:09 BP 137/81 09/28/20 11:09 Pulse Ox 95 09/28/20 11:09 - Orders/Labs/Meds Meds: Medications Discontinued Medications Generic Name Dose Route Start Last Admin Trade Name Freq PRN Reason Stop Dose Admin Diphenhydramine HCl 50 mg 09/28/20 11:18 09/28/20 11:28 Diphenhydramine 50 Mg/Ml Sdv IVPUSH 09/28/20 11:19 50 mg ONETIME ONE Administration Hydromorphone HCl 1 mg 09/28/20 12:06 09/28/20 12:33 Hydromorphone 0.5 Mg/0.5 Ml Syringe IVPUSH 09/28/20 12:07 1 mg ONETIME ONE Administration Sodium Chloride 1,000 mls @ 999 mls/hr 09/28/20 11:16 09/28/20 11:28 Normal Saline IV 09/28/20 12:16 999 mls/hr NOW STA Administration Promethazine HCl 25 mg/ Sodium 51 mls @ 100 mls/hr 09/28/20 11:20 09/28/20 11:39 Chloride IV 09/28/20 11:50 100 mls/hr ONETIME ONE Administration Ketorolac Tromethamine 30 mg 09/28/20 11:17 09/28/20 11:28 Ketorolac 30 Mg/Ml Sdv IVPUSH 09/28/20 11:18 30 mg ONETIME ONE Administration - Re-Assessments/Exams Free Text/Narrative Re-Assessment/Exam: Pt is a 30 year old female presenting to the ER with c/o migraine headache with nausea. She has a history of migraines and states that this is a typical migraine for her. She reports that she often gets rebound headaches the next day after being treated in the ER. Discussed with her that this is likely caused by being treated with narcotic pain medications. We will try treatment without narcotics first. I have ordered phenergan, toradol, benadryl, and IV fluids. 09/28/20 12:12 Patient verbalized minimal relief with the medications given. Yris ordered Dilaudid 1 mg IV. This medication is listed as an allergy, however patient states that she just becomes itchy and that if she has been given Benadryl she tolerates it well. 09/28/20 12:56 Patient is feeling much better after the medications given. I will discharge her home with a prescription for Fioricet and Zofran. Recommend that she contact her neurologist Wednesday to set up follow-up to have her medications refilled. Discharge instructions as documented. Departure - Departure Time of Disposition: 12:57 Disposition: Home, Self-Care 01 Condition: Good Clinical Impression: Migraine - Discharge Information *PRESCRIPTION DRUG MONITORING PROGRAM REVIEWED*: Yes *COPY OF PRESCRIPTION DRUG MONITORING REPORT IN PATIENT RICKEY: No Prescriptions: Acetaminophen/Butalbital/Caff [Fioricet 325-50-40 MG] 1 - 2 each PO Q4H PRN #20 tab PRN Reason: Headache Ondansetron [Zofran ODT] 4 mg PO Q6H PRN #10 tab.dis PRN Reason: Nausea/Vomiting Instructions: Recurrent Migraine Headache, [id number] Referrals: Magy Jensen NP [Primary Care Provider] - Forms: ED Department Discharge Additional Instructions: You were seen in the ER for evaluation of migraine headache with nausea and vomiting. While in the ER, you received IV fluids, pain medications, Benadryl, and nausea medication. This did improve your symptoms. A prescription for Fioricet and Zofran has been provided. Take these medications as prescribed. Recommend contacting your neurologist Wednesday to set up a follow-up for prescription refills and reevaluation. Return to ER for any new or worsening symptoms of concern. Sepsis Event Note (ED) - Evaluation Sepsis Screening Result: No Definite Risk - Focused Exam Vital Signs: Vital Signs Temp Pulse Resp BP Pulse Ox 09/28/20 11:09 97.3 F 98 18 137/81 95
[2020-09-28] MEDS ORDERED: HYDROmorphone 0.5 MG/0.5 ML Syringe IVPUSH ONE (12:06)
[2020-09-28 13:18] VITALS: BP 134/78; PULSE 86
== END 2020-09-28 13:19 | disposition home or self-care (01) ==
LOC: JD.ED 11:01
DX: G43.909 Migraine, unspecified, not intractable, without status migrainosus (principal); E03.9 Hypothyroidism, unspecified; J45.909 Unspecified asthma, uncomplicated; K21.9 Gastro-esophageal reflux disease without esophagitis; E66.9 Obesity, unspecified; Z88.1 Allergy status to other antibiotic agents; Z91.018 Allergy to other foods; Z88.5 Allergy status to narcotic agent; Z88.6 Allergy status to analgesic agent; Z79.899 Other long term (current) drug therapy; Z68.42 Body mass index [BMI] 45.0-49.9, adult
CPT/HCPCS: 96365; 96375; 99283; J1170; J1200; J1885; J2550; J7030

== ENCOUNTER 2020-11-09 06:46 | Emergency (ER) | payer MEDICAID ==
[2020-11-09 07:26] VITALS: BP 135/94; PULSE 88
[2020-11-09] MEDS ORDERED: Sodium Chloride 0.9% 1,000 ML IV STA (07:36)
[2020-11-09] MEDS ORDERED: Sodium Chloride 0.9% 10 ML Syringe FLUSH PRN (07:36)
[2020-11-09] MEDS ORDERED: Ondansetron 4 MG/2 ML SDV IVPUSH ONE (07:36)
[2020-11-09] MEDS ORDERED: Pantoprazole 40 MG Vial IVPUSH ONE (07:37)
--- NOTE | 2020-11-09 07:40 | EDM.PDOC ---
ED HPI GENERAL MEDICAL PROBLEM - General Chief Complaint: Abdominal Pain Stated Complaint: VOMITING BLOOD /ABDOMINAL PAIN Time Seen by Provider: 11/09/20 07:23 Source of Information: Reports: Patient History Limitations: Reports: No Limitations - History of Present Illness INITIAL COMMENTS - FREE TEXT/NARRATIVE: The patient presents with abdominal pain, nausea and vomiting. This started last night. This morning she is vomiting up some blood. She has a history of hiatal hernia in the past and some GERD. She has no fever, chills, cough, chest pain or shortness of breath. She has no dysuria. She does not think she is . She had COVID toward the end of last month and she was off quarantine on the of this month. Onset: Sudden Duration: Day(s): (last night) Location: Reports: Abdomen Quality: Reports: Burning Severity: Moderate Improves with: Reports: None Worsens with: Reports: None Associated Symptoms: Reports: Nausea/Vomiting. Denies: Chest Pain, Cough, Fever/Chills, Headaches, Shortness of Breath Abdominal Pain Score (Numeric/FACES): 10 - Related Data Allergies Allergy/AdvReac Type Severity Reaction Status Date / Time nut - unspecified Allergy Severe Airway Verified 11/09/20 07:26 Tightness cefixime Allergy Intermediate Hives Verified 11/09/20 07:26 topiramate [From Topamax] Allergy Intermediate Rash Verified 11/09/20 07:26 hydromorphone [From Dilaudid] Allergy Mild Itching Verified 11/09/20 07:26 ketorolac tromethamine Allergy Mild Itching Verified 11/09/20 07:26 [From Toradol] haloperidol [From Haldol] AdvReac Intermediate Agitation Verified 11/09/20 07:26 metoclopramide HCl AdvReac Intermediate Anxiety Verified 11/09/20 07:26 [From Reglan] prochlorperazine edisylate AdvReac Intermediate Agitation Verified 11/09/20 07:26 [From Compazine] prochlorperazine maleate AdvReac Intermediate Agitation Verified 11/09/20 07:26 [From Compazine] Beef Containing Products AdvReac Mild Stomach Verified 11/09/20 07:26 Upset corn AdvReac Mild Stomach Verified 11/09/20 07:26 Upset Home Meds: Home Meds Albuterol Sulfate [Ventolin Hfa] 18 gm IH Q4H PRN #1 hfa.aer.ad 04/04/15 [Rx] Fluticasone/Salmeterol [Advair 250-50 Diskus] 1 puff INH BID 05/13/15 [History] Montelukast [Singulair] 10 mg PO BEDTIME 06/20/19 [History] Famotidine [Pepcid] 20 mg PO DAILY 11/24/19 [History] Pantoprazole Sodium [Protonix] 40 mg PO DAILY 11/24/19 [History] Ondansetron [Zofran ODT] 4 mg PO Q6H PRN #20 tab.dis #2 Samples 12/14/19 [Rx] oxyCODONE HCl/Acetaminophen [Percocet 5-325 mg Tablet] 1 - 2 each PO Q4H PRN #12 tablet 01/10/20 [Rx] Naproxen [Naprosyn] 500 mg PO Q12HR PRN #10 tab 01/12/20 [Rx] predniSONE 40 mg PO DAILY 4 Days #8 tab 04/07/20 [Rx] Albuterol [Proventil Neb Soln] 2.5 mg .XX Q4H PRN #60 neb 08/21/20 [Rx] Azithromycin [Zithromax] 250 mg PO DAILY #6 tablet 08/21/20 [Rx] Hydrocodone/Chlorphen P-Stirex [Hydrocodone-Chlorphen ER Susp] 5 ml PO Q12H PRN #60 ml 08/21/20 [Rx] Acetaminophen/Butalbital/Caff [Fioricet 325-50-40 MG] 1 - 2 each PO Q4H PRN #20 tab 09/28/20 [Rx] Ondansetron [Zofran ODT] 4 mg PO Q6H PRN #10 tab.dis 09/28/20 [Rx] LORazepam [Ativan] 1 mg PO Q8H PRN #3 tablet 11/09/20 [Rx] Ondansetron [Zofran ODT] 4 mg PO Q6H PRN #20 tab.dis 11/09/20 [Rx] Past Medical History - Past Health History Medical/Surgical History: Denies Medical/Surgical History Cardiovascular History: Reports: Arrhythmia Respiratory History: Reports: Asthma Gastrointestinal History: Reports: GERD Genitourinary History: Reports: Pyelonephritis, UTI, Recurrent [employer] History: Reports: Polycystic Ovaries Other [employer] History: ovarian cysts on right ovary Musculoskeletal History: Reports: Fracture, Other (See Below) Other Musculoskeletal History: ankle, wrist, finger, elbow Neurological History: Reports: Migraines Psychiatric History: Reports: Depression, PTSD Endocrine/Metabolic History: Reports: Hypothyroidism, Obesity/BMI 30+ Other Endocrine/Metabolic History: Hypothyroidism-hasn't taken medication for a couple years Hematologic History: Reports: None Immunologic History: Reports: None Oncologic (Cancer) History: Reports: None Dermatologic History: Reports: Eczema - Infectious Disease History Infectious Disease History: Reports: None - Past Surgical History HEENT Surgical History: Reports: Adenoidectomy, Myringotomy w Tube(s), Naso- Sinus Surgery, Oral Surgery, Tonsillectomy Other HEENT Surgeries/Procedures: Sinus surgery GI Surgical History: Reports: Appendectomy, Colonoscopy, EGD Female Surgical History: Reports: D&C Other Female Surgeries/Procedures: ovarian cysts; misscarriage Musculoskeletal Surgical History: Reports: Other (See Below) Other Musculoskeletal Surgeries/Procedures:: Right hand surgeries Social & Family History - Family History Family Medical History: No Pertinent Family History - Tobacco Use Tobacco Use Status *Q: Never Tobacco User - Caffeine Use Caffeine Use: Reports: Coffee Caffeine Use Comment: 3 times weekly - Recreational Drug Use Recreational Drug Use: No - Living Situation & Occupation Living situation: Reports: Single, Alone Occupation: Unemployed ED ROS GENERAL - Review of Systems Review Of Systems: See Below Constitutional: Reports: No Symptoms HEENT: Reports: No Symptoms Respiratory: Reports: No Symptoms Cardiovascular: Reports: No Symptoms Endocrine: Reports: No Symptoms GI/Abdominal: Reports: Abdominal Pain, Nausea, Vomiting. Denies: Diarrhea : Reports: No Symptoms Musculoskeletal: Reports: No Symptoms ED EXAM, GI/ABD - Physical Exam Exam: See Below Exam Limited By: No Limitations General Appearance: Alert, No Apparent Distress Ears: Normal External Exam Nose: Normal Inspection Head: Atraumatic, Normocephalic Neck: Normal Inspection Respiratory/Chest: No Respiratory Distress, Lungs Clear, Normal Breath Sounds Cardiovascular: Regular Rate, Rhythm, No Edema, No Murmur GI/Abdominal Exam: Soft, No Organomegaly, No Mass, Tender (Mild to moderate tenderness to the upper abdomen) Course - Vital Signs Last Recorded V/S: Last Vital Signs Temp 97.5 F 11/09/20 07:22 Pulse 88 11/09/20 07:22 Resp 16 11/09/20 07:22 BP 135/94 H 11/09/20 07:22 Pulse Ox 100 11/09/20 07:22 - Orders/Labs/Meds Orders: Active Orders 24 hr Category Date Time Status Peripheral IV Care [RC] . DIRECTED Care 11/09/20 07:36 Active Sodium Chloride 0.9% [Saline Flush] Med 11/09/20 07:36 Active 10 ml FLUSH ASDIRECTED PRN ED Antiemetic Medication Reflex [OM.PC] Stat Oth 11/09/20 07:36 Ordered Peripheral IV Insertion Adult [OM.PC] Stat Ot 11/09/20 07:36 Ordered Medication Orders Sodium Chloride (Sodium Chloride 0.9% 10 Ml Syringe) 10 ml FLUSH ASDIRECTED PRN PRN Reason: Keep Vein Open Last Admin: 11/09/20 07:56 Dose: 10 ml Documented by: ISRRAEL Labs: Laboratory Tests 11/09/20 11/09/20 11/09/20 Range/Units 08:25 08:25 08:25 WBC 11.13 H (3.98-10.04) K/mm3 RBC 4.83 (3.98-5.22) M/mm3 Hgb 14.0 (11.2-15.7) gm/dl Hct 39.7 (34.1-44.9) % MCV 82.2 (79.4-94.8) fl MCH 29.0 (25.6-32.2) pg MCHC 35.3 (32.2-35.5) g/dl RDW Std Deviation 42.0 (36.4-46.3) fL Plt Count 331 (182-369) K/mm3 MPV 8.6 L (9.4-12.3) fl Neut % (Auto) 77.4 H (34.0-71.1) % Lymph % (Auto) 15.2 L (19.3-51.7) % [place] % (Auto) 5.6 (4.7-12.5) % Eos % (Auto) 1.0 (0.7-5.8) Baso % (Auto) 0.5 (0.1-1.2) % Neut # (Auto) 8.62 H (1.56-6.13) K/mm3 Lymph # (Auto) 1.69 (1.18-3.74) K/mm3 [place] # (Auto) 0.62 H (0.24-0.36) K/mm3 Eos # (Auto) 0.11 (0.04-0.36) K/mm3 Baso # (Auto) 0.06 (0.01-0.08) K/mm3 Manual Slide Review Normal smear Sodium 140 (136-145) mEq/L Potassium 3.7 (3.5-5.1) mEq/L Chloride 104 (98-107) mEq/L Carbon Dioxide 20 L (21-32) mEq/L Anion Gap 19.7 H (5-15) BUN 12 (7-18) mg/dL Creatinine 0.9 (0.55-1.02) mg/dL Est Cr Clr Drug Dosing 72.95 mL/min Estimated GFR (MDRD) > 60 (>60) mL/min BUN/Creatinine Ratio 13.3 L (14-18) Glucose 98 (70-99) mg/dL Calcium 9.1 (8.5-10.1) mg/dL Total Bilirubin 0.7 (0.2-1.0) mg/dL AST 16 (15-37) U/L ALT 29 (14-59) U/L Alkaline Phosphatase 47 (46-116) U/L Total Protein 7.8 (6.4-8.2) g/dl Albumin 4.3 (3.4-5.0) g/dl Globulin 3.5 gm/dL Albumin/Globulin Ratio 1.2 (1-2) Lipase 359 (73-393) U/L HCG, Qual Negative (NEGATIVE) Meds: Medications Generic Name Dose Route Start Last Admin Trade Name Freq PRN Reason Stop Dose Admin Sodium Chloride 10 ml 11/09/20 07:36 11/09/20 07:56 Sodium Chloride 0.9% 10 Ml Syringe FLUSH 10 ml ASDIRECTED PRN Administration Keep Vein Open Discontinued Medications Generic Name Dose Route Start Last Admin Trade Name Freq PRN Reason Stop Dose Admin Al Hydroxide/Mg Hydroxide 30 0 ml 11/09/20 08:43 11/09/20 08:54 ml/ Lidocaine HCl 15 ml PO 11/09/20 08:44 45 ml ONETIME ONE Administration Sodium Chloride 1,000 mls @ 1,000 mls/hr 11/09/20 07:36 11/09/20 07:56 Normal Saline IV 11/09/20 08:35 1,000 mls/hr .BOLUS STA Administration Ondansetron HCl 4 mg 11/09/20 07:36 11/09/20 07:56 Ondansetron 4 Mg/2 Ml Sdv IVPUSH 11/09/20 07:37 4 mg ONETIME ONE Administration Pantoprazole Sodium 40 mg 11/09/20 07:37 11/09/20 07:55 Pantoprazole 40 Mg Vial IVPUSH 11/09/20 07:38 40 mg ONETIME ONE Administration - Re-Assessments/Exams Free Text/Narrative Re-Assessment/Exam: 11/09/20 07:40 I ordered an IV NS 1L bolus, zofran 4mg IV, protonix 40mg IV, labs and UA. 11/09/20 09:00 Her WBC was elevated at 11.13. Her anion gap is elevated at 19.7. Her lipase is normal. Her HCG is negative. She feels better and wanted a GI cocktail. I ordered that and I will discharge her home with some zofran. She also says this makes her feel anxious. I will give her a few ativan pills. Departure - Departure Time of Disposition: 09:05 Disposition: Home, Self-Care 01 Condition: Good Clinical Impression: Vomiting Qualifiers: Vomiting type: unspecified Vomiting Intractability: non-intractable Nausea presence: with nausea Qualified Code(s): R11.2 - Nausea with vomiting, unspecified Abdominal pain Qualifiers: Abdominal location: upper abdomen, unspecified Qualified Code(s): R10.10 - Upper abdominal pain, unspecified - Discharge Information *PRESCRIPTION DRUG MONITORING PROGRAM REVIEWED*: Not Applicable *COPY OF PRESCRIPTION DRUG MONITORING REPORT IN PATIENT RICKEY: Not Applicable Prescriptions: LORazepam [Ativan] 1 mg PO Q8H PRN #3 tablet PRN Reason: Anxiety Ondansetron [Zofran ODT] 4 mg PO Q6H PRN #20 tab.dis PRN Reason: Nausea\vomiting Referrals: Magy Jensen, HYDROLOGIST [Primary Care Provider] - 1 Week Forms: ED Department Discharge Additional Instructions: Drink plenty of fluids. Take pepcid 20mg daily for 2 weeks. Take zofran every 6 hours as needed for nausea and vomiting. Take the ativan every 8 hours as needed for anxiety. Please return if you are worse. Sepsis Event Note (ED) - Evaluation Sepsis Screening Result: No Definite Risk - Focused Exam Vital Signs: Vital Signs Temp Pulse Resp BP Pulse Ox 11/09/20 07:22 97.5 F 88 16 135/94 H 100 - My Orders Last 24 Hours: My Active Orders 11/09/20 07:36 Peripheral IV Care [RC] . DIRECTED Sodium Chloride 0.9% [Saline Flush] 10 ml FLUSH ASDIRECTED PRN ED Antiemetic Medication Reflex [OM.PC] Stat Peripheral IV Insertion Adult [OM.PC] Stat - Assessment/Plan Last 24 Hours: My Active Orders 11/09/20 07:36 Peripheral IV Care [RC] . DIRECTED Sodium Chloride 0.9% [Saline Flush] 10 ml FLUSH ASDIRECTED PRN ED Antiemetic Medication Reflex [OM.PC] Stat Peripheral IV Insertion Adult [OM.PC] Stat
[2020-11-09] MEDS ORDERED: Alum Hydrox/Mag Hydrox/Simeth 30 ML, Lidocaine 2% 15 ML PO ONE ×2 (08:43)
== END 2020-11-09 09:20 | disposition home or self-care (01) ==
LOC: JD.ED 06:46
DX: R10.10 Upper abdominal pain, unspecified (principal); R11.2 Nausea with vomiting, unspecified; E66.9 Obesity, unspecified; J45.909 Unspecified asthma, uncomplicated; K21.9 Gastro-esophageal reflux disease without esophagitis; E03.9 Hypothyroidism, unspecified; Z68.41 Body mass index [BMI] 40.0-44.9, adult; Z91.018 Allergy to other foods; Z88.1 Allergy status to other antibiotic agents; Z88.5 Allergy status to narcotic agent; Z88.6 Allergy status to analgesic agent; Z79.899 Other long term (current) drug therapy
CPT/HCPCS: 36415; 80053; 83690; 84703; 85025; 96374; 96375; 99284; A9270; C9113; J2405; J7030

== ENCOUNTER 2021-02-10 08:05 | Day surgery (SDC) | payer MEDICAID ==
--- NOTE | 2021-02-10 08:00 | PCM.PREANE ---
Preanesthetic Assessment - Procedure Proposed Procedure: Diagnostic EGD - Anesthesia/Transfusion/Family Hx Anesthesia History: Prior Anesthesia Without Reaction Type of Anesthesia Reaction: Excessive Nausea/Vomiting Family History of Anesthesia Reaction: No Transfusion History: No Prior Transfusion(s) Intubation History: Unknown - Review of Systems General: No Symptoms, Fatigue Pulmonary: No Symptoms (asthma: rescue inhaler = once per week, former smoker: quit in 2016 ETOH: rarely) Cardiovascular: No Symptoms, Palpitations Gastrointestinal: No Symptoms (Hiatal hernia, GERD, esophagitis/currently has stomach pressure.), Decreased Appetite Neurological: No Symptoms, Headache (migraines) Other: Reports: None (PTSD, Adjustment disorder), Sinus Problem (seasonal allergic rhinitis), Depression, Anxiety - Physical Assessment NPO Status Date: 02/09/21 NPO Status Time: 23:54 Vital Signs: HR: 85 Sat: 97% Temp: 98.7 B/P: 123/77 Resp: 20 Height: 1.55 m Weight: 101 kg ASA Class: 3 Mental Status: Alert & Oriented x3 Airway Class: Mallampati = 2 Dentition: Reports: Normal Dentition, Caries Thyro-Mental Finger Breadths: 3 Mouth Opening Finger Breadths: 3 ROM/Head Extension: Full Lungs: Clear to Auscultation, Normal Respiratory Effort Cardiovascular: Regular Rate, Regular Rhythm, No Murmurs - Lab Values: All labs reviewed and noted and within acceptable ranges to proceed with scheduled procedure. - Imaging/EKG Impressions: EKG: SR rate=97, borderline short RENÉ, borderline Q waves in inferior leads - Allergies Allergies/Adverse Reactions: Allergies Allergy/AdvReac Type Severity Reaction Status Date / Time topiramate [From Topamax] Allergy Intermediate Rash Verified 02/07/21 15:33 hydromorphone [From Dilaudid] Allergy Mild Itching Verified 02/07/21 15:33 ketorolac tromethamine Allergy Mild Itching Verified 02/07/21 15:33 [From Toradol] buspirone [From BuSpar] Allergy Cannot Verified 02/07/21 15:33 Remember fluoxetine [From Prozac] Allergy Cannot Verified 02/07/21 15:33 Remember haloperidol [From Haldol] AdvReac Intermediate Agitation Verified 02/07/21 15:33 metoclopramide HCl AdvReac Intermediate Anxiety Verified 02/07/21 15:33 [From Reglan] prochlorperazine edisylate AdvReac Intermediate Agitation Verified 02/07/21 15:33 [From Compazine] prochlorperazine maleate AdvReac Intermediate Agitation Verified 02/07/21 15:33 [From Compazine] Beef Containing Products AdvReac Mild Stomach Verified 02/07/21 15:33 Upset corn AdvReac Mild Stomach Verified 02/07/21 15:33 Upset - Anesthesia Plan Pre-Op Medication Ordered: None - Acknowledgements Anesthesia Type Planned: MAC Pt an Appropriate Candidate for the Planned Anesthesia: Yes Alternatives and Risks of Anesthesia Discussed w Pt/Guardian: Yes Pt/Guardian Understands and Agrees with Anesthesia Plan: Yes PreAnesthesia Questionnaire - Past Health History Medical/Surgical History: Denies Medical/Surgical History Cardiovascular History: Reports: None Respiratory History: Reports: Asthma Gastrointestinal History: Reports: GERD, Hiatal Hernia, Other (See Below) Other Gastrointestinal History: epigrastric pain, abdominal pain, duodenititis, esophagitis Genitourinary History: Reports: Pyelonephritis, UTI, Recurrent [employer] History: Reports: Polycystic Ovaries Other OB/BYN History: ovarian cysts on right ovary Musculoskeletal History: Reports: Back Pain, Chronic, Fracture, Neck Pain, Chronic, Other (See Below) Other Musculoskeletal History: ankle, wrist, finger, elbow Neurological History: Reports: Migraines Psychiatric History: Reports: Anxiety, Depression, PTSD, Other (See Below) Other Psychiatric History: psychiatric disorder, adjustment disorder, social anxiety Endocrine/Metabolic History: Reports: Hypothyroidism, Obesity/BMI 30+ Other Endocrine/Metabolic History: Hypothyroidism-hasn't taken medication for a couple years Hematologic History: Reports: None Immunologic History: Reports: None Oncologic (Cancer) History: Reports: None Dermatologic History: Reports: Eczema - Infectious Disease History Infectious Disease History: Reports: None - Past Surgical History Head Surgeries/Procedures: Reports: None HEENT Surgical History: Reports: Adenoidectomy, Myringotomy w Tube(s), Naso- Sinus Surgery, Oral Surgery, Tonsillectomy Other HEENT Surgeries/Procedures: Sinus surgery Cardiovascular Surgical History: Reports: None Respiratory Surgical History: Reports: None GI Surgical History: Reports: Appendectomy, Colonoscopy, EGD Female Surgical History: Reports: D&C Other Female Surgeries/Procedures: ovarian cysts; misscarriage Endocrine Surgical History: Reports: None Neurological Surgical History: Reports: None Musculoskeletal Surgical History: Reports: Other (See Below) Other Musculoskeletal Surgeries/Procedures:: Right hand surgeries Oncologic Surgical History: Reports: None Dermatological Surgical History: Reports: None - SUBSTANCE USE Tobacco Use Status *Q: Former Tobacco User Recreational Drug Use History: No - HOME MEDS Home Medications: Home Meds Fluticasone/Salmeterol [Advair 250-50 Diskus] 1 puff INH BID 05/13/15 [History] Montelukast [Singulair] 10 mg PO BEDTIME 06/20/19 [History] Famotidine [Pepcid] 20 mg PO DAILY 11/24/19 [History] Pantoprazole Sodium [Protonix] 40 mg PO DAILY 11/24/19 [History] ALPRAZolam [Xanax] 1 mg PO Q8H PRN 02/07/21 [History] Albuterol Sulfate [Ventolin Hfa] 2 puff IH Q4H PRN 02/07/21 [History] Galcanezumab-Gnlm [Emgality Pen] 1 dose IM ASDIRECTED 02/07/21 [History] Ondansetron [Zofran] 8 mg PO Q6H PRN 02/07/21 [History] Rizatriptan Benzoate [Rizatriptan] 10 mg PO ASDIRECTED PRN 02/07/21 [History] Zolpidem Tartrate [Zolpidem Tartrate ER] 12.5 mg PO BEDTIME PRN 02/07/21 [History] - CURRENT (IN HOUSE) MEDS Current Meds: Current Medications Lactated Ringer's (Ringers, Lactated) 1,000 mls @ 125 mls/hr IV ASDIRECTED BRYAN Stop: 02/10/21 23:00 Lidocaine/Sodium Bicarbonate (Lidocaine 1%/Sod Bicarbonate In Ns 8.4% 1 Ml Syringe) 0.25 ml IDERM ONETIME PRN PRN Reason: Prior to IV Start Stop: 02/10/21 23:00 Sodium Chloride (Sodium Chloride 0.9% 10 Ml Syringe) 10 ml FLUSH ASDIRECTED PRN PRN Reason: Keep Vein Open Stop: 02/10/21 23:00
[~2021-02-10 08:05] MED LIST: Lactated Ringers 1,000 ML IV SCH; Lidocaine 1%/Sod Bicarbonate in NS 8.4% 1 ML Syringe IDERM PRN; Sodium Chloride 0.9% 10 ML Syringe FLUSH PRN
[2021-02-10] MEDS ORDERED: Ondansetron 4 MG/2 ML SDV ONE (09:31)
[2021-02-10] MEDS ORDERED: Midazolam 1 MG/ML 2 ML SDV ONE (09:31)
[2021-02-10] MEDS ORDERED: Lidocaine 1% 4 ML ONE (09:31)
[2021-02-10] MEDS ORDERED: Propofol 200 MG/20 ML SDV ONE ×2 (09:31→09:38)
--- NOTE | 2021-02-10 10:02 | PCM48HPAN ---
Post Anesthesia Note - EVALUATION WITHIN 48HRS OF ANESTHETIC Vital Signs in Normal Range: Yes Patient Participated in Evaluation: Yes Respiratory Function Stable: Yes Airway Patent: Yes Cardiovascular Function Stable: Yes Hydration Status Stable: Yes Pain Control Satisfactory: Yes Nausea and Vomiting Control Satisfactory: Yes Mental Status Recovered: Yes Vital Signs: Last Vital Signs Temp 37.1 C 02/10/21 08:00 Pulse 85 02/10/21 08:00 Resp 20 02/10/21 08:00 BP 123/77 02/10/21 08:00 Pulse Ox 97 02/10/21 08:00 - COMMENTS/OBSERVATIONS Free Text/Narrative:: no anesthesia complications noted
--- NOTE | 2021-02-10 10:42 | PROC ---
DATE OF OPERATION: 02/10/2021 SURGEON: Ratna Sanchez MD PREOPERATIVE DIAGNOSES: Hematochezia and worsening reflux as well as epigastric pain. POSTOPERATIVE DIAGNOSIS: Gastritis localized to the antrum. OPERATION PERFORMED: Esophagogastroduodenoscopy with biopsies. ANESTHESIA: Monitored anesthesia care. ESTIMATED BLOOD LOSS: Minimal. COMPLICATIONS: None. INDICATIONS AND CONSENT: Ms. Vásquez is a 31-year-old female with history of gastric ulcers in the past. The patient has been having upper GI symptoms including epigastric pain, worsening reflux, as well as hematochezia a few weeks ago with nausea and vomiting. The patient had similar symptoms last year and EGD was done in October of 2019 that was normal. Due to worsening symptoms, I discussed with the patient and recommended we repeat EGD to see if there are any changes. We discussed risks, benefits, and alternatives to the procedure and informed consent was obtained. DETAILS OF THE PROCEDURE: The patient was taken to the procedure room, placed in left lateral decubitus position. Monitored anesthesia care was induced. A bite block was placed. Time-out was performed. Then, we began the procedure. Scope was taken, placed into the mouth and into the esophagus. The esophagus was examined as we passed the scope down, it was normal. Z-line was at 36 cm from the incisors, was regular. This was traversed. We entered the stomach and passed the scope all the way to the second portion of duodenum. The entire duodenum was normal, went back to the antrum. There were scattered areas of erythema in the antrum. There were no clear ulcerations. Biopsies with cold regular forceps was taken in the antrum. The body and fundus appeared normal. Retroflexion was performed. No hiatal hernia was observed. At this point, air was suctioned from the stomach and the procedure was concluded. Therefore, from this procedure, the patient has gastritis localized to the antrum. This was biopsied. The patient will be placed on PPIs until followup. The patient will be allowed to return home today. She may need a change of her PPIs if inflammation is confirmed on path. MMODAL /[id number] [facility]ENTERLeon
[2021-02-10 14:48] VITALS: BP 121/75; PULSE 79
== END 2021-02-10 10:47 | disposition home or self-care (01) ==
LOC: JD.SDS 08:05
PROVIDERS: ATTEND Surgery
DX: K31.89 Other diseases of stomach and duodenum (principal); K29.50 Unspecified chronic gastritis without bleeding; K21.9 Gastro-esophageal reflux disease without esophagitis; J45.909 Unspecified asthma, uncomplicated; E03.9 Hypothyroidism, unspecified; E66.9 Obesity, unspecified; Z98.890 Other specified postprocedural states; Z79.899 Other long term (current) drug therapy; Z88.8 Allergy status to other drugs, medicaments and biological substances; Z87.891 Personal history of nicotine dependence; Z91.018 Allergy to other foods; Z68.41 Body mass index [BMI] 40.0-44.9, adult
CPT/HCPCS: 43239; 81025; J2250; J2405; J2704; J7120; 00731

== ENCOUNTER 2021-02-24 10:51 | Emergency (ER) | payer MEDICAID ==
[2021-02-24 11:55] VITALS: BP 146/104; PULSE 87
== END 2021-02-24 13:15 | disposition left against medical advice (07) ==
LOC: JD.ED 10:51
DX: Z53.21 Procedure and treatment not carried out due to patient leaving prior to being seen by health care provider (principal)

== ENCOUNTER 2021-02-24 13:49 | Emergency (ER) | payer MEDICAID ==
[2021-02-24 15:09] VITALS: BP 141/102; PULSE 84
[2021-02-24] MEDS ORDERED: HYDROmorphone 1 MG/ML Syringe IM ONE (17:08)
[2021-02-24] MEDS ORDERED: Ondansetron 4 MG Tab.DIS PO PRN (17:08)
--- NOTE | 2021-02-24 17:21 | EDM.PDOC ---
ED HPI GENERAL MEDICAL PROBLEM - General Chief Complaint: Genitourinary Problem Stated Complaint: HEAVY BLEEDING Time Seen by Provider: 02/24/21 17:04 Source of Information: Reports: Patient History Limitations: Reports: No Limitations - History of Present Illness INITIAL COMMENTS - FREE TEXT/NARRATIVE: 31-year-old female presents to the ED with diffuse lower abdominal pain nae danya right lower quadrant. She is experiencing heavy menstrual flow x7 days with associated dysmenorrhea. She is trying to track her cycle by checking luteinizing hormone levels and urine and is unsure when she last ovulated. She does not believe that she is . Pain is been gradually getting worse over the last 4 days. Decision made to treat her for pain relief with Dilaudid 1 mg IM and Zofran 4 mg sublingually. She reports her bowels are working okay. She has a history of chronic constipation. By history she does not have any known history of endometriosis. She supposedly was diagnosed with polycystic ovarian disease in the past Onset: Gradual Onset Date: 02/22/21 Duration: Day(s):, Constant, Getting Worse Location: Reports: Abdomen (Diffuse lower abdominal pain across both sides of her lower abdomen and suprapubically. Perhaps slightly worse in the right lower quadrant) Quality: Reports: Ache Severity: Moderate Improves with: Reports: None Worsens with: Reports: Movement (Walking seems to make it worse.) Context: Denies: Activity, Exercise, Lifting, Sick Contact, Trauma, Other Associated Symptoms: Reports: Loss of Appetite, Malaise (Pain is interfering with ability to sleep). Denies: No Other Symptoms, Confusion, Chest Pain, Cough, cough w sputum, Diaphoresis, Fever/Chills, Headaches, Nausea/Vomiting, Rash, Seizure, Shortness of Breath, Syncope, Weakness Treatments BUILDING DISMANTLER: Reports: Acetaminophen Lower Abdomen Pain Score (Numeric/FACES): 9 - Related Data Allergies Allergy/AdvReac Type Severity Reaction Status Date / Time buspirone [From BuSpar] Allergy Severe Cannot Verified 02/24/21 15:06 Remember fluoxetine [From Prozac] Allergy Severe Cannot Verified 02/24/21 15:06 Remember hydromorphone [From Dilaudid] Allergy Severe Itching Verified 02/24/21 15:06 ketorolac tromethamine Allergy Severe Itching Verified 02/24/21 15:06 [From Toradol] topiramate [From Topamax] Allergy Severe Rash Verified 02/24/21 15:06 Beef Containing Products AdvReac Severe Stomach Verified 02/24/21 15:06 Upset corn AdvReac Severe Stomach Verified 02/24/21 15:06 Upset haloperidol [From Haldol] AdvReac Severe Agitation Verified 02/24/21 15:06 metoclopramide HCl AdvReac Severe Anxiety Verified 02/24/21 15:06 [From Reglan] prochlorperazine edisylate AdvReac Severe Agitation Verified 02/24/21 15:06 [From Compazine] prochlorperazine maleate AdvReac Severe Agitation Verified 02/24/21 15:06 [From Compazine] Home Meds: Home Meds Fluticasone/Salmeterol [Advair 250-50 Diskus] 1 puff INH BID 05/13/15 [History] Montelukast [Singulair] 10 mg PO BEDTIME 06/20/19 [History] Famotidine [Pepcid] 20 mg PO DAILY 11/24/19 [History] Pantoprazole Sodium [Protonix] 40 mg PO DAILY 11/24/19 [History] ALPRAZolam [Xanax] 1 mg PO Q8H PRN 02/07/21 [History] Albuterol Sulfate [Ventolin Hfa] 2 puff IH Q4H PRN 02/07/21 [History] Galcanezumab-Gnlm [Emgality Pen] 1 dose IM ASDIRECTED 02/07/21 [History] Ondansetron [Zofran] 8 mg PO Q6H PRN 02/07/21 [History] Rizatriptan Benzoate [Rizatriptan] 10 mg PO ASDIRECTED PRN 02/07/21 [History] Zolpidem Tartrate [Zolpidem Tartrate ER] 12.5 mg PO BEDTIME PRN 02/07/21 [History] Ondansetron [Zofran] 4 mg BUCCAL Q6H PRN #10 tab 02/24/21 [Rx] medroxyPROGESTERone [Provera] 10 mg PO DAILY #10 tab 02/24/21 [Rx] oxyCODONE HCl/Acetaminophen [Percocet 5-325 mg Tablet] 1 - 2 each PO Q4H PRN #16 tablet 02/24/21 [Rx] Past Medical History - Past Health History Medical/Surgical History: Denies Medical/Surgical History Cardiovascular History: Reports: None Respiratory History: Reports: Asthma Gastrointestinal History: Reports: GERD, Hiatal Hernia, Other (See Below) Other Gastrointestinal History: epigrastric pain, abdominal pain, duodenititis, esophagitis Genitourinary History: Reports: Pyelonephritis, UTI, Recurrent [employer] History: Reports: Polycystic Ovaries Other [employer] History: ovarian cysts on right ovary Musculoskeletal History: Reports: Back Pain, Chronic, Fracture, Neck Pain, Chronic, Other (See Below) Other Musculoskeletal History: ankle, wrist, finger, elbow Neurological History: Reports: Migraines Psychiatric History: Reports: Anxiety, Depression, PTSD, Other (See Below) Other Psychiatric History: psychiatric disorder, adjustment disorder, social anxiety Endocrine/Metabolic History: Reports: Hypothyroidism, Obesity/BMI 30+ Other Endocrine/Metabolic History: Hypothyroidism-hasn't taken medication for a couple years Hematologic History: Reports: None Immunologic History: Reports: None Oncologic (Cancer) History: Reports: None Dermatologic History: Reports: Eczema - Infectious Disease History Infectious Disease History: Reports: None - Past Surgical History HEENT Surgical History: Reports: Adenoidectomy, Myringotomy w Tube(s), Naso- Sinus Surgery, Oral Surgery, Tonsillectomy Other HEENT Surgeries/Procedures: Sinus surgery Cardiovascular Surgical History: Reports: None Respiratory Surgical History: Reports: None GI Surgical History: Reports: Appendectomy, Colonoscopy, EGD Female Surgical History: Reports: D&C Other Female Surgeries/Procedures: ovarian cysts; misscarriage Endocrine Surgical History: Reports: None Neurological Surgical History: Reports: None Musculoskeletal Surgical History: Reports: Other (See Below) Other Musculoskeletal Surgeries/Procedures:: Right hand surgeries Oncologic Surgical History: Reports: None Dermatological Surgical History: Reports: None Social & Family History - Family History Family Medical History: No Pertinent Family History - Tobacco Use Tobacco Use Status *Q: Never Tobacco User - Caffeine Use Caffeine Use: Reports: None Caffeine Use Comment: 3 times weekly - Recreational Drug Use Recreational Drug Use: No - Living Situation & Occupation Living situation: Reports: Single, Alone Occupation: Unemployed ED ROS GENERAL - Review of Systems Review Of Systems: See Below Constitutional: Reports: Malaise, Fatigue, Decreased Appetite. Denies: Fever, Chills, Weight Loss HEENT: Reports: No Symptoms, Other (Chronic allergic rhinitis) Respiratory: Reports: No Symptoms Cardiovascular: Reports: No Symptoms Endocrine: Reports: Fatigue GI/Abdominal: Reports: Abdominal Pain (See history of present illness), Constipation, Nausea. Denies: Vomiting : Reports: Irregular Menses Musculoskeletal: Reports: Back Pain Skin: Reports: No Symptoms Neurological: Reports: No Symptoms Psychiatric: Reports: No Symptoms Hematologic/Lymphatic: Reports: No Symptoms Immunologic: Reports: No Symptoms ED EXAM, GI/ABD - Physical Exam Exam: See Below Exam Limited By: No Limitations General Appearance: Alert, WD/WN, Mild Distress, Other (She does appear uncomfortable. Temperature is 35.9 degrees. Heart rate 84 and sinus respiratory 16 with O2 sats of 96% room air. BP elevated 141 102 I believe reflecting pain response.) Eyes: Bilateral: Normal Appearance (No blepharal pallor or scleral icterus.) Throat/Mouth: Normal Inspection, Normal Lips, Normal Oropharynx Respiratory/Chest: No Respiratory Distress, Lungs Clear, Normal Breath Sounds, No Accessory Muscle Use Cardiovascular: Normal Peripheral Pulses, Regular Rate, Rhythm, No Edema, No Gallop, No Murmur, No Rub GI/Abdominal Exam: Guarding (Right lower quadrant and suprapubically.), Tender (Tenderness right lower quadrant of the abdomen with mild guarding), Abnormal Bowel Sounds (Bowel sounds are hyperactive in all 4 quadrants). No: Rigid, Rebound Back Exam: Normal Inspection, CVA Tenderness (R) (Mild). No: CVA Tenderness (L) Extremities: Normal Inspection, Normal Range of Motion, Non-Tender, No Pedal Edema Neurological: Alert, Oriented, CN II-XII Intact, Normal Cognition Psychiatric: Anxious Skin Exam: Warm, Dry, Intact, Normal Color, No Rash Course - Vital Signs Last Recorded V/S: Last Vital Signs Temp 35.9 C L 02/24/21 15:08 Pulse 84 02/24/21 15:08 Resp 16 02/24/21 15:08 BP 141/102 H 02/24/21 15:08 Pulse Ox 96 02/24/21 15:08 - Orders/Labs/Meds Labs: Laboratory Tests 02/24/21 02/24/21 Range/Units 16:52 17:35 Urine Color Yellow (Yellow) Urine Appearance Clear (Clear) Urine pH 7.0 (5.0-8.0) Ur Specific Albert 1.025 (1.005-1.030) Urine Protein 1+ H (Negative) Urine Glucose (UA) Negative (Negative) Urine Ketones 3+ H (Negative) Urine Occult Blood 3+ H (Negative) Urine Nitrite Negative (Negative) Urine Bilirubin 1+ H (Negative) Urine Urobilinogen 1.0 (0.2-1.0) Ur Leukocyte Esterase Trace H (Negative) Urine RBC 10-20 H (0-5) /hpf Urine WBC 5-10 H (0-5) /hpf Ur Squamous Epith Cells 0-5 (0-5) /hpf Urine Bacteria Few (FEW) /hpf Urine Mucus Many H (FEW) /hpf Urine HCG, Qual Negative (NEGATIVE) Meds: Medications Discontinued Medications Generic Name Dose Route Start Last Admin Trade Name Freq PRN Reason Stop Dose Admin Hydromorphone HCl 1 mg 02/24/21 17:08 02/24/21 17:35 Hydromorphone 1 Mg/Ml Syringe IM 02/24/21 17:09 1 mg ONETIME ONE Administration Ondansetron HCl 8 mg 02/24/21 17:08 02/24/21 17:35 Ondansetron 4 Mg Tab.Dis PO 8 mg Q8H PRN Administration Nausea/Vomiting - Radiology Interpretation Free Text/Narrative:: 31-year-old female presents to the ED with a 7-day history of heavy menstrual flow with varying degrees of color of the menses from brown to dark maroon to bright red. Associated development of diffuse lower abdominal cramping pain which has been rather persistent for the last 3 days but perhaps worse today. She states her bowel function is normal however she has a history of chronic constipation. She has a history of difficulty achieving and currently is monitoring her urine for luteinizing hormone to try and help predict ovulation. She is not using any form of control. Examination reveals very hyperactive bowel sounds in all 4 quadrants. Tenderness suprapubically and right lower quadrant of the abdomen is with mild guarding. She has had a previous appendectomy. Plan urinalysis and urine test to be done. Given IM injection of Dilaudid 1 mg with Zofran 4 mg sublingually. - Re-Assessments/Exams Free Text/Narrative Re-Assessment/Exam: 02/24/21 17:47: Urinalysis shows 1+ proteinuria 3+ ketones 3+ occult blood 1+ bilirubin trace of leukocyte Estrace with 10-20 RBCs per high-power field and 5- 10 white blood cells per high-power field urine test is negative. Patient will be discharged to home with Percocet 5 /325 mg tabs 1 or 2 every 4-6 hours necessary for pain relief x16 tablets. Zofran 4 mg sublingual every 4 to 6 hours as needed for nausea relief placed her on Provera 10 mg once daily at bedtime for the next 10 days in the hopes of regulating her menstrual cycle. Suspect current anovulatory cycle with dysfunctional uterine bleeding. Departure - Departure Time of Disposition: 17:33 Disposition: Home, Self-Care 01 Condition: Fair Clinical Impression: Abdominal pain Qualifiers: Abdominal location: right lower quadrant Qualified Code(s): R10.31 - Right lower quadrant pain Menorrhagia Qualifiers: Menorrhagia type: with irregular cycle Qualified Code(s): N92.1 - Excessive and frequent menstruation with irregular cycle - Discharge Information *PRESCRIPTION DRUG MONITORING PROGRAM REVIEWED*: Not Applicable *COPY OF PRESCRIPTION DRUG MONITORING REPORT IN PATIENT RICKEY: Not Applicable Prescriptions: oxyCODONE HCl/Acetaminophen [Percocet 5-325 mg Tablet] 1 - 2 each PO Q4H PRN #16 tablet PRN Reason: pain relief. medroxyPROGESTERone [Provera] 10 mg PO DAILY #10 tab Ondansetron [Zofran] 4 mg BUCCAL Q6H PRN #10 tab PRN Reason: nausea or vomiting Instructions: Abdominal Pain, Adult, [id number] Referrals: Natalie Plummer NP [Primary Care Provider] - Forms: ED Department Discharge Additional Instructions: Evaluation in the emergency room today in regards to diffuse lower abdominal pain particular right lower quadrant radiating upwards towards the right flank. Associated heavy menstrual flow for the last 7 days which we called dysfunc tional uterine bleeding and menorrhagia. Treatment was pain management with initial dose of Dilaudid 1 mg IM with Zofran 4 mg by mouth. Treatment at home is Percocet tabs 5/325 mg strength 1 to 2 tablets every 4 hours as necessary for pain relief with Zofran 4 mg sublingually every 4 hours as needed for nausea or vomiting relief. Suggest use of Provera tablet which is progesterone hormone 10 mg once daily at bedtime with little food in your stomach for the next 10 days for dysfunctional uterine bleeding.. Will usually stop within 2 days of taking the medication and will start again usually about 3 days after finishing up 10 days of medication. Sepsis Event Note (ED) - Evaluation Sepsis Screening Result: No Definite Risk - Focused Exam Vital Signs: Vital Signs Temp Pulse Resp BP Pulse Ox 02/24/21 15:08 35.9 C L 84 16 141/102 H 96
== END 2021-02-24 17:55 | disposition home or self-care (01) ==
LOC: JD.ED 13:49
DX: N92.1 Excessive and frequent menstruation with irregular cycle (principal); J45.909 Unspecified asthma, uncomplicated; K21.9 Gastro-esophageal reflux disease without esophagitis; E03.9 Hypothyroidism, unspecified; E66.9 Obesity, unspecified; Z88.8 Allergy status to other drugs, medicaments and biological substances; Z88.5 Allergy status to narcotic agent; Z88.6 Allergy status to analgesic agent; Z91.013 Allergy to seafood; Z79.899 Other long term (current) drug therapy; Z68.41 Body mass index [BMI] 40.0-44.9, adult
CPT/HCPCS: 81001; 81025; 96372; 99284; A9270; J1170

== ENCOUNTER 2021-03-09 17:47 | Emergency (ER) | payer MEDICAID ==
[2021-03-09 19:00] VITALS: BP 134/81; PULSE 101
[2021-03-09] MEDS ORDERED: HYDROmorphone 1 MG/ML Syringe IM ONE (19:40)
[2021-03-09] MEDS ORDERED: Ondansetron 4 MG Tab.DIS PO ONE (19:40)
[2021-03-09] MEDS ORDERED: Ketorolac 60 MG/2 ML SDV IM ONE (19:40)
[2021-03-09] MEDS ORDERED: diphenhydrAMINE 50 MG Cap PO ONE (19:42)
--- NOTE | 2021-03-09 19:48 | EDM.PDOC ---
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 She has had problems with this numerous times in the past. She was seen in this emergency part went 13 days ago for the same complaint. Urinalysis and test were done at that time and were negative. She was put on a 10-day course of Provera which she completed 3 days ago. Bleeding returned today. Reports that she feels like the cramping is worse than before. Reports passing blood clots. She states that she has been diagnosed with PCOS in the past. She had previously been prescribed Percocet for pain but states that she is out of these. She does not have a dry wall installations mechanic. Her primary care provider is Vidhi Plummer NP. She reports being scheduled for an ultrasound on March 18. She has been using Tylenol and ibuprofen for pain with little relief. It has been recommended in the past that she get on oral control, however she states that she does not want to do this because her and her boyfriend are not trying to prevent . Abdominal Pain Score (Numeric/FACES): 4 - Related Data Allergies Allergy/AdvReac Type Severity Reaction Status Date / Time buspirone [From BuSpar] Allergy Severe Cannot Verified 03/09/21 19:00 Remember fluoxetine [From Prozac] Allergy Severe Cannot Verified 03/09/21 19:00 Remember hydromorphone [From Dilaudid] Allergy Severe Itching Verified 03/09/21 19:00 ketorolac tromethamine Allergy Severe Itching Verified 03/09/21 19:00 [From Toradol] topiramate [From Topamax] Allergy Severe Rash Verified 03/09/21 19:00 Beef Containing Products AdvReac Severe Stomach Verified 03/09/21 19:00 Upset corn AdvReac Severe Stomach Verified 03/09/21 19:00 Upset haloperidol [From Haldol] AdvReac Severe Agitation Verified 03/09/21 19:00 metoclopramide HCl AdvReac Severe Anxiety Verified 03/09/21 19:00 [From Reglan] prochlorperazine edisylate AdvReac Severe Agitation Verified 03/09/21 19:00 [From Compazine] prochlorperazine maleate AdvReac Severe Agitation Verified 03/09/21 19:00 [From Compazine] Home Meds: Home Meds Fluticasone/Salmeterol [Advair 250-50 Diskus] 1 puff INH BID 05/13/15 [History] Montelukast [Singulair] 10 mg PO BEDTIME 06/20/19 [History] Famotidine [Pepcid] 20 mg PO DAILY 11/24/19 [History] Pantoprazole Sodium [Protonix] 40 mg PO DAILY 11/24/19 [History] ALPRAZolam [Xanax] 1 mg PO Q8H PRN 02/07/21 [History] Albuterol Sulfate [Ventolin Hfa] 2 puff IH Q4H PRN 02/07/21 [History] Galcanezumab-Gnlm [Emgality Pen] 1 dose IM ASDIRECTED 02/07/21 [History] Ondansetron [Zofran] 8 mg PO Q6H PRN 02/07/21 [History] Rizatriptan Benzoate [Rizatriptan] 10 mg PO ASDIRECTED PRN 02/07/21 [History] Zolpidem Tartrate [Zolpidem Tartrate ER] 12.5 mg PO BEDTIME PRN 02/07/21 [History] Ondansetron [Zofran] 4 mg BUCCAL Q6H PRN #10 tab 02/24/21 [Rx] medroxyPROGESTERone [Provera] 10 mg PO DAILY #10 tab 02/24/21 [Rx] Naproxen [Naprosyn] 500 mg PO Q12HR 5 Days #10 tab 03/09/21 [Rx] Past Medical History - Past Health History Medical/Surgical History: Denies Medical/Surgical History Cardiovascular History: Reports: None Respiratory History: Reports: Asthma Gastrointestinal History: Reports: GERD, Hiatal Hernia, Other (See Below) Other Gastrointestinal History: epigrastric pain, abdominal pain, duodenititis, esophagitis Genitourinary History: Reports: Pyelonephritis, UTI, Recurrent 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: Polycystic Ovaries 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 ARMOR 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 History: ovarian cysts on right ovary Musculoskeletal History: Reports: Back Pain, Chronic, Fracture, Neck Pain, Chronic, Other (See Below) Other Musculoskeletal History: ankle, wrist, finger, elbow Neurological History: Reports: Migraines Psychiatric History: Reports: Anxiety, Depression, PTSD, Other (See Below) Other Psychiatric History: psychiatric disorder, adjustment disorder, social anxiety Endocrine/Metabolic History: Reports: Hypothyroidism, Obesity/BMI 30+ Other Endocrine/Metabolic History: Hypothyroidism-hasn't taken medication for a couple years Hematologic History: Reports: None Immunologic History: Reports: None Oncologic (Cancer) History: Reports: None Dermatologic History: Reports: Eczema - Infectious Disease History Infectious Disease History: Reports: None - Past Surgical History Head Surgeries/Procedures: Reports: None HEENT Surgical History: Reports: Adenoidectomy, Myringotomy w Tube(s), Naso- Sinus Surgery, Oral Surgery, Tonsillectomy Other HEENT Surgeries/Procedures: Sinus surgery Cardiovascular Surgical History: Reports: None Respiratory Surgical History: Reports: None GI Surgical History: Reports: Appendectomy, Colonoscopy, EGD Female Surgical History: Reports: D&C Other Female Surgeries/Procedures: ovarian cysts; misscarriage Endocrine Surgical History: Reports: None Neurological Surgical History: Reports: None Musculoskeletal Surgical History: Reports: Other (See Below) Other Musculoskeletal Surgeries/Procedures:: Right hand surgeries Oncologic Surgical History: Reports: None Dermatological Surgical History: Reports: None Social & Family History - Family History Family Medical History: No Pertinent Family History - Tobacco Use Tobacco Use Status *Q: Never Tobacco User Second Hand Smoke Exposure: No - Caffeine Use Caffeine Use: Reports: None Caffeine Use Comment: 3 times weekly - Recreational Drug Use Recreational Drug Use: No - Living Situation & Occupation Living situation: Reports: Single, Alone Occupation: Unemployed ED ROS GENERAL - Review of Systems Review Of Systems: Comprehensive ROS is negative, except as noted in HPI. ED EXAM, RENAL/ - Physical Exam Exam: See Below Exam Limited By: No Limitations General Appearance: Alert, Mild Distress, Other (Tearful) Respiratory/Chest: No Respiratory Distress, Lungs Clear, Normal Breath Sounds, No Accessory Muscle Use, Chest Non-Tender Cardiovascular: Normal Peripheral Pulses, Regular Rate, Rhythm, No Edema, No Gallop, No JVD, No Murmur, No Rub GI/Abdominal: Normal Bowel Sounds, Soft, No Organomegaly, No Distention, No Abnormal Bruit, No Mass, Pelvis Stable, Tender (Suprapubic) Neurological: Alert, Oriented, CN II-XII Intact, Normal Cognition, Normal Gait, Normal Reflexes, No Motor/Sensory Deficits Psychiatric: Normal Affect, Normal Mood Skin Exam: Warm, Dry, Intact, Normal Color, No Rash Course - Vital Signs Last Recorded V/S: Last Vital Signs Temp 98.6 F 03/09/21 18:59 Pulse 101 H 03/09/21 18:59 Resp 14 03/09/21 18:59 BP 134/81 03/09/21 18:59 Pulse Ox 99 03/09/21 18:59 - Orders/Labs/Meds Orders: Active Orders 24 hr Category Date Time Status Acetaminophen/oxyCODONE [Percocet 325-5 MG] Med 03/09/21 21:22 Once 1 tab PO ONETIME ONE Medication Orders Oxycodone/Acetaminophen (Acetaminophen/Oxycodone 325-5 Mg Tab) 1 tab PO ONETIME ONE Stop: 03/09/21 21:23 Labs: Laboratory Tests 03/09/21 03/09/21 Range/Units 20:41 20:41 Urine Color Yellow (Yellow) Urine Appearance Slt cloudy H (Clear) Urine pH 5.5 (5.0-8.0) Ur Specific [place] > or = 1.030 (1.005-1.030) Urine Protein Negative (Negative) Urine Glucose (UA) Negative (Negative) Urine Ketones Negative (Negative) Urine Occult Blood 2+ H (Negative) Urine Nitrite Negative (Negative) Urine Bilirubin Negative (Negative) Urine Urobilinogen 0.2 (0.2-1.0) Ur Leukocyte Esterase Negative (Negative) Urine RBC 0-5 (0-5) /hpf Urine WBC 0-5 (0-5) /hpf Ur Squamous Epith Cells 0-5 (0-5) /hpf Urine Bacteria Moderate H (FEW) /hpf Urine Mucus Many H (FEW) /hpf Urine HCG, Qual Negative (NEGATIVE) Meds: Medications Generic Name Dose Route Start Last Admin Trade Name Freq PRN Reason Stop Dose Admin Oxycodone/Acetaminophen 1 tab 03/09/21 21:22 Acetaminophen/Oxycodone 325-5 Mg Tab PO 03/09/21 21:23 ONETIME ONE Discontinued Medications Generic Name Dose Route Start Last Admin Trade Name Freq PRN Reason Stop Dose Admin Diphenhydramine HCl 50 mg 03/09/21 19:42 03/09/21 20:13 Diphenhydramine 50 Mg Cap PO 03/09/21 19:43 50 mg ONETIME ONE Administration Hydromorphone HCl 1 mg 03/09/21 19:40 03/09/21 20:15 Hydromorphone 1 Mg/Ml Syringe IM 03/09/21 19:41 1 mg ONETIME ONE Administration Ketorolac Tromethamine 60 mg 03/09/21 19:40 03/09/21 20:13 Ketorolac 60 Mg/2 Ml Sdv IM 03/09/21 19:41 60 mg ONETIME ONE Administration Ondansetron HCl 4 mg 03/09/21 19:40 03/09/21 20:13 Ondansetron 4 Mg Tab.Dis PO 03/09/21 19:41 4 mg ONETIME ONE Administration - Re-Assessments/Exams Free Text/Narrative Re-Assessment/Exam: Patient is a 31-year-old female presenting to the emergency department with complaints of recurrence of pelvic cramping, heavy vaginal bleeding. This is a frequent problem for her. She was treated with estrogen 13 days ago and finished it 3 days ago. Recurrence of bleeding started today which was to be expected with progesterone treatment. She has not seen a dry wall installations mechanic. Primary care provider is Vidhi Plummer. I have ordered urinalysis with qualitative hCG. I will give her Dilaudid, Toradol, Zofran, and Benadryl. 03/09/21 21:23 Patient's pain is improved with 6 out of 10. Urinalysis is negative for infection. test is negative. I will give her one Percocet before she leaves. I will send prescription for Naprosyn for pain. Recommend contacting her primary care provider in the morning and let her know of her worsening symptoms. I did have discussion with her and recommend that she see a dry wall installations mechanic for these problems. She verbalized understanding of this. Discharge instructions as document. Departure - Departure Time of Disposition: 21:24 Disposition: Home, Self-Care 01 Condition: Good Clinical Impression: Menorrhagia Qualifiers: Menorrhagia type: with irregular cycle Qualified Code(s): N92.1 - Excessive and frequent menstruation with irregular cycle - Discharge Information *PRESCRIPTION DRUG MONITORING PROGRAM REVIEWED*: No *COPY OF PRESCRIPTION DRUG MONITORING REPORT IN PATIENT RICKEY: No Prescriptions: Naproxen [Naprosyn] 500 mg PO Q12HR 5 Days #10 tab Instructions: Menorrhagia, [id number] Referrals: Natalie Plummer NP [Primary Care Provider] - Forms: ED Department Discharge Additional Instructions: You were seen in the emergency department for recurrence of your pelvic cramping with vaginal bleeding. Urinalysis and test were done and found to be normal. While in the ER, you received Toradol, Dilaudid, Benadryl, and Zofran. You also received a tablet of Percocet at the time of discharge. Prescription has been sent for Naprosyn. Take this as prescribed. Do not take ibuprofen at the same time, however you may take Tylenol as needed. Recommend contacting her primary care provider first thing in the morning to let her know of your worsening symptoms. I would recommend seeing gynecology soon as possible. Return to ER as needed. Sepsis Event Note (ED) - Focused Exam Vital Signs: Vital Signs Temp Pulse Resp BP Pulse Ox 03/09/21 18:59 98.6 F 101 H 14 134/81 99 - My Orders Last 24 Hours: My Active Orders 03/09/21 21:22 Acetaminophen/oxyCODONE [Percocet 325-5 MG] 1 tab PO ONETIME ONE - Assessment/Plan Last 24 Hours: My Active Orders 03/09/21 21:22 Acetaminophen/oxyCODONE [Percocet 325-5 MG] 1 tab PO ONETIME ONE
[2021-03-09] MEDS ORDERED: Acetaminophen/oxyCODONE 325-5 MG Tab PO ONE (21:22)
== END 2021-03-09 21:35 | disposition home or self-care (01) ==
LOC: JD.ED 17:47
DX: N92.1 Excessive and frequent menstruation with irregular cycle (principal); K21.9 Gastro-esophageal reflux disease without esophagitis; E03.9 Hypothyroidism, unspecified; Z91.018 Allergy to other foods; Z88.5 Allergy status to narcotic agent; Z88.6 Allergy status to analgesic agent; Z79.899 Other long term (current) drug therapy
CPT/HCPCS: 81001; 81025; 96372; 99284; A9270; J1170; J1885

== ENCOUNTER 2021-03-26 19:47 | Emergency (ER) | payer MEDICAID ==
[2021-03-26] MEDS ORDERED: HYDROmorphone 1 MG/ML Syringe IVPUSH ONE (20:28)
[2021-03-26] MEDS ORDERED: Ondansetron 4 MG/2 ML SDV IVPUSH ONE (20:28)
[2021-03-26] MEDS ORDERED: Ondansetron 4 MG Tab.DIS PO ONE (20:37)
[2021-03-26] MEDS ORDERED: HYDROmorphone 1 MG/ML Syringe IM ONE (20:37)
--- NOTE | 2021-03-26 20:38 | EDM.PDOC ---
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 Vásquez is a pleasant 31-year-old woman who now presents the ED stating that she has been experiencing left pelvic pain and vaginal bleeding for more than a month. Medical records indicate that the patient was seen in this ED on 02/24/2021, at which time she was complaining of right lower quadrant pain and heavy vaginal bleeding since 02/17/2021. Work-up included a urinalysis and urine test. She was treated with IV Dilaudid and IV Zofran before being discharged home with a prescription for Percocet 5/325, 1-2 tabs po Q4-6 hrs #16, Zofran ODT 4 mg #10, and medroxyprogesterone (Provera) 10 mg, 1 tab daily #10. She was encouraged to follow-up with a Nuclear Logging Engineer. The patient then returned to the ED on 03/09/2021, stating that she had finished the prescription of medroxyprogesterone 3 days prior, and that her vaginal ble eding had returned that day. She reported that she was out of Percocet. Work- up included a urinalysis and urine test. She was treated with IV Benadryl, IV Dilaudid, IV Toradol, IV Zofran, and a single tablet of Percocet 5/325, before being discharged home with a prescription for naproxen 500 mg, 1 tab po Q12 hrs, #10. At this time, the patient states that she saw her PCP on 03/11/2021, and that an ultrasound was ordered for 03/18/2021, but that she did not go to the appointment due to pain. It was rescheduled for this morning, and she showed me the ultrasound report, which found a 6.9 cm benign-appearing cyst within the left ovary, and no free fluid. She states that the Percocet that is currently prescribed by her PCP is inadequate to control her pain. She states that she ca lled the office of Dr. Petit today, but was unable to get in today, therefore came to the ED. Here in the ED tonight, the patient is found to be mildly tachycardic at 107 bpm, otherwise, she is hemodynamically stable, afebrile, saturating 100% on room air. She appears to be anxious, but in no acute distress. The patient denies having a recent fever, chills, sore throat, ear pain, nasal or sinus congestion, cough, dyspnea, chest pain, palpitations, constipation, diarrhea, urinary symptoms, recent weight gain or weight loss, recent bloody bowel movements or black bowel movements, recent joint aches, headaches, or rashes. The patient's PCP is Natalie Plummer NP. Her Industrial Sociologist is Dr. Isabel Cook. Her Meat Scrubber is Dr. Milton Ybarra. Left Abdominal Pain Score (Numeric/FACES): 10 - Related Data Allergies Allergy/AdvReac Type Severity Reaction Status Date / Time buspirone [From BuSpar] Allergy Severe Cannot Verified 03/26/21 20:06 Remember fluoxetine [From Prozac] Allergy Severe Cannot Verified 03/26/21 20:06 Remember hydromorphone [From Dilaudid] Allergy Severe Itching Verified 03/26/21 20:06 ketorolac tromethamine Allergy Severe Itching Verified 03/26/21 20:06 [From Toradol] topiramate [From Topamax] Allergy Severe Rash Verified 03/26/21 20:06 Beef Containing Products AdvReac Severe Stomach Verified 03/26/21 20:06 Upset corn AdvReac Severe Stomach Verified 03/26/21 20:06 Upset haloperidol [From Haldol] AdvReac Severe Agitation Verified 03/26/21 20:06 metoclopramide HCl AdvReac Severe Anxiety Verified 03/26/21 20:06 [From Reglan] prochlorperazine edisylate AdvReac Severe Agitation Verified 03/26/21 20:06 [From Compazine] prochlorperazine maleate AdvReac Severe Agitation Verified 03/26/21 20:06 [From Compazine] Home Meds: Home Meds Fluticasone/Salmeterol [Advair 250-50 Diskus] 1 puff INH BID 05/13/15 [History] Montelukast [Singulair] 10 mg PO BEDTIME 06/20/19 [History] Famotidine [Pepcid] 20 mg PO DAILY 11/24/19 [History] Pantoprazole Sodium [Protonix] 40 mg PO DAILY 11/24/19 [History] ALPRAZolam [Xanax] 1 mg PO Q8H PRN 02/07/21 [History] Albuterol Sulfate [Ventolin Hfa] 2 puff IH Q4H PRN 02/07/21 [History] Galcanezumab-Gnlm [Emgality Pen] 1 dose IM ASDIRECTED 02/07/21 [History] Ondansetron [Zofran] 8 mg PO Q6H PRN 02/07/21 [History] Rizatriptan Benzoate [Rizatriptan] 10 mg PO ASDIRECTED PRN 02/07/21 [History] Zolpidem Tartrate [Zolpidem Tartrate ER] 12.5 mg PO BEDTIME PRN 02/07/21 [History] Ondansetron [Zofran] 4 mg BUCCAL Q6H PRN #10 tab 02/24/21 [Rx] Naproxen [Naprosyn] 500 mg PO Q12HR 5 Days #10 tab 03/09/21 [Rx] medroxyPROGESTERone [Provera] 10 mg PO DAILY #10 tab 03/26/21 [Rx] Past Medical History Respiratory History: Reports: Asthma (suspected, not PFT-tested) Gastrointestinal History: Reports: Gastritis, GERD, Hiatal Hernia 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: 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 Musculoskeletal History: Reports: Fracture Neurological History: Reports: Migraines Psychiatric History: Reports: Anxiety (untreated), Depression (untreated), PTSD (untreated), Other (See Below) (Insomnia) Endocrine/Metabolic History: Reports: Hypothyroidism (untreated), Obesity/BMI 30+ Dermatologic History: Reports: Eczema - Past Surgical History HEENT Surgical History: Reports: Adenoidectomy, Myringotomy w Tube(s) (bilateral), Naso-Sinus Surgery (x 7), Oral Surgery (dental extractions), Tonsillectomy GI Surgical History: Reports: Appendectomy, Colonoscopy (x 1), EGD (x 5) Female Surgical History: Reports: D&C (x 1) Musculoskeletal Surgical History: Reports: Other (See Below) (Right wrist arthroscopy x 2, open x 1) Social & Family History - Tobacco Use Years of Tobacco use: 8 Packs/Tins Daily: 2 Month/Year Tobacco Last Used: Quit 2015 Tobacco Use Comment: Started smoking 2007 - Alcohol Use Alcohol Use History: Yes Alcohol Use Frequency: Rarely - Recreational Drug Use Recreational Drug Use: No - Living Situation & Occupation Living situation: Reports: Single, with Family (Daughter) Occupation: Employed ([employer]) ED ROS GENERAL - Review of Systems Review Of Systems: Comprehensive ROS is negative, except as noted in HPI. ED EXAM, RENAL/ - Physical Exam Exam: See Below Exam Limited By: No Limitations General Appearance: Alert, WD/WN, Anxious Eye Exam: Bilateral Eye: EOMI, Normal Inspection Ears: Normal External Exam, Hearing Grossly Normal Nose: Normal Inspection Throat/Mouth: Normal Inspection, Normal Lips, Normal Voice, No Airway Compromise Head: Atraumatic, Normocephalic Neck: Normal Inspection, Full Range of Motion Respiratory/Chest: No Respiratory Distress, Lungs Clear, Normal Breath Sounds, No Accessory Muscle Use Cardiovascular: Normal Peripheral Pulses, Regular Rate, Rhythm, No Gallop, No JVD, No Murmur, No Rub GI/Abdominal: Normal Bowel Sounds, Soft, No Organomegaly, No Distention, No Abnormal Bruit, No Mass, Tender (exxagerated, to LLQ) Back Exam: Normal Inspection, Full Range of Motion, NT Extremities: Normal Inspection, Normal Range of Motion, Normal Capillary Refill Neurological: Alert, Oriented, Normal Cognition, No Motor/Sensory Deficits Psychiatric: Anxious Skin Exam: Warm, Dry, Intact, Normal Color, No Rash Course - Vital Signs Last Recorded V/S: Last Vital Signs Temp 36.9 C 03/26/21 19:59 Pulse 90 03/26/21 21:58 Resp 18 03/26/21 19:59 BP 145/98 H 03/26/21 21:58 Pulse Ox 100 03/26/21 21:58 Orthostatic Blood Pressure [ 157/102 Standing] Orthostatic Blood Pressure [ 145/89 Supine] - Orders/Labs/Meds Labs: Laboratory Tests 03/26/21 Range/Units 20:50 Hgb 14.0 (11.2-15.7) gm/dl Hct 40.5 (34.1-44.9) % Meds: Medications Discontinued Medications Generic Name Dose Route Start Last Admin Trade Name Freq PRN Reason Stop Dose Admin Hydromorphone HCl 1 mg 03/26/21 20:28 Hydromorphone 1 Mg/Ml Syringe IVPUSH 03/26/21 20:29 ONETIME ONE Hydromorphone HCl 1 mg 03/26/21 20:37 03/26/21 20:46 Hydromorphone 1 Mg/Ml Syringe IM 03/26/21 20:38 1 mg ONETIME ONE Administration Ondansetron HCl 4 mg 03/26/21 20:28 Ondansetron 4 Mg/2 Ml Sdv IVPUSH 03/26/21 20:29 ONETIME ONE Ondansetron HCl 4 mg 03/26/21 20:37 03/26/21 20:46 Ondansetron 4 Mg Tab.Dis PO 03/26/21 20:38 4 mg ONETIME ONE Administration - Re-Assessments/Exams Free Text/Narrative Re-Assessment/Exam: 03/26/21 20:33 The patient appears to be here primarily for pain medication. She insisted that she receive something for pain before I talked to Dr. Petit. Case discussed with Dr. Petit at 20:30. She recommended that I start the patient on medroxyprogesterone 10 mg daily for 10 days. The patient can follow- up with her in the clinic. She will need a repeat ultrasound in about 6 weeks. I have ordered orthostatics and a H/H, to make sure that her bleeding is not too excessive. In the meantime, she will be given some IM Dilaudid and Zofran ODT. 03/26/21 20:42 The patient is not orthostatic. 03/26/21 21:27 The patient's H/H is 14.0/40.5. 03/26/21 21:30 Test results discussed with the patient. I will discharge her home with a prescription for medroxyprogesterone that she can fill and start taking tomorrow. Not unexpectedly, the patient requested that I prescribe something for her stronger than Percocet. I explained that if she needs something stronger than Percocet, she will need to speak with her single prescriber, in this case, Natalie Plummer NP. Departure - Departure Time of Disposition: 21:31 Disposition: Home, Self-Care 01 Condition: Good Clinical Impression: Ovarian cyst, Abnormal uterine bleeding - Discharge Information *PRESCRIPTION DRUG MONITORING PROGRAM REVIEWED*: Not Applicable *COPY OF PRESCRIPTION DRUG MONITORING REPORT IN PATIENT RICKEY: Not Applicable Prescriptions: medroxyPROGESTERone [Provera] 10 mg PO DAILY #10 tab Instructions: Ovarian Cyst, [id number], Abnormal Uterine Bleeding, [id number] Referrals: Natalie Plummer NP [Primary Care Provider] - Sunshine Petit MD [Physician] - Isabel Cook MD [Ordering Only Provider] - Milton Ybarra MD [Ordering Only Provider] - Forms: ED Department Discharge Additional Instructions: You were seen in the emergency room for more than 1 month of vaginal bleeding and lower left abdominal pain, with the finding of a 6.9 cm left ovarian cyst on ultrasound this morning. Work-up in the ER included positional blood pressure checks and a hemoglobin/hematocrit level. You are not intravascularly depleted, and you are not anemic, therefore no blood transfusion was indicated. You were treated with IM Dilaudid and oral Zofran in the ER. Your case was discussed with the Nuclear Logging Engineer Dr. Sunshine Petit, who recommended that you start taking medroxyprogesterone (Provera), 10 mg daily for 10 days. A prescription for medroxyprogesterone has been sent to the [facility]. Dr. Petit would like you to follow-up in her clinic at the next available appointment. She will likely recommend a repeat ultrasound in 6 weeks. If you require stronger pain medication than your currently prescribed Percocet, you need to discuss that with your single prescriber = Natalie Plummer NP. If any other problems, please do not hesitate to return to the ER. Sepsis Event Note (ED) - Evaluation Sepsis Screening Result: No Definite Risk - Focused Exam Vital Signs: Vital Signs Temp Pulse Resp BP Pulse Ox 03/26/21 21:58 90 145/98 H 100 03/26/21 19:59 36.9 C 107 H 18 131/87 100
[2021-03-26 21:59] VITALS: BP 145/98; PULSE 90
== END 2021-03-26 21:58 | disposition home or self-care (01) ==
LOC: JD.ED 19:47
DX: N93.9 Abnormal uterine and vaginal bleeding, unspecified (principal); N83.202 Unspecified ovarian cyst, left side; E03.9 Hypothyroidism, unspecified; K21.9 Gastro-esophageal reflux disease without esophagitis; E66.9 Obesity, unspecified; Z91.018 Allergy to other foods; Z91.09 Other allergy status, other than to drugs and biological substances; Z88.8 Allergy status to other drugs, medicaments and biological substances; Z88.5 Allergy status to narcotic agent; Z79.899 Other long term (current) drug therapy; Z72.0 Tobacco use; Z68.42 Body mass index [BMI] 45.0-49.9, adult
CPT/HCPCS: 36415; 85014; 85018; 96372; 99284; A9270-GY; J1170

== ENCOUNTER 2021-04-28 06:58 | Day surgery (SDC) | payer MEDICAID ==
--- NOTE | 2021-04-28 07:22 | PCM.PREANE ---
Preanesthetic Assessment - Procedure Proposed Procedure: EGD - Anesthesia/Transfusion/Family Hx Anesthesia History: Prior Anesthesia Reaction (nausea) Family History of Anesthesia Reaction: No Transfusion History: No Prior Transfusion(s) Intubation History: Unknown - Review of Systems General: Fatigue Pulmonary: No Symptoms Cardiovascular: No Symptoms Gastrointestinal: Abdominal Pain (under ribs) Neurological: Numbness (right elbow ) Other: Reports: Depression, Anxiety - Physical Assessment NPO Status Date: 04/27/21 NPO Status Time: 00:00 Height: 1.57 m Weight: 101 kg ASA Class: 3 Mental Status: Alert & Oriented x3 Airway Class: Mallampati = 1 Dentition: Reports: Normal Dentition Thyro-Mental Finger Breadths: 3 Mouth Opening Finger Breadths: 3 ROM/Head Extension: Full Lungs: Clear to Auscultation, Normal Respiratory Effort Cardiovascular: Regular Rate - Allergies Allergies/Adverse Reactions: Allergies Allergy/AdvReac Type Severity Reaction Status Date / Time topiramate [From Topamax] Allergy Intermediate Rash Verified 04/27/21 10:27 hydromorphone [From Dilaudid] Allergy Mild Itching Verified 04/27/21 10:27 ketorolac tromethamine Allergy Mild Itching Verified 04/27/21 10:27 [From Toradol] buspirone [From BuSpar] Allergy Unknown Cannot Verified 04/27/21 10:27 Remember fluoxetine [From Prozac] Allergy Unknown Cannot Verified 04/27/21 10:27 Remember haloperidol [From Haldol] AdvReac Intermediate Agitation Verified 04/27/21 10:27 prochlorperazine edisylate AdvReac Intermediate Agitation Verified 04/27/21 10:27 [From Compazine] prochlorperazine maleate AdvReac Intermediate Agitation Verified 04/27/21 10:27 [From Compazine] Beef Containing Products AdvReac Mild Stomach Verified 04/27/21 10:27 Upset corn AdvReac Mild Stomach Verified 04/27/21 10:27 Upset metoclopramide HCl AdvReac Mild Anxiety Verified 04/27/21 10:27 [From Reglan] - Blood Blood Available: No Product(s) Available: None - Anesthesia Plan Pre-Op Medication Ordered: None - Acknowledgements Anesthesia Type Planned: MAC Pt an Appropriate Candidate for the Planned Anesthesia: Yes Alternatives and Risks of Anesthesia Discussed w Pt/Guardian: Yes Pt/Guardian Understands and Agrees with Anesthesia Plan: Yes PreAnesthesia Questionnaire - Past Health History Medical/Surgical History: Denies Medical/Surgical History Cardiovascular History: Reports: None Respiratory History: Reports: Asthma Gastrointestinal History: Reports: Gastritis, GERD, Hiatal Hernia Other Gastrointestinal History: epigrastric pain, abdominal pain, duodenititis, esophagitis Genitourinary History: Reports: Pyelonephritis, UTI, Recurrent [employer] History: Reports: Polycystic Ovaries Other OB/BYN History: ovarian cysts on right ovary Musculoskeletal History: Reports: Fracture Other Musculoskeletal History: ankle, wrist, finger, elbow Neurological History: Reports: Migraines Psychiatric History: Reports: Anxiety, Depression, PTSD, Other (See Below) Other Psychiatric History: psychiatric disorder, adjustment disorder, social anxiety Endocrine/Metabolic History: Reports: Hypothyroidism, Obesity/BMI 30+ Other Endocrine/Metabolic History: Hypothyroidism-hasn't taken medication for a couple years Hematologic History: Reports: None Immunologic History: Reports: None Oncologic (Cancer) History: Reports: None Dermatologic History: Reports: Eczema - Infectious Disease History Infectious Disease History: Reports: None - Past Surgical History Head Surgeries/Procedures: Reports: None HEENT Surgical History: Reports: Adenoidectomy, Myringotomy w Tube(s), Naso- Sinus Surgery, Oral Surgery, Tonsillectomy Other HEENT Surgeries/Procedures: Sinus surgery Cardiovascular Surgical History: Reports: None Respiratory Surgical History: Reports: None GI Surgical History: Reports: Appendectomy, Colonoscopy, EGD Female Surgical History: Reports: D&C Other Female Surgeries/Procedures: ovarian cysts; misscarriage Endocrine Surgical History: Reports: None Neurological Surgical History: Reports: None Musculoskeletal Surgical History: Reports: Other (See Below) Other Musculoskeletal Surgeries/Procedures:: Right hand surgeries Oncologic Surgical History: Reports: None Dermatological Surgical History: Reports: None - SUBSTANCE USE Tobacco Use Status *Q: Former Tobacco User Tobacco Use Within Last Twelve Months: No Second Hand Smoke Exposure: No Days Per Week of Alcohol Use: 0 Number of Drinks Per Day: 0 Total Drinks Per Week: 0 Recreational Drug Use History: No - HOME MEDS Home Medications: Home Meds Fluticasone/Salmeterol [Advair 250-50 Diskus] 1 puff INH BID 05/13/15 [History] Montelukast [Singulair] 10 mg PO BEDTIME 06/20/19 [History] Famotidine [Pepcid] 20 mg PO DAILY 11/24/19 [History] Pantoprazole Sodium [Protonix] 40 mg PO DAILY 11/24/19 [History] ALPRAZolam [Xanax] 1 mg PO Q8H PRN 02/07/21 [History] Albuterol Sulfate [Ventolin Hfa] 2 puff IH Q4H PRN 02/07/21 [History] Galcanezumab-Gnlm [Emgality Pen] 1 dose IM ASDIRECTED 02/07/21 [History] Ondansetron [Zofran] 8 mg PO Q6H PRN 02/07/21 [History] Rizatriptan Benzoate [Rizatriptan] 10 mg PO ASDIRECTED PRN 02/07/21 [History] Zolpidem Tartrate [Zolpidem Tartrate ER] 12.5 mg PO BEDTIME PRN 02/07/21 [History] Ondansetron [Zofran] 4 mg BUCCAL Q6H PRN #10 tab 02/24/21 [Rx] Naproxen [Naprosyn] 500 mg PO Q12HR 5 Days #10 tab 03/09/21 [Rx] medroxyPROGESTERone [Provera] 10 mg PO DAILY #10 tab 03/26/21 [Rx] - CURRENT (IN HOUSE) MEDS Current Meds: Current Medications Lactated Ringer's (Ringers, Lactated) 1,000 mls @ 125 mls/hr IV ASDIRECTED BRYAN Stop: 04/28/21 23:00 Lidocaine/Sodium Bicarbonate (Lidocaine 1%/Sod Bicarbonate In Ns 8.4% 1 Ml Syringe) 0.25 ml IDERM ONETIME PRN PRN Reason: Prior to IV Start Stop: 04/28/21 18:00 Sodium Chloride (Sodium Chloride 0.9% 10 Ml Syringe) 10 ml FLUSH ASDIRECTED PRN PRN Reason: Keep Vein Open Stop: 04/28/21 18:00
[2021-04-28] MEDS ORDERED: Propofol 200 MG/20 ML SDV ONE ×2 (07:39→08:18)
[2021-04-28] MEDS ORDERED: fentaNYL 100 MCG/2 ML SDV ONE (07:40)
[2021-04-28] MEDS ORDERED: Lidocaine 1% 4 ML ONE (07:40)
[2021-04-28] MEDS ORDERED: Midazolam 1 MG/ML 2 ML SDV ONE (07:40)
[2021-04-28] MEDS ORDERED: fentaNYL 100 MCG/2 ML SDV IVPUSH ONE (08:51)
--- NOTE | 2021-04-28 09:22 | PROC ---
DATE OF OPERATION: 04/28/2021 SURGEON: Ratna Sanchez MD PREOPERATIVE DIAGNOSES: Epigastric pain, nausea, and vomiting. POSTOPERATIVE DIAGNOSIS: Gastritis in the antrum. OPERATION PERFORMED: Esophagogastroduodenoscopy with biopsies. ANESTHESIA: Monitored anesthesia care. ESTIMATED BLOOD LOSS: Minimal. COMPLICATIONS: None. FINDINGS: There was mild inflammation in the antrum, but no other abnormalities noted. Biopsies were taken in the duodenum, antrum, stomach, body, GE junction, distal and mid distal esophagus to check for eosinophilic infiltrates. INDICATIONS AND CONSENT: The patient is a 31-year-old female, who has been suffering from episodic epigastric pain, nausea, vomiting for the past several months. I did an EGD on this patient in January for the same symptoms and it did show gastric eosinophilia and mild inflammation in the antrum with no H pylori infection. We treated the patient medically and she improved, but there were questions whether or not the eosinophilic infiltrates are extensive, whether they are extending into the esophagus or the duodenum. The patient again had recurrent epigastric pain, nausea, and vomiting in the last couple of weeks and presented and was evaluated, recommended another EGD with biopsies to see if eosinophils are again present in the extent of it. Therefore, the patient was discussed with about the procedure. Risks, benefits, and alternatives were discussed and informed consent was obtained. DETAILS OF THE PROCEDURE: The patient was placed in the left lateral decubitus position. Monitored anesthesia care was induced. Bite block was placed and we began the procedure. The scope was placed into the mouth and taken down through the esophagus while examining the esophagus, which appeared normal with mild tortuosity. The GE junction was at 36 cm from the incisors and appeared slightly irregular, but did not appear inflamed. Went into the stomach, traversed the stomach, and went all the way to the second portion of duodenum, which appeared normal. We did take biopsies in the duodenum. Antrum had mild inflammation noted by mild erythema. Biopsies were taken in the antrum again for H pylori and histologic exam. Stomach body was also took biopsied. We took biopsy from the GE junction, distal esophagus, and mid esophagus. All this was to examine whether or not there was presence of eosinophils in these structures. All the biopsies were taken with cold forceps. Once they were done, EBL was minimal. On retroflexion, there was no hiatal hernia. Stomach was suctioned out and procedure was concluded. The patient would be allowed to return home. Continue Carafate and PPIs, and come back in clinic in 1 week for the path discussion. ISH /[id number] MTDLeon
[2021-04-28] MEDS ORDERED: diphenhydrAMINE 50 MG/ML SDV IVPUSH ONE (10:00)
[2021-04-28 10:41] VITALS: BP 133/80; PULSE 70
== END 2021-04-28 09:50 | disposition home or self-care (01) ==
LOC: JD.SDS 06:58
PROVIDERS: ATTEND Surgery
DX: K29.50 Unspecified chronic gastritis without bleeding (principal); K31.89 Other diseases of stomach and duodenum; K20.90 Esophagitis, unspecified without bleeding; K21.00 Gastro-esophageal reflux disease with esophagitis, without bleeding; E03.9 Hypothyroidism, unspecified; J45.909 Unspecified asthma, uncomplicated; G43.909 Migraine, unspecified, not intractable, without status migrainosus; Z98.890 Other specified postprocedural states; F41.9 Anxiety disorder, unspecified; Z88.8 Allergy status to other drugs, medicaments and biological substances; Z91.018 Allergy to other foods; Z87.891 Personal history of nicotine dependence
CPT/HCPCS: 43239; J1200; J2250; J2704; J3010; J7120; 00731

== ENCOUNTER 2021-07-01 18:54 | Emergency (ER) | payer MEDICAID ==
[2021-07-01 19:46] VITALS: BP 125/107; PULSE 103
[2021-07-01] MEDS ORDERED: Sodium Chloride 0.9% 1,000 ML IV ONE (20:09)
[2021-07-01] MEDS ORDERED: Ondansetron 4 MG/2 ML SDV IVPUSH ONE (20:14)
== END 2021-07-01 23:37 | disposition home or self-care (01) ==
LOC: JD.ED 18:54
DX: O21.0 Mild hyperemesis gravidarum (principal); O99.611 Diseases of the digestive system complicating pregnancy, first trimester; K21.9 Gastro-esophageal reflux disease without esophagitis; O99.211 Obesity complicating pregnancy, first trimester; E66.9 Obesity, unspecified; Z87.891 Personal history of nicotine dependence; Z88.8 Allergy status to other drugs, medicaments and biological substances; Z88.5 Allergy status to narcotic agent; Z91.018 Allergy to other foods; Z88.1 Allergy status to other antibiotic agents; Z79.899 Other long term (current) drug therapy; Z3A.01 Less than 8 weeks gestation of pregnancy
CPT/HCPCS: 36415; 80048; 83735; 96374; 99284; J2405; J7030

== ENCOUNTER 2021-08-25 12:30 | Emergency (ER) | payer MEDICAID ==
[2021-08-25] MEDS ORDERED: Sodium Chloride 0.9% 10 ML Syringe FLUSH PRN (13:02)
[2021-08-25] MEDS ORDERED: Sodium Chloride 0.9% 1,000 ML IV STA (13:03)
[2021-08-25] MEDS ORDERED: HYDROmorphone 0.5 MG/0.5 ML Syringe IVPUSH ONE ×2 (14:06→16:23)
[2021-08-25] MEDS ORDERED: Ondansetron 4 MG/2 ML SDV IVPUSH ONE (14:06)
[2021-08-25] MEDS ORDERED: diphenhydrAMINE 50 MG/ML SDV IVPUSH ONE (14:07)
[2021-08-25 17:48] VITALS: BP 124/87; PULSE 74
== END 2021-08-25 17:35 | disposition home or self-care (01) ==
LOC: JD.ED 12:30
DX: O99.351 Diseases of the nervous system complicating pregnancy, first trimester (principal); G43.909 Migraine, unspecified, not intractable, without status migrainosus; O99.891 Other specified diseases and conditions complicating pregnancy; R10.2 Pelvic and perineal pain; K21.9 Gastro-esophageal reflux disease without esophagitis; E03.9 Hypothyroidism, unspecified; E66.9 Obesity, unspecified; Z68.30 Body mass index [BMI] 30.0-30.9, adult; Z88.5 Allergy status to narcotic agent; Z88.8 Allergy status to other drugs, medicaments and biological substances; Z88.6 Allergy status to analgesic agent; Z91.018 Allergy to other foods; Z87.891 Personal history of nicotine dependence; Z3A.15 15 weeks gestation of pregnancy
CPT/HCPCS: 36415; 76815; 80053; 81001; 85025; 96374; 96375; 96376; 99284; J1170; J1200; J2405; J7030; 99285

== ENCOUNTER 2021-10-03 07:09 | Emergency (ER) | payer MEDICAID ==
[2021-10-03 07:48] VITALS: BP 141/82; PULSE 110
[2021-10-03] MEDS ORDERED: Albuterol/Ipratropium 3.0-0.5 MG/3 ML Neb Soln NEB ONE (08:04)
[2021-10-03 10:00] LABS: CORONAVIRUS COVID-19 NAA POSITIVE (NEGATIVE)
[2021-10-03] MEDS ORDERED: Sodium Chloride 0.9% 10 ML Syringe FLUSH PRN (10:27)
[2021-10-03] MEDS ORDERED: methylPREDNISolone Sodium Succinate 125 MG/2 ML SDV IVPUSH PRN (10:27)
[2021-10-03] MEDS ORDERED: Famotidine 20 MG/2 ML SDV IVPUSH PRN (10:27)
[2021-10-03] MEDS ORDERED: diphenhydrAMINE 50 MG/ML SDV IVPUSH PRN (10:27)
[2021-10-03] MEDS ORDERED: EPINEPHrine 1 MG/ML SDV IM PRN (10:27)
[2021-10-03] MEDS ORDERED: Benzonatate 100 MG Cap PO ONE (10:28)
[2021-10-03] MEDS ORDERED: Sodium Chloride 0.9% 10 ML Syringe FLUSH SCH (10:30)
== END 2021-10-03 12:26 | disposition home or self-care (01) ==
LOC: JD.ED 07:09
DX: O98.512 Other viral diseases complicating pregnancy, second trimester (principal); U07.1 COVID-19; E03.9 Hypothyroidism, unspecified; Z88.5 Allergy status to narcotic agent; Z88.8 Allergy status to other drugs, medicaments and biological substances; Z91.018 Allergy to other foods; Z3A.20 20 weeks gestation of pregnancy
CPT/HCPCS: 0241U; 94640; 99284; A9270; M0222; Q0222; J7620-GY

== ENCOUNTER 2021-10-16 11:54 | Emergency (ER) | payer MEDICAID ==
[2021-10-16] MEDS ORDERED: Sodium Chloride 0.9% 10 ML Syringe FLUSH PRN (12:20)
[2021-10-16] MEDS ORDERED: Sodium Chloride 0.9% 1,000 ML IV STA (12:20)
[2021-10-16] MEDS ORDERED: diphenhydrAMINE 50 MG/ML SDV IVPUSH ONE ×2 (12:59→15:57)
[2021-10-16] MEDS ORDERED: HYDROmorphone 0.5 MG/0.5 ML Syringe IVPUSH ONE ×2 (12:59→14:12)
[2021-10-16] MEDS ORDERED: Ondansetron 4 MG/2 ML SDV IVPUSH ONE (12:59)
[2021-10-16 16:14] VITALS: BP 116/72; PULSE 99
== END 2021-10-16 16:22 | disposition home or self-care (01) ==
LOC: JD.ED 11:54
DX: O99.891 Other specified diseases and conditions complicating pregnancy (principal); R10.31 Right lower quadrant pain; E03.9 Hypothyroidism, unspecified; E66.9 Obesity, unspecified; Z68.30 Body mass index [BMI] 30.0-30.9, adult; Z88.6 Allergy status to analgesic agent; Z88.8 Allergy status to other drugs, medicaments and biological substances; Z91.018 Allergy to other foods; Z88.5 Allergy status to narcotic agent; Z3A.22 22 weeks gestation of pregnancy
CPT/HCPCS: 36415; 76815; 80053; 81001; 83690; 85025; 86140; 96374; 96375; 96376; 99284; J1170; J1200; J2405; J3490; J7030

== ENCOUNTER 2022-02-05 05:09 | Inpatient (IN) | payer MEDICAID ==
[~2022-02-05 05:09] MED LIST changes: +Bupivacaine 0.25% 10 ML SDV ONE; -Lactated Ringers 1,000 ML IV SCH; -Lidocaine 1%/Sod Bicarbonate in NS 8.4% 1 ML Syringe IDERM PRN; -Sodium Chloride 0.9% 10 ML Syringe FLUSH PRN
[2022-02-05] MEDS: Lactated Ringers 1,000 ML IV SCH ×2 (07:00→08:26)
[2022-02-05] MEDS ORDERED: Lidocaine 1% 50 ML MDV INJECT PRN (07:32)
[2022-02-05] MEDS ORDERED: Nalbuphine HCl 10 MG/ 1ML Amp IVPUSH PRN (07:32)
[2022-02-05] MEDS ORDERED: Sodium Chloride 0.9% 10 ML Syringe FLUSH PRN (07:32)
[2022-02-05] MEDS ORDERED: diphenhydrAMINE 50 MG/ML SDV IVPUSH PRN (07:45)
[2022-02-05] MEDS ORDERED: Bupivacaine/fentaNYL/NS 100 ML Bag EPIDUR PRN (07:45)
[2022-02-05] MEDS ORDERED: ePHEDrine 50 MG/ML SDV IVPUSH PRN (07:45)
[2022-02-05] MEDS ORDERED: Oxytocin/Lactated Ringers 10 UNIT/1,000 ML BAG IV SCH ×3 (07:45)
[2022-02-05] MEDS ORDERED: fentaNYL 100 MCG/2 ML SDV EPIDUR PRN (07:45)
[2022-02-05] MEDS ORDERED: fentaNYL 100 MCG/2 ML SDV ONE (07:49)
[2022-02-05] MEDS ORDERED: Sodium Chloride 0.9% 10 ML Syringe FLUSH SCH (09:00)
[2022-02-05] MEDS ORDERED: Benzocaine/Menthol 20%-0.5% Spray 78 GM Cannister TOP PRN (11:06)
[2022-02-05] MEDS ORDERED: Witch Hazel Medicated Pads 40/Jar TOP PRN (11:06)
[2022-02-05] MEDS ORDERED: Simethicone 80 MG Tab.Chew PO PRN (11:06)
[2022-02-05] MEDS ORDERED: Ondansetron 4 MG Tab.DIS PO PRN (11:11)
[2022-02-05] MEDS: Acetaminophen 325 MG Tab PO PRN ×2 (13:26→20:57)
[2022-02-05] MEDS: Ibuprofen 600 MG Tab PO PRN ×2 (13:26→20:59)
[2022-02-05] MEDS: Docusate Sodium 100 MG Cap PO PRN (13:27)
[2022-02-06] MEDS: Ibuprofen 600 MG Tab PO PRN ×4 (04:00→20:13)
[2022-02-06] MEDS: Acetaminophen 325 MG Tab PO PRN ×3 (04:02→20:14)
[2022-02-06] MEDS: Docusate Sodium 100 MG Cap PO PRN (09:14)
[2022-02-07] MEDS: Ibuprofen 600 MG Tab PO PRN ×2 (04:26→10:14)
[2022-02-07] MEDS: Acetaminophen 325 MG Tab PO PRN ×2 (04:27→10:14)
[2022-02-07 10:42] VITALS: BP 120/78; PULSE 84
== END 2022-02-07 13:47 | disposition home or self-care (01) | DRG 807 ==
LOC: JD.OBCHECK 05:09 → JD.OB 05:15 → JD.OBCHECK 07:05 → OBSVTOIN 10:36 → JD.OB 10:37
PROVIDERS: ADMIT Obstetrics & Gynecology; ATTEND Obstetrics & Gynecology
PROC: 10E0XZZ Delivery of Products of Conception, External Approach (ICD-10-PCS; principal; 2022-02-05)
PROC: 10907ZC Drainage of Amniotic Fluid, Therapeutic from Products of Conception, Via Natural or Artificial Opening (ICD-10-PCS; 2022-02-05)
PROC: 3E0R3BZ Introduction of Anesthetic Agent into Spinal Canal, Percutaneous Approach (ICD-10-PCS; 2022-02-05)
DX: O80 Encounter for full-term uncomplicated delivery (principal); Z37.0 Single live birth; Z3A.38 38 weeks gestation of pregnancy; Z88.1 Allergy status to other antibiotic agents; Z88.6 Allergy status to analgesic agent; Z91.018 Allergy to other foods
CPT/HCPCS: 01967; 36415; 51701; 59025; 59409; 85025; 86592; 86850; 86900; 86901; A9270-GY; J1200; J2590; J3010; J3490; J7120

== ENCOUNTER 2023-10-12 12:20 | Emergency (ER) | payer MEDICAID ==
[2023-10-12 13:45] LABS: BASOPHILS ABSOLUTE AUTO 0.1 K/mm3 (0.0-0.2); BASOPHILS PERCENT AUTO 0.8 % (0.0-1.0); EOSINOPHILS ABSOLUTE AUTO 0.1 K/mm3 (0.0-0.4); EOSINOPHILS PERCENT AUTO 1.6 % (0.0-6.0); HEMATOCRIT 39.2 % (37.0-47.0); HEMOGLOBIN 13.9 gm/dl (12.0-16.0); IMMATURE GRAN ABSOLUTE AUTO 0.02 K/mm3 (0.00-0.05); IMMATURE GRAN PERCENT AUTO 0.2 % (0.0-0.4); LYMPHOCYTES ABSOLUTE AUTO 1.3 K/mm3 (1.0-4.8); LYMPHOCYTES PERCENT AUTO 14.7 % (24.0-44.0); MEAN CORPUSCULAR HEMOGLOBIN 29.1 pg (28.0-32.0); MEAN CORPUSCULAR HGB CONC 35.5 g/dl (32.0-36.0); MEAN CORPUSCULAR VOLUME 82.2 fl (83.0-99.0); MEAN PLATELET VOLUME 8.8 fl (9.4-12.3); MONOCYTES ABSOLUTE AUTO 0.8 K/mm3 (0.0-0.8); NEUTROPHILS ABSOLUTE AUTO 6.3 K/mm3 (1.8-7.7); NEUTROPHILS PERCENT AUTO 73.7 % (41.0-71.0); PLATELET COUNT,PLT 260 K/mm3 (150-400); RED BLOOD CELL COUNT 4.77 M/mm3 (4.10-5.30); WHITE BLOOD CELL COUNT,WBC 8.53 K/mm3 (3.9-11.3)
[2023-10-12 14:11] LABS: A/G RATIO 1.3 (1-2); ALANINE AMINOTRANSFERASE,ALT 32 U/L (14-59); ALBUMIN 4.6 g/dl (3.4-5.0); ALKALINE PHOSPHATASE 51 U/L (46-116); ANION GAP 21.3 (5-15); ASPARTATE AMNIOTRANSFERASE,AST 22 U/L (15-37); BILIRUBIN TOTAL 1.2 mg/dL (0.2-1.0); BLOOD UREA NITROGEN,BUN 15 mg/dL (7-18); BUN/CREATININE RATIO 13.6 (14-18); CALCIUM 9.4 mg/dL (8.5-10.1); CARBON DIOXIDE,CO2 18 mEq/L (21-32); CHLORIDE,CL 102 mEq/L (98-107); CREATININE 1.1 mg/dL (0.55-1.02); EST CRCL DRUG DOSING (CG) 58.07 mL/min; ESTIMATED GFR 68 mL/min (>60); GLUCOSE RANDOM 86 mg/dL (70-99); LIPASE 20 U/L (16-77); POTASSIUM,K 3.3 mEq/L (3.5-5.1); PROTEIN TOTAL,TP 8.1 g/dl (6.4-8.2); SODIUM,NA 138 mEq/L (136-145)
[2023-10-12 14:14] LABS: HCG QUANTITATIVE < 1.0 mIU/mL
[2023-10-12] MEDS: Sodium Chloride 0.9% 10 ML Syringe FLUSH PRN (15:03)
[2023-10-12] MEDS: Iopamidol 612 MG/ML 30 ML SDV IVPUSH ONE (15:03)
[2023-10-12] MEDS: diphenhydrAMINE 50 MG/ML SDV IVPUSH ONE (15:05)
[2023-10-12] MEDS: Lactated Ringers 1,000 ML IV ONE (15:05)
[2023-10-12] MEDS: Ketorolac 30 MG/ML SDV IVPUSH ONE (15:07)
[2023-10-12] MEDS: Ondansetron 4 MG/2 ML SDV IVPUSH ONE (15:08)
[2023-10-12 15:31] LABS: APPEARANCE,URINE CLEAR (Clear); BILIRUBIN,URINE 2+ (Negative); COLOR,URINE YELLOW (Yellow); GLUCOSE,URINE NEGATIVE (Negative); KETONES,URINE 4+ (Negative); LEUKOCYTE ESTERASE,URINE NEGATIVE (Negative); NITRITE,URINE NEGATIVE (Negative); OCCULT BLOOD,URINE TRACE-LYSED (Negative); PH,URINE 5.5 (5.0-8.0); PROTEIN,URINE 1+ (Negative)
[2023-10-12 16:23] LABS: BACTERIA,URINE FEW /hpf (FEW); MUCUS,URINE MANY /hpf (FEW); SQUAMOUS EPITHELIAL CELLS,UR 0-5 /hpf (0-5)
[2023-10-12] MEDS: SUMAtriptan 6 MG/0.5 ML SDV SUBCUT ONE (16:56)
[2023-10-12] MEDS: SUMAtriptan 6 MG/0.5 ML SDV ONE (16:56)
[2023-10-12] MEDS: Azithromycin 250 MG Tab PO STA (16:58)
[2023-10-12] MEDS: Azithromycin 250 MG Tab ONE (16:58)
[2023-10-12 18:52] VITALS: BP 148/89; PULSE 90
== END 2023-10-12 18:11 | disposition home or self-care (01) ==
LOC: JD.ED 12:20
DX: K52.9 Noninfective gastroenteritis and colitis, unspecified (principal); G43.909 Migraine, unspecified, not intractable, without status migrainosus; E66.9 Obesity, unspecified; Z68.41 Body mass index [BMI] 40.0-44.9, adult; Z88.1 Allergy status to other antibiotic agents; Z91.018 Allergy to other foods; Z88.8 Allergy status to other drugs, medicaments and biological substances; Z79.899 Other long term (current) drug therapy; Z86.16 Personal history of COVID-19
CPT/HCPCS: 36415; 74177; 80053; 81001; 83690; 84702; 85025; 96361; 96372; 96374; 96375; 99284; A9270; J1200; J1885; J2405; J3030; J3490; J7120; Q9967

== ENCOUNTER 2024-10-07 15:30 | Emergency (ER) | payer MEDICAID ==
[2024-10-07 16:04] LABS: APPEARANCE,URINE CLEAR (Clear); BILIRUBIN,URINE 1+ (Negative); COLOR,URINE YELLOW (Yellow); GLUCOSE,URINE NEGATIVE (Negative); KETONES,URINE TRACE (Negative); LEUKOCYTE ESTERASE,URINE TRACE (Negative); NITRITE,URINE NEGATIVE (Negative); OCCULT BLOOD,URINE 2+ (Negative); PROTEIN,URINE TRACE (Negative); UROBILINOGEN,URINE 0.2 (0.2-1.0)
[2024-10-07 16:09] LABS: BASOPHILS ABSOLUTE AUTO 0.1 K/mm3 (0.0-0.2); EOSINOPHILS ABSOLUTE AUTO 0.3 K/mm3 (0.0-0.4); HEMATOCRIT 37.2 % (37.0-47.0); HEMOGLOBIN 12.9 gm/dl (12.0-16.0); IMMATURE GRAN ABSOLUTE AUTO 0.04 K/mm3 (0.00-0.05); IMMATURE GRAN PERCENT AUTO 0.4 % (0.0-0.4); LYMPHOCYTES ABSOLUTE AUTO 2.3 K/mm3 (1.0-4.8); LYMPHOCYTES PERCENT AUTO 22.2 % (24.0-44.0); MEAN CORPUSCULAR HEMOGLOBIN 29.4 pg (28.0-32.0); MEAN CORPUSCULAR HGB CONC 34.7 g/dl (32.0-36.0); MEAN CORPUSCULAR VOLUME 84.7 fl (83.0-99.0); MEAN PLATELET VOLUME 8.6 fl (9.4-12.3); MONOCYTES ABSOLUTE AUTO 0.6 K/mm3 (0.0-0.8); MONOCYTES PERCENT AUTO 5.9 % (0.0-8.0); NEUTROPHILS ABSOLUTE AUTO 7.1 K/mm3 (1.8-7.7); NEUTROPHILS PERCENT AUTO 67.5 % (41.0-71.0); PLATELET COUNT,PLT 287 K/mm3 (150-400); RED BLOOD CELL COUNT 4.39 M/mm3 (4.10-5.30); WHITE BLOOD CELL COUNT,WBC 10.46 K/mm3 (3.9-11.3)
[2024-10-07 16:13] LABS: BACTERIA,URINE FEW /hpf (FEW); EPITHELIAL CELLS,URINE 0-5 /hpf (0-5); MUCUS,URINE MANY /hpf (FEW); RBC,URINE 0-5 /hpf (0-5)
[2024-10-07 16:37] LABS: A/G RATIO 1.2 (1-2); ALANINE AMINOTRANSFERASE,ALT 40 U/L (14-59); ALBUMIN 4.1 g/dl (3.4-5.0); ALKALINE PHOSPHATASE 54 U/L (46-116); ANION GAP 13.5 (5-15); ASPARTATE AMNIOTRANSFERASE,AST 21 U/L (15-37); BILIRUBIN TOTAL 0.8 mg/dL (0.2-1.0); BLOOD UREA NITROGEN,BUN 11 mg/dL (7-18); CALCIUM 9.3 mg/dL (8.5-10.1); CARBON DIOXIDE,CO2 26 mEq/L (21-32); CHLORIDE,CL 104 mEq/L (98-107); EST CRCL DRUG DOSING (CG) 63.29 mL/min; ESTIMATED GFR 76 mL/min (>60); GLUCOSE RANDOM 78 mg/dL (70-99); POTASSIUM,K 3.5 mEq/L (3.5-5.1); PROTEIN TOTAL,TP 7.6 g/dl (6.4-8.2); SODIUM,NA 140 mEq/L (136-145); TSH 3.243 uIU/mL (0.358-3.74)
[2024-10-07 16:44] LABS: HCG QUANTITATIVE < 1.0 mIU/mL
[2024-10-07] MEDS: Acetaminophen 325 MG Tab PO ONE (17:38)
[2024-10-07] MEDS: Ondansetron 4 MG Tab.DIS PO ONE (18:34)
[2024-10-07 18:36] VITALS: BP 129/83; PULSE 93
== END 2024-10-07 18:38 | disposition home or self-care (01) ==
LOC: JD.ED 15:30
DX: N92.1 Excessive and frequent menstruation with irregular cycle (principal); J45.909 Unspecified asthma, uncomplicated; E66.9 Obesity, unspecified; Z88.8 Allergy status to other drugs, medicaments and biological substances; Z79.899 Other long term (current) drug therapy; Z86.16 Personal history of COVID-19; Z90.49 Acquired absence of other specified parts of digestive tract
CPT/HCPCS: 36415; 76856; 80053; 81001; 84443; 84702; 85025; 87086; 99284; A9270; 99283